=== PATIENT | female | born 1960 | race Caucasian/White ===

== ENCOUNTER 2018-05-28 11:27 | Inpatient (IN) ==
[2018-05-28] MEDS ORDERED: Sod Chloride 0.9% Inj 1,000 ML IV.SIG ONE (12:06)
[2018-05-28] MEDS ORDERED: Morphine Sulfate Inj 8 MG/ML Vial IV.PUSH ONE (12:09)
--- NOTE | 2018-05-28 12:26 | ED ---
HPI General Chief Complaint: Abdominal Pain Stated Complaint: ABD pain Time Seen by Provider: 05/28/18 11:52 Source: patient Mode of arrival: ambulatory Limitations: no limitations History of Present Illness HPI narrative: Patient is a 58-year-old female that presents with a CC of upper abdominal pain. The pain started three weeks ago and per patient report it has been constant. The pain is located epigastrically and seems to wrap around the rib cage and radiates to the back. The patient denies any radiation to the left or right arm. The patient describes the pain as sharp and rates the pain as a 8/ 10 on a pain scale with 1 representing no pain and 10 representing the worst pain. The patient states that the pain is much stronger than the pain she usually experiences due to her history of fibromyalgia. The patient states that she becomes short of breath during the intense episodes but she denies cough. The patient states the she has had fluctuating bowel movements of both constipation and diarrhea. She denies hematochezia. Patient also complains of lower leg weakness. Per patient she has not been able to walk 3 weeks. Per patient she is on the [facility] in For the past 3 weeks. She states that she might have fallen when she was at the facility but she is not sure. She states that she does not have any pain to her lower legs which she cannot walk on them anymore. Per patient she is to use a walker. No other medical issues at this time. Per patient she was recently admitted to a hospital secondary to sepsis and was in a "induced coma"secondary to the sepsis and was later released to the facility. She does have a history of polysubstance abuse per the records from the [facility] and she came positive for cocaine, benzos and opiates. She chronically takes Percocet 3 times a day. Related Data Allergies Allergy/AdvReac Type Severity Reaction Status Date / Time No Known Allergies Allergy Uncoded 05/11/14 14:22 [facility], [facility] Medical History Medical History Hypertension (Acute) Pneumonia (Acute) Social History Social History Substance History: No History of Abuse Second Hand Smoke Exposure: No Smoking Status: Former smoker Tobacco Type: Cigarettes How Often Do You Have a Drink Containing Alcohol: 2 to 4 times a month Recent Travel in [facility] within the Last 8 Weeks: No Recent Out of Country Travel within the Last 8 Weeks: No Exam Narrative Exam Narrative: GENERAL: Well appearing SKIN: Focused skin assessment warm/dry. HEAD: Atraumatic. Normocephalic. EYES: Pupils equal and round. No scleral icterus. No injection or drainage. ENT: No nasal bleeding or discharge. Mucous membranes pink and moist. Tongue is midline. No uvula deviation. NECK: Trachea midline. No JVD. CARDIOVASCULAR: Regular rate and rhythm. No murmur appreciated. RESPIRATORY: No accessory muscle use. Clear to auscultation. Breath sounds equal bilaterally. GASTROINTESTINAL: Abdomen soft, depressible pain in the epigastric area., nondistended. Hepatic and splenic margins not palpable. MUSCULOSKELETAL: No obvious deformities. No clubbing. No cyanosis. No edema. Full range of motion of the upper extremities bilaterally. 2+ pulses bilaterally. Patient cannot move the lower legs at all. Patient will not and cannot raise them up on her own. She does appear to have some sensation especially to pain. 2+ pulses bilaterally in the lower extremities. No obvious lumbar, thoracic, cervical spine tenderness to palpation. NEUROLOGICAL: Awake and alert. No obvious cranial nerve deficits. Motor grossly within normal limits. Normal speech. PSYCHIATRIC: Appropriate mood and affect; insight and judgment normal. Course Initial Documented Vital Signs Temperature 98.3 F 05/28/18 11:40 Pulse Rate 112 H 05/28/18 11:40 Respiratory Rate 20 05/28/18 11:40 Blood Pressure 120/58 L 05/28/18 11:40 Pulse Oximetry 98 05/28/18 11:40 Last Documented Vital Signs Temperature 98.3 F 05/28/18 11:40 Pulse Rate 95 H 05/28/18 14:41 Respiratory Rate 18 05/28/18 14:41 Blood Pressure 108/62 05/28/18 14:41 Pulse Oximetry 95 05/28/18 14:41 Medical Decision Making SILVIO Attestation SILVIO supervised visit: Yes Attestation: The history, exam, and medical decision-making in the associated mid-level provider note were completed with my assistance. I reviewed and agree with the findings presented. I attest that I had a [id number] encounter with the patient on the same day, and personally performed and documented my assessment and findings in the medical record. *My assessment and Findings: 58-year-old woman, here with abdominal bloating and back pain ongoing for the past several weeks, states she cannot lift her legs. On exam she does have upper motor neuron disease beats of clonus. Sensory deficits. She still has some motor and she is able to withdraw from pain. She states is been ongoing for weeks and she is in a nursing facility for difficulty walking. History of drug use in the past. CT scan confirms compressive cord lesion, osteomyelitis versus may be malignancy. Will discuss with neurosurgery, admission. [facility] Narrative Medical decision making narrative: 58-year-old female that presents to the ED for evaluation of lower leg weakness and abdominal pain. Patient was properly examined and was found to have signs and symptoms concerning for cord compression versus fracture. Apparently she did had a mechanical fall and could have a fracture on her back. She does appear to be tachycardic on exam. Labs and imaging were ordered. Per patient she is now been ambulating at all for the past 3 weeks and used to be able to walk with a walker. My attending Dr. Betancur evaluated the patient himself and agrees with plan. He recommends CTs at this time as patient does have a pacemaker placed last week. I am trying to get the records from the patient's admission to [facility] as this was not brought with the patient. Patient was given pain medication IV. Labs and imaging showed what appears to be acute osteomyelitis of the T7 and T8 area with what appears to be cord compression. This appears to be new. It appears to be infectious per radiology report. No PE. My attending was made aware of findings and he recommends speaking with neurosurgery. I spoke with Dr. Oliver over the phone who came and evaluated the patient he will evaluate to see whether patient will require surgery. Patient will be started IV antibiotics. Case discussed with Dr. العراقي who agrees admission to his service. Medical Screen Exam Complete: Yes Emergency Medical Condition: Yes Differential Diagnosis Differential Diagnosis: Cord compression versus fracture versus acute abdomen versus diverticulitis versus pancreatitis versus gallbladder disease versus PE versus chest pain versus typical chest pain versus neuropathy versus radiculopathy Medical Records Medical records reviewed: Yes I reviewed the patient's medical records. Lab Data Lab results reviewed: Yes I reviewed the patient's lab results. Result diagrams: 05/28/18 12:51 05/28/18 12:51 Lab Results 05/28/18 05/28/18 05/28/18 Range/Units 12:51 12:51 12:51 WBC 7.4 (4.0-11.0) th/mm3 RBC 3.28 L (4.00-5.30) mil/mm3 Hgb 8.9 L (11.6-15.3) gm/dL Hct 26.6 L (35.0-46.0) % MCV 81.1 (80.0-100.0) fL MCH 27.1 (27.0-34.0) pg MCHC 33.5 (32.0-36.0) % RDW 16.2 (11.6-17.2) % Plt Count 297 (150-450) th/mm3 MPV 8.5 (7.0-11.0) fL Neut % (Auto) 57.7 (16.0-70.0) % Lymph % (Auto) 27.2 (9.0-44.0) % [place] % (Auto) 12.9 H (0.0-8.0) % Eos % (Auto) 1.2 (0.0-4.0) % Baso % (Auto) 1.0 (0.0-2.0) % Neut # (Auto) 4.3 (1.8-7.7) th/mm3 Lymph # (Auto) 2.0 (1.0-4.8) th/mm3 [place] # (Auto) 1.0 H (0.0-0.9) th/mm3 Eos # (Auto) 0.1 (0.0-0.4) th/mm3 Baso # (Auto) 0.1 (0.0-0.2) th/mm3 WBC Differential . Differential Comment Auto diff final PT 10.3 (9.8-11.6) sec INR 1.0 Ratio APTT 28.0 (24.3-30.1) sec D-Dimer Quant (PE/DVT) 2.54 H (0.00-0.50) mg/L FEU Sodium (136-145) meq/L Potassium (3.5-5.1) meq/L Chloride (98-107) meq/L Carbon Dioxide (21.0-32.0) meq/L Anion Gap (5-15) meq/L BUN (7-18) mg/dL Creatinine (0.50-1.00) mg/dL Estimated GFR (>89) mL/min Random Glucose (74-106) mg/dL Lactic Acid 0.9 (0.4-2.0) mmol/L Calcium (8.5-10.1) mg/dL Total Bilirubin (0.2-1.0) mg/dL AST (15-37) U/L ALT (10-53) U/L Alkaline Phosphatase (45-117) U/L Total Creatine Kinase (26-192) U/L Troponin I (0.02-0.05) ng/mL Total Protein (6.4-8.2) g/dL Albumin (3.4-5.0) g/dL Lipase (73-393) U/L Urine Color (Yellw/Straw) Urine Clarity (Clear) Urine pH (5.0-8.5) Ur Specific Una (1.002-1.035) Urine Protein (Neg-Trace) mg/dL Urine Glucose (UA) (Negative) mg/dL Urine Ketones (Negative) mg/dL Urine Occult Blood (Negative) Urine Nitrate (Negative) Urine Bilirubin (Negative) Urine Urobilinogen (Less than 2) mg/dL Ur Leukocyte Esterase (Negative) Urine RBC (0-3) /hpf Urine WBC (0-5) /hpf Ur Squamous Epith Cells (0-5) /hpf Urine Bacteria (None) /hpf Micro UA Comment Ur Microscopic Review Urine Culture Comments 05/28/18 05/28/18 Range/Units 12:51 13:00 WBC (4.0-11.0) th/mm3 RBC (4.00-5.30) mil/mm3 Hgb (11.6-15.3) gm/dL Hct (35.0-46.0) % MCV (80.0-100.0) fL MCH (27.0-34.0) pg MCHC (32.0-36.0) % RDW (11.6-17.2) % Plt Count (150-450) th/mm3 MPV (7.0-11.0) fL Neut % (Auto) (16.0-70.0) % Lymph % (Auto) (9.0-44.0) % [place] % (Auto) (0.0-8.0) % Eos % (Auto) (0.0-4.0) % Baso % (Auto) (0.0-2.0) % Neut # (Auto) (1.8-7.7) th/mm3 Lymph # (Auto) (1.0-4.8) th/mm3 [place] # (Auto) (0.0-0.9) th/mm3 Eos # (Auto) (0.0-0.4) th/mm3 Baso # (Auto) (0.0-0.2) th/mm3 WBC Differential Differential Comment PT (9.8-11.6) sec INR Ratio APTT (24.3-30.1) sec D-Dimer Quant (PE/DVT) (0.00-0.50) mg/L FEU Sodium 138 (136-145) meq/L Potassium 3.8 (3.5-5.1) meq/L Chloride 103 (98-107) meq/L Carbon Dioxide 23.8 (21.0-32.0) meq/L Anion Gap 11 (5-15) meq/L BUN 11 (7-18) mg/dL Creatinine 0.98 (0.50-1.00) mg/dL Estimated GFR 58 L (>89) mL/min Random Glucose 86 (74-106) mg/dL Lactic Acid (0.4-2.0) mmol/L Calcium 8.3 L (8.5-10.1) mg/dL Total Bilirubin 0.2 (0.2-1.0) mg/dL AST 21 (15-37) U/L ALT 14 (10-53) U/L Alkaline Phosphatase 85 (45-117) U/L Total Creatine Kinase 37 (26-192) U/L Troponin I Less than 0.02 L (0.02-0.05) ng/mL Total Protein 7.9 (6.4-8.2) g/dL Albumin 2.3 L (3.4-5.0) g/dL Lipase 86 (73-393) U/L Urine Color Yellow (Yellw/Straw) Urine Clarity Cloudy H (Clear) Urine pH 6.0 (5.0-8.5) Ur Specific Una 1.012 (1.002-1.035) Urine Protein Negative (Neg-Trace) mg/dL Urine Glucose (UA) Negative (Negative) mg/dL Urine Ketones Negative (Negative) mg/dL Urine Occult Blood Negative (Negative) Urine Nitrate Negative (Negative) Urine Bilirubin Negative (Negative) Urine Urobilinogen Less than 2 (Less than 2) mg/dL Ur Leukocyte Esterase Trace H (Negative) Urine RBC 3 (0-3) /hpf Urine WBC 6 H (0-5) /hpf Ur Squamous Epith Cells 41 (0-5) /hpf Urine Bacteria Rare H (None) /hpf Micro UA Comment Cath-culture ind Ur Microscopic Review Not Reportable Urine Culture Comments Cath-cult indicated Imaging Data Attestation: I personally reviewed and interpreted this imaging study as follows : Radiologist's impression: Chest X-Ray 05/28/18 12:06 CONCLUSION: Hypoaerated lungs. No evidence of acute cardiopulmonary process. Pacemaker and right upper extremity PICC line noted in place. Abdomen/Pelvis CT 05/28/18 12:11 CONCLUSION: 1. Bibasilar reactive pleural thickening and small effusions with compressive atelectasis as described. 2. Paraspinal reactive changes in the mid to lower thoracic spine. 3. Mild intestinal ileus without pathologic distention. 4. No other evidence of acute process in the abdomen or pelvis. Cervical Spine CT 05/28/18 13:18 CONCLUSION: 1. Degenerative disc disease and facet arthropathy as described. 2. No evidence of acute abnormality. Lumbar Spine CT 05/28/18 13:18 CONCLUSION: 1. Degenerative listhesis at L4-5 secondary to facet arthropathy. 2. No evidence of acute process, disc herniation or soft tissue inflammatory disease. Thoracic Spine CT 05/28/18 13:18 CONCLUSION: 1. Destructive process involving the T5-6 intervertebral disc, T6-7 intervertebral disc, T6 vertebral body and T7 vertebral body characteristic of discitis and osteomyelitis. An acute kyphotic deformity has developed secondary to compression deformity of the T6 and T7 vertebral bodies. 2. Significant compromise of the central spinal canal at T6-7 is noted. There is material body fragmentation with calcific densities extending into the spinal canal. Significant spinal cord compression is suspected. 3. Otherwise intact thoracic spine. Chest CTA 05/28/18 13:41 CONCLUSION: 1. No evidence of pulmonary embolism. 2. Destructive osseous process involving the T6 and T7 vertebral bodies with complete obliteration of the T6-7 intervertebral disc and significant paraspinal reactive changes. Osteomyelitis and discitis should be considered as a primary cause. 3. Small bilateral pleural effusions and peripheral consolidating airspace disease in both lower lobes. Discharge Plan Discharge Disposition Patient Disposition: 30 Still Patient Discharge Details Diagnosis: Osteomyelitis Physicians Team ED Provider: Armen Betancur ED Midlevel Provider: Jose Hernandez Primary Care Provider: Primary Care Michelle Eng Attending Provider: Vivek العراقي Discharge Interventions Interventions: Vital Signs Last Done: 05/28/18 14:41 Status ED Status: With Doctor
[2018-05-28] MEDS ORDERED: HYDROmorphone PF Inj 2 MG/ML Vial IV.PUSH ONE (13:11)
[2018-05-28 13:16] LABS: Baso # (Auto) 0.1 th/mm3 (0.0-0.2); Eos # (Auto) 0.1 th/mm3 (0.0-0.4); Eos % (Auto) 1.2 % (0.0-4.0); Hematocrit 26.6 % (35.0-46.0); Hemoglobin 8.9 gm/dL (11.6-15.3); Lymph % (Auto) 27.2 % (9.0-44.0); Mean Corpuscular HGB Conc 33.5 % (32.0-36.0); Mean Corpuscular Hemoglobin 27.1 pg (27.0-34.0); Mean Corpuscular Volume 81.1 fL (80.0-100.0); Mean Platelet Volume 8.5 fL (7.0-11.0); Mono % (Auto) 12.9 % (0.0-8.0); Neut # (Auto) 4.3 th/mm3 (1.8-7.7); Neut % (Auto) 57.7 % (16.0-70.0); Platelet Count 297 th/mm3 (150-450); Red Blood Count 3.28 mil/mm3 (4.00-5.30); Red Cell Distribution Width 16.2 % (11.6-17.2); White Blood Count 7.4 th/mm3 (4.0-11.0)
--- NOTE | 2018-05-28 13:18 | XR ---
EXAM DATE: 05/28/2018 1:05 PM EDT AGE/SEX: 58 years / Female INDICATIONS: Short of breath, lower chest pain, upper abdomen pain, distended abdomen and back pain CLINICAL DATA: This is the patient's initial encounter. Patient reports that signs and symptoms have been present for 4 - 6 days and indicates a pain score of 10/10. MEDICAL/SURGICAL HISTORY: Cardiovascular disease. Pacemaker. COMPARISON: No prior exams available for comparison. FINDINGS: Lungs are hypoaerated but otherwise clear. There is no significant airspace disease or evidence of ac mauricio congestion. Heart and mediastinal structures are unremarkable. Cardiac pacemaker and right upper extremity PICC line are noted in place. CONCLUSION: Hypoaerated lungs. No evidence of acute cardiopulmonary process. Pacemaker and right upper extremity PICC line noted in place. Electronically signed by: Syed Monge MD 05/28/2018 1:16 PM EDT
[2018-05-28 13:30] LABS: Prothrombin Time 10.3 sec (9.8-11.6)
[2018-05-28 13:32] LABS: Alanine Aminotransferase 14 U/L (10-53); Albumin 2.3 g/dL (3.4-5.0); Anion Gap 11 meq/L (5-15); Aspartate Aminotransferase 21 U/L (15-37); Blood Urea Nitrogen 11 mg/dL (7-18); Calcium 8.3 mg/dL (8.5-10.1); Carbon Dioxide 23.8 meq/L (21.0-32.0); Chloride 103 meq/L (98-107); Glomerular Filtration Rate 58 mL/min (>89); Glucose,Random 86 mg/dL (74-106); Lipase 86 U/L (73-393); Potassium 3.8 meq/L (3.5-5.1); Sodium 138 meq/L (136-145)
[2018-05-28 13:35] LABS: D-Dimer 2.54 mg/L FEU (0.00-0.50)
[2018-05-28 13:37] LABS: Alkaline Phosphatase 85 U/L (45-117); Creatine Kinase 37 U/L (26-192); Total Protein 7.9 g/dL (6.4-8.2)
[2018-05-28 13:51] LABS: Bacteria,Urine Rare /hpf; Bilirubin,Urine Negative (Negative); Clarity,Urine Cloudy (Clear); Color,Urine Yellow (Yellw/Straw); Glucose,Urine (UA) Negative (Negative); Leukocyte Esterase,Urine Trace (Negative); Nitrite,Urine Negative (Negative); Specific Gravity,Urine 1.012 (1.002-1.035); Squamous Epithelial Cell,Urine 41 /hpf (0-5)
[2018-05-28] MEDS ORDERED: HYDROmorphone PF Inj 0.5 MG/0.5 ML Syringe IV.PUSH ONE (14:36)
--- NOTE | 2018-05-28 14:53 | CT ---
EXAM DATE: 05/28/2018 2:40 PM EDT AGE/SEX: 58 years / Female INDICATIONS: Upper abdomen and back pain for 3 weeks CLINICAL DATA: This is the patient's initial encounter. Patient reports that signs and symptoms have been present for 3 weeks and indicates a pain score of 5/10. MEDICAL/SURGICAL HISTORY: Hypertension. None. RADIATION DOSE: 8.89 CTDI (mGy) ; Combined studies COMPARISON: No prior exams available for comparison. TECHNIQUE: Volumetric scanning was performed using a multi-row detector CT scanner during bolus infu roc of 100 ml Omnipaque 350 (iohexol) nonionic water-soluble contrast as a cumulative dose for mult iple exams. The data was post processed with a variety of visualization algorithms including full vol ume maximum intensity projection and sliding thin slab reformation. Using automated exposure control and adjustment of the mA and/or kV according to patient size, radiation dose was kept as low as reaso nably achievable to obtain optimal diagnostic quality images. DICOM format image data is available e lectronically for review and comparison. FINDINGS: Pulmonary Arteries: No filling defects are seen in the pulmonary arteries out to the subsegmental ve ssels. The left and right pulmonary arteries are normal in diameter. Lung: Peripheral lung consolidation is seen along both lower lobes. Effusion: Small bilateral effusions are noted. Mediastinum: No evidence of mediastinal or hilar adenopathy. Other: Collapse and cortical destruction is identified of the T6 and T7 vertebral bodies. The T6-7 i ntervertebral disc is completely obliterated. There is significant paraspinal soft tissue swelling. T he inflammatory or reactive process completely encases the descending thoracic aorta. It appears to b e involving the mediastinum. CONCLUSION: 1. No evidence of pulmonary embolism. 2. Destructive osseous process involving the T6 and T7 vertebral bodies with complete obliteration o f the T6-7 intervertebral disc and significant paraspinal reactive changes. Osteomyelitis and disciti s should be considered as a primary cause. 3. Small bilateral pleural effusions and peripheral consolidating airspace disease in both lower lob es. Electronically signed by: Syed Monge MD 05/28/2018 2:52 PM EDT
--- NOTE | 2018-05-28 14:59 | CT ---
EXAM DATE: 05/28/2018 2:44 PM EDT AGE/SEX: 58 years / Female INDICATIONS: Upper abdomen and back pain for 3 weeks CLINICAL DATA: This is the patient's initial encounter. Patient reports that signs and symptoms have been present for 3 weeks and indicates a pain score of 5/10. MEDICAL/SURGICAL HISTORY: Hypertension. Pacemaker. RADIATION DOSE: 18 CTDI (mGy) COMPARISON: No prior exams available for comparison. TECHNIQUE: Contiguous axial images were obtained using helical multirow detector technique. The vol umetric data was post-processed with multiplanar reconstruction in oblique axial, sagittal, and coron al planes. Using automated exposure control and adjustment of the mA and/or kV according to patient s ize, radiation dose was kept as low as reasonably achievable to obtain optimal diagnostic quality chi ges. DICOM format image data is available electronically for review and comparison. FINDINGS: ALIGNMENT: Mild anterolisthesis is noted of C3 on C4 and C4 on C5. Craniocervical and vertebral body alignment is otherwise well-maintained.. FACET AND OSSEOUS STRUCTURES: Vertebral body height is well-maintained. There is no evidence of acut e fracture, or destructive changes. Moderate facet arthropathy is identified throughout the cervical spine. INTERVERTEBRAL DISC SPACES: Degenerative disc disease ranging from mild to moderately severe is noted. C2-3: Unremarkable. C3-4: Unremarkable. C4-5 mild degenerative disc disease with mild marginal disc osteophyte complex. There is mild foramin al encroachment but no evidence of disc herniation or spinal stenosis. C5-6: Moderately severe degenerative disc disease with collapse of the disc and endplate sclerosis. T here is marginal spondylosis. Mild posterior broad-based disc osteophyte complex with mild epidural e ffacement is noted. There is no evidence of disc herniation. C6-7: Mild degenerative disc disease without evidence of disc herniation, foraminal encroachment or s talha stenosis. C7-T1: Unremarkable. NEUROLOGIC STRUCTURES: The spinal cord and nerve roots appear normal. There is no evidence of keely roc. . CONCLUSION: 1. Degenerative disc disease and facet arthropathy as described. 2. No evidence of acute abnormality. Electronically signed by: Syed Monge MD 05/28/2018 2:57 PM EDT
--- NOTE | 2018-05-28 15:01 | CT ---
EXAM DATE: 05/28/2018 2:56 PM EDT AGE/SEX: 58 years / Female INDICATIONS: Upper abdomen and back pain CLINICAL DATA: This is the patient's initial encounter. Patient reports that signs and symptoms have been present for 3 weeks and indicates a pain score of 5/10. MEDICAL/SURGICAL HISTORY: Hypertension. Pacemaker. RADIATION DOSE: . CTDI (mGy) ; Reconstructed from previous dataset, no dose COMPARISON: No prior exams available for comparison. TECHNIQUE: Contiguous axial images were acquired with a multirow detector CT scanner after intraveno us administration of 100 ml Omnipaque 350 (iohexol) nonionic water-soluble contrast as a cumulative dose for multiple exams. Multiplanar reconstructions in the sagittal and coronal plane were also per formed. Using automated exposure control and adjustment of the mA and/or kV according to patient size , radiation dose was kept as low as reasonably achievable to obtain optimal diagnostic quality images . DICOM format image data is available electronically for review and comparison. FINDINGS: ALIGNMENT: Mild anterolisthesis is noted of L4 and L5. Vertebral body alignment and lordosis are oth erwise well-maintained. FACET AND OSSEOUS STRUCTURES: Vertebral body height is well-maintained. There is no evidence of acut e fracture, or destructive changes. Moderate to severe facet arthropathy is noted at L4-5 and L5-S1. INTERVERTEBRAL DISC SPACES: Intervertebral disc are well-maintained without evidence of significant degenerative change. There is no evidence of disc herniation. NEUROLOGIC STRUCTURES: The spinal cord and nerve roots appear normal. There is no evidence of keely roc. CONCLUSION: 1. Degenerative listhesis at L4-5 secondary to facet arthropathy. 2. No evidence of acute process, disc herniation or soft tissue inflammatory disease. Electronically signed by: Syed Monge MD 05/28/2018 3:00 PM EDT
--- NOTE | 2018-05-28 15:08 | CT ---
EXAM DATE: 05/28/2018 2:48 PM EDT AGE/SEX: 58 years / Female INDICATIONS: Upper abdomen and back pain for 3 weeks CLINICAL DATA: This is the patient's initial encounter. Patient reports that signs and symptoms have been present for 3 weeks and indicates a pain score of 5/10. MEDICAL/SURGICAL HISTORY: Hypertension. Pacemaker. ORAL CONTRAST: No oral contrast ingested. RADIATION DOSE: 15.85 CTDI (mGy) ; Combined studies COMPARISON: No prior exams available for comparison. TECHNIQUE: Multiple contiguous axial images were obtained through the abdomen and pelvis following b olus infusion of 100 ml Omnipaque 350 (iohexol) nonionic water-soluble contrast as a cumulative dos e for multiple exams. No oral contrast ingested. Using automated exposure control and adjustment of the mA and/or kV according to patient size, radiation dose was kept as low as reasonably achievable t o obtain optimal diagnostic quality images. DICOM format image data is available electronically for review and comparison. FINDINGS: Lower Lungs: Reactive pleural thickening with small bilateral effusions and underlying compressive at electasis is noted in both bases. There is significant paraspinal reactive changes in the mid to lowe r thoracic spine. Liver: The liver has a homogeneous density without space-occupying lesion. There is no dilation of th e biliary tree. Spleen: Homogeneous density without enlargement. Small calcified granulomas are noted. Pancreas: Unremarkable without mass or calcification. Kidneys: Normal in size and shape. No evidence of mass or hydronephrosis. Adrenal Glands: Unremarkable. Aorta: The aorta and proximal iliac vessels are grossly unremarkable without aneurysmal dilation. Bowel/Mesentery: Air-fluid levels are identified in nondistended loops of small bowel. There is no e vidence of pathologic distention, extra intestinal fluid collections or free air. Abdominal Wall: Intact. Retroperitoneum: No evidence of adenopathy in the retrocrural, para-aortic, or deep pelvic regions. Bladder: Distended Reproductive Organs: No abnormal masses or calcifications seen. Inguinal: The inguinal region is unremarkable without evidence of adenopathy. Bony Structures: Unremarkable. CONCLUSION: 1. Bibasilar reactive pleural thickening and small effusions with compressive atelectasis as describ ed. 2. Paraspinal reactive changes in the mid to lower thoracic spine. 3. Mild intestinal ileus without pathologic distention. 4. No other evidence of acute process in the abdomen or pelvis. Electronically signed by: Syed Monge MD 05/28/2018 3:07 PM EDT
[2018-05-28] MEDS ORDERED: Piperacil/Tazo 4.5 GM Premix 4.5 GM/100 ML BAG IV.SIG ONE (15:11)
[2018-05-28] MEDS ORDERED: Vancomycin Inj 1 GM/200 ML PIGGYBACK IV.SIG ONE (15:11)
--- NOTE | 2018-05-28 15:16 | CT ---
EXAM DATE: 05/28/2018 3:06 PM EDT AGE/SEX: 58 years / Female INDICATIONS: Upper abdomen and back pain CLINICAL DATA: This is the patient's initial encounter. Patient reports that signs and symptoms have been present for 3 weeks and indicates a pain score of 5/10. MEDICAL/SURGICAL HISTORY: Hypertension. Pacemaker. RADIATION DOSE: . CTDI (mGy) ; Reconstructed from previous dataset, no dose COMPARISON: No prior exams available for comparison. TECHNIQUE: Contiguous axial images were acquired using a multirow detector CT scanner after intraven ous administration of 100 ml Omnipaque 350 (iohexol) nonionic water-soluble contrast as a cumulative dose for multiple exams. Multiplanar reconstruction in the sagittal and coronal planes was perform ed. Using automated exposure control and adjustment of the mA and/or kV according to patient size, r adiation dose was kept as low as reasonably achievable to obtain optimal diagnostic quality images. DICOM format image data is available electronically for review and comparison. FINDINGS: A destructive process with pathologic compression fractures of the T6 and T7 vertebral bodies is note d. The T6-7 intervertebral disc has been completely obliterated. Endplate destructive changes are als o noted along the inferior endplate of T5 with destructive changes involving the T5-6 intervertebral disc. An acute kyphotic deformity has developed at this level. Spiculated calcification or stenosis is fragmentation of the vertebral bodies extends posteriorly int o the spinal canal and appears to cause significant compromise of the spinal canal and spinal cord co mpression. Paraspinal reactive changes which encases the descending thoracic aorta and extend into the mediastin um are noted. Thoracic spine otherwise appears intact. CONCLUSION: 1. Destructive process involving the T5-6 intervertebral disc, T6-7 intervertebral disc, T6 vertebra l body and T7 vertebral body characteristic of discitis and osteomyelitis. An acute kyphotic deformit y has developed secondary to compression deformity of the T6 and T7 vertebral bodies. 2. Significant compromise of the central spinal canal at T6-7 is noted. There is material body fragm entation with calcific densities extending into the spinal canal. Significant spinal cord compression is suspected. 3. Otherwise intact thoracic spine. Electronically signed by: Syed Monge MD 05/28/2018 3:15 PM EDT
[2018-05-28] MEDS ORDERED: Vancomycin Inj 1,000 MG in Sodium Chlor 0.9% Inj 250 ML IV.SIG ONE (15:30)
[2018-05-28] MEDS ORDERED: Vancomycin Consult Pharmacy OTHER PRN (15:40)
[2018-05-28] MEDS ORDERED: Acetaminophen 325 MG Tablet PO PRN ×2 (15:42→15:43)
[2018-05-28] MEDS ORDERED: Naloxone Inj 0.4 MG/ML Vial IV.PUSH PRN (15:42)
[2018-05-28] MEDS ORDERED: Bisacodyl 10 MG Supp RECTAL PRN (15:43)
[2018-05-28] MEDS: HYDROmorphone PF Inj 1 MG/ML Ampul IV.PUSH PRN ×2 (17:46→21:23)
--- NOTE | 2018-05-28 17:46 | P.HP ---
History of Present Illness Primary Care Physician: No Primary Care Physician Chief Complaint: back pain History of Present Illness: This is a 58-year-old female with a history of hypertension, GERD, anemia, constipation, gout, fibromyalgia, chronic pain syndrome, anxiety, depression and migraine. She came from a local rehab facility where she was treated for generalized weakness, acute kidney injury and dehydration. She is also receiving IV Rocephin for pneumonia. 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 She also reports of sepsis secondary to pneumonia in January 2018 and was in a induced coma. She also history of polysubstance abuse UDS tested for cocaine, benzos and opiates. She presents to the emergency room because of upper back pain and bilateral lower extremity weakness. She reports of bilateral lower extremity weakness unable to get out of bed and ambulate for 2 weeks. At the same time she complained of constant sharp severe upper back pain worse with activity different from her usual neck and lower back pain. Denies recent fall. Denies numbness and incontinence. She also reports of upper abdominal discomfort which is sharp and constant worse with eating associated with abdominal distention. Denies UTI symptoms, constipation and diarrhea. In the emergency department, she was found to have destructive process involving T5-6 intervertebral disc, T6-7 intervertebral discs T6 vertebral body and T7 vertebral body characteristic of discitis and osteomyelitis. Also has a acute kyphotic deformity of T6 and T7 vertebral bodies. Discussed with neurosurgery, recommended IV antibiotics and IR consult for this biopsy. All other systems reviewed negative Inpatient Certification: I certify that the inpatient services were ordered in accordance with Medicare regulations governing the order. This includes certification that hospital inpatient services are reasonable and necessary and in the case of services not specified as inpatient-only under 42 CFR 419.22(n), that they are appropriately provided as inpatient services in accordance to with the 2-midnight benchmark under 43 CFR 412.3(e) Estimated Total Length of Stay (Days): 2 Plans for Post Hospital Care: SNF Review of Systems All other systems reviewed negative except as stated in HPI PMFSH - History History Provided By: Patient - Medical History Medical History: Medical History (Last Reviewed 05/28/18 @ 17:38 by Vivek العراقي MD) Hypertension Pneumonia - Surgical History Surgical History: Surgical History (Last Updated 05/28/18 @ 17:39 by Vivek العراقي MD) H/O tracheostomy History of carpal tunnel surgery - Family History Family History: Family History (Last Updated 05/28/18 @ 17:39 by Vivek العراقي MD) Other Family history of acute myocardial infarction - Tobacco History Second Hand Smoke Exposure: No Tobacco Use In Past 30 Days: No Smoking Status: Former smoker Tobacco Type: Cigarettes - Alcohol History How Often Do You Have a Drink Containing Alcohol: 2 to 4 times a month - Substance Use History Substance History: No History of Abuse - Travel History Recent Travel in the USA Within the Last 8 Weeks: No Recent Travel Out of the Country Within the Last 8 Weeks: No - Immunization History Tetanus Immunization: Unsure Hx Influenza Vaccine This Season: No Medications and Allergies Active Medications: Active Medications Acetaminophen (Tylenol) 650 mg PO Q6HR PRN PRN Reason: PAIN SCALE 1 TO 2 Acetaminophen (Tylenol) 650 mg PO Q4H PRN PRN Reason: Temp > 100.4 Hydrocodone Bitart/Acetaminophen ([place] 10/325) 1 tab PO Q4H PRN PRN Reason: PAIN SCALE 6 TO 10 Hydrocodone Bitart/Acetaminophen ([place] 5/325) 1 tab PO Q4H PRN PRN Reason: PAIN SCALE 3 TO 5 Al Hydroxide/Mg Hydroxide (Milk Of Magnesia Liq) 30 ml PO Q12H PRN PRN Reason: Mild Constipation Albuterol (Albuterol Neb (Prn)) 2.5 mg NEB Q2HR NEB PRN PRN Reason: SHORTNESS OF BREATH/WHEEZING Alprazolam (Xanax) 0.5 mg PO BID PRN PRN Reason: Anxiety Bisacodyl (Dulcolax Supp) 10 mg RECTAL DAILY PRN PRN Reason: SEVERE CONSITIPATION Duloxetine HCl (Cymbalta) 60 mg PO DAILY KATIE Famotidine (Pepcid) 20 mg PO BID KATIE Hydromorphone HCl (Dilaudid Pf Inj) 1 mg IV.PUSH Q3H PRN PRN Reason: BREAKTHROUGH PAIN Sodium Chloride (Ns Inj) 1,000 mls @ 100 mls/hr IV.CONT .Q10H KATIE Piperacillin/Tazobactam/Dextrose (Zosyn 3.375 Gm Premix) 50 mls @ 100 mls/hr IV.SIG Q6H KATIE Vancomycin HCl 1,750 mg/ (Sodium Chloride) 517.5 mls @ 250 mls/hr IV.SIG Q18H KATIE Lactulose (Lactulose Liq) 30 ml PO DAILY PRN PRN Reason: SEVERE CONSITIPATION Metoclopramide HCl (Reglan) 10 mg PO ACHS KATIE Miscellaneous Information ([facility] [place] [facility] Ordered Lab Info) 0 each OTHER ONCE ONE Stop: 05/30/18 23:46 Naloxone HCl (Narcan Inj) 0.4 mg IV.PUSH UNSCH PRN PRN Reason: SEE LABEL COMMENTS Non-Formulary Medication (Cyclobenzaprine [Cyclobenzaprine]) 5 mg PO TID PRN PRN Reason: Pain Ondansetron HCl (Zofran Inj) 4 mg IV.PUSH Q6H PRN PRN Reason: NAUSEA OR VOMITING Pharmacy Profile Note (Vancomycin Consult Pharmacy) 1 each OTHER UNSCH PRN PRN Reason: Pharmacy to dose Senna/Docusate Sodium (Sarahy-Colace) 1 tab PO BID [facility] Sennosides (Senokot) 17.2 mg PO Q12H PRN PRN Reason: Moderate Constipation Allergies Allergy/AdvReac Type Severity Reaction Status Date / Time No Known Allergies Allergy Uncoded 05/11/14 14:22 Home Medications Medication Instructions Recorded Confirmed Type acetaminophen 650 mg PO Q8H PRN 05/28/18 05/28/18 History alprazolam 0.5 mg PO BID PRN 05/28/18 05/28/18 History ceftriaxone 2 g IV Q24H 05/28/18 05/28/18 History cyclobenzaprine 5 mg PO TID PRN 05/28/18 05/28/18 History duloxetine 60 mg PO DAILY 05/28/18 05/28/18 History famotidine 20 mg PO BID 05/28/18 05/28/18 History oxycodone-acetaminophen [Percocet] 1 tab PO Q6H PRN 05/28/18 05/28/18 History Exam Vital signs: Vital Signs 05/28/18 11:40 05/28/18 11:43 05/28/18 14:41 Temperature 98.3 F Pulse Rate 112 H 102 H 95 H Respiratory Rate 20 18 18 Blood Pressure 120/58 L 117/57 L 108/62 Pulse Oximetry 98 97 95 05/28/18 16:24 Temperature Pulse Rate 93 H Respiratory Rate 18 Blood Pressure 105/63 Pulse Oximetry 97 Intake & Output 05/27/18 05/28/18 05/28/18 18:59 06:59 18:59 Weight 81.647 kg Narrative: GENERAL: Well-developed, well-nourished in no distress SKIN: Warm and dry. HEAD: Atraumatic. Normocephalic. EYES: Pupils equal and round. No scleral icterus. No injection or drainage. ENT: No nasal bleeding or discharge. Mucous membranes pink and moist. NECK: Trachea midline. No JVD. CARDIOVASCULAR: Regular rate and rhythm. RESPIRATORY: No accessory muscle use. Clear to auscultation. Breath sounds equal bilaterally. GASTROINTESTINAL: Abdomen soft, non-tender, nondistended. MUSCULOSKELETAL: Extremities without clubbing, cyanosis, or edema. No obvious deformities. She refused to roll over back not examined NEUROLOGICAL: Awake and alert. No obvious cranial nerve deficits. Normal speech. She has paraplegia PSYCHIATRIC: Appropriate mood and affect; insight and judgment normal. Results - Labs CBC & Chem 7: 05/28/18 12:51 05/28/18 12:51 Labs: Laboratory Results - last 24 hr 05/28/18 05/28/18 05/28/18 12:51 12:51 12:51 WBC 7.4 RBC 3.28 L Hgb 8.9 L Hct 26.6 L MCV 81.1 MCH 27.1 MCHC 33.5 RDW 16.2 Plt Count 297 MPV 8.5 Neut % (Auto) 57.7 Lymph % (Auto) 27.2 [place] % (Auto) 12.9 H Eos % (Auto) 1.2 Baso % (Auto) 1.0 Neut # (Auto) 4.3 Lymph # (Auto) 2.0 [place] # (Auto) 1.0 H Eos # (Auto) 0.1 Baso # (Auto) 0.1 WBC Differential . Differential Comment Auto diff final PT 10.3 INR 1.0 APTT 28.0 D-Dimer Quant (PE/DVT) 2.54 H Sodium Potassium Chloride Carbon Dioxide Anion Gap BUN Creatinine Estimated GFR Random Glucose Lactic Acid 0.9 Calcium Total Bilirubin AST ALT Alkaline Phosphatase Total Creatine Kinase Troponin I Total Protein Albumin Lipase Urine Color Urine Clarity Urine pH Ur Specific [place] Urine Protein Urine Glucose (UA) Urine Ketones Urine Occult Blood Urine Nitrate Urine Bilirubin Urine Urobilinogen Ur Leukocyte Esterase Urine RBC Urine WBC Ur Squamous Epith Cells Urine Bacteria Micro UA Comment Ur Microscopic Review Urine Culture Comments 05/28/18 05/28/18 12:51 13:00 WBC RBC Hgb Hct MCV MCH MCHC RDW Plt Count MPV Neut % (Auto) Lymph % (Auto) [place] % (Auto) Eos % (Auto) Baso % (Auto) Neut # (Auto) Lymph # (Auto) [place] # (Auto) Eos # (Auto) Baso # (Auto) WBC Differential Differential Comment PT INR APTT D-Dimer Quant (PE/DVT) Sodium 138 Potassium 3.8 Chloride 103 Carbon Dioxide 23.8 Anion Gap 11 BUN 11 Creatinine 0.98 Estimated GFR 58 L Random Glucose 86 Lactic Acid Calcium 8.3 L Total Bilirubin 0.2 AST 21 ALT 14 Alkaline Phosphatase 85 Total Creatine Kinase 37 Troponin I Less than 0.02 L Total Protein 7.9 Albumin 2.3 L Lipase 86 Urine Color Yellow Urine Clarity Cloudy H Urine pH 6.0 Ur Specific [place] 1.012 Urine Protein Negative Urine Glucose (UA) Negative Urine Ketones Negative Urine Occult Blood Negative Urine Nitrate Negative Urine Bilirubin Negative Urine Urobilinogen Less than 2 Ur Leukocyte Esterase Trace H Urine RBC 3 Urine WBC 6 H Ur Squamous Epith Cells 41 Urine Bacteria Rare H Micro UA Comment Cath-culture ind Ur Microscopic Review Not Reportable Urine Culture Comments Cath-cult indicated - Imaging Impressions Chest X-Ray 05/28/18 12:06 CONCLUSION: Hypoaerated lungs. No evidence of acute cardiopulmonary process. Pacemaker and right upper extremity PICC line noted in place. Abdomen/Pelvis CT 05/28/18 12:11 CONCLUSION: 1. Bibasilar reactive pleural thickening and small effusions with compressive atelectasis as described. 2. Paraspinal reactive changes in the mid to lower thoracic spine. 3. Mild intestinal ileus without pathologic distention. 4. No other evidence of acute process in the abdomen or pelvis. Cervical Spine CT 05/28/18 13:18 CONCLUSION: 1. Degenerative disc disease and facet arthropathy as described. 2. No evidence of acute abnormality. Lumbar Spine CT 05/28/18 13:18 CONCLUSION: 1. Degenerative listhesis at L4-5 secondary to facet arthropathy. 2. No evidence of acute process, disc herniation or soft tissue inflammatory disease. Thoracic Spine CT 05/28/18 13:18 CONCLUSION: 1. Destructive process involving the T5-6 intervertebral disc, T6-7 intervertebral disc, T6 vertebral body and T7 vertebral body characteristic of discitis and osteomyelitis. An acute kyphotic deformity has developed secondary to compression deformity of the T6 and T7 vertebral bodies. 2. Significant compromise of the central spinal canal at T6-7 is noted. There is material body fragmentation with calcific densities extending into the spinal canal. Significant spinal cord compression is suspected. 3. Otherwise intact thoracic spine. Chest CTA 05/28/18 13:41 CONCLUSION: 1. No evidence of pulmonary embolism. 2. Destructive osseous process involving the T6 and T7 vertebral bodies with complete obliteration of the T6-7 intervertebral disc and significant paraspinal reactive changes. Osteomyelitis and discitis should be considered as a primary cause. 3. Small bilateral pleural effusions and peripheral consolidating airspace disease in both lower lobes. Caprini VTE Risk Assessment Caprini VTE Risk Assessment: Moderate/High Risk (score >= 2) Caprini Risk Assessment Model: Point Value = 1 Point Value = 2 Point Value = 3 Point Value = 5 Age 41-60 Minor surgery BMI > 25 kg/m2 Swollen legs Varicose veins or History of unexplained or recurrent spontaneous Oral contraceptives or hormone replacement Sepsis (< 1 month) Serious lung disease, including pneumonia (< 1 month) Abnormal pulmonary function Acute myocardial infarction Congestive heart failure (< 1 month) History of inflammatory bowel disease Medical patient at bed rest Age 61-74 Arthroscopic surgery Major open surgery (> 45 min) Laparoscopic surgery (> 45 min) Malignancy Confined to bed (> 72 hours) Immobilizing plaster cast Central venous access Age >= 75 History of VTE Family history of VTE Factor V Leiden Prothrombin [id number] Lupus anticoagulant Anticardiolipin antibodies Elevated serum homocysteine Heparin-induced thrombocytopenia Other congenital or acquired thrombophilia Stroke (< 1 month) Elective arthroplasty Hip, pelvis, or leg fracture Acute spinal cord injury (< 1 month) Prophylaxis Regimen: Total Risk Factor Score Risk Level Prophylaxis Regimen 0-1 Low Early ambulation 2 Moderate Order ONE of the following: *Sequential Compression Device (SCD) *Heparin 5000 units SQ BID 3-4 Higher Order ONE of the following medications: *Heparin 5000 units SQ TID *Enoxaparin/Lovenox 40 mg SQ daily (WT < 150 kg, CrCl > 30 mL/min) *Enoxaparin/Lovenox 30 mg SQ daily (WT < 150 kg, CrCl > 10-29 mL/min) *Enoxaparin/Lovenox 30 mg SQ BID (WT < 150 kg, CrCl > 30 mL/min) AND/OR *Sequential Compression Device (SCD) 5 or more Highest Order ONE of the following medications: *Heparin 5000 units SQ TID (Preferred with Epidurals) *Enoxaparin/Lovenox 40 mg SQ daily (WT < 150 kg, CrCl > 30 mL/min) *Enoxaparin/Lovenox 30 mg SQ daily (WT < 150 kg, CrCl > 10-29 mL/min) *Enoxaparin/Lovenox 30 mg SQ BID (WT < 150 kg, CrCl > 30 mL/min) AND *Sequential Compression Device (SCD) Assessment and Plan - Plan This is a 58-year-old female with a history of hypertension, GERD, anemia, constipation, gout, fibromyalgia, chronic pain syndrome, PSA, anxiety, depression and migraine. She presents to the emergency room because of upper back pain and bilateral lower extremity weakness. She reports of bilateral lower extremity weakness unable to get out of bed and ambulate for 2 weeks. At the same time she complained of constant sharp severe upper back pain worse with activity different from her usual neck and lower back pain. Destructive process involving T5-6 intervertebral disc, T6-7 intervertebral discs T6 vertebral body and T7 vertebral body characteristic of discitis and osteomyelitis. Also has a acute kyphotic deformity of T6 and T7 vertebral bodies. Patient will be admitted for further evaluation and treatment. Case discussed with neurosurgery. Continue IV vancomycin and Zosyn. Follow-up blood cultures consider echocardiogram. Pain management with Percocet and IV Dilaudid counseled regarding narcotics. Obtain ESR and consult IR for biopsy. Consider infectious disease consult. Patient will remain on bedrest consult PT and orthotech for brace. Abdominal pain secondary to ileus and possible UTI. Lipase within normal limits. Scheduled Reglan. Patient will be on antibiotics as previously mentioned. Follow-up urine culture. Wound care. 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 Start pharmacological prophylaxis after biopsy ED nurse to complete med rec.
[2018-05-28] MEDS: Sod Chloride 0.9% Inj 1,000 ML IV.CONT SCH (17:47)
--- NOTE | 2018-05-28 17:56 | P.CONNS ---
History of Present Illness Service: ED Consult date: 05/28/18 Requesting Physician: Jose Hernandez Reason for Consult: paraplegia Primary Care Provider: No Primary Care Physician Chief Complaint: paraplegia History of Present Illness: 58yoF who has been unable to walk for 1-2 weeks, history unclear. Time course reconstructed from notes as patient's history on dates fluctuates. Seen at [facility] ~2 weeks ago with noted exam of 4/5 strength and some complaint of LE weakness. PICC line placed and patient treated for presumptive pneumonia, presumably Ceftriaxone. History of MRSA breast abscess in the past. Sometime in past two weeks, patient reports ~1 week ago, some notes say 2, she had difficulty rising. Has been unable to move legs since that time. Does have some sensation in the legs. A pacemaker was placed in the past few weeks due to bradycardia. Prior to that , an MRI Brain and CT L-spine were obtained at [facility], unrevealing. CT chest obtained in early April, showing no evidence of bony destruction in the thoracic spine. However, on today's scan, there is collapse of near complete collapse of T6/7 and retropulsion of bone with some extension to mediastinum. [facility] - History History Provided By: Patient - Medical History Medical History: Medical History (Last Reviewed 05/28/18 @ 17:38 by Vivek العراقي MD) Hypertension Pneumonia - Surgical History Surgical History: Surgical History (Last Updated 05/28/18 @ 17:39 by Vivek العراقي MD) H/O tracheostomy History of carpal tunnel surgery - Family History Family History: Family History (Last Updated 05/28/18 @ 17:39 by Vivek العراقي MD) Other Family history of acute myocardial infarction - Tobacco History Second Hand Smoke Exposure: No Tobacco Use In Past 30 Days: No Smoking Status: Former smoker Tobacco Type: Cigarettes - Alcohol History How Often Do You Have a Drink Containing Alcohol: 2 to 4 times a month - Substance Use History Substance History: No History of Abuse - Travel History Recent Travel in the [place] Within the Last 8 Weeks: No Recent Travel Out of the Country Within the Last 8 Weeks: No - Immunization History Tetanus Immunization: Unsure Hx Influenza Vaccine This Season: No Medications and Allergies Active Medications: Active Medications Acetaminophen (Tylenol) 650 mg PO Q6HR PRN PRN Reason: PAIN SCALE 1 TO 2 Acetaminophen (Tylenol) 650 mg PO Q4H PRN PRN Reason: Temp > 100.4 Al Hydroxide/Mg Hydroxide (Milk Of Magnesia Liq) 30 ml PO Q12H PRN PRN Reason: Mild Constipation Albuterol (Albuterol Neb (Prn)) 2.5 mg NEB Q2HR NEB PRN PRN Reason: SHORTNESS OF BREATH/WHEEZING Alprazolam (Xanax) 0.5 mg PO BID PRN PRN Reason: Anxiety Bisacodyl (Dulcolax Supp) 10 mg RECTAL DAILY PRN PRN Reason: SEVERE CONSITIPATION Cyclobenzaprine HCl (Flexeril) 5 mg PO TID PRN PRN Reason: MUSCLE PAIN Duloxetine HCl (Cymbalta) 60 mg PO DAILY KATIE Famotidine (Pepcid) 20 mg PO BID KATIE Hydromorphone HCl (Dilaudid Pf Inj) 1 mg IV.PUSH Q3H PRN PRN Reason: BREAKTHROUGH PAIN Sodium Chloride (Ns Inj) 1,000 mls @ 100 mls/hr IV.CONT .Q10H KATIE Piperacillin/Tazobactam/Dextrose (Zosyn 3.375 Gm Premix) 50 mls @ 100 mls/hr IV.SIG Q6H KATIE Vancomycin HCl 1,750 mg/ (Sodium Chloride) 517.5 mls @ 250 mls/hr IV.SIG Q18H KATIE Lactulose (Lactulose Liq) 30 ml PO DAILY PRN PRN Reason: SEVERE CONSITIPATION Metoclopramide HCl (Reglan) 10 mg PO ACHS KATIE Miscellaneous Information ([facility] [place] [place] [facility] Ordered Lab Info) 0 each OTHER ONCE ONE Stop: 05/30/18 23:46 Naloxone HCl (Narcan Inj) 0.4 mg IV.PUSH UNSCH PRN PRN Reason: SEE LABEL COMMENTS Ondansetron HCl (Zofran Inj) 4 mg IV.PUSH Q6H PRN PRN Reason: NAUSEA OR VOMITING Oxycodone/Acetaminophen (Percocet 5/325 Mg) 1 tab PO Q6H PRN PRN Reason: PAIN SCALE 3 TO 5 Oxycodone/Acetaminophen (Percocet 10/325 Mg) 1 tab PO Q6H PRN PRN Reason: PAIN SCALE 6 TO 10 Pharmacy Profile Note (Vancomycin Consult Pharmacy) 1 each OTHER UNSCH PRN PRN Reason: Pharmacy to dose Senna/Docusate Sodium (Sarahy-Colace) 1 tab PO BID KATIE Sennosides (Senokot) 17.2 mg PO Q12H PRN PRN Reason: Moderate Constipation Allergies Allergy/AdvReac Type Severity Reaction Status Date / Time No Known Allergies Allergy Uncoded 05/11/14 14:22 Home Medications Medication Instructions Recorded Confirmed Type acetaminophen 650 mg PO Q8H PRN 05/28/18 05/28/18 History alprazolam 0.5 mg PO BID PRN 05/28/18 05/28/18 History ceftriaxone 2 g IV Q24H 05/28/18 05/28/18 History cyclobenzaprine 5 mg PO TID PRN 05/28/18 05/28/18 History duloxetine 60 mg PO DAILY 05/28/18 05/28/18 History famotidine 20 mg PO BID 05/28/18 05/28/18 History oxycodone-acetaminophen [Percocet] 1 tab PO Q6H PRN 05/28/18 05/28/18 History Exam Vital signs: Vital Signs 05/28/18 11:40 05/28/18 11:43 05/28/18 14:41 Temperature 98.3 F Pulse Rate 112 H 102 H 95 H Respiratory Rate 20 18 18 Blood Pressure 120/58 L 117/57 L 108/62 Pulse Oximetry 98 97 95 05/28/18 16:24 Temperature Pulse Rate 93 H Respiratory Rate 18 Blood Pressure 105/63 Pulse Oximetry 97 Intake & Output 05/27/18 05/28/18 05/28/18 18:59 06:59 18:59 Weight 81.647 kg Narrative: A&O x 3 CN II-XII intact Motor 5/5 UE 0/5 motor in LE bilaterally from hips down to toes Sensation diminished below umbilicus but present to toes Results - Laboratory Findings CBC and BMP: 05/28/18 12:51 05/28/18 12:51 Abnormal lab findings: Abnormal Labs 05/28/18 05/28/18 05/28/18 12:51 12:51 12:51 RBC 3.28 L Hgb 8.9 L Hct 26.6 L Yell % (Auto) 12.9 H Yell # (Auto) 1.0 H D-Dimer Quant (PE/DVT) 2.54 H Estimated GFR 58 L Calcium 8.3 L Troponin I Less than 0.02 L Albumin 2.3 L Urine Clarity Ur Leukocyte Esterase Urine WBC Urine Bacteria 05/28/18 13:00 RBC Hgb Hct Yell % (Auto) Yell # (Auto) D-Dimer Quant (PE/DVT) Estimated GFR Calcium Troponin I Albumin Urine Clarity Cloudy H Ur Leukocyte Esterase Trace H Urine WBC 6 H Urine Bacteria Rare H Assessment and Plan - Plan 58yoF with dense paraplegia for at least 1 week, imaging showing T6/7 collapse and likely osteomyelitis given progression, unable to get MRI presumably due to recently placed pacemaker (for bradycardia, check model?), history of IVDA and psych. Discussed case with Dr. Ferro. Given > 72 hours of paraplegia, surgery unlikely to be of benefit at this point in resolving paraplegia. Instrumentation in the face of infection not advised. Discussed with patient no chance of benefit with surgery given extended duration of paraplegia. Agree with admission to medicine, broad spectrum antibiotics and IR/CT biopsy of the offending area (history of MRSA). Patient was also not interested in surgery given her 's many surgeries and inability to benefit/recover. She understands that without surgery, it would be unlikely for her to recover function. I recommend a TLSO brace in this case.
[2018-05-28] MEDS: oxyCODONE/Acetaminophen 10/325 Tablet PO PRN (18:33)
[2018-05-28] MEDS: Famotidine 20 MG Tablet PO SCH (21:17)
[2018-05-28] MEDS: Metoclopramide 10 MG Tablet PO SCH (21:17)
[2018-05-28] MEDS: Senna/Docusate Sodium 8.6/50 MG Tablet PO SCH (21:17)
[2018-05-28] MEDS: Piperacil/Tazo 3.375 GM Premix 50 ML IV.SIG SCH (23:57)
[2018-05-29] MEDS: HYDROmorphone PF Inj 2 MG/ML Vial IV.PUSH PRN ×5 (01:35→20:36)
[2018-05-29] MEDS: Piperacil/Tazo 3.375 GM Premix 50 ML IV.SIG SCH ×4 (04:00→22:34)
[2018-05-29 05:05] LABS: Baso % (Auto) 0.4 % (0.0-2.0); Eos # (Auto) 0.1 th/mm3 (0.0-0.4); Eos % (Auto) 3.1 % (0.0-4.0); Hematocrit 25.7 % (35.0-46.0); Hemoglobin 8.4 gm/dL (11.6-15.3); Lymph # (Auto) 1.2 th/mm3 (1.0-4.8); Lymph % (Auto) 25.3 % (9.0-44.0); Mean Corpuscular HGB Conc 32.4 % (32.0-36.0); Mean Corpuscular Hemoglobin 26.7 pg (27.0-34.0); Mean Corpuscular Volume 82.2 fL (80.0-100.0); Mean Platelet Volume 7.8 fL (7.0-11.0); Mono # (Auto) 0.5 th/mm3 (0.0-0.9); Mono % (Auto) 11.9 % (0.0-8.0); Neut # (Auto) 2.7 th/mm3 (1.8-7.7); Neut % (Auto) 59.3 % (16.0-70.0); Platelet Count 295 th/mm3 (150-450); Red Blood Count 3.13 mil/mm3 (4.00-5.30); Red Cell Distribution Width 16.5 % (11.6-17.2); White Blood Count 4.6 th/mm3 (4.0-11.0)
[2018-05-29 05:25] LABS: Calcium 8.2 mg/dL (8.5-10.1); Carbon Dioxide 25.6 meq/L (21.0-32.0); Potassium 3.7 meq/L (3.5-5.1)
[2018-05-29] MEDS: Sod Chloride 0.9% Inj 1,000 ML IV.CONT SCH ×3 (06:07→22:35)
[2018-05-29] MEDS: Vancomycin Inj 1,750 MG in Sodium Chlor 0.9% Inj 500 ML IV.SIG SCH ×2 (08:42→13:15)
[2018-05-29] MEDS: Senna/Docusate Sodium 8.6/50 MG Tablet PO SCH ×2 (08:43→20:35)
[2018-05-29] MEDS: Famotidine 20 MG Tablet PO SCH ×2 (08:44→20:35)
[2018-05-29] MEDS: Duloxetine 60 MG DR Capsule PO SCH (08:44)
[2018-05-29] MEDS: Metoclopramide 10 MG Tablet PO SCH ×4 (08:44→20:35)
[2018-05-29] MEDS ORDERED: fentaNYL Citrate Inj 100 MCG/2 ML Ampul ONE (10:38)
[2018-05-29] MEDS ORDERED: Thrombin Topical Soln 5,000 UNIT Vial TOPICAL ONE (12:11)
--- NOTE | 2018-05-29 12:28 | P.RAD ---
Post CT Procedure Prog Note - Pre Procedure Diagnosis (1) Paraspinal mass - Post Procedure Diagnosis (1) Paraspinal mass - Procedure Information Procedure Date: 05/29/18 Supervising Radiologist: Jaiden Hurt Jr, MD Proceduralist/Assist: Sendy Anesthesia: Conscious Sedation - Plan of Activity Patient to Unit: [facility] Patient condition: Good See PACS Report for procedural detail/treatment. Biopsy CT Spine Specimen: Core Biopsy Findings: 3 core samples taken of paraspinal soft tissue at T6-7 for histological and microbiological evaluation. Gelfoam/thrombin utilized. Pt tolerated procedure well.
--- NOTE | 2018-05-29 13:28 | CT ---
EXAM DATE: 05/29/2018 12:52 PM EDT AGE/SEX: 58 years / Female INDICATIONS: Paraspinal mass at T6. CLINICAL DATA: This is the patient's initial encounter. Patient reports that signs and symptoms have been present for 1 day and indicates a pain score of 6/10. MEDICAL/SURGICAL HISTORY: Hypertension. None. COMPARISON: No prior exams available for comparison. BIOPSY SITE: Right soft tissue MEDICATION(S): 4mg midazolam (Versed) IV 100mcg fentanyl (Sublimaze) IV DEVICE(S): 18 gauge BARD biopsy needle Three core specimen(s) sent to the laboratory for pathologic evaluation. . . PROCEDURE: CT guided Right soft tissue biopsy Prior to the procedure informed consent was obtained. Any appropriate prior imaging studies were rev iewed. I reviewed the patient's CT of the thoracic spine 05/28/2018. There is a destructive process in volving the T6 and T7 vertebral bodies with significant surrounding paraspinal soft tissue. To reduce the risk of the procedure core biopsy of the paraspinal soft tissues was planned. Using automated exposure control and adjustment of the mA and/or kV according to patient size, radiat ion dose was kept as low as reasonably achievable to obtain optimal diagnostic quality images. DICOM format image data is available electronically for review and comparison. The site was prepped in a sterile fashion. Full sterile technique was used, including cap, mask, jagdeep rile gloves and gown and a large sterile sheet. Hand hygiene and 2% chlorhexidine and/or betadine/al cohol prep was utilized per protocol for cutaneous antisepsis. The skin and subcutaneous tissues wer e infiltrated with local anesthetic solution. With CT guidance the right paraspinal soft tissues at T6-T7 was localized. Biopsy was performed using the prescribed needle as above. 3 core samples were obtained. A sample was utilized for microbiologi heron evaluation with the remaining samples utilized for histological evaluation. A fair amount of bloo d was seen arising within the coaxial needle and therefore Gelfoam and thrombin was utilized to obtai n hemostasis. Adequate hemostasis was obtained with compression at the puncture site. Follow-up CT scan reveals no hemorrhage or pneumothorax. The patient tolerated the procedure well and there were no complications. The patient was returned to the Radiology Outpatient Unit in stable condition. CONCLUSION: 1. Uncomplicated CT guided core biopsy of the paraspinal soft tissues at T6-T7. Samples were sent fo r histological and microbiological evaluation.. Electronically signed by: Jaiden Hurt MD 05/29/2018 1:26 PM EDT
--- NOTE | 2018-05-29 14:22 | P.PN ---
Subjective Interval history: Follow-up for paraplegia, T6-T7 collapse and possible osteomyelitis. Patient is currently resting in bed. She denies any chest pain, shortness of breath, fever or chills. She is not able to move her lower extremities at all. Her upper extremity strength is intact. He underwent CT-guided biopsy of T6-T7 today. Physical Exam Vital signs: Vital Signs 05/28/18 14:41 05/28/18 16:24 05/28/18 18:19 Temperature Pulse Rate 95 H 93 H Respiratory Rate 18 18 3 L Blood Pressure 108/62 105/63 Pulse Oximetry 95 97 05/28/18 18:21 05/28/18 19:20 05/28/18 19:23 Temperature Pulse Rate 100 H Respiratory Rate 3 L 18 Blood Pressure 110/65 Pulse Oximetry 96 05/28/18 20:00 05/28/18 23:22 05/29/18 00:00 Temperature 98.1 F 98.1 F Pulse Rate 101 H 85 Respiratory Rate 18 16 Blood Pressure 112/75 98/65 L Pulse Oximetry 93 L 93 L 94 L 05/29/18 04:00 05/29/18 08:00 05/29/18 09:00 Temperature 98.1 F 97.5 F L Pulse Rate 84 83 83 Respiratory Rate 16 18 Blood Pressure 93/60 L 88/53 L Pulse Oximetry 95 97 05/29/18 10:00 05/29/18 11:00 05/29/18 11:35 Temperature Pulse Rate 81 93 H Respiratory Rate Blood Pressure Pulse Oximetry 95 05/29/18 11:59 05/29/18 12:00 05/29/18 13:00 Temperature 97.5 F L Pulse Rate 88 82 Respiratory Rate 18 18 Blood Pressure 129/77 Pulse Oximetry 93 L Intake & Output 05/28/18 05/29/18 05/29/18 18:59 06:59 18:59 Intake Total 1000 / 1000 1100 / 1100 150 / 150 Balance 1000 / 1000 1100 / 1100 150 / 150 Weight 81.647 kg 77.6 kg Intake: IV 1000 / 1000 1100 / 1100 150 / 150 NS Inj 1,000 ML @ 100 mls/hr IV 1000 / 1000 .CONT .Q10H KATIE Rx#:[id number] Zosyn 3.375 GM Premix 50 ML @ 100 / 100 50 / 50 100 mls/hr IV.SIG Q6H KATIE Rx#: [id number] Narrative: GENERAL: Alert, oriented 3, NAD. SKIN: Warm and dry. HEAD: Normocephalic. EYES: No scleral icterus. No injection or drainage. NECK: Supple, trachea midline. No JVD or lymphadenopathy. CARDIOVASCULAR: Regular rate and rhythm without murmurs, gallops, or rubs. RESPIRATORY: Breath sounds equal bilaterally. No accessory muscle use. GASTROINTESTINAL: Abdomen soft, non-tender, nondistended. MUSCULOSKELETAL: No cyanosis, or edema. Lower extremity strength 0 out of 5, upper extremity strength intact. BACK: Nontender without obvious deformity. No CVA tenderness. Results - Labs CBC & Chem 7: 05/29/18 04:46 05/29/18 04:46 Laboratory Results - last 24 hr 05/28/18 05/29/18 05/29/18 12:51 04:46 04:46 WBC 4.6 RBC 3.13 L Hgb 8.4 L Hct 25.7 L MCV 82.2 MCH 26.7 L MCHC 32.4 RDW 16.5 Plt Count 295 MPV 7.8 Neut % (Auto) 59.3 Lymph % (Auto) 25.3 [place] % (Auto) 11.9 H Eos % (Auto) 3.1 Baso % (Auto) 0.4 Neut # (Auto) 2.7 Lymph # (Auto) 1.2 [place] # (Auto) 0.5 Eos # (Auto) 0.1 Baso # (Auto) 0.0 WBC Differential . Differential Comment Auto diff final ESR Greater than 140 H Sodium 140 Potassium 3.7 Chloride 105 Carbon Dioxide 25.6 Anion Gap 9 BUN 10 Creatinine 0.97 Estimated GFR 59 L Random Glucose 87 Calcium 8.2 L Microbiology 05/28/18 13:00 Catheterized Urine Urine Culture - Preliminary No growth in 24 hours - Imaging Impressions Abdomen/Pelvis CT 05/28/18 12:11 CONCLUSION: 1. Bibasilar reactive pleural thickening and small effusions with compressive atelectasis as described. 2. Paraspinal reactive changes in the mid to lower thoracic spine. 3. Mild intestinal ileus without pathologic distention. 4. No other evidence of acute process in the abdomen or pelvis. Cervical Spine CT 05/28/18 13:18 CONCLUSION: 1. Degenerative disc disease and facet arthropathy as described. 2. No evidence of acute abnormality. Lumbar Spine CT 05/28/18 13:18 CONCLUSION: 1. Degenerative listhesis at L4-5 secondary to facet arthropathy. 2. No evidence of acute process, disc herniation or soft tissue inflammatory disease. Thoracic Spine CT 05/28/18 13:18 CONCLUSION: 1. Destructive process involving the T5-6 intervertebral disc, T6-7 intervertebral disc, T6 vertebral body and T7 vertebral body characteristic of discitis and osteomyelitis. An acute kyphotic deformity has developed secondary to compression deformity of the T6 and T7 vertebral bodies. 2. Significant compromise of the central spinal canal at T6-7 is noted. There is material body fragmentation with calcific densities extending into the spinal canal. Significant spinal cord compression is suspected. 3. Otherwise intact thoracic spine. Chest CTA 05/28/18 13:41 CONCLUSION: 1. No evidence of pulmonary embolism. 2. Destructive osseous process involving the T6 and T7 vertebral bodies with complete obliteration of the T6-7 intervertebral disc and significant paraspinal reactive changes. Osteomyelitis and discitis should be considered as a primary cause. 3. Small bilateral pleural effusions and peripheral consolidating airspace disease in both lower lobes. Soft Tissue Biopsy 05/29/18 00:00 CONCLUSION: 1. Uncomplicated CT guided core biopsy of the paraspinal soft tissues at T6- T7. Samples were sent for histological and microbiological evaluation.. Assessment and Plan - Plan This is a 58-year-old female with a history of hypertension, GERD, anemia, constipation, gout, fibromyalgia, chronic pain syndrome, anxiety, depression and migraine. She presented on 05/28/2018 to the emergency room because of upper back pain and bilateral lower extremity weakness. She reports of bilateral lower extremity weakness unable to get out of bed and ambulate for 2 weeks. At the same time she complained of constant sharp severe upper back pain worse with activity different from her usual neck and lower back pain. MRI studies showed T6/T7 destruction with possible osteomyelitis. Acute paraplegia T6-T7 collapse Probable osteomyelitis -Neurosurgery evaluated patient on 05/28/2018. -Neurosurgery did not feel there would be any benefit to do surgical intervention. -Patient is currently on vancomycin and Zosyn. -We will wait for biopsy results. Will consult infectious disease. -Oxycodone and Dilaudid PRN for pain management. Suspected UTI - urine cx negative. Full code. SCDs. Consider pharmacological DVT prophylaxis from 05/30/2018.
--- NOTE | 2018-05-29 16:21 | P.PNWCN ---
Wound Care Nurse Consult Description: Received wound management consult for coccyx area from Doctor العراقي Communicated with: BOY Lujan Recommendation: 1.Please leave puracol plus in wound bed to coccyx for 5 days,may change outer dressings of maxorb II and bordered gauze as needed for saturation or dislodgement. 2.If stool or urine contaminates puracol plus, please remove all dressing and change dressing as follows. Cleanse wound to Coccyx with normal saline and pat dry. Apply puracol plus to wound bed loosely packed. Follow by loosely packing Maxorb II gently to wound bed. Apply Cavilon skin barrier film to periwound and cover with bordered gauze. Change dressing daily. 3. Please turn patient every 2 hours from L side to R side, limiting time spent on back to P.T., meals, and any medical procedures requiring patient to be positioned to back. 4. Please obtain [place] [employer] bed or if unavailable please order advanced IV mattress for patient from [employer] 5. Use ultra sorb pads only under patient for incontinence management, no cotton pads or briefs Wound/Pressure Injury - Wound Coccyx Wound Staging: Stage IV Wound Assessment: Ongoing Wound Type: Pressure Injury Is This a Chronic Wound: Yes Requested from Provider a Wound Care Consult: Yes (Wound care saw patient today) Length: 2.8 (cm) Width: 3 (cm) Depth: 2.3 (cm) Wound Bed Appearance: [place], Red, Tunneling/Undermining (undermining from 9 to 3 o'clock deepest at 3 o'clock measuring 4 cm) Wound Bed Appearance: Wound bed presents with 80% red granulation tissue and ~20% muscle tissue Surrounding Tissue Temperature: Warm Drainage Description: Serosanguinous Drainage Amount: Minimal Drainage Odor: No Odor Dressing Status: Changed Cleansing Solution: Saline Wound Packing Type: Alginate (Maxorb II was applied over puracol plus, packed in wound bed loosely), Collagen (Purcaol plus was packed in wound bed and directly in contact with wound bed) Primary Dressing: Bordered gauze Wound Dressing Change Date: 05/29/18 Wound Margin Description: Wound margins are well defined with epibole noted from 12 to 6 o'clock. Maceration is noted from 5 to 7 o'clock. - Additional Information Patient seen on [facility] for wound management of coccyx area. Patient was turned to R side with the assistance of BOY Rodriguez for wound assessment. Removed saturated partially dislodged gauze dressing in place to reveal open wound to coccyx. Wound is a stage 4 pressure injury, wound measurements are full description are noted above. Wound was cleansed with normal saline and patted dry.Wound was packed with puracol plus, followed by Calcium alginate (Maxorb II). Applied cavilon skin barrier film to periwound and secured dressings in place with a bordered gauze. Spoke with patient at length regarding history of wound, per patient, she received wound while in intensive care at another facility, due to not being turned. She has since been treated by Doctor Bhakta at a wound care center in [place]. Patient needs to follow up with wound care center outpatient of her choice. Wound care recommendations are noted above.
[2018-05-29] MEDS: oxyCODONE/Acetaminophen 10/325 Tablet PO PRN ×2 (17:58→23:52)
[2018-05-29] MEDS: ALPRAZolam 0.5 MG Tablet PO PRN (23:38)
[2018-05-30] MEDS: HYDROmorphone PF Inj 2 MG/ML Vial IV.PUSH PRN ×5 (01:02→21:17)
[2018-05-30] MEDS: Piperacil/Tazo 3.375 GM Premix 50 ML IV.SIG SCH ×4 (04:32→21:18)
[2018-05-30] MEDS: Vancomycin Inj 1,750 MG in Sodium Chlor 0.9% Inj 500 ML IV.SIG SCH (05:52)
[2018-05-30] MEDS: oxyCODONE/Acetaminophen 10/325 Tablet PO PRN (06:10)
[2018-05-30] MEDS: Famotidine 20 MG Tablet PO SCH ×2 (08:28→20:03)
[2018-05-30] MEDS: Senna/Docusate Sodium 8.6/50 MG Tablet PO SCH ×2 (08:28→20:03)
[2018-05-30] MEDS: Sod Chloride 0.9% Inj 1,000 ML IV.CONT SCH ×2 (08:28→17:18)
[2018-05-30] MEDS: Duloxetine 60 MG DR Capsule PO SCH (08:28)
[2018-05-30] MEDS: Metoclopramide 10 MG Tablet PO SCH ×4 (08:32→20:03)
--- NOTE | 2018-05-30 10:24 | P.PN ---
Subjective Interval history: Follow-up for paraplegia, T6-T7 collapse and possible osteomyelitis. Patient seen and examined. She is awake and alert. Complaining of back pain. She is unable to move her legs. She denies any fever or chills. She denies any chest pain or dyspnea. s/p CT guided bx T6-T7. No surgical intervention per NS. Physical Exam Vital signs: Vital Signs 05/29/18 11:00 05/29/18 11:35 05/29/18 11:59 Temperature Pulse Rate 93 H Respiratory Rate 18 Blood Pressure Pulse Oximetry 95 05/29/18 12:00 05/29/18 13:00 05/29/18 14:00 Temperature 97.5 F L Pulse Rate 88 82 97 H Respiratory Rate 18 Blood Pressure 129/77 Pulse Oximetry 93 L 05/29/18 15:00 05/29/18 16:00 05/29/18 16:55 Temperature 97.5 F L Pulse Rate 100 H 100 H Respiratory Rate 18 18 Blood Pressure 121/75 Pulse Oximetry 95 05/29/18 17:00 05/29/18 17:13 05/29/18 18:00 Temperature Pulse Rate 97 H 81 Respiratory Rate Blood Pressure Pulse Oximetry 96 05/29/18 18:16 05/29/18 19:00 05/29/18 20:00 Temperature 97.8 F Pulse Rate 95 H 95 H Respiratory Rate 18 18 Blood Pressure 102/64 Pulse Oximetry 95 05/29/18 21:00 05/29/18 22:00 05/30/18 00:03 Temperature 98.0 F Pulse Rate 92 H 96 H 105 H Respiratory Rate 22 Blood Pressure 109/64 Pulse Oximetry 96 05/30/18 01:01 05/30/18 04:00 05/30/18 07:00 Temperature 97.7 F Pulse Rate 99 H 99 H 100 H Respiratory Rate 18 12 Blood Pressure 132/58 L 118/76 Pulse Oximetry 94 L 05/30/18 08:00 Temperature 98.4 F Pulse Rate 98 H Respiratory Rate 17 Blood Pressure 118/66 Pulse Oximetry 94 L Intake & Output 05/29/18 05/30/18 05/30/18 18:59 06:59 18:59 Intake Total 1680 / 1680 1100 / 1100 1050 / 1050 Output Total 700 / 700 200 / 200 Balance 980 / 980 900 / 900 1050 / 1050 Weight 81.8 kg Intake: IV 1200 / 1200 1100 / 1100 1050 / 1050 NS Inj 1,000 ML @ 100 mls/hr IV 1000 / 1000 1000 / 1000 .CONT .Q10H KATIE Rx#:[id number] Zosyn 3.375 GM Premix 50 ML @ 100 / 100 100 / 100 50 / 50 100 mls/hr IV.SIG Q6H KATIE Rx#: [id number] Vancomycin Inj 1,750 MG In NS 1000 / 1000 Inj 500 ML @ 250 mls/hr IV.SIG Q18H KATIE Rx#:[id number] Oral 480 / 480 Output: Urine 700 / 700 200 / 200 Narrative: GENERAL: WDWN female patient, INAD. Awake and alert. SKIN: Warm and dry. HEAD: Atraumatic. Normocephalic. EYES: Pupils equal and round. No scleral icterus. No injection or drainage. ENT: No nasal bleeding or discharge. Mucous membranes pink and moist. NECK: Trachea midline. No JVD. CARDIOVASCULAR: Regular rate and rhythm. RESPIRATORY: No accessory muscle use. Clear to auscultation. Breath sounds equal bilaterally. GASTROINTESTINAL: Abdomen soft, non-tender, nondistended. MUSCULOSKELETAL: Extremities without clubbing, cyanosis, or edema. NEUROLOGICAL: Awake and alert. No obvious cranial nerve deficits. Motor grossly within normal limits bilateral upper extremities. Unable to move bilateral lower extremities, muscle strength 0/5. Normal speech. PSYCHIATRIC: Appropriate mood and affect; insight and judgment normal. Results - Labs CBC & Chem 7: 05/29/18 04:46 05/29/18 04:46 Microbiology 05/29/18 11:45 Tissue - Back Fungal Smear - Final No fungal elements seen 05/29/18 11:45 Tissue - Back Gram Stain - Final 05/28/18 13:00 Catheterized Urine Urine Culture - Preliminary Yeast species 05/29/18 05:11 Blood - Peripheral Anaerobic Blood Culture - Final QNS - See aerobic report. - Imaging Impressions Soft Tissue Biopsy 05/29/18 00:00 CONCLUSION: 1. Uncomplicated CT guided core biopsy of the paraspinal soft tissues at T6- T7. Samples were sent for histological and microbiological evaluation.. Assessment and Plan - Plan 58-year-old female with a history of hypertension, GERD, anemia, constipation, gout, fibromyalgia, chronic pain syndrome, anxiety, depression and migraine. She presented on 05/28/2018 to the emergency room because of upper back pain and bilateral lower extremity weakness. She reports of bilateral lower extremity weakness unable to get out of bed and ambulate for 2 weeks. At the same time she complained of constant sharp severe upper back pain worse with activity different from her usual neck and lower back pain. MRI studies showed T6/T7 destruction with possible osteomyelitis. Acute paraplegia T6-T7 collapse Probable osteomyelitis s/p CT guided biopsy 05/29 -Neurosurgery evaluated patient on 05/28/2018. No benefit from surgical intervention. -Continue on IV Zosyn and Vancomycin -follow up on culture/bx results -ID consulted, appreciate assistance -Continue on Oxycodone and Dilaudid PRN for pain management. Suspected UTI - urine cx negative DVT prophylaxis -Lovenox sq- begin tonight Code Status: FULL Discussed Condition With: patient, nursing staff, Dr. Melvin Discharge Planning: Not ready for discharge.
--- NOTE | 2018-05-30 11:41 | P.PNNS ---
Subjective Interval history: 58-year-old obese lady with complaints of thoracic back pain radiating into the rib cage area. Her other complaint is inability to move her legs she says for the past 3 weeks she has been unable to move the legs or get out of bed. She had pacemaker placed about a month ago in [facility] by Dr. [place] Anderson and also relates prior to that 3-4 months ago admitted for pneumonia and sepsis. She has destructive the T6 vertebral body likely osteomyelitis with some retropulsed bone fragments and kyphosis and paraspinal inflammation. She was seen by neurosurgery Dr. Oliver and treatment options were discussed although given she is been paraplegic for the past 2-3 weeks it was felt that any thoracic spine decompression surgery would likely not reverse the paraplegia. She elected on nonsurgical management and she confirms this to me today. She has undergone CT-guided aspiration of the thoracic paraspinal/ spinal abnormality and awaiting culture results. Physical Exam Vital signs: Vital Signs 05/29/18 11:35 05/29/18 11:59 05/29/18 12:00 Temperature 97.5 F L Pulse Rate 88 Respiratory Rate 18 18 Blood Pressure 129/77 Pulse Oximetry 95 93 L 05/29/18 13:00 05/29/18 14:00 05/29/18 15:00 Temperature Pulse Rate 82 97 H 100 H Respiratory Rate Blood Pressure Pulse Oximetry 05/29/18 16:00 05/29/18 16:55 05/29/18 17:00 Temperature 97.5 F L Pulse Rate 100 H 97 H Respiratory Rate 18 18 Blood Pressure 121/75 Pulse Oximetry 95 05/29/18 17:13 05/29/18 18:00 05/29/18 18:16 Temperature Pulse Rate 81 Respiratory Rate 18 Blood Pressure Pulse Oximetry 96 05/29/18 19:00 05/29/18 20:00 05/29/18 21:00 Temperature 97.8 F Pulse Rate 95 H 95 H 92 H Respiratory Rate 18 Blood Pressure 102/64 Pulse Oximetry 95 05/29/18 22:00 05/30/18 00:03 05/30/18 01:01 Temperature 98.0 F Pulse Rate 96 H 105 H 99 H Respiratory Rate 22 Blood Pressure 109/64 132/58 L Pulse Oximetry 96 05/30/18 04:00 05/30/18 07:00 05/30/18 08:00 Temperature 97.7 F 98.4 F Pulse Rate 99 H 100 H 98 H Respiratory Rate 18 12 17 Blood Pressure 118/76 118/66 Pulse Oximetry 94 L 94 L Intake & Output 05/29/18 05/30/18 05/30/18 18:59 06:59 18:59 Intake Total 1680 / 1680 1100 / 1100 1050 / 1050 Output Total 700 / 700 200 / 200 Balance 980 / 980 900 / 900 1050 / 1050 Weight 81.8 kg Intake: IV 1200 / 1200 1100 / 1100 1050 / 1050 NS Inj 1,000 ML @ 100 mls/hr IV 1000 / 1000 1000 / 1000 .CONT .Q10H KATIE Rx#:[id number] Zosyn 3.375 GM Premix 50 ML @ 100 / 100 100 / 100 50 / 50 100 mls/hr IV.SIG Q6H KATIE Rx#: [id number] Vancomycin Inj 1,750 MG In NS 1000 / 1000 Inj 500 ML @ 250 mls/hr IV.SIG Q18H KATIE Rx#:[id number] Oral 480 / 480 Output: Urine 700 / 700 200 / 200 - Constitutional no acute distress, obese - Routine HEENT Exam Head: Present: normocephalic, atraumatic Eye: Present: EOMI, PERRL ENT: Present: mucous membranes moist (She has no teeth), nares patent, external ear normal - Routine Neck Exam Present: supple, full ROM - Routine Respiratory Exam Present: CTA bilaterally - Routine Cardiovascular Exam Present: RRR, S1, S2 - Routine Abdominal Exam Present: soft, normoactive bowel sounds - Routine Extremities Exam Present: edema - Routine Skin Exam Present: erythema, wounds (Sacral decubitus) - Routine Neurological Exam Present: oriented X3, CN II-XII intact, sensory deficit (Cannot feel light touch in the thighs but does feel me touching in her feet although not very reliable), motor deficit 0/5 strength in bilateral lower extremities; 5/5 strength in upper extremities - Detailed Neurological Exam: Coma Scale Eye Opening: Spontaneous Verbal Response: Oriented Motor Response: Obey commands Sheila Coma Scale Total: 15 - Routine Psychiatric Exam Present: normal affect Assessment and Plan - Plan 58 yo obese female with dense paraplegia for the past 3 weeks with a history of IVDA and sepsis/pneumonia several months ago. Now with thoracic spine T5-6 discitis and T6 osteomyelitis with vertebral body destruction and collapse with kyphosis and retropulsion into the spinal canal with associated stenosis. Thoracic spine decompression with stabilization procedure has been discussed with the patient along with the risks and benefits involved and she was also informed that the likelihood of reversal of the paraplegia is very low even with surgical intervention. She relates that she does not want to consider surgical intervention at this point. Recommend continue with pain management and TLSO brace when out of bed to reduce risk of further kyphosis and vertebral body height collapse. Titrate antibiotics as per culture results from the CT- guided aspiration thoracic spine. Chemical and mechanical DVT prophylaxis along with the sacral decubitus wound care management.
[2018-05-30] MEDS: ALPRAZolam 0.5 MG Tablet PO PRN ×2 (13:12→23:21)
--- NOTE | 2018-05-30 15:15 | P.CONID ---
History of Present Illness Service: ID Consult date: 05/30/18 Requesting Physician: Eduar Shah Reason for Consult: vertebral osteomyelitis Primary Care Provider: No Primary Care Physician Chief Complaint: paraplegia History of Present Illness: 58 yo F with multiple med problems presented with 2-3 weeks new onset BLE weakness Also + back pain , fevers x 1 month Apparently has been on abx for months PICC in RUE x 1 month Pt is a very poor historia, unable to provide any detais Sp pacemaker , she had CT of the spine witch showed T spine osteo with kyphotic deformmity and advance destruction NO fever No elukocytosis ESR > 140 Sp IR bx , path, clx P Blod clx negative so far urine grows yeast Review of Systems All other systems reviewed negative except as stated in HPI PMFSH - History History Provided By: Patient - Medical / Surgical Hx Neg / Unobtainable Surgical History: No Previous Surgery - Medical History Medical History: Medical History (Last Reviewed 05/31/18 @ 01:35 by Sophie Rosales MD) Hypertension Pneumonia - Surgical History Surgical History: Surgical History (Last Reviewed 05/31/18 @ 01:35 by Sophie Rosales MD) H/O tracheostomy History of carpal tunnel surgery - Family History Family History: Family History (Last Reviewed 05/31/18 @ 01:35 by Sophie Rosales MD) Other Family history of acute myocardial infarction - Social History I have reviewed the patient's Social History: Yes - Tobacco History Second Hand Smoke Exposure: No Tobacco Use In Past 30 Days: No Smoking Status: Former smoker Tobacco Type: Cigarettes - Alcohol History How Often Do You Have a Drink Containing Alcohol: 2 to 4 times a month - Substance Use History Substance History: No History of Abuse - Travel History Recent Travel in the [place] Within the Last 8 Weeks: No Recent Travel Out of the Country Within the Last 8 Weeks: No - Immunization History Tetanus Immunization: Unsure Hx Influenza Vaccine This Season: No Medications and Allergies Active Medications: Active Medications Acetaminophen (Tylenol) 650 mg PO Q6HR PRN PRN Reason: PAIN SCALE 1 TO 2 Acetaminophen (Tylenol) 650 mg PO Q4H PRN PRN Reason: Temp > 100.4 Al Hydroxide/Mg Hydroxide (Milk Of Magnesia Liq) 30 ml PO Q12H PRN PRN Reason: Mild Constipation Last Admin: 05/30/18 08:28 Dose: 30 ml Albuterol (Albuterol Neb (Prn)) 2.5 mg NEB Q2HR NEB PRN PRN Reason: SHORTNESS OF BREATH/WHEEZING Alprazolam (Xanax) 0.5 mg PO BID PRN PRN Reason: Anxiety Last Admin: 05/30/18 13:12 Dose: 0.5 mg Bisacodyl (Dulcolax Supp) 10 mg RECTAL DAILY PRN PRN Reason: SEVERE CONSITIPATION Last Admin: 05/29/18 23:51 Dose: 10 mg Cyclobenzaprine HCl (Flexeril) 5 mg PO TID PRN PRN Reason: MUSCLE PAIN Duloxetine HCl (Cymbalta) 60 mg PO DAILY [facility] Last Admin: 05/30/18 08:28 Dose: 60 mg Enoxaparin Sodium (Lovenox Inj) 40 mg SQ DAILY [facility] Famotidine (Pepcid) 20 mg PO BID [facility] Last Admin: 05/30/18 08:28 Dose: 20 mg Hydromorphone HCl (Dilaudid Pf Inj) 1 mg IV.PUSH Q3H PRN PRN Reason: BREAKTHROUGH PAIN Last Admin: 05/30/18 14:20 Dose: 1 mg Sodium Chloride (Ns Inj) 1,000 mls @ 42 mls/hr IV.CONT .[id number] [facility] Last Admin: 05/30/18 08:28 Dose: 100 mls/hr Piperacillin/Tazobactam/Dextrose (Zosyn 3.375 Gm Premix) 50 mls @ 100 mls/hr IV.SIG Q6H [facility] Last Infusion: 05/30/18 09:31 Dose: Infused Vancomycin HCl 1,750 mg/ (Sodium Chloride) 517.5 mls @ 250 mls/hr IV.SIG Q18H [facility] Last Admin: 05/30/18 05:52 Dose: 250 mls/hr Lactulose (Lactulose Liq) 30 ml PO DAILY PRN PRN Reason: SEVERE CONSITIPATION Metoclopramide HCl (Reglan) 10 mg PO ACHS [facility] Last Admin: 05/30/18 11:17 Dose: 10 mg Miscellaneous (Pill Splitter) 1 each OTHER UNSCH PRN PRN Reason: SEE LABEL COMMENTS Miscellaneous Information ([facility] Ordered Lab Info) 0 each OTHER ONCE ONE Stop: 05/30/18 23:46 Naloxone HCl (Narcan Inj) 0.4 mg IV.PUSH UNSCH PRN PRN Reason: SEE LABEL COMMENTS Ondansetron HCl (Zofran Inj) 4 mg IV.PUSH Q6H PRN PRN Reason: NAUSEA OR VOMITING Last Admin: 05/29/18 22:34 Dose: 4 mg Oxycodone/Acetaminophen (Percocet 5/325 Mg) 1 tab PO Q6H PRN PRN Reason: PAIN SCALE 3 TO 5 Last Admin: 05/30/18 13:10 Dose: 1 tab Oxycodone/Acetaminophen (Percocet 10/325 Mg) 1 tab PO Q6H PRN PRN Reason: PAIN SCALE 6 TO 10 Last Admin: 05/30/18 06:10 Dose: 1 tab Pharmacy Profile Note (Vancomycin Consult Pharmacy) 1 each OTHER UNSCH PRN PRN Reason: Pharmacy to dose Senna/Docusate Sodium (Sarahy-Colace) 1 tab PO BID [facility] Last Admin: 05/30/18 08:28 Dose: 1 tab Sennosides (Senokot) 17.2 mg PO Q12H PRN PRN Reason: Moderate Constipation Allergies Allergy/AdvReac Type Severity Reaction Status Date / Time No Known Allergies Allergy Uncoded 05/11/14 14:22 Home Medications Medication Instructions Recorded Confirmed Type acetaminophen 650 mg PO Q8H PRN 05/28/18 05/28/18 History alprazolam 0.5 mg PO BID PRN 05/28/18 05/28/18 History ceftriaxone 2 g IV Q24H 05/28/18 05/28/18 History cyclobenzaprine 5 mg PO TID PRN 05/28/18 05/28/18 History duloxetine 60 mg PO DAILY 05/28/18 05/28/18 History famotidine 20 mg PO BID 05/28/18 05/28/18 History oxycodone-acetaminophen [Percocet] 1 tab PO Q6H PRN 05/28/18 05/28/18 History Exam Vital signs: Vital Signs 05/29/18 16:00 05/29/18 16:55 05/29/18 17:00 Temperature 97.5 F L Pulse Rate 100 H 97 H Respiratory Rate 18 18 Blood Pressure 121/75 Pulse Oximetry 95 05/29/18 17:13 05/29/18 18:00 05/29/18 18:16 Temperature Pulse Rate 81 Respiratory Rate 18 Blood Pressure Pulse Oximetry 96 05/29/18 19:00 05/29/18 20:00 05/29/18 21:00 Temperature 97.8 F Pulse Rate 95 H 95 H 92 H Respiratory Rate 18 Blood Pressure 102/64 Pulse Oximetry 95 05/29/18 22:00 05/30/18 00:03 05/30/18 01:01 Temperature 98.0 F Pulse Rate 96 H 105 H 99 H Respiratory Rate 22 Blood Pressure 109/64 132/58 L Pulse Oximetry 96 05/30/18 04:00 05/30/18 07:00 05/30/18 08:00 Temperature 97.7 F 98.4 F Pulse Rate 99 H 100 H 98 H Respiratory Rate 18 12 17 Blood Pressure 118/76 118/66 Pulse Oximetry 94 L 94 L 05/30/18 11:00 05/30/18 12:00 Temperature 97.7 F Pulse Rate 93 H 97 H Respiratory Rate 19 Blood Pressure 103/62 Pulse Oximetry 98 Intake & Output 05/29/18 05/30/18 05/30/18 18:59 06:59 18:59 Intake Total 1680 / 1680 1100 / 1100 1050 / 1050 Output Total 700 / 700 200 / 200 Balance 980 / 980 900 / 900 1050 / 1050 Weight 81.8 kg Intake: IV 1200 / 1200 1100 / 1100 1050 / 1050 NS Inj 1,000 ML @ 100 mls/hr IV 1000 / 1000 1000 / 1000 .CONT .Q10H [facility] Rx#:[id number] Zosyn 3.375 GM Premix 50 ML @ 100 / 100 100 / 100 50 / 50 100 mls/hr IV.SIG Q6H [facility] Rx#: [id number] Vancomycin Inj 1,750 MG In NS 1000 / 1000 Inj 500 ML @ 250 mls/hr IV.SIG Q18H [facility] Rx#:[id number] Oral 480 / 480 Output: Urine 700 / 700 200 / 200 - Constitutional no acute distress, obese - Routine HEENT Exam Head: Present: normocephalic, atraumatic Eye: Present: EOMI, PERRL. Absent: conjunctival icterus, scleral injection ENT: Present: mucous membranes moist. Absent: dentition normal (edentulous) - Routine Neck Exam Present: supple, full ROM. Absent: lymphadenopathy - Routine Chest/Breast/Axilla Exam Chest wall: Present: pacemaker (L chest w/o changes over it) - Routine Respiratory Exam Present: CTA bilaterally. Absent: accessory muscle use, decreased breath sounds , respiratory distress, rhonchi, wheezes - Routine Cardiovascular Exam Present: RRR, S1, S2, murmur - Routine Abdominal Exam Present: soft, normoactive bowel sounds. Absent: tenderness, distended, rebound , guarding, organomegaly, mass - Routine Extremities Exam Present: edema (mild 1+), pulses intact, normal capillary refill. Absent: cyanosis, clubbing - Routine Back/Spine/Pelvis Exam Back/Spine: Present: vertebral tenderness (T spine), kyphosis - Routine Skin Exam Present: intact, dry, warm. Absent: rash - Routine Neurological Exam Present: alert, oriented X3, CN II-XII intact, vision grossly intact, hearing grossly intact. Absent: moving all extremities dense paraplegia with 0-1/5 movements - Routine Psychiatric Exam Present: unable to assess Results - Labs CBC & Chem 7: 05/29/18 04:46 05/29/18 04:46 - Imaging Chest X-Ray 05/28/18 12:06 CONCLUSION: Hypoaerated lungs. No evidence of acute cardiopulmonary process. Pacemaker and right upper extremity PICC line noted in place. Abdomen/Pelvis CT 05/28/18 12:11 CONCLUSION: 1. Bibasilar reactive pleural thickening and small effusions with compressive atelectasis as described. 2. Paraspinal reactive changes in the mid to lower thoracic spine. 3. Mild intestinal ileus without pathologic distention. 4. No other evidence of acute process in the abdomen or pelvis. Cervical Spine CT 05/28/18 13:18 CONCLUSION: 1. Degenerative disc disease and facet arthropathy as described. 2. No evidence of acute abnormality. Lumbar Spine CT 05/28/18 13:18 CONCLUSION: 1. Degenerative listhesis at L4-5 secondary to facet arthropathy. 2. No evidence of acute process, disc herniation or soft tissue inflammatory disease. Thoracic Spine CT 05/28/18 13:18 CONCLUSION: 1. Destructive process involving the T5-6 intervertebral disc, T6-7 intervertebral disc, T6 vertebral body and T7 vertebral body characteristic of discitis and osteomyelitis. An acute kyphotic deformity has developed secondary to compression deformity of the T6 and T7 vertebral bodies. 2. Significant compromise of the central spinal canal at T6-7 is noted. There is material body fragmentation with calcific densities extending into the spinal canal. Significant spinal cord compression is suspected. 3. Otherwise intact thoracic spine. Chest CTA 05/28/18 13:41 CONCLUSION: 1. No evidence of pulmonary embolism. 2. Destructive osseous process involving the T6 and T7 vertebral bodies with complete obliteration of the T6-7 intervertebral disc and significant paraspinal reactive changes. Osteomyelitis and discitis should be considered as a primary cause. 3. Small bilateral pleural effusions and peripheral consolidating airspace disease in both lower lobes. Soft Tissue Biopsy 05/29/18 00:00 CONCLUSION: 1. Uncomplicated CT guided core biopsy of the paraspinal soft tissues at T6- T7. Samples were sent for histological and microbiological evaluation.. 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
--- NOTE | 2018-05-30 16:31 | P.DIET ---
Nutritional Evaluation Type of nutrition evaluation: initial Nutrition screening: [facility] (Stage 4 Pressure Injury) Subjective Subjective Comments: Eating ~25-75%. Objective - Diagnosis Acute Osteomyelitis of T-Spine, Cord Compression - Objective % IBW: 138 (IBW = 130#) Body Weight Used for Calculations: IBW (59.1 kg) Energy Needs - Lower Range (kCal/kg): 30 Energy Needs - Upper Range (kCal/kg): 35 Lower Limit kCal/kg (kCals): 1,773 Upper Limit kCal/kg (kCals): 2,069 Lower Limit Protein Factor (Grams per Kg): 1.2 Upper Limit Protein Factor (Grams per Kg): 1.5 Lower Protein Needs (Protein): 71 Upper Protein Needs (Protein): 89 Fluid Factor (ml/kg): 35 Estimated Fluid Needs (ml): 2,069 Dietitian Reviewed in Medical Record: Current diet, Curent medications, Intake & Output, Labs, Medical history, Wound/DTI Diet Order: Heart Healthy Wound Care Note: WOCN dated 05/29: coccyx stage 4 pressure injury Assessment Assessment: Pt is at high nutrition risk 2' to high nutritional needs for healing. Po intake is currently fair to good and pt presents with a BMI of 29.1. Recommend the addition of daily MVI/min and will send Ensure Enlive bid for added nutrition. Pt may also benefit from Geronimo supplement bid which is a targeted therapeutic supplement that aids in healing. It contains arginine, glutamine and HMB. RD will monitor acceptance. Recommendations: 1. Continue current diet 2. Ensure Enlive bid 3. Please order MVI/min q day 4. Please order Geronimo 1 pack bid Dietitian to Monitor: Lab values, Supplement acceptance, Intake & Output, Diet tolerance, PO Intake, Wound/skin status, Medical course
[2018-05-30] MEDS: Enoxaparin Inj 40 MG/0.4 ML Syringe SQ SCH (20:02)
[2018-05-30] MEDS ORDERED: Pharmacy Ordered Lab Info OTHER ONE (23:45)
[2018-05-31] MEDS: HYDROmorphone PF Inj 2 MG/ML Vial IV.PUSH PRN ×7 (00:27→22:13)
[2018-05-31] MEDS: Vancomycin Inj 1,750 MG in Sodium Chlor 0.9% Inj 500 ML IV.SIG SCH (00:28)
[2018-05-31] MEDS: Piperacil/Tazo 3.375 GM Premix 50 ML IV.SIG SCH ×4 (04:16→22:17)
[2018-05-31] MEDS: ALPRAZolam 0.5 MG Tablet PO PRN ×2 (04:22→22:17)
--- NOTE | 2018-05-31 07:17 | P.PN ---
Subjective Interval history: Follow-up for paraplegia, T6-T7 collapse and possible osteomyelitis. Patient seen and examined. Patient complaining of diffuse abdominal pain and abdominal distention. She is asked to be taken to the ER. She then asked to be taken to her room. Reminded patient she is already in her room. She is asking for increase in her pain medication. States she has had a single bowel movement this morning but per discussion with nursing staff, patient has had multiple loose stools this morning after receiving several doses of MOM and lactulose after not having a bowel movement for a week. She denies any movement bilateral lower extremities. She denies any fever or chills. She denies any nausea or vomiting. Physical Exam Vital signs: Vital Signs 05/30/18 08:00 05/30/18 11:00 05/30/18 12:00 Temperature 98.4 F 97.7 F Pulse Rate 98 H 93 H 97 H Respiratory Rate 17 19 Blood Pressure 118/66 103/62 Pulse Oximetry 94 L 98 05/30/18 15:00 05/30/18 16:00 05/30/18 19:00 Temperature 97.7 F Pulse Rate 94 H 99 H 96 H Respiratory Rate 12 Blood Pressure 130/61 Pulse Oximetry 98 05/30/18 20:00 05/30/18 20:38 05/30/18 23:00 Temperature 98.3 F Pulse Rate 103 H 93 H Respiratory Rate 18 Blood Pressure 145/69 H Pulse Oximetry 95 96 05/31/18 00:00 05/31/18 03:00 05/31/18 04:00 Temperature 97.8 F 98.0 F Pulse Rate 92 H 92 H 108 H Respiratory Rate 18 18 Blood Pressure 141/72 H 187/88 H Pulse Oximetry 98 95 Intake & Output 05/30/18 05/31/18 05/31/18 18:59 06:59 18:59 Intake Total 2617.5 / 2617.5 340 / 340 Output Total 600 / 600 1000 / 1000 Balance 2016.2016. -660 / -660 Weight 82.3 kg Intake: IV 2617.5 / 2617.5 100 / 100 NS Inj 1,000 ML @ 42 mls/hr IV. 1999 CONT .[id number] [facility] Rx#:[id number] Zosyn 3.375 GM Premix 50 ML @ 100 / 100 100 / 100 100 mls/hr IV.SIG Q6H [facility] Rx#: [id number] Vancomycin Inj 1,750 MG In NS 517.5 / 517.5 Inj 500 ML @ 250 mls/hr IV.SIG Q18H [facility] Rx#:[id number] Oral 240 / 240 Output: Urine 600 / 600 1000 / 1000 Other: # Voids 2 # Incontinent Voids 1 # Bowel Movements 0 1 Narrative: GENERAL: WDWN female patient, INAD. Awake and alert. Oriented x 3. SKIN: Warm and dry. HEENT: Atraumatic. Normocephalic. Pupils equal and round. No scleral icterus. No injection or drainage. No nasal bleeding or discharge. Mucous membranes pink and moist. NECK: Trachea midline. CARDIOVASCULAR: Regular rate and rhythm. RESPIRATORY: No accessory muscle use. Clear to auscultation. Breath sounds equal bilaterally. GASTROINTESTINAL: Abdomen semi-firm, mild diffuse tenderness to palpation, + distended. +BS. MUSCULOSKELETAL: Extremities without clubbing, cyanosis, or edema. NEUROLOGICAL: Awake and alert. No obvious cranial nerve deficits. Motor grossly within normal limits bilateral upper extremities. Unable to move bilateral lower extremities, muscle strength 0/5. Normal speech. PSYCHIATRIC: Appropriate mood and affect; insight and judgment fair. Results - Labs CBC & Chem 7: 05/29/18 04:46 05/29/18 04:46 Laboratory Results - last 24 hr 05/31/18 00:20 Vancomycin Trough 27.9 H Microbiology 05/29/18 11:45 Tissue - Back Acid Fast Bacilli Smear - Final No acid fast bacilli seen 05/29/18 11:45 Tissue - Back Gram Stain - Final 05/29/18 11:45 Tissue - Back Wound Culture - Preliminary No growth in 24 hours 05/29/18 05:15 Blood - Peripheral Aerobic Blood Culture - Preliminary No growth in 1 day 05/29/18 05:15 Blood - Peripheral Anaerobic Blood Culture - Preliminary No growth in 1 day 05/29/18 05:11 Blood - Peripheral Aerobic Blood Culture - Preliminary No growth in 1 day 05/29/18 05:11 Blood - Peripheral Anaerobic Blood Culture - Final QNS - See aerobic report. 05/29/18 11:45 Tissue - Back Fungal Smear - Final No fungal elements seen 05/28/18 13:00 Catheterized Urine Urine Culture - Preliminary Yeast species Assessment and Plan - Plan 58-year-old female with a history of hypertension, GERD, anemia, constipation, gout, fibromyalgia, chronic pain syndrome, anxiety, depression and migraine. She presented on 05/28/2018 to the emergency room because of upper back pain and bilateral lower extremity weakness. She reports of bilateral lower extremity weakness unable to get out of bed and ambulate for 2 weeks. At the same time she complained of constant sharp severe upper back pain worse with activity different from her usual neck and lower back pain. MRI studies showed T6/T7 destruction with possible osteomyelitis. Acute paraplegia secondary to spinal cord compression Vertebral osteomyelitis with pathologic fracture T6-T7 T5-6 discitis s/p CT guided biopsy 05/29, path + abscess -Neurosurgery following, appreciate assistance. Patient does not want surgical intervention, likelihood of reversal of paraplegia very low -TLSO on when OOB -Continue on IV Zosyn and Vancomycin -ID following, appreciate assistance -Continue on Oxycodone and Dilaudid PRN for pain management Constipation KUB shows nonspecific bowel gas pattern suggesting possible ileus patient with 1 BM today -change to clear liquid diet -continue on Pericolace BID -Dulcolax suppository x 1 now -Miralax po BID Sacral decubitus, stage 4 -evaluated by wound care nurse. wound care orders placed. -specialty bed -off loading maneuvers Hx of IVDU UDS tested for cocaine, benzos and opiates -monitor DVT prophylaxis -Lovenox sq Code Status: FULL Discussed Condition With: FULL Discharge Planning: Not ready for discharge.
[2018-05-31] MEDS: Famotidine 20 MG Tablet PO SCH ×2 (08:08→22:17)
[2018-05-31] MEDS: Duloxetine 60 MG DR Capsule PO SCH (08:08)
[2018-05-31] MEDS: Metoclopramide 10 MG Tablet PO SCH ×4 (08:08→22:17)
[2018-05-31] MEDS: Enoxaparin Inj 40 MG/0.4 ML Syringe SQ SCH (08:09)
[2018-05-31] MEDS: Senna/Docusate Sodium 8.6/50 MG Tablet PO SCH ×3 (08:10→22:17)
--- NOTE | 2018-05-31 10:49 | XR ---
EXAM DATE: 05/31/2018 10:33 AM EDT AGE/SEX: 58 years / Female INDICATIONS: Upper, middle abdominal pain. CLINICAL DATA: This is the patient's subsequent encounter. Patient reports that signs and symptoms h ave been present for 3 days and indicates a pain score of 6/10. MEDICAL/SURGICAL HISTORY: Hypertension. None. [place] [facility] [place]EL[place] W CONTRAST, 05/28/2018. . FINDINGS: Multiple air-filled loops of distended small bowel and distended air-filled colon noted. No gross int erval change when compared to CT of 05/28/2018. Osseous structures within normal limits. No abnormal a bdominal calcifications seen. CONCLUSION: Nonspecific bowel gas pattern suggesting possible ileus. Electronically signed by: Sudarshan Chan MD 05/31/2018 10:47 AM EDT
[2018-05-31] MEDS: Polyethylene Glycol 3350 17 GM Packet PO SCH ×2 (11:57→22:18)
[2018-05-31] MEDS: oxyCODONE/Acetaminophen 10/325 Tablet PO PRN ×2 (11:58→17:58)
[2018-05-31] MEDS ORDERED: Bisacodyl 10 MG Supp RECTAL ONE (12:00)
[2018-05-31] MEDS: Sod Chloride 0.9% Inj 1,000 ML IV.CONT SCH (16:52)
[2018-06-01] MEDS: oxyCODONE/Acetaminophen 10/325 Tablet PO PRN ×4 (00:14→23:42)
[2018-06-01] MEDS: HYDROmorphone PF Inj 2 MG/ML Vial IV.PUSH PRN ×7 (02:02→21:08)
[2018-06-01] MEDS: Vancomycin Inj 1,500 MG in Sodium Chlor 0.9% Inj 500 ML IV.SIG SCH (02:03)
[2018-06-01] MEDS: Piperacil/Tazo 3.375 GM Premix 50 ML IV.SIG SCH ×3 (04:26→15:43)
[2018-06-01] MEDS: ALPRAZolam 0.5 MG Tablet PO PRN ×2 (06:30→15:48)
[2018-06-01] MEDS: Metoclopramide 10 MG Tablet PO SCH ×4 (09:20→21:09)
[2018-06-01] MEDS: Famotidine 20 MG Tablet PO SCH ×2 (09:20→21:09)
[2018-06-01] MEDS: Duloxetine 60 MG DR Capsule PO SCH (09:20)
[2018-06-01] MEDS: Senna/Docusate Sodium 8.6/50 MG Tablet PO SCH ×2 (09:21→21:09)
[2018-06-01] MEDS: Polyethylene Glycol 3350 17 GM Packet PO SCH ×2 (09:21→21:09)
[2018-06-01] MEDS: Enoxaparin Inj 40 MG/0.4 ML Syringe SQ SCH (09:21)
--- NOTE | 2018-06-01 10:36 | P.PN ---
Subjective Interval history: Follow-up for paraplegia, T6-T7 collapse and possible osteomyelitis. Patient seen and examined. Patient states her abdominal pain has improved overall but does complain of sharp pain across the upper abdomen just beneath her breasts that is worse with movement and inspiration. She denies any chest pain. She denies any nausea or vomiting. She denies any shortness of breath. She reports multiple episodes of diarrhea yesterday, none so far today. Physical Exam Vital signs: Vital Signs 05/31/18 11:00 05/31/18 11:20 05/31/18 12:00 Temperature 98.0 F Pulse Rate 102 H 89 Respiratory Rate 20 Blood Pressure 161/79 H Pulse Oximetry 94 L 98 05/31/18 14:05 05/31/18 15:00 05/31/18 16:00 Temperature 97.9 F Pulse Rate 100 H 99 H Respiratory Rate 12 14 Blood Pressure 167/80 H Pulse Oximetry 95 05/31/18 19:00 05/31/18 20:00 05/31/18 23:00 Temperature 98.2 F Pulse Rate 95 H 90 91 H Respiratory Rate 18 Blood Pressure 157/73 H Pulse Oximetry 96 06/01/18 00:00 06/01/18 03:00 06/01/18 04:00 Temperature 97.6 F 97.7 F Pulse Rate 95 H 91 H 98 H Respiratory Rate 18 18 Blood Pressure 168/87 H 153/102 H Pulse Oximetry 98 96 06/01/18 05:39 06/01/18 07:00 06/01/18 08:00 Temperature 97.4 F L Pulse Rate 94 H 93 H Respiratory Rate 16 14 Blood Pressure 150/88 H 147/82 H Pulse Oximetry 94 L 06/01/18 08:30 06/01/18 09:50 06/01/18 10:17 Temperature Pulse Rate Respiratory Rate 16 15 Blood Pressure Pulse Oximetry 94 L Intake & Output 05/31/18 06/01/18 06/01/18 18:59 06:59 18:59 Intake Total 100 / 100 975 / 975 50 / 50 Output Total 850 / 850 Balance -750 / -750 975 / 975 50 / 50 Weight 73.6 kg Intake: IV 100 / 100 615 / 615 50 / 50 Zosyn 3.375 GM Premix 50 ML @ 100 / 100 100 / 100 50 / 50 100 mls/hr IV.SIG Q6H KATIE Rx#: [id number] Vancomycin Inj 1,500 MG In NS 515 / 515 Inj 500 ML @ 250 mls/hr IV.SIG Q24H KATIE Rx#:[id number] Oral 360 / 360 Output: Urine Amount (Catheter) 850 / 850 Female External 850 / 850 Other: # Incontinent Voids 3 Date of Last Bowel Movement 05/31/18 # Bowel Movements 5 # Incontinent Bowel Movements 5 1 Narrative: GENERAL: WDWN female patient, INAD. Awake and alert. SKIN: Warm and dry. No generalized rash. HEENT: Atraumatic. Normocephalic. Pupils equal and round. No scleral icterus. No injection or drainage. No nasal bleeding or discharge. Mucous membranes pink and moist. NECK: Trachea midline. CARDIOVASCULAR: Regular rate and rhythm. RESPIRATORY: No accessory muscle use. Clear to auscultation. Breath sounds equal bilaterally. GASTROINTESTINAL: Abdomen semi-firm, +distended, mild tenderness to palpation upper abdomen bilaterally just below breasts. +BS. MUSCULOSKELETAL: Extremities without clubbing, cyanosis, or edema. NEUROLOGICAL: Awake and alert. No obvious cranial nerve deficits. Motor grossly within normal limits bilateral upper extremities. Unable to move bilateral lower extremities, muscle strength 0/5. Normal speech. PSYCHIATRIC: Appropriate mood and affect; insight and judgment questionable. - Urinary Catheter Management Female External Cath placed during this visit: no Results - Labs CBC & Chem 7: 05/29/18 04:46 05/29/18 04:46 Microbiology 05/29/18 11:45 Tissue - Back Gram Stain - Final 05/29/18 11:45 Tissue - Back Wound Culture - Final No growth in 72 hours (aerobically and anaerobically ) 05/28/18 13:00 Catheterized Urine Urine Culture - Final Emily glabrata 05/29/18 05:15 Blood - Peripheral Aerobic Blood Culture - Preliminary No growth in 2 days 05/29/18 05:15 Blood - Peripheral Anaerobic Blood Culture - Preliminary No growth in 2 days 05/29/18 05:11 Blood - Peripheral Aerobic Blood Culture - Preliminary No growth in 2 days 05/29/18 05:11 Blood - Peripheral Anaerobic Blood Culture - Final QNS - See aerobic report. - Imaging Impressions Abdomen X-Ray 05/31/18 00:00 CONCLUSION: Nonspecific bowel gas pattern suggesting possible ileus. Assessment and Plan - Plan 58-year-old female with a history of hypertension, GERD, anemia, constipation, gout, fibromyalgia, chronic pain syndrome, anxiety, depression and migraine. She presented on 05/28/2018 to the emergency room because of upper back pain and bilateral lower extremity weakness. She reports of bilateral lower extremity weakness unable to get out of bed and ambulate for 2 weeks. At the same time she complained of constant sharp severe upper back pain worse with activity different from her usual neck and lower back pain. MRI studies showed T6/T7 destruction with possible osteomyelitis. Acute paraplegia secondary to spinal cord compression Vertebral osteomyelitis with pathologic fracture T6-T7 T5-6 discitis s/p CT guided biopsy 05/29, path + abscess -Neurosurgery following, appreciate assistance. Patient does not want surgical intervention, likelihood of reversal of paraplegia very low -TLSO on when OOB -Continue on IV Zosyn and Vancomycin -ID following, appreciate assistance -Continue on Oxycodone and Dilaudid PRN for pain management Constipation KUB shows nonspecific bowel gas pattern suggesting possible ileus patient with diarrhea yesterday, none so far today -continue on clear liquid diet -continue on Pericolace BID -will send stool for C diff if diarrhea returns Upper abdominal pain, ?referred T spine pain from infection -Mylanta prn -reviewed CT Abd/pelvis 05/28 -basilar reactive pleural thickening and small effusions with compressive atelectasis, mild intestinal ileus without pathologic distention, paraspinal reactive changes mid to lower thoracic spine -obtain CXR. Incentive spirometry and acapella, encourage use -obtain CT abd/pelvis r/o obstruction Sacral decubitus, stage 4 -evaluated by wound care nurse. Wound care orders placed. -specialty bed -off loading maneuvers Hx of IVDU UDS tested for cocaine, benzos and opiates -monitor DVT prophylaxis -Lovenox sq Code Status: FULL Discussed Condition With: patient, nursing staff, Dr. Melvin Discharge Planning: Not ready for discharge.
[2018-06-01] MEDS ORDERED: Aluminum/Magnesium/Simethacone Susp 30 ML UDC PO ONE (11:30)
--- NOTE | 2018-06-01 12:49 | XR ---
EXAM DATE: 06/01/2018 12:45 PM EDT AGE/SEX: 58 years / Female INDICATIONS: Shortness of breath. CLINICAL DATA: This is the patient's subsequent encounter. Patient reports that signs and symptoms h ave been present for 1 week and indicates a pain score of 0/10. MEDICAL/SURGICAL HISTORY: . Cardiovascular disease. . Pacemaker. [place] [facility] [place] W 3D[place]/28[place]. . FINDINGS: A single AP view of the chest demonstrates the lungs to be symmetrically aerated without evidence of mass, infiltrate or effusion. The cardiomediastinal contours are unremarkable. Osseous structures a re intact. Pacer device from a left subclavian transvenous approach noted. Cardiomegaly. There is li near atelectasis at the left lung base. CONCLUSION: Left basilar atelectasis. Electronically signed by: Zeferino Townsend MD 06/01/2018 12:48 PM EDT
[2018-06-01 13:36] LABS: Albumin 2.2 g/dL (3.4-5.0); Anion Gap 8 meq/L (5-15); Aspartate Aminotransferase 17 U/L (15-37); Blood Urea Nitrogen 4 mg/dL (7-18); Calcium 8.5 mg/dL (8.5-10.1); Carbon Dioxide 25.2 meq/L (21.0-32.0); Chloride 109 meq/L (98-107); Glomerular Filtration Rate 57 mL/min (>89); Glucose,Random 116 mg/dL (74-106); Lipase 76 U/L (73-393); Potassium 3.7 meq/L (3.5-5.1); Sodium 142 meq/L (136-145)
[2018-06-01 13:37] LABS: Alanine Aminotransferase 11 U/L (10-53)
[2018-06-01 13:39] LABS: Alkaline Phosphatase 79 U/L (45-117); Total Protein 7.5 g/dL (6.4-8.2)
[2018-06-01] MEDS ORDERED: Diatrizoate Meglum/Diatrizoate Sod Liq 9 ML UDC PO ONE (14:00)
--- NOTE | 2018-06-01 16:51 | P.PNID ---
Subjective Remarks: afebrile pt co pain of severe back and upper abd pain - getting ready for another CT bx with negative clx path cw abscess Antibiotics: zosyn vancomycin Allergies/Adverse Reactions: Allergies No Known Allergies Allergy (Uncoded 05/11/14 14:22) Objective Vital Signs 05/31/18 19:00 05/31/18 20:00 05/31/18 23:00 Temperature 98.2 F Pulse Rate 95 H 90 91 H Respiratory Rate 18 Blood Pressure 157/73 H Pulse Oximetry 96 06/01/18 00:00 06/01/18 03:00 06/01/18 04:00 Temperature 97.6 F 97.7 F Pulse Rate 95 H 91 H 98 H Respiratory Rate 18 18 Blood Pressure 168/87 H 153/102 H Pulse Oximetry 98 96 06/01/18 05:39 06/01/18 07:00 06/01/18 08:00 Temperature 97.4 F L Pulse Rate 94 H 90 Respiratory Rate 16 14 Blood Pressure 150/88 H 147/82 H Pulse Oximetry 94 L 06/01/18 08:30 06/01/18 09:50 06/01/18 10:17 Temperature Pulse Rate Respiratory Rate 16 15 Blood Pressure Pulse Oximetry 94 L 06/01/18 12:00 06/01/18 12:40 06/01/18 15:25 Temperature 97.4 F L Pulse Rate 91 H Respiratory Rate 18 15 15 Blood Pressure 155/77 H Pulse Oximetry 99 06/01/18 16:21 Temperature Pulse Rate Respiratory Rate 15 Blood Pressure Pulse Oximetry Intake & Output 05/31/18 06/01/18 06/01/18 18:59 06:59 18:59 Intake Total 100 / 100 975 / 975 100 / 100 Output Total 850 / 850 800 / 800 Balance -750 / -750 975 / 975 -700 / -700 Weight 73.6 kg Intake: IV 100 / 100 615 / 615 100 / 100 Zosyn 3.375 GM Premix 50 ML @ 100 / 100 100 / 100 100 / 100 100 mls/hr IV.SIG Q6H KATIE Rx#: [id number] Vancomycin Inj 1,500 MG In NS 515 / 515 Inj 500 ML @ 250 mls/hr IV.SIG Q24H KATIE Rx#:[id number] Oral 360 / 360 Output: Urine Amount (Catheter) 850 / 850 800 / 800 Female External 850 / 850 800 / 800 Other: # Incontinent Voids 3 Date of Last Bowel Movement 05/31/18 # Bowel Movements 5 # Incontinent Bowel Movements 5 1 05/29/18 05:15 Blood - Peripheral Aerobic Blood Culture - Preliminary No growth in 3 days 05/29/18 05:15 Blood - Peripheral Anaerobic Blood Culture - Preliminary No growth in 3 days 05/29/18 05:11 Blood - Peripheral Aerobic Blood Culture - Preliminary No growth in 3 days 05/29/18 05:11 Blood - Peripheral Anaerobic Blood Culture - Final QNS - See aerobic report. 05/29/18 11:45 Tissue - Back Gram Stain - Final 05/29/18 11:45 Tissue - Back Wound Culture - Final No growth in 72 hours (aerobically and anaerobically ) 05/28/18 13:00 Catheterized Urine Urine Culture - Final Emily glabrata 05/29/18 11:45 Tissue - Back Acid Fast Bacilli Smear - Final No acid fast bacilli seen 05/29/18 11:45 Tissue - Back Mycobacterial Culture - Pending 05/29/18 11:45 Tissue - Back Fungal Smear - Final No fungal elements seen 05/29/18 11:45 Tissue - Back Fungal Culture - Pending Lab - Chemistry Results 06/01/18 06/01/18 11:59 12:50 Sodium 142 Potassium 3.7 Chloride 109 H Carbon Dioxide 25.2 Anion Gap 8 BUN 4 L Creatinine 1.00 Estimated GFR 57 L POC Glucose 144 H Random Glucose 116 H Calcium 8.5 Total Bilirubin 0.3 AST 17 ALT 11 Alkaline Phosphatase 79 Total Protein 7.5 Albumin 2.2 L Lipase 76 Imaging: ITS Impressions Abdomen/Pelvis CT 05/28/18 12:11 CONCLUSION: 1. Bibasilar reactive pleural thickening and small effusions with compressive atelectasis as described. 2. Paraspinal reactive changes in the mid to lower thoracic spine. 3. Mild intestinal ileus without pathologic distention. 4. No other evidence of acute process in the abdomen or pelvis. Cervical Spine CT 05/28/18 13:18 CONCLUSION: 1. Degenerative disc disease and facet arthropathy as described. 2. No evidence of acute abnormality. Lumbar Spine CT 05/28/18 13:18 CONCLUSION: 1. Degenerative listhesis at L4-5 secondary to facet arthropathy. 2. No evidence of acute process, disc herniation or soft tissue inflammatory disease. Thoracic Spine CT 05/28/18 13:18 CONCLUSION: 1. Destructive process involving the T5-6 intervertebral disc, T6-7 intervertebral disc, T6 vertebral body and T7 vertebral body characteristic of discitis and osteomyelitis. An acute kyphotic deformity has developed secondary to compression deformity of the T6 and T7 vertebral bodies. 2. Significant compromise of the central spinal canal at T6-7 is noted. There is material body fragmentation with calcific densities extending into the spinal canal. Significant spinal cord compression is suspected. 3. Otherwise intact thoracic spine. Chest CTA 05/28/18 13:41 CONCLUSION: 1. No evidence of pulmonary embolism. 2. Destructive osseous process involving the T6 and T7 vertebral bodies with complete obliteration of the T6-7 intervertebral disc and significant paraspinal reactive changes. Osteomyelitis and discitis should be considered as a primary cause. 3. Small bilateral pleural effusions and peripheral consolidating airspace disease in both lower lobes. Soft Tissue Biopsy 05/29/18 00:00 CONCLUSION: 1. Uncomplicated CT guided core biopsy of the paraspinal soft tissues at T6- T7. Samples were sent for histological and microbiological evaluation.. Abdomen X-Ray 05/31/18 00:00 CONCLUSION: Nonspecific bowel gas pattern suggesting possible ileus. Chest X-Ray 06/01/18 00:00 CONCLUSION: Left basilar atelectasis. Physical Exam: GENERAL: NAD SKIN: Warm and dry. NO rash HEAD: Atraumatic. Normocephalic. EYES: Pupils equal and round. No scleral icterus. No injection or drainage. ENT: No nasal bleeding or discharge. Mucous membranes pink and moist. NECK: Trachea midline. No JVD. CARDIOVASCULAR: Regular rate and rhythm. RESPIRATORY: No accessory muscle use. Clear to auscultation. Breath sounds equal bilaterally. GASTROINTESTINAL: Abdomen soft, non-tender, nondistended. Hepatic and splenic margins not palpable. MUSCULOSKELETAL: Extremities without clubbing, cyanosis, or edema. NEUROLOGICAL: Awake and alert. No obvious cranial nerve deficits. Paraplegia motor 0/5 BLE Normal speech. 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
--- NOTE | 2018-06-01 18:55 | CT ---
EXAM DATE: 06/01/2018 6:44 PM EDT AGE/SEX: 58 years / Female INDICATIONS: Distention. CLINICAL DATA: This is the patient's initial encounter. Patient reports that signs and symptoms have been present for 1 day and indicates a pain score of 3/10. MEDICAL/SURGICAL HISTORY: Hypertension. . Tracheostomy ORAL CONTRAST: Prescribed oral contrast ingested. RADIATION DOSE: 14.76 CTDI (mGy) [place] [facility] [place]. . TECHNIQUE: Multiple contiguous axial images were obtained through the abdomen and pelvis following b olus infusion of 97 ml Omnipaque 350 (iohexol) nonionic water-soluble contrast as a single exam dos e. Prescribed oral contrast ingested. Using automated exposure control and adjustment of the mA and/ or kV according to patient size, radiation dose was kept as low as reasonably achievable to obtain op timal diagnostic quality images. DICOM format image data is available electronically for review and comparison. FINDINGS: Lower Lungs: Small bilateral pleural effusions and bilateral lower lobe atelectasis again seen. Liver: Distended gallbladder again seen. No pericholecystic inflammatory changes. Liver is homogeneou s. Mild intrahepatic and extrahepatic biliary ductal prominence with the common duct measuring 9 mm i n diameter unchanged. Spleen: The spleen is enlarged measuring 14.3 cm in craniocaudal dimension, unchanged. Calcified spl enic granulomas are also noted. Pancreas: Unremarkable without mass or calcification. Kidneys: Normal in size and shape. No evidence of mass or hydronephrosis. Adrenal Glands: Unremarkable. Aorta: The aorta and proximal iliac vessels are grossly unremarkable without aneurysmal dilation. Bowel/Mesentery: Mild distention of multiple small bowel loops along with multiple air-fluid levels. Air-fluid levels also seen within the colon. Appendix not identified. Trace free fluid in the pelvis . No free air. Abdominal Wall: Intact. Retroperitoneum: No evidence of adenopathy in the retrocrural, para-aortic, or deep pelvic regions. Bladder: Contours are smooth. Reproductive Organs: No abnormal masses or calcifications seen. Inguinal: The inguinal region is unremarkable without evidence of adenopathy. Bony Structures: Destructive bony process at T6-7 partially visualized. This is seen on prior CT tho racic spine and prior CT abdomen and pelvis. CONCLUSION: 1. Mild small bowel and colonic distention with multiple air-fluid levels again seen. No significant interval change. 2. Mild intrahepatic and extra hepatic biliary ductal prominence and distended gallbladder again see n. 3. Splenomegaly unchanged. 4. Destructive changes of the mid thoracic spine again seen and partially visualized. 5. Small bilateral pleural effusions and bilateral lower lung atelectasis again seen. Electronically signed by: Sudarshan Chan MD 06/01/2018 6:53 PM EDT
[2018-06-01] MEDS: Sod Chloride 0.9% Inj 1,000 ML IV.CONT SCH (21:10)
[2018-06-02] MEDS: HYDROmorphone PF Inj 2 MG/ML Vial IV.PUSH PRN ×6 (00:50→23:14)
[2018-06-02] MEDS: Vancomycin Inj 1,500 MG in Sodium Chlor 0.9% Inj 500 ML IV.SIG SCH (01:54)
[2018-06-02] MEDS: ALPRAZolam 0.5 MG Tablet PO PRN ×2 (01:54→21:53)
[2018-06-02] MEDS: oxyCODONE/Acetaminophen 10/325 Tablet PO PRN ×2 (06:25→12:35)
--- NOTE | 2018-06-02 07:33 | P.PN ---
Subjective Interval history: Follow-up for paraplegia, T6-T7 collapse and possible osteomyelitis. Patient seen and examined. Patient is complaining of continued upper abdominal pain. She reports little relief with her back pain on Percocet. She is passing flatus and had a bowel movement this am. She denies any nausea or vomiting and is tolerating a clear liquid diet. She denies any chest pain or shortness of breath. Physical Exam Vital signs: Vital Signs 06/01/18 08:00 06/01/18 08:30 06/01/18 09:50 Temperature 97.4 F L Pulse Rate 90 Respiratory Rate 14 16 15 Blood Pressure 147/82 H Pulse Oximetry 94 L 06/01/18 10:17 06/01/18 12:00 06/01/18 12:40 Temperature 97.4 F L Pulse Rate 91 H Respiratory Rate 18 15 Blood Pressure 155/77 H Pulse Oximetry 94 L 99 06/01/18 15:25 06/01/18 16:00 06/01/18 16:21 Temperature 97.5 F L Pulse Rate 80 Respiratory Rate 15 16 15 Blood Pressure 161/74 H Pulse Oximetry 98 06/01/18 16:56 06/01/18 20:00 06/02/18 00:00 Temperature 97.6 F 97.7 F Pulse Rate 85 89 89 Respiratory Rate 18 18 Blood Pressure 153/71 H 170/84 H Pulse Oximetry 96 97 06/02/18 00:21 06/02/18 04:00 06/02/18 04:07 Temperature 97.6 F Pulse Rate 95 H 98 H Respiratory Rate 18 18 Blood Pressure 148/81 H Pulse Oximetry 95 Intake & Output 06/01/18 06/02/18 06/02/18 18:59 06:59 18:59 Intake Total 100 / 100 1715 / 1715 Output Total 800 / 800 675 / 675 Balance -700 / -700 1040 / 1040 Weight 73.6 kg Intake: IV 100 / 100 1715 / 1715 NS Inj 1,000 ML @ 42 mls/hr IV. 1000 / 1000 CONT .[id number] KATIE Rx#:[id number] Maxipime Inj 2,000 MG In NS Inj 200 / 200 100 ML @ 200 mls/hr IV.SIG Q8H KATIE Rx#:[id number] Zosyn 3.375 GM Premix 50 ML @ 100 / 100 100 mls/hr IV.SIG Q6H KATIE Rx#: [id number] Vancomycin Inj 1,500 MG In NS 515 / 515 Inj 500 ML @ 250 mls/hr IV.SIG Q24H KATIE Rx#:[id number] Output: Urine 675 / 675 Urine Amount (Catheter) 800 / 800 Female External 800 / 800 Other: # Incontinent Voids 1 Date of Last Bowel Movement 05/31/18 # Incontinent Bowel Movements 1 Narrative: GENERAL: WDWN female patient. Awake and alert. In mild distress from back and upper abdominal pain. SKIN: Warm and dry. No generalized rash. HEENT: Atraumatic. Normocephalic. Pupils equal and round. No scleral icterus. No injection or drainage. No nasal bleeding or discharge. Mucous membranes pink and moist. NECK: Trachea midline. CARDIOVASCULAR: Regular rate and rhythm. RESPIRATORY: No accessory muscle use. Clear to auscultation. Breath sounds equal bilaterally. GASTROINTESTINAL: Abdomen semi-firm, +distended, mild tenderness to palpation upper abdomen bilaterally just below breasts. +BS. MUSCULOSKELETAL: Extremities without clubbing, cyanosis, or edema. NEUROLOGICAL: Awake and alert. No obvious cranial nerve deficits. Motor grossly within normal limits bilateral upper extremities. Unable to move bilateral lower extremities, muscle strength 0/5. Normal speech. PSYCHIATRIC: Appropriate mood and affect; insight and judgment questionable. - Urinary Catheter Management Female External Cath placed during this visit: no Results - Labs CBC & Chem 7: 05/29/18 04:46 06/01/18 12:50 Laboratory Results - last 24 hr 06/01/18 06/01/18 11:59 12:50 Sodium 142 Potassium 3.7 Chloride 109 H Carbon Dioxide 25.2 Anion Gap 8 BUN 4 L Creatinine 1.00 Estimated GFR 57 L POC Glucose 144 H Random Glucose 116 H Calcium 8.5 Total Bilirubin 0.3 AST 17 ALT 11 Alkaline Phosphatase 79 Total Protein 7.5 Albumin 2.2 L Lipase 76 Microbiology 05/29/18 05:15 Blood - Peripheral Aerobic Blood Culture - Preliminary No growth in 3 days 05/29/18 05:15 Blood - Peripheral Anaerobic Blood Culture - Preliminary No growth in 3 days 05/29/18 05:11 Blood - Peripheral Aerobic Blood Culture - Preliminary No growth in 3 days 05/29/18 05:11 Blood - Peripheral Anaerobic Blood Culture - Final QNS - See aerobic report. 05/29/18 11:45 Tissue - Back Gram Stain - Final 05/29/18 11:45 Tissue - Back Wound Culture - Final No growth in 72 hours (aerobically and anaerobically ) - Imaging Impressions Abdomen/Pelvis CT 06/01/18 00:00 CONCLUSION: 1. Mild small bowel and colonic distention with multiple air-fluid levels again seen. No significant interval change. 2. Mild intrahepatic and extra hepatic biliary ductal prominence and distended gallbladder again seen. 3. Splenomegaly unchanged. 4. Destructive changes of the mid thoracic spine again seen and partially visualized. 5. Small bilateral pleural effusions and bilateral lower lung atelectasis again seen. Chest X-Ray 06/01/18 00:00 CONCLUSION: Left basilar atelectasis. Assessment and Plan - Plan 58-year-old female with a history of hypertension, GERD, anemia, constipation, gout, fibromyalgia, chronic pain syndrome, anxiety, depression and migraine. She presented on 05/28/2018 to the emergency room because of upper back pain and bilateral lower extremity weakness. She reports of bilateral lower extremity weakness unable to get out of bed and ambulate for 2 weeks. At the same time she complained of constant sharp severe upper back pain worse with activity different from her usual neck and lower back pain. MRI studies showed T6/T7 destruction with possible osteomyelitis. Acute paraplegia secondary to spinal cord compression Vertebral osteomyelitis with pathologic fracture T6-T7 T5-6 discitis s/p CT guided biopsy 05/29, path + abscess -Neurosurgery following, appreciate assistance. Patient does not want surgical intervention, likelihood of reversal of paraplegia very low. 06/02 patient states today that she is reconsidering surgical intervention. She would like to discuss further with Dr. Ferro. -TLSO on when OOB -ID following, appreciate assistance. Continue on vancomycin. Zosyn changed to cefepime. ID anticipates long-term IV antibiotic treatment. -increase pain regimen to Oxycodone 15mg prn pain 6-10. Continue on IV Dilaudid as needed for breakthrough pain. Hypertension -Start on Norvasc 5 mg daily -Clonidine as needed with parameters -Continue to monitor BP and adjust treatment accordingly Constipation, resolving +BM this am KUB shows nonspecific bowel gas pattern suggesting possible ileus CT abd/pelvis shows mild small bowel and colonic distention, mild intrahepatic and extrahepatic biliary ductal prominence and distended gallbladder, splenomegaly unchanged -Discussed findings with Dr. Melvin. Advance to regular diet and see how patient tolerates. -continue on Pericolace BID and Miralax daily -Continue on Reglan Upper abdominal pain, ?referred T spine pain from infection CXR shows atelectasis, images reviewed by me -Ender prn -Continue with incentive spirometry and acapella, encourage use Sacral decubitus, stage 4 -evaluated by wound care nurse. Wound care orders placed. -specialty bed -off loading maneuvers Hx of IVDU, remotely UDS tested for cocaine, benzos and opiates -Patient states she last snorted cocaine 6 months ago -monitor DVT prophylaxis -Lovenox sq Code Status: FULL Discussed Condition With: patient, nursing staff, Dr. Melvin Discharge Planning: Not ready for discharge. Discharge pending NS and ID clearance.
[2018-06-02] MEDS: Famotidine 20 MG Tablet PO SCH ×2 (09:05→21:50)
[2018-06-02] MEDS: Metoclopramide 10 MG Tablet PO SCH ×4 (09:05→21:50)
[2018-06-02] MEDS: Senna/Docusate Sodium 8.6/50 MG Tablet PO SCH ×2 (09:05→21:50)
[2018-06-02] MEDS: Duloxetine 60 MG DR Capsule PO SCH (09:05)
[2018-06-02] MEDS: Enoxaparin Inj 40 MG/0.4 ML Syringe SQ SCH (09:05)
[2018-06-02] MEDS: Polyethylene Glycol 3350 17 GM Packet PO SCH (09:05)
[2018-06-02] MEDS ORDERED: amLODIPine 5 MG Tablet PO SCH (12:30)
[2018-06-02] MEDS ORDERED: Aluminum/Magnesium/Simethacone Susp 30 ML UDC PO PRN (13:58)
[2018-06-02] MEDS: Sod Chloride 0.9% Inj 1,000 ML IV.CONT SCH (16:39)
[2018-06-03] MEDS ORDERED: Pharmacy Ordered Lab Info OTHER ONE (01:45)
[2018-06-03] MEDS: Vancomycin Inj 1,500 MG in Sodium Chlor 0.9% Inj 500 ML IV.SIG SCH (02:09)
[2018-06-03] MEDS: HYDROmorphone PF Inj 2 MG/ML Vial IV.PUSH PRN ×5 (06:01→21:30)
[2018-06-03] MEDS: Metoclopramide 10 MG Tablet PO SCH ×4 (09:03→20:32)
[2018-06-03] MEDS: Polyethylene Glycol 3350 17 GM Packet PO SCH (09:03)
[2018-06-03] MEDS: Senna/Docusate Sodium 8.6/50 MG Tablet PO SCH ×2 (09:03→20:32)
[2018-06-03] MEDS: Famotidine 20 MG Tablet PO SCH ×2 (09:04→20:32)
[2018-06-03] MEDS: Duloxetine 60 MG DR Capsule PO SCH (09:04)
[2018-06-03] MEDS: amLODIPine 5 MG Tablet PO SCH (09:04)
--- NOTE | 2018-06-03 10:10 | P.PN ---
Subjective Interval history: Follow-up for paraplegia, T6-T7 collapse and possible osteomyelitis. Patient seen and examined. Patient without any significant change. Patient scheduled for Myelogram as ordered by Dr. Ferro on Sunday. She is complaining of muscle spasm pain over the left periscapular area. She denies any nausea or vomiting. She denies any complaints of abdominal pain. She is tolerating diet. She is afebrile. VSS. Physical Exam Vital signs: Vital Signs 06/02/18 12:00 06/02/18 15:58 06/02/18 16:00 Temperature 97.7 F 98.5 F Pulse Rate 88 103 H Respiratory Rate 20 12 20 Blood Pressure 169/81 H 182/99 H Pulse Oximetry 97 97 06/02/18 20:00 06/03/18 00:00 06/03/18 02:41 Temperature 97.6 F 99.0 F Pulse Rate 104 H 87 Respiratory Rate 18 18 18 Blood Pressure 140/65 139/76 Pulse Oximetry 96 98 06/03/18 04:00 06/03/18 08:00 06/03/18 08:46 Temperature 97.6 F 98.0 F Pulse Rate 88 88 Respiratory Rate 18 17 Blood Pressure 166/86 H 160/98 H Pulse Oximetry 97 97 95 Intake & Output 06/02/18 06/03/18 06/03/18 18:59 06:59 18:59 Intake Total 100 / 100 715 / 715 1000 / 1000 Output Total 400 / 400 Balance 100 / 100 315 / 315 1000 / 1000 Weight 79 kg Intake: IV 100 / 100 715 / 715 1000 / 1000 NS Inj 1,000 ML @ 42 mls/hr IV. 1000 / 1000 CONT .[id number] KATIE Rx#:[id number] Maxipime Inj 2,000 MG In NS Inj 100 / 100 200 / 200 100 ML @ 200 mls/hr IV.SIG Q8H KATIE Rx#:[id number] Vancomycin Inj 1,500 MG In NS 515 / 515 Inj 500 ML @ 250 mls/hr IV.SIG Q24H KATIE Rx#:[id number] Output: Urine 400 / 400 Other: # Incontinent Voids 1 Date of Last Bowel Movement 06/02/18 06/02/18 06/02/18 # Incontinent Bowel Movements 1 Narrative: GENERAL: WDWN female patient. Awake and alert. In no acute distress. SKIN: Warm and dry. No generalized rash. HEENT: Atraumatic. Normocephalic. Pupils equal and round. No scleral icterus. No injection or drainage. No nasal bleeding or discharge. Mucous membranes pink and moist. NECK: Trachea midline. CARDIOVASCULAR: Regular rate and rhythm. RESPIRATORY: No accessory muscle use. Clear to auscultation. Breath sounds equal bilaterally. GASTROINTESTINAL: Abdomen semi-firm, +distended, mild tenderness to palpation upper abdomen bilaterally just below breasts. +BS. MUSCULOSKELETAL: Extremities without clubbing, cyanosis, or edema. NEUROLOGICAL: Awake and alert. No obvious cranial nerve deficits. Motor grossly within normal limits bilateral upper extremities. Unable to move bilateral lower extremities, muscle strength 0/5. Normal speech. PSYCHIATRIC: Appropriate mood and affect; insight and judgment questionable. - Urinary Catheter Management Female External Cath placed during this visit: no Results - Labs CBC & Chem 7: 05/29/18 04:46 06/01/18 12:50 Laboratory Results - last 24 hr 06/03/18 02:00 Vancomycin Trough 22.6 H Microbiology 05/29/18 05:15 Blood - Peripheral Aerobic Blood Culture - Preliminary No growth in 4 days 05/29/18 05:15 Blood - Peripheral Anaerobic Blood Culture - Preliminary No growth in 4 days 05/29/18 05:11 Blood - Peripheral Aerobic Blood Culture - Preliminary No growth in 4 days 05/29/18 05:11 Blood - Peripheral Anaerobic Blood Culture - Final QNS - See aerobic report. Assessment and Plan - Plan 58-year-old female with a history of hypertension, GERD, anemia, constipation, gout, fibromyalgia, chronic pain syndrome, anxiety, depression and migraine. She presented on 05/28/2018 to the emergency room because of upper back pain and bilateral lower extremity weakness. She reports of bilateral lower extremity weakness unable to get out of bed and ambulate for 2 weeks. At the same time she complained of constant sharp severe upper back pain worse with activity different from her usual neck and lower back pain. MRI studies showed T6/T7 destruction with possible osteomyelitis. Acute paraplegia secondary to spinal cord compression Vertebral osteomyelitis with pathologic fracture T6-T7 T5-6 discitis s/p CT guided biopsy 05/29, path + abscess -Neurosurgery following, appreciate assistance. Patient does not want surgical intervention, likelihood of reversal of paraplegia very low. 06/02 patient states today that she is reconsidering surgical intervention. Discussed at length with Dr. Oliver who spoke with Dr. Ferro. Patient scheduled for CT myelogram on Sunday. Flexeril, Lovenox and Cymbalta on hold per IR request. -TLSO on when OOB -ID following, appreciate assistance. Continue on vancomycin. Zosyn changed to cefepime. ID anticipates long-term IV antibiotic treatment. -increase pain regimen to Oxycodone 15mg prn pain 6-10. Continue on IV Dilaudid as needed for breakthrough pain. -Lidocaine prn muscle spasms. Alternate with application of heating pad. Hypertension, not well controlled -Increase Norvasc to 10mg daily -Clonidine as needed with parameters -Continue to monitor BP and adjust treatment accordingly Constipation, resolving +BM this am KUB shows nonspecific bowel gas pattern suggesting possible ileus CT abd/pelvis shows mild small bowel and colonic distention, mild intrahepatic and extrahepatic biliary ductal prominence and distended gallbladder, splenomegaly unchanged -Discussed findings with Dr. Melvin. Advance to regular diet and see how patient tolerates. -continue on Pericolace BID and Miralax daily -Continue on Reglan Upper abdominal pain, ?referred T spine pain from infection CXR shows atelectasis, images reviewed by me -Mylanta prn -Continue with incentive spirometry and acapella, encourage use Sacral decubitus, stage 4 -evaluated by wound care nurse. Wound care orders placed. -specialty bed -off loading maneuvers Hx of IVDU, remotely UDS tested for cocaine, benzos and opiates -Patient states she last snorted cocaine 6 months ago -monitor DVT prophylaxis -Lovenox sq Code Status: FULL Discussed Condition With: patient, nursing staff, Dr. Lacey, Dr. Oliver Discharge Planning: Not ready for discharge. Discharge pending NS and ID clearance.
[2018-06-03] MEDS ORDERED: Lidocaine 5% Patch T-DERMAL SCH (16:00)
--- NOTE | 2018-06-03 17:28 | P.PNADD ---
Addendum to Inpatient Note Additional information: case was dw Dr Sharma: Pt has multiple + blood clx for MRSA between 04/22 and 05/02. L spine MRI negative She was d/c'ed on vancomycin
[2018-06-03 18:18] LABS: Baso % (Auto) 0.5 % (0.0-2.0); Eos # (Auto) 0.1 th/mm3 (0.0-0.4); Eos % (Auto) 3.1 % (0.0-4.0); Hematocrit 26.8 % (35.0-46.0); Hemoglobin 8.7 gm/dL (11.6-15.3); Lymph # (Auto) 1.2 th/mm3 (1.0-4.8); Lymph % (Auto) 25.7 % (9.0-44.0); Mean Corpuscular HGB Conc 32.4 % (32.0-36.0); Mean Corpuscular Hemoglobin 26.7 pg (27.0-34.0); Mean Corpuscular Volume 82.3 fL (80.0-100.0); Mean Platelet Volume 6.9 fL (7.0-11.0); Mono # (Auto) 0.5 th/mm3 (0.0-0.9); Mono % (Auto) 11.3 % (0.0-8.0); Neut # (Auto) 2.7 th/mm3 (1.8-7.7); Neut % (Auto) 59.4 % (16.0-70.0); Platelet Count 302 th/mm3 (150-450); Red Blood Count 3.25 mil/mm3 (4.00-5.30); Red Cell Distribution Width 16.3 % (11.6-17.2); White Blood Count 4.5 th/mm3 (4.0-11.0)
--- NOTE | 2018-06-03 18:18 | P.PNNS ---
Subjective Interval history: 58-year-old lady with the low back pain and paraplegia for the last 4 weeks. She has T6 vertebrae destruction with the retropulsion and kyphosis likely related to osteomyelitis and discitis. Infectious disease relates that she has history of MRSA sepsis month ago in [facility] and has been on vancomycin. She has a cardiac pacemaker in place and cannot have an MRI scan although latest blood cultures are negative for any growth. She initially did not want any surgical intervention but now is reconsidering this decision and relates to us that she would like to consider surgery. Accordingly her Lovenox is held and we have spoken with Dr. Crispin Gutierrez from radiology to undertake a complete spine myelogram with post myelogram CT scan to evaluate for stenosis. Physical Exam Vital signs: Vital Signs 06/02/18 20:00 06/03/18 00:00 06/03/18 02:41 Temperature 97.6 F 99.0 F Pulse Rate 104 H 87 Respiratory Rate 18 18 18 Blood Pressure 140/65 139/76 Pulse Oximetry 96 98 06/03/18 04:00 06/03/18 08:00 06/03/18 08:46 Temperature 97.6 F 98.0 F Pulse Rate 88 88 Respiratory Rate 18 17 Blood Pressure 166/86 H 160/98 H Pulse Oximetry 97 97 95 06/03/18 12:00 06/03/18 16:00 Temperature 98.8 F 97.9 F Pulse Rate 90 92 H Respiratory Rate 18 14 Blood Pressure 141/65 H 143/86 H Pulse Oximetry 98 97 Intake & Output 06/02/18 06/03/18 06/03/18 18:59 06:59 18:59 Intake Total 100 / 100 715 / 715 1100 / 1100 Output Total 400 / 400 Balance 100 / 100 315 / 315 1100 / 1100 Weight 79 kg Intake: IV 100 / 100 715 / 715 1100 / 1100 NS Inj 1,000 ML @ 42 mls/hr IV. 1000 / 1000 CONT .[id number] KATIE Rx#:[id number] Maxipime Inj 2,000 MG In NS Inj 100 / 100 200 / 200 100 / 100 100 ML @ 200 mls/hr IV.SIG Q8H KATIE Rx#:[id number] Vancomycin Inj 1,500 MG In NS 515 / 515 Inj 500 ML @ 250 mls/hr IV.SIG Q24H KATIE Rx#:[id number] Output: Urine 400 / 400 Other: # Incontinent Voids 1 Date of Last Bowel Movement 06/02/18 06/02/18 06/02/18 # Incontinent Bowel Movements 1 - Constitutional mild distress, obese - Routine HEENT Exam Head: Present: normocephalic, atraumatic Eye: Present: EOMI, PERRL ENT: Present: mucous membranes moist, oropharynx clear, nares patent, external ear normal Comments: Oxygen nasal cannula in place - Routine Neck Exam Present: supple, full ROM - Routine Respiratory Exam Present: CTA bilaterally - Routine Cardiovascular Exam Present: RRR, S1, S2 - Routine Abdominal Exam Present: soft, normoactive bowel sounds - Routine Extremities Exam Present: edema - Routine Skin Exam Present: wounds (Sacral decubitus) - Routine Neurological Exam Present: oriented X3, CN II-XII intact, sensory deficit (Numbness in lower extremities), motor deficit (Upper extremity with good strength and lower extremities 0/5 strength) - Routine Psychiatric Exam Present: normal affect, cooperative - Urinary Catheter Management Female External Cath placed during this visit: no Assessment and Plan - Plan 58 yo obese female with dense paraplegia for the past 4 weeks with a history of MRSA sepsis over a month ago. Now with thoracic spine T5-6 discitis and T6 osteomyelitis with vertebral body destruction and collapse with kyphosis and retropulsion into the spinal canal with associated stenosis. She initially did not want surgical intervention for her thoracic deformity but now seems to have changed her mind and requests that we contemplate surgical intervention. We have again informed her that the likelihood of reversing the paraplegia is very low if none but given the kyphosis and risk for further collapse that she may need stabilization procedure which may help with her kyphotic posture along with the risk of worsening lung collapse from the kyphosis and back pain. Given that there may be persistent infection in the spine thoracic spinal stabilization procedure will require instrumentation which can risk being chronically infected also. Thoracic spine decompression with stabilization procedure has been discussed with the patient along with the risks and benefits involved. Hold chemical DVT prophylaxis for myelogram and continue mechanical DVT prophylaxis along with the sacral decubitus wound care management. Continue with the antibiotics. Discussed with Dr. Rosales infectious disease.
[2018-06-03 18:41] LABS: Alanine Aminotransferase 12 U/L (10-53); Albumin 2.2 g/dL (3.4-5.0); Anion Gap 6 meq/L (5-15); Aspartate Aminotransferase 17 U/L (15-37); Blood Urea Nitrogen 6 mg/dL (7-18); Calcium 8.2 mg/dL (8.5-10.1); Carbon Dioxide 26.6 meq/L (21.0-32.0); Chloride 107 meq/L (98-107); Glomerular Filtration Rate 56 mL/min (>89); Glucose,Random 93 mg/dL (74-106); Potassium 3.7 meq/L (3.5-5.1); Sodium 140 meq/L (136-145)
[2018-06-03 18:43] LABS: Alkaline Phosphatase 82 U/L (45-117); Total Protein 7.6 g/dL (6.4-8.2)
[2018-06-03] MEDS: ALPRAZolam 0.5 MG Tablet PO PRN (18:47)
[2018-06-03 18:48] LABS: Creatine Kinase 21 U/L (26-192)
--- NOTE | 2018-06-03 19:32 | XR ---
EXAM DATE: 06/03/2018 6:51 PM EDT AGE/SEX: 58 years / Female INDICATIONS: Chest pain CLINICAL DATA: This is the patient's subsequent encounter. Patient reports that signs and symptoms h ave been present for 4 - 6 days and indicates a pain score of 7/10. MEDICAL/SURGICAL HISTORY: . Cardiovascular disease. . . Pacemaker. COMPARISON: [facility] [place], CHEST 1V SINGLE AP, 06/01/2018. . FINDINGS: Pacer leads overlie right atrium and right ventricle. Basilar and dependent atelectasis and scarring in the lungs. Cardiomegaly. Tortuous aorta. Small bilateral effusions. No pneumothorax. CONCLUSION: Cardiomegaly with small bilateral pleural effusions. Basilar atelectasis and scarring. Electronically signed by: Daniel Valdez MD 06/03/2018 7:31 PM EDT
[2018-06-04 01:14] LABS: Creatine Kinase 21 U/L (26-192)
[2018-06-04] MEDS: HYDROmorphone PF Inj 2 MG/ML Vial IV.PUSH PRN ×5 (01:33→20:37)
[2018-06-04] MEDS: Vancomycin Inj 1,250 MG in Sodium Chlor 0.9% Inj 250 ML IV.SIG SCH (04:41)
[2018-06-04 05:34] LABS: Glomerular Filtration Rate 56 mL/min (>89)
[2018-06-04 05:39] LABS: Creatine Kinase 22 U/L (26-192)
--- NOTE | 2018-06-04 07:40 | ECG ---
Date Performed: 06/03/2018 Time Performed: 18:22:17 PTAGE: 58 years EKG: Sinus rhythm NORMAL ECG NO PREVIOUS TRACING DOCTOR: Lexi Pineda Interpretating Date/Time 06/04/2018 07:39:39
[2018-06-04] MEDS: ALPRAZolam 0.5 MG Tablet PO PRN ×2 (07:56→22:21)
[2018-06-04] MEDS: Metoclopramide 10 MG Tablet PO SCH ×4 (07:56→20:41)
[2018-06-04] MEDS: amLODIPine 5 MG Tablet PO SCH (08:02)
[2018-06-04] MEDS: Famotidine 20 MG Tablet PO SCH ×2 (08:02→20:41)
[2018-06-04] MEDS: Senna/Docusate Sodium 8.6/50 MG Tablet PO SCH ×2 (08:04→20:41)
[2018-06-04] MEDS: Polyethylene Glycol 3350 17 GM Packet PO SCH (08:04)
[2018-06-04] MEDS ORDERED: Phenylephrine/NS 1000 MCG/10ML Syringe IV.PUSH ONE (08:44)
[2018-06-04] MEDS ORDERED: Lidocaine PF 1% Inj 5 ML Syringe INFILTRATN ONE (08:44)
[2018-06-04] MEDS ORDERED: Ketamine Inj 50 MG/5 ML Syringe IV.PUSH ONE (12:02)
[2018-06-04] MEDS ORDERED: Iohexol 300 MG/ML 50 ML Vial (for Rad Diag) IT ONE (13:00)
[2018-06-04] MEDS ORDERED: *morphine SULFATE 4 MG/ML PERIprocedure ONLY ONE (14:03)
[2018-06-04] MEDS ORDERED: fentaNYL Citrate Inj 100 MCG/2 ML Ampul ONE (14:04)
--- NOTE | 2018-06-04 14:06 | P.PN ---
Subjective Interval history: Follow-up for paraplegia, T6-T7 collapse and possible osteomyelitis. Patient seen and examined. Patient denies any complaints of sided chest pain this morning. She is scheduled to undergo CT myelogram under anesthesia later today. She denies any fever or chills. She denies any shortness of breath. Denies any nausea, vomiting. She continues to have upper abdominal pain just below the breast that is likely referred pain from her thoracic spine. DW nursing staff, no acute overnight events. Physical Exam Vital signs: Vital Signs 06/03/18 16:00 06/03/18 20:00 06/03/18 20:06 Temperature 97.9 F 98.7 F Pulse Rate 89 99 H Respiratory Rate 14 19 Blood Pressure 143/86 H 140/75 Pulse Oximetry 97 97 98 06/03/18 22:53 06/04/18 00:00 06/04/18 02:13 Temperature 98.3 F Pulse Rate 98 H Respiratory Rate 18 15 18 Blood Pressure 138/72 Pulse Oximetry 95 06/04/18 02:14 06/04/18 03:20 06/04/18 04:00 Temperature 98.1 F Pulse Rate 90 92 H Respiratory Rate 18 18 Blood Pressure 140/80 Pulse Oximetry 96 06/04/18 06:28 06/04/18 08:00 06/04/18 12:00 Temperature 97.6 F 97.9 F Pulse Rate 11 L 83 Respiratory Rate 16 20 20 Blood Pressure 146/83 H 140/86 Pulse Oximetry 95 100 Intake & Output 06/03/18 06/04/18 06/04/18 18:59 06:59 18:59 Intake Total 1100 / 1100 462.5 / 462.5 Output Total 1000 / 1000 950 / 950 Balance 100 / 100 -487.5 / -487.5 Weight 87.4 kg Intake: IV 1100 / 1100 462.5 / 462.5 NS Inj 1,000 ML @ 42 mls/hr IV. 1000 / 1000 CONT .[id number] KATIE Rx#:[id number] Maxipime Inj 2,000 MG In NS Inj 100 / 100 200 / 200 100 ML @ 200 mls/hr IV.SIG Q8H KATIE Rx#:[id number] Vancomycin Inj 1,250 MG In NS 262.5 / 262.5 Inj 250 ML @ 250 mls/hr IV.SIG Q24H AKTIE Rx#:[id number] Output: Urine 1000 / 1000 950 / 950 Other: # Incontinent Voids 2 Date of Last Bowel Movement 06/02/18 06/03/18 06/04/18 # Incontinent Bowel Movements 1 Narrative: GENERAL: WDWN female patient. Awake, somewhat lethargic after receiving IV Dilaudid dose however able to maintain a conversation. Not in any acute distress. SKIN: Warm and dry. No generalized rash. HEENT: Atraumatic. Normocephalic. Pupils equal and round. No scleral icterus. No injection or drainage. No nasal bleeding or discharge. Mucous membranes pink and moist. NECK: Trachea midline. CARDIOVASCULAR: Regular rate and rhythm. RESPIRATORY: No accessory muscle use. Clear to auscultation anteriorly. Breath sounds equal bilaterally. GASTROINTESTINAL: Abdomen soft, mild tenderness to palpation upper abdomen bilaterally just below breasts. +BS. MUSCULOSKELETAL: Extremities without clubbing, cyanosis, or edema. NEUROLOGICAL: Awake and alert. No obvious cranial nerve deficits. Motor grossly within normal limits bilateral upper extremities. Unable to move bilateral lower extremities, muscle strength 0/5. Normal speech. PSYCHIATRIC: Appropriate mood and affect. - Urinary Catheter Management Female External Cath placed during this visit: no Results - Labs CBC & Chem 7: 06/03/18 18:03 06/04/18 04:45 Laboratory Results - last 24 hr 06/03/18 06/03/18 06/03/18 18:03 18:03 18:03 WBC 4.5 RBC 3.25 L Hgb 8.7 L Hct 26.8 L MCV 82.3 MCH 26.7 L MCHC 32.4 RDW 16.3 Plt Count 302 MPV 6.9 L Neut % (Auto) 59.4 Lymph % (Auto) 25.7 [place] % (Auto) 11.3 H Eos % (Auto) 3.1 Baso % (Auto) 0.5 Neut # (Auto) 2.7 Lymph # (Auto) 1.2 [place] # (Auto) 0.5 Eos # (Auto) 0.1 Baso # (Auto) 0.0 WBC Differential . Differential Comment Auto diff final Sodium 140 Potassium 3.7 Chloride 107 Carbon Dioxide 26.6 Anion Gap 6 BUN 6 L Creatinine 1.02 H Estimated GFR 56 L Random Glucose 93 Calcium 8.2 L Total Bilirubin 0.2 AST 17 ALT 12 Alkaline Phosphatase 82 Total Creatine Kinase 21 L Troponin I Less than 0.02 L Total Protein 7.6 Albumin 2.2 L 06/04/18 06/04/18 00:35 04:45 WBC RBC Hgb Hct MCV MCH MCHC RDW Plt Count MPV Neut % (Auto) Lymph % (Auto) [place] % (Auto) Eos % (Auto) Baso % (Auto) Neut # (Auto) Lymph # (Auto) [place] # (Auto) Eos # (Auto) Baso # (Auto) WBC Differential Differential Comment Sodium Potassium Chloride Carbon Dioxide Anion Gap BUN Creatinine 1.01 H Estimated GFR 56 L Random Glucose Calcium Total Bilirubin AST ALT Alkaline Phosphatase Total Creatine Kinase 21 L 22 L Troponin I Less than 0.02 L Less than 0.02 L Total Protein Albumin Microbiology 05/29/18 05:15 Blood - Peripheral Aerobic Blood Culture - Final No growth in 5 days 05/29/18 05:15 Blood - Peripheral Anaerobic Blood Culture - Final No growth in 5 days 05/29/18 05:11 Blood - Peripheral Aerobic Blood Culture - Final No growth in 5 days 05/29/18 05:11 Blood - Peripheral Anaerobic Blood Culture - Final QNS - See aerobic report. - Imaging Impressions Chest X-Ray 06/03/18 00:00 CONCLUSION: Cardiomegaly with small bilateral pleural effusions. Basilar atelectasis and scarring. Assessment and Plan - Plan 58-year-old female with a history of hypertension, GERD, anemia, constipation, gout, fibromyalgia, chronic pain syndrome, anxiety, depression and migraine. She presented on 05/28/2018 to the emergency room because of upper back pain and bilateral lower extremity weakness. She reports of bilateral lower extremity weakness unable to get out of bed and ambulate for 2 weeks. At the same time she complained of constant sharp severe upper back pain worse with activity different from her usual neck and lower back pain. MRI studies showed T6/T7 destruction with possible osteomyelitis. Episode of left sided nonradicular stabbing chest pain yesterday after Lidocaine patch applied, resolved -neg Jovanna x 3 -EKG with no e/o ischemia -CXR shows cardiomegaly with small bilateral pleural effusions -continuous cardiac monitoring Acute paraplegia secondary to spinal cord compression Vertebral osteomyelitis with pathologic fracture T6-T7 T5-6 discitis Hx of MRSA bacteremia with multiple + BCX 04/22 to 05/02 s/p CT guided biopsy 05/29, path + abscess -Neurosurgery following, appreciate assistance. Patient initially declined surgical intervention however has since reconsidered. Scheduled for CT myelogram of the spine under anesthesia to assess for stenosis later today. Flexeril, Lovenox and Cymbalta on hold per IR request. -TLSO on when OOB -ID following, appreciate assistance. Continue on Vancomycin. Zosyn changed to cefepime. ID anticipates long-term IV antibiotic treatment. -continue on Oxycodone 15mg prn pain 6-10. Continue on IV Dilaudid as needed for breakthrough pain. Hypertension, not well controlled -Increase Norvasc to 10mg daily -Clonidine as needed with parameters -Continue to monitor BP and adjust treatment accordingly Chronic renal insufficiency Creatinine appears to be at baseline -avoid nephrotoxic agents -monitor kidney function as indicated Constipation, resolving +BM this am KUB shows nonspecific bowel gas pattern suggesting possible ileus CT abd/pelvis shows mild small bowel and colonic distention, mild intrahepatic and extrahepatic biliary ductal prominence and distended gallbladder, splenomegaly unchanged -tolerating diet -continue on Pericolace BID and Miralax daily -Continue on Reglan Upper abdominal pain, ?referred T spine pain from infection CXR shows atelectasis -Mylanta prn -Continue with incentive spirometry and acapella, encourage use Sacral decubitus, stage 4 -evaluated by wound care nurse. Wound care orders placed. -specialty bed -off loading maneuvers Hx of IVDU, remotely UDS tested for cocaine, benzos and opiates -Patient states she last snorted cocaine 6 months ago -monitor DVT prophylaxis -Lovenox sq Code Status: FULL Discussed Condition With: patient, nursing staff, Dr. Lacey Discharge Planning: Not ready for discharge. Discharge pending NS and ID clearance.
--- NOTE | 2018-06-04 14:48 | P.RAD ---
Post Procedure Progress Note - Pre Procedure Diagnosis (1) Paraspinal mass - Post Procedure Diagnosis (1) Paraspinal mass - Procedure Information Procedure Date: 06/04/18 Supervising Radiologist: Michael Black MD Estimated blood loss (mL): 0 Anesthesia: General - Plan of Activity Patient to Unit: PACU Patient Condition: Good See PACS Report for procedural detail/treatment. Spinal Procedure Myelogram L3-L4 Puncture Time: 13:00 Findings: Lumbar and cervical OK. Severe stenosis in thoracic region. with bony destruction and gibbus deformity of the adjacent spine. CT to follow.
--- NOTE | 2018-06-04 15:46 | CT ---
EXAM DATE: 06/04/2018 2:59 PM EDT AGE/SEX: 58 years / Female INDICATIONS: Post myelogram, osteomyelitis. CLINICAL DATA: This is the patient's initial encounter. Patient reports that signs and symptoms have been present for 1 day and indicates a pain score of 4/10. MEDICAL/SURGICAL HISTORY: Hypertension. None. RADIATION DOSE: 20.11 CTDI (mGy) COMPARISON: No prior exams available for comparison. TECHNIQUE: Contiguous axial images were obtained using helical multirow detector technique. The vol umetric data was post-processed with multiplanar reconstruction in oblique axial, sagittal, and coron al planes. Using automated exposure control and adjustment of the mA and/or kV according to patient s ize, radiation dose was kept as low as reasonably achievable to obtain optimal diagnostic quality chi ges. DICOM format image data is available electronically for review and comparison. CT of the cervical spine was performed post myelogram FINDINGS: CT of the cervical spine was performed in sagittal and axial planes. There is retrolisthesis likely r elated to facet arthritis at C5-C6 of 2 to 3 mm.. No focal areas of marrow replacement are identifie d. The craniocervical junction appears normal. There is osteoarthritis involving the atlantoaxial doug nt with sclerosis and osteophyte formation. C2-C3: No significant abnormalities identified. C3-C4: There is broad-based annular bulge of disc. This impinges on the thecal sac anteriorly There is moderate facet arthritis on the left. There is mild neural foraminal narrowing bilaterally. C4-C5: There is uncovertebral joint hypertrophy on left side. This compromises the exiting left-side d nerve root exit zone. There is moderate neural foraminal narrowing on the left. There is moderate facet arthritis on the left. C5-C6: There is mild annular bulge of the disc. There is uncovertebral joint hypertrophy on the righ t side. This compromises the exiting right-sided nerve root exit zone. There is mild spinal canal jagdeep nosis. C6-C7: There is mild annular bulge of the disc. There is moderate facet arthritis on the left. The neural foramina are clear bilaterally. C7-T1: No significant abnormalities identified. CONCLUSION: 1. Degenerative disc disease with mild spinal canal stenosis at C5-C6. In addition there is uncovert ebral joint hypertrophy on the left side compromising the nerve root exit zone at C4-C5 with foramina l narrowing. Electronically signed by: Nixon Stark MD 06/04/2018 3:44 PM EDT
--- NOTE | 2018-06-04 16:23 | CT ---
EXAM DATE: 06/04/2018 2:50 PM EDT AGE/SEX: 58 years / Female INDICATIONS: Post myelogram, osteomyelitis. CLINICAL DATA: This is the patient's initial encounter. Patient reports that signs and symptoms have been present for 1 day and indicates a pain score of 4/10. MEDICAL/SURGICAL HISTORY: Hypertension. None. RADIATION DOSE: 26.45 CTDI (mGy) ; Combined studies COMPARISON: No prior exams available for comparison. CT of the lumbar spine was performed post myelogram. TECHNIQUE: Contiguous axial images were acquired with a multirow detector CT scanner without contras t. Multiplanar reconstructions in the sagittal and coronal plane were also performed. Using automate d exposure control and adjustment of the mA and/or kV according to patient size, radiation dose was k ept as low as reasonably achievable to obtain optimal diagnostic quality images. DICOM format image data is available electronically for review and comparison. FINDINGS: The exam is performed following myelography. Sagittal images demonstrate normal vertebral body alignm ent and curvature. There is anterolisthesis likely related to facet arthritis at L4-L5 with 2 to 3 mm .. No fractures are identified. Axial images performed from T12-L1 through L5-S1. T12-L1: No significant abnormalities identified. L1-L2: No significant abnormalities identified. L2-L3: No significant abnormalities identified. L3-L4: No significant abnormalities identified. L4-L5: There is mild annular bulge of the disc. There is moderate facet arthritis bilaterally with l igamentum flavum hypertrophy. The neural foramina are clear bilaterally. L5-S1: There is no evidence of disc protrusion or spinal canal stenosis. There is mild facet arthrit is bilaterally. CONCLUSION: 1. Mild degenerative disc disease and facet arthritis at L4-L5. There are no findings of osteomyelit is Electronically signed by: Nixon Stark MD 06/04/2018 4:21 PM EDT
--- NOTE | 2018-06-04 16:34 | CT ---
EXAM DATE: 06/04/2018 2:57 PM EDT AGE/SEX: 58 years / Female INDICATIONS: Post myelogram, osteomyelitis. Fracture. CLINICAL DATA: This is the patient's initial encounter. Patient reports that signs and symptoms have been present for 1 day and indicates a pain score of 5/10. MEDICAL/SURGICAL HISTORY: Hypertension. None. RADIATION DOSE: 26.45 CTDI (mGy) ; Combined studies [place] [facility] [place]. . TECHNIQUE: Contiguous axial images were acquired using a multirow detector CT scanner without contra st. Multiplanar reconstruction in the sagittal and coronal planes was performed. Using automated exp osure control and adjustment of the mA and/or kV according to patient size, radiation dose was kept a s low as reasonably achievable to obtain optimal diagnostic quality images. DICOM format image data is available electronically for review and comparison. CT of the thoracic spine was performed post myelogram. FINDINGS: Sagittal images demonstrate acute kyphotic deformity with osteophytes and bony destruction at T6 and T7. There is complete destruction of the T6 vertebral body with near complete destruction of T7. The T5 and T8 levels are intact. Note is made of bilateral pleural effusions and bibasilar atelectasis. A xial images performed from T1-T2 through T12-L1. T1-T2: No significant abnormalities identified. T2-T3: There is ventral soft tissue density to the thecal sac at this level continuing inferiorly to the T4 level. His could represent hematoma or abscess. T3-T4: There is ventral epidural soft tissue density as the previous level continuing to the T4 vert ebral body which may reflect hematoma or abscess. This causes obliteration of the thecal sac anterior ly but no significant cord deformity. T4-T5: No significant abnormalities identified. T5-T6: There is moderate to severe stenosis at this level with abnormal soft tissue density surround ing the thecal sac which may reflect epidural inflammatory tissue. T6-T7: Ventral soft tissue density impresses on the thecal sac without deforming the cord which may reflect inflammatory tissue. T7-T8: No significant abnormalities identified. T8-T9: No significant abnormalities identified. T9-T10: There is extradural soft tissue density impinging on the thecal sac centrally to the left wi thout cord deformity. T10-T11: Abnormal soft tissue density ventral to the thecal sac is seen as the former level oblitera ting the subarachnoid space anteriorly without deforming the cord. T11-T12: No significant abnormalities identified. T12-L1: No significant abnormalities identified. CONCLUSION: Bony destruction of finding is of osteomyelitis at the T6-T7 level causing severe spinal canal stenos is. There is extradural soft tissue density cranial and caudal to the midthoracic abnormality which may r eflect inflammatory tissue is well as described above. Electronically signed by: Nixon Stark MD 06/04/2018 4:32 PM EDT
--- NOTE | 2018-06-04 16:48 | IR ---
EXAM DATE: 06/04/2018 1:52 PM EDT AGE/SEX: 58 years / Female INDICATIONS: Patient with history of paraplegia for past 4 weeks in need of complete myelogram. CLINICAL DATA: This is the patient's initial encounter. Patient reports that signs and symptoms have been present for 1 month and indicates a pain score of 7/10. MEDICAL/SURGICAL HISTORY: Hypertension. Anemia. Gastroesophageal reflux disease. Gout, Fibro myalgia, Chronic pain, Migraine, Polysubstance abuse, MRSA, Sepsis Tracheostomy, Pacemaker COMPARISON: [facility] – [place], [place] LUMBAR SPINE W CONTRAST, 05/28/2018. . FLUORO TIME (min): 4 IMAGE SERIES: 7 ACCESS SITE: L2-3 LUMBAR PUNCTURE TIME: 1300 hours CONTRAST (cc): 18cc Omnipaque (iohexol) 300 . . PROCEDURE: 1. Fluoroscopic guided lumbar puncture. 2. Instillation of intrathecal contrast. 3. Total spinal axis myelogram. The risks, benefits and alternatives to the procedure were explained and verbal and written consent w as obtained. The site was prepped in sterile fashion. Full sterile technique was used, including ca p, mask, sterile gloves and gown and a large sterile sheet. Hand hygiene and 2% chlorhexidine and/or betadine/alcohol prep was utilized per protocol for cutaneous antisepsis. The skin and subcutaneous tissues were infiltrated with local anesthetic solution. With fluoroscopic guidance the lumbar thecal sac was punctured at level above and a diagnostic quanti ty of contrast is present in the subarachnoid space. Following the lumbar radiographs contrast was r un cephalad and radiographs were obtained of the thoracic spine. Patient was in severe discomfort due to the presumed osteomyelitis in the region of the thoracic spin e and requested that the procedure be done with the assistance of anesthesia. In addition, patient is unable to move the lower extremities. Contrast held up just inferior to a gibbus deformity of the mi d dorsal spine. To get contrast cephalad to this region, a catheter was placed under the hips in the hips were elevated while anesthesia monitored the neck region. A faint wisp of contrast was eventuall y seen above the area of obstruction indicating a regional significant stenosis at the level of the g ibbus deformity. Under fluoroscopic guidance contrast was placed in the cervical region and radiographs were obtained of the cervical region. The patient tolerated procedure well and there were no complications. CT scan is to be performed for further evaluation. CONCLUSION: 1. Uncomplicated total axis myelogram as above. CT scan is to be performed for further evaluation. 2. There appears to be high-grade stenosis in the region of the mid cervical spine. 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 CT scan will be obtained for further characterization. Electronically signed by: Michael Black MD 06/04/2018 4:47 PM EDT
--- NOTE | 2018-06-04 17:51 | ECG ---
Date Performed: 06/04/2018 Time Performed: 00:09:32 PTAGE: 58 years EKG: Sinus rhythm . Possible inferior infarct - age undetermined Low QRS voltages in precordial leads Since the previou s tracing, no significant change noted Abnormal ECG PREVIOUS TRACING : 06/03/2018 18.22 DOCTOR: Lexi Pineda Interpretating Date/Time 06/04/2018 17:48:10
--- NOTE | 2018-06-04 18:13 | P.PNNS ---
Subjective Interval history: No new symptoms with persistent back pain and paraplegia. Underwent CT myelogram of the complete spine today which was reviewed and again confirms a T6 and T7 severe vertebrae destruction and collapse with kyphosis and retropulsion along with the ventral thoracic epidural likely granulation tissue above and below these levels. She also has a deep sacral decubitus ulcer undergoing wound care with pressure-point avoidance management and air mattress. Physical Exam Vital signs: Vital Signs 06/03/18 20:00 06/03/18 20:06 06/03/18 22:53 Temperature 98.7 F Pulse Rate 99 H Respiratory Rate 19 18 Blood Pressure 140/75 Pulse Oximetry 97 98 06/04/18 00:00 06/04/18 02:13 06/04/18 02:14 Temperature 98.3 F Pulse Rate 98 H Respiratory Rate 15 18 18 Blood Pressure 138/72 Pulse Oximetry 95 06/04/18 03:20 06/04/18 04:00 06/04/18 06:28 Temperature 98.1 F Pulse Rate 90 92 H Respiratory Rate 18 16 Blood Pressure 140/80 Pulse Oximetry 96 06/04/18 08:00 06/04/18 12:00 06/04/18 13:43 Temperature 97.6 F 97.9 F 98.7 F Pulse Rate 11 L 83 102 H Respiratory Rate 20 20 24 Blood Pressure 146/83 H 140/86 162/95 H Pulse Oximetry 95 100 92 L 06/04/18 13:45 06/04/18 14:00 06/04/18 16:00 Temperature 97.5 F L Pulse Rate 101 H 99 H 89 Respiratory Rate 24 20 20 Blood Pressure 167/82 H 168/78 H 168/83 H Pulse Oximetry 90 L 95 96 Intake & Output 06/03/18 06/04/18 06/04/18 18:59 06:59 18:59 Intake Total 1100 / 1100 462.5 / 462.5 100 / 100 Output Total 1000 / 1000 950 / 950 Balance 100 / 100 -487.5 / -487.5 100 / 100 Weight 87.4 kg Intake: IV 1100 / 1100 462.5 / 462.5 100 / 100 NS Inj 1,000 ML @ 42 mls/hr IV. 1000 / 1000 CONT .[id number] [facility], [facility] Rx#:[id number] Maxipime Inj 2,000 MG In NS Inj 100 / 100 200 / 200 100 / 100 100 ML @ 200 mls/hr IV.SIG Q8H KATIE Rx#:[id number] Vancomycin Inj 1,250 MG In NS 262.5 / 262.5 Inj 250 ML @ 250 mls/hr IV.SIG Q24H KATIE Rx#:[id number] Output: Urine 1000 / 1000 950 / 950 Other: # Incontinent Voids 2 Date of Last Bowel Movement 06/02/18 06/03/18 06/04/18 # Incontinent Bowel Movements 1 - Routine Neurological Exam Present: oriented X3, CN II-XII intact, motor deficit (0/5 in lower extremities bilaterally) - Additional findings Additional findings: Impressions Chest X-Ray 06/03/18 00:00 CONCLUSION: Cardiomegaly with small bilateral pleural effusions. Basilar atelectasis and scarring. Myelogram 06/04/18 00:00 CONCLUSION: 1. Uncomplicated total axis myelogram as above. CT scan is to be performed for further evaluation. 2. There appears to be high-grade stenosis in the region of the mid cervical spine. 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 CT scan will be obtained for further characterization. Post Myelogram CT 06/04/18 00:00 CONCLUSION: 1. Mild degenerative disc disease and facet arthritis at L4-L5. There are no findings of osteomyelitis Post Myelogram CT 06/04/18 00:00 CONCLUSION: Bony destruction of finding is of osteomyelitis at the T6-T7 level causing severe spinal canal stenosis. There is extradural soft tissue density cranial and caudal to the midthoracic abnormality which may reflect inflammatory tissue is well as described above. Post Myelogram CT 06/04/18 00:00 CONCLUSION: 1. Degenerative disc disease with mild spinal canal stenosis at C5-C6. In addition there is uncovertebral joint hypertrophy on the left side compromising the nerve root exit zone at C4-C5 with foraminal narrowing. - Urinary Catheter Management Female External Cath placed during this visit: no Assessment and Plan - Plan 58 yo obese female with dense paraplegia for the past 4 weeks with a T6 and T7 significant vertebral body destruction with kyphosis and collapse and gibbus kyphotic deformity with associated stenosis along with multi-level thoracic ventral epidural abscess/granulation tissue above and below this but without cord compression at other levels. She wants to proceed with surgical intervention for stabilization of her thoracic spine and the procedure of T4-T9 posterior low thoracic fusion with pedicle screw segmental fixation using allograft bone was discussed. I would like to avoid harvesting autograft bone given the history of bacteremia and osteomyelitis even though she currently is not bacteremic. There are significant risks involved given the extensive surgery and her marginal cardiac and pulmonary condition along with her overall inactivity the last few months which include heart attack, congestive heart failure, ventilator dependency with respiratory failure, infection, instrumentation failure/non-fusion requiring further surgery, stroke and among other complications. She is aware of the risks and benefits involved having contemplated on her options and discussed with the other physicians including neurosurgeon Dr. Oliver. She requests that we proceed with surgery and gives informed consent. Surgery scheduled for tomorrow morning.
[2018-06-05] MEDS: HYDROmorphone PF Inj 2 MG/ML Vial IV.PUSH PRN ×4 (00:49→21:27)
[2018-06-05] MEDS: Vancomycin Inj 1,250 MG in Sodium Chlor 0.9% Inj 250 ML IV.SIG SCH (05:14)
[2018-06-05] MEDS ORDERED: Metoprolol Tartrate 25 MG Tablet PO ONE (07:00)
[2018-06-05] MEDS ORDERED: Sodium Chlor 0.9% Inj 500 ML IV.SIG SCH (07:00)
[2018-06-05] MEDS ORDERED: Chlorhexidine Gluconate 2% 1 Pack (2 Cloths) TOPICAL ONE (07:00)
[2018-06-05] MEDS ORDERED: Ketamine Inj 50 MG/5 ML Syringe IV.PUSH ONE (07:18)
[2018-06-05] MEDS ORDERED: Propofol Inj 500 MG/50 ML Vial ONE ×2 (07:20→12:43)
[2018-06-05] MEDS ORDERED: Thrombin Topical Soln 5,000 UNIT Vial TOPICAL ONE ×2 (07:28→12:09)
[2018-06-05] MEDS ORDERED: Bupivacaine/Epinephrine 0.5% Inj 50 ML Vial ONE (07:28)
[2018-06-05] MEDS ORDERED: Gelatin Size 100 Topical Foam ONE (07:29)
--- NOTE | 2018-06-05 07:36 | P.PN ---
Subjective Interval history: Follow-up for paraplegia, T6-T7 collapse and possible osteomyelitis. Patient seen and examined. Patient is NPO for surgery today. She slept ok. She continues to have upper abdominal pain just below the breasts. She denies any fever or chills. She denies any chest pain or dyspnea. Physical Exam Vital signs: Vital Signs 06/04/18 08:00 06/04/18 12:00 06/04/18 13:43 Temperature 97.6 F 97.9 F 98.7 F Pulse Rate 11 L 83 102 H Respiratory Rate 20 20 24 Blood Pressure 146/83 H 140/86 162/95 H Pulse Oximetry 95 100 92 L 06/04/18 13:45 06/04/18 14:00 06/04/18 16:00 Temperature 97.5 F L Pulse Rate 101 H 99 H 70 Respiratory Rate 24 20 20 Blood Pressure 167/82 H 168/78 H 168/83 H Pulse Oximetry 90 L 95 96 06/04/18 20:00 06/05/18 00:00 06/05/18 04:00 Temperature 97.8 F 97.8 F 97.3 F L Pulse Rate 95 H 95 H 89 Respiratory Rate 18 20 18 Blood Pressure 160/76 H 152/72 H 126/68 Pulse Oximetry 94 L 96 93 L Intake & Output 06/04/18 06/05/18 06/05/18 18:59 06:59 18:59 Intake Total 880 / 880 462.5 / 462.5 Output Total 950 / 950 Balance -70 / -70 462.5 / 462.5 Intake: IV 100 / 100 462.5 / 462.5 Maxipime Inj 2,000 MG In NS Inj 100 / 100 200 / 200 100 ML @ 200 mls/hr IV.SIG Q8H KATIE Rx#:[id number] Vancomycin Inj 1,250 MG In NS 262.5 / 262.5 Inj 250 ML @ 250 mls/hr IV.SIG Q24H KATIE Rx#:[id number] Oral 780 / 780 Output: Urine 950 / 950 Other: # Voids 1 # Incontinent Voids 4 Date of Last Bowel Movement 06/04/18 06/04/18 # Bowel Movements 2 # Incontinent Bowel Movements 2 Narrative: GENERAL: WDWN female patient. Awake and alert. Not in any acute distress. SKIN: Warm and dry. No generalized rash. HEENT: Atraumatic. Normocephalic. Pupils equal and round. No scleral icterus. No injection or drainage. No nasal bleeding or discharge. Mucous membranes pink and moist. NECK: Trachea midline. CARDIOVASCULAR: Regular rate and rhythm. RESPIRATORY: No accessory muscle use. Clear to auscultation anteriorly. Breath sounds equal bilaterally. GASTROINTESTINAL: Abdomen soft, mild tenderness to palpation upper abdomen bilaterally just below breasts. +BS. MUSCULOSKELETAL: Extremities without clubbing, cyanosis, or edema. NEUROLOGICAL: Awake and alert. No obvious cranial nerve deficits. Motor grossly within normal limits bilateral upper extremities. Unable to move bilateral lower extremities, muscle strength 0/5. Normal speech. PSYCHIATRIC: Appropriate mood and affect. - Urinary Catheter Management Female External Cath placed during this visit: no Results - Labs CBC & Chem 7: 06/05/18 09:20 06/04/18 04:45 - Imaging Impressions Myelogram 06/04/18 00:00 CONCLUSION: 1. Uncomplicated total axis myelogram as above. CT scan is to be performed for further evaluation. 2. There appears to be high-grade stenosis in the region of the mid cervical spine. 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 CT scan will be obtained for further characterization. Post Myelogram CT 06/04/18 00:00 CONCLUSION: 1. Mild degenerative disc disease and facet arthritis at L4-L5. There are no findings of osteomyelitis Post Myelogram CT 06/04/18 00:00 CONCLUSION: Bony destruction of finding is of osteomyelitis at the T6-T7 level causing severe spinal canal stenosis. There is extradural soft tissue density cranial and caudal to the midthoracic abnormality which may reflect inflammatory tissue is well as described above. Post Myelogram CT 06/04/18 00:00 CONCLUSION: 1. Degenerative disc disease with mild spinal canal stenosis at C5-C6. In addition there is uncovertebral joint hypertrophy on the left side compromising the nerve root exit zone at C4-C5 with foraminal narrowing. Assessment and Plan - Plan 58-year-old female with a history of hypertension, GERD, anemia, constipation, gout, fibromyalgia, chronic pain syndrome, anxiety, depression and migraine. She presented on 05/28/2018 to the emergency room because of upper back pain and bilateral lower extremity weakness. She reports of bilateral lower extremity weakness unable to get out of bed and ambulate for 2 weeks. At the same time she complained of constant sharp severe upper back pain worse with activity different from her usual neck and lower back pain. MRI studies showed T6/T7 destruction with possible osteomyelitis. Acute paraplegia secondary to spinal cord compression Vertebral osteomyelitis with pathologic fracture T6-T7 T5-6 discitis Hx of MRSA bacteremia with multiple + BCX 04/22 to 05/02 s/p CT guided biopsy 05/29, path + abscess -Neurosurgery following, appreciate assistance. Scheduled for surgical intervention for stabilization of her thoracic spine today. Keep NPO. -TLSO on when OOB -ID following, appreciate assistance. Continue on Vancomycin. Zosyn changed to Cefepime. ID anticipates long-term IV antibiotic treatment. -continue on Oxycodone 15mg prn pain 6-10. Continue on IV Dilaudid as needed for breakthrough pain. Hypertension, controlled -Continue on Norvasc to 10mg daily -Clonidine as needed with parameters -Continue to monitor BP and adjust treatment accordingly Chronic renal insufficiency Creatinine appears to be at baseline -avoid nephrotoxic agents -monitor kidney function as indicated Constipation, resolved CT abd/pelvis shows mild small bowel and colonic distention, mild intrahepatic and extrahepatic biliary ductal prominence and distended gallbladder, splenomegaly unchanged -tolerating diet -continue on Pericolace BID and Miralax daily -Continue on Reglan Upper abdominal pain, ?referred T spine pain from infection CXR shows atelectasis -Mylanta prn -Continue with incentive spirometry and acapella, encourage use Anemia H/H trending down, ?Vancomycin No active bleeding -Continue to monitor CBC Sacral decubitus, stage 4 -evaluated by wound care nurse. Wound care orders placed. -specialty bed -off loading maneuvers Hx of IVDU, remotely UDS tested for cocaine, benzos and opiates -Patient states she last snorted cocaine 6 months ago -monitor DVT prophylaxis -Lovenox sq Code Status: FULL Discussed Condition With: patient, nursing staff, Dr. Lacey Discharge Planning: Not ready for discharge. Surgery today. D/C pending clinical improvement, NS and ID clearance.
[2018-06-05] MEDS ORDERED: Lidocaine PF 1% Inj 5 ML Syringe OTHER ONE (08:45)
[2018-06-05] MEDS ORDERED: Phenylephrine/NS 1000 MCG/10ML Syringe IV.PUSH ONE (08:45)
[2018-06-05] MEDS ORDERED: ceFAZolin 2 GM Premix Inj 2 GM/50 ML PIGGYBACK IV.SIG ONE (08:57)
[2018-06-05 09:52] LABS: Baso % (Auto) 0.7 % (0.0-2.0); Eos # (Auto) 0.2 th/mm3 (0.0-0.4); Eos % (Auto) 3.4 % (0.0-4.0); Hematocrit 24.9 % (35.0-46.0); Hemoglobin 8.1 gm/dL (11.6-15.3); Lymph # (Auto) 1.6 th/mm3 (1.0-4.8); Lymph % (Auto) 30.3 % (9.0-44.0); Mean Corpuscular HGB Conc 32.5 % (32.0-36.0); Mean Corpuscular Hemoglobin 26.4 pg (27.0-34.0); Mean Corpuscular Volume 81.4 fL (80.0-100.0); Mean Platelet Volume 8.1 fL (7.0-11.0); Mono # (Auto) 0.5 th/mm3 (0.0-0.9); Mono % (Auto) 9.7 % (0.0-8.0); Neut # (Auto) 2.9 th/mm3 (1.8-7.7); Neut % (Auto) 55.9 % (16.0-70.0); Platelet Count 336 th/mm3 (150-450); Red Blood Count 3.06 mil/mm3 (4.00-5.30); Red Cell Distribution Width 16.9 % (11.6-17.2); White Blood Count 5.3 th/mm3 (4.0-11.0)
[2018-06-05] MEDS: Metoclopramide 10 MG Tablet PO SCH ×3 (12:21→20:41)
[2018-06-05] MEDS: Famotidine 20 MG Tablet PO SCH ×2 (12:22→20:41)
[2018-06-05] MEDS: Duloxetine 60 MG DR Capsule PO SCH (12:22)
[2018-06-05] MEDS: amLODIPine 5 MG Tablet PO SCH (12:22)
[2018-06-05] MEDS: Polyethylene Glycol 3350 17 GM Packet PO SCH (12:22)
[2018-06-05] MEDS: Senna/Docusate Sodium 8.6/50 MG Tablet PO SCH ×2 (12:22→20:41)
[2018-06-05 13:28] LABS: Hematocrit 26.9 % (35.0-46.0); Hemoglobin 8.9 gm/dL (11.6-15.3)
[2018-06-05 13:28] LABS: ABG Base Excess -1.3 mmol/L (-2-2); ABG PCO2 41 mmHg (38-42); ABG PO2 160 mmHG (61-120)
[2018-06-05] MEDS ORDERED: Menthol 5.8 MG Lozenge BUCCAL PRN (14:46)
[2018-06-05] MEDS ORDERED: Labetalol HCl Inj 100 MG/20 ML Vial IV.PUSH PRN (14:46)
[2018-06-05] MEDS ORDERED: Potassium Chlor 20 mEq Premix 20 MEQ/100 ML PIGGYBACK IV.SIG PRN (14:46)
[2018-06-05] MEDS ORDERED: Magnesium Sulfate Inj 2 GM in Sodium Chlor 0.9% Inj 96 ML IV.SIG PRN (14:46)
[2018-06-05] MEDS ORDERED: Calcium Gluconate Inj 1 GM in Sodium Chlor 0.9% Inj 100 ML IV.SIG PRN (14:46)
--- NOTE | 2018-06-05 14:56 | P.OP ---
- Preoperative Diagnosis (1) Osteomyelitis of thoracic vertebra (2) Fracture of thoracic vertebra with spinal cord injury (3) Thoracic spinal stenosis (4) Thoracic kyphosis Date of procedure: 06/07/18 Procedure: Thoracic T6 and T7 transpedicular partial corpectomies; posterolateral T4, T5, T6, T7, T8 and T9 fusion; T4-T9 segmental pedicle screw fixation; T5-7 decompressive laminectomies; microsurgical technique Anesthesia: GETA Surgeon: Moises Ferro MD Paper Sealer: Blanca Shore Estimated blood loss (mL): 400 Operation and Findings: The procedure along with the risks and benefits involved were discussed with the patient including the option of nonsurgical management. She requested that we proceed with surgery and informed consent was obtained. Following initiation of general endotracheal anesthesia patient had a central line, arterial line and a Vallejo catheter placed along with the sequential compression devices and was log rolled on a Jude table on chest rolls in the prone position and all pressure points adequately padded. The posterior thoracic lumbar area was then shaved and prepped with alcohol along with ChloraPrep and sterilely draped with Ioban along with the usual sterile draping. Intraoperative fluoroscopy was used for level confirmation an incision in the midline made extending from that T4-9 levels after infiltrating the skin with 0.5% Marcaine with epinephrine solution. The incision was extended down through the fascia and then using the subperiosteal plane the muscle attachments spinous processes and lamina along with the facets were detached from the T4-9 levels bilaterally. Self-retaining retractor was used for exposure and kyphosis at the T6-7 level was noted. We had corrected the kyphosis to some extent with the positioning also. Further dissection was undertaken using microtechnique with microscope magnification. The T5, T6 and T7 lamina along with the left T6-7 facet were resected with a drill bit and Kerrison along with the underlying ligamentum flavum and the T6 and T7 pedicles drilled out to gain access to the ventral aspect of the retropulsed bone fragments through the posterolateral approach. Epidural venous stasis achieved with bipolar cautery along with Gelfoam and thrombin. No retraction or impingement of the thecal sac was undertaken for resection of the retropulsed the T6 and T7 vertebral body ventral fragments and a partial corpectomies undertaken using the pituitaries and curettes along with a right angle impactors to decompress the spinal canal ventrally. There was epidural granulation tissue circumferentially noted as well as destruction of the T6 and T7 vertebral bodies and disc space consistent with the discitis and osteomyelitis. No gross epidural pus was noted. The spinal canal was circumferentially decompressed with the laminectomies as well as the partial corpectomies ventrally and specimen sent for cultures and pathology sections. Subsequently pedicle screw fixation was undertaken using [place] spine screws with the entry point ejection at the transverse process and facet at the T4 and T5 levels as well as T8 and T9 levels bilaterally. AP and lateral fluoroscopy guidance was used to and subsequently tap and screw placement bilaterally extending from T4 to the T9 levels which were then connected with the rods and locked in place with caps. I then decorticated the posterior lateral remnants of the laminae and facet lumbar transverse processes on the right side extending from T4-T9 levels with a drill bit for posterolateral fusion. Given that she had a sacral decubitus as well as infection we elected not to harvest autograft bone from the iliac crests given the high risk for adjacent wound infection progressing to the iliac crest. Demineralized bone matrix was then packed overlying the decorticated posterolateral elements extending from the T4 to the T9 levels. A NEHAL 10 mm drain was also placed under the muscular layer which was then tunneled under the skin and secured at separate exit site and connected to a suction bulb. The area was copiously irrigated with vancomycin solution. AP and lateral fluoroscopy confirmed good placement of the construct as well as yarsani of some of the spinal alignment. The muscle and fascia was then approximated using 2-0 Vicryl interrupted stitches and 3-0 Vicryl subcuticular interrupted stitches were also placed with final skin closure using christina. Sterile dressings were then applied and she was then log rolled into a supine position and extubated in the recovery room. There were no intraoperative complications and all sponge and needle count was correct at the end the procedure. Estimated blood loss about 400 cc. Intraoperative neurologic monitoring was also undertaken which remained stable throughout the surgery.
--- NOTE | 2018-06-05 15:10 | XR ---
EXAM DATE: 06/05/2018 3:04 PM EDT AGE/SEX: 58 years / Female INDICATIONS: T4-T9 fusion. CLINICAL DATA: This is the patient's initial encounter. Patient reports that signs and symptoms have been present for 1 day and indicates a pain score of Nonresponsive. MEDICAL/SURGICAL HISTORY: Non-responsive. Non-responsive. COMPARISON: [facility] [place], MYELOGRAM CERV/THOR/LUMB, 06/04/2018. . FINDINGS: Films all intraoperative The patient's had posterior fixation with bilateral vertical rods. CONCLUSION: 4 intraoperative films demonstrate posterior fixation of the thoracic vertebral body fracture Electronically signed by: Armen Bonds MD 06/05/2018 3:09 PM EDT
[2018-06-05] MEDS ORDERED: fentaNYL Citrate Inj 100 MCG/2 ML Ampul ONE (15:52)
[2018-06-05] MEDS ORDERED: Morphine Inj 4 MG/ML Vial ONE (15:53)
--- NOTE | 2018-06-05 15:59 | XR ---
EXAM DATE: 06/05/2018 3:54 PM EDT AGE/SEX: 58 years / Female INDICATIONS: Central line placement. CLINICAL DATA: This is the patient's initial encounter. Patient reports that signs and symptoms have been present for 1 day and indicates a pain score of Nonresponsive. MEDICAL/SURGICAL HISTORY: Cardiovascular disease. Hypertension. . pacemaker COMPARISON: [facility], CHEST 1V SINGLE AP, 06/03/2018. . FINDINGS: A left-sided central line has been placed and has its tip in the expected region of the superior vena cava. There is no pneumothorax. Left subclavian dual lead pacemaker has its tips in the right atrium and right ventricle. Endotracheal tube has its tip 2 cm above the stanley. The heart is stable. Left basilar atelectasis is noted. Minimal central pulmonary vascular congestion is noted. Hardware is not ed within the mid thoracic spine status post fusion. CONCLUSION: 1. Left basilar atelectasis. 2. No pneumothorax status post placement of left sided central line which has its tip in superior ve na cava. 3. Minimal central pulmonary vascular congestion. Electronically signed by: Magno Ahmadi MD 06/05/2018 3:58 PM EDT
[2018-06-05 16:00] LABS: Baso % (Auto) 0.3 % (0.0-2.0); Eos # (Auto) 0.1 th/mm3 (0.0-0.4); Eos % (Auto) 2.1 % (0.0-4.0); Hematocrit 25.2 % (35.0-46.0); Hemoglobin 8.7 gm/dL (11.6-15.3); Lymph # (Auto) 1.5 th/mm3 (1.0-4.8); Mean Corpuscular HGB Conc 34.4 % (32.0-36.0); Mean Corpuscular Hemoglobin 28.2 pg (27.0-34.0); Mean Corpuscular Volume 81.9 fL (80.0-100.0); Mean Platelet Volume 6.8 fL (7.0-11.0); Mono # (Auto) 0.5 th/mm3 (0.0-0.9); Mono % (Auto) 8.7 % (0.0-8.0); Neut # (Auto) 3.2 th/mm3 (1.8-7.7); Neut % (Auto) 59.9 % (16.0-70.0); Platelet Count 212 th/mm3 (150-450); Red Blood Count 3.08 mil/mm3 (4.00-5.30); Red Cell Distribution Width 16.7 % (11.6-17.2); White Blood Count 5.3 th/mm3 (4.0-11.0)
[2018-06-05 16:18] LABS: Carbon Dioxide 25.4 meq/L (21.0-32.0); Magnesium 1.8 mg/dL (1.5-2.5); Potassium 3.7 meq/L (3.5-5.1)
[2018-06-05] MEDS ORDERED: *morphine SULFATE 4 MG/ML PERIprocedure ONLY ONE ×2 (16:18→16:56)
[2018-06-05] MEDS: ALPRAZolam 0.5 MG Tablet PO PRN (23:09)
[2018-06-06] MEDS: Zolpidem Tartrate 5 MG Tablet PO PRN (00:17)
[2018-06-06] MEDS: HYDROmorphone PF Inj 2 MG/ML Vial IV.PUSH PRN ×9 (01:03→23:24)
[2018-06-06] MEDS ORDERED: Pharmacy Ordered Lab Info OTHER ONE (04:45)
[2018-06-06 05:23] LABS: Baso % (Auto) 0.2 % (0.0-2.0); Eos % (Auto) 0.4 % (0.0-4.0); Hematocrit 25.5 % (35.0-46.0); Hemoglobin 8.6 gm/dL (11.6-15.3); Lymph % (Auto) 12.4 % (9.0-44.0); Mean Corpuscular HGB Conc 33.7 % (32.0-36.0); Mean Corpuscular Volume 82.9 fL (80.0-100.0); Mean Platelet Volume 7.6 fL (7.0-11.0); Mono # (Auto) 0.6 th/mm3 (0.0-0.9); Mono % (Auto) 8.2 % (0.0-8.0); Neut # (Auto) 6.2 th/mm3 (1.8-7.7); Neut % (Auto) 78.8 % (16.0-70.0); Platelet Count 229 th/mm3 (150-450); Red Blood Count 3.08 mil/mm3 (4.00-5.30); Red Cell Distribution Width 16.8 % (11.6-17.2); White Blood Count 7.9 th/mm3 (4.0-11.0)
[2018-06-06 05:50] LABS: Calcium 7.9 mg/dL (8.5-10.1); Carbon Dioxide 24.1 meq/L (21.0-32.0); Potassium 4.2 meq/L (3.5-5.1)
[2018-06-06] MEDS: Vancomycin Inj 1,250 MG in Sodium Chlor 0.9% Inj 250 ML IV.SIG SCH (05:52)
[2018-06-06] MEDS: Duloxetine 60 MG DR Capsule PO SCH (08:51)
[2018-06-06] MEDS: Polyethylene Glycol 3350 17 GM Packet PO SCH (08:51)
[2018-06-06] MEDS: Metoclopramide 10 MG Tablet PO SCH ×4 (08:51→21:36)
[2018-06-06] MEDS: Senna/Docusate Sodium 8.6/50 MG Tablet PO SCH ×2 (08:52→21:35)
[2018-06-06] MEDS: amLODIPine 5 MG Tablet PO SCH (08:52)
[2018-06-06] MEDS: Famotidine 20 MG Tablet PO SCH ×2 (08:52→21:35)
[2018-06-06] MEDS ORDERED: Naloxone Inj 0.4 MG/ML Vial IV.PUSH PRN (08:53)
[2018-06-06] MEDS ORDERED: HYDROmorphone PCA Inj 6 MG/30 ML PCA.VIAL PCA PRN (08:53)
--- NOTE | 2018-06-06 09:24 | P.PNNS ---
Subjective Interval history: Pt s/p Thoracic T6 and T7 transpedicular partial corpectomies; posterolateral T4 , T5, T6, T7, T8 and T9 fusion; T4-T9 segmental pedicle screw fixation; T5-7 decompressive laminectomies; microsurgical technique on 06/05/[address] Ferro. She is very painful this morning. She complains of incisional area upper back pain. NEHAL drain in place. Exam unchanged with paraplegia present. <Thony Goncalves - Last Filed: 06/06/18 09:17> Physical Exam Vital signs: Vital Signs 06/05/18 15:27 06/05/18 15:45 06/05/18 15:51 Temperature 96.5 F L Pulse Rate 76 78 Respiratory Rate 24 18 17 Blood Pressure 124/74 137/64 Pulse Oximetry 95 100 98 06/05/18 16:00 06/05/18 16:11 06/05/18 16:15 Temperature Pulse Rate 80 81 Respiratory Rate 19 20 Blood Pressure 133/64 124/88 Pulse Oximetry 99 100 95 06/05/18 16:20 06/05/18 16:30 06/05/18 16:45 Temperature Pulse Rate 84 86 Respiratory Rate 15 16 20 Blood Pressure 124/82 125/77 Pulse Oximetry 95 95 06/05/18 16:58 06/05/18 17:00 06/05/18 17:15 Temperature 97.4 F L Pulse Rate 86 90 Respiratory Rate 10 L 20 20 Blood Pressure 163/80 H 153/76 H Pulse Oximetry 99 98 06/05/18 17:58 06/05/18 20:00 06/05/18 20:32 Temperature 97.9 F 98.3 F Pulse Rate 90 90 Respiratory Rate 16 15 Blood Pressure 142/76 H 157/70 H Pulse Oximetry 95 98 97 06/05/18 21:57 06/05/18 22:00 06/06/18 00:00 Temperature 99.6 F Pulse Rate 100 H 98 H Respiratory Rate 18 16 Blood Pressure 148/70 H Pulse Oximetry 98 06/06/18 02:00 06/06/18 04:00 06/06/18 06:00 Temperature 99.8 F H Pulse Rate 102 H 110 H 112 H Respiratory Rate 20 Blood Pressure 147/99 H Pulse Oximetry 98 06/06/18 08:00 06/06/18 08:50 Temperature 99.5 F Pulse Rate 106 H Respiratory Rate 16 Blood Pressure 135/84 Pulse Oximetry 99 98 Intake & Output 06/05/18 06/06/18 06/06/18 18:59 06:59 18:59 Intake Total 3750 / 3750 1200 / 1200 262.5 / 262.5 Output Total 1530 / 1530 0 / 0 Balance 2220 / 2220 1200 / 1200 262.5 / 262.5 Weight 85.3 kg Intake: IV 150 / 150 1200 / 1200 262.5 / 262.5 NS + KCl 20 mEq Inj 1,000 ML @ 1000 / 1000 100 mls/hr IV.CONT .Q10H [facility] Rx #:[id number] Maxipime Inj 2,000 MG In NS Inj 200 / 200 100 ML @ 200 mls/hr IV.SIG Q8H [facility] Rx#:[id number] Magnesium Sulfate Inj 2 GM In 100 / 100 NS Inj 96 ML @ 100 mls/hr IV. SIG UNSCH PRN Rx#:[id number] Vancomycin Inj 1,250 MG In NS 262.5 / 262.5 Inj 250 ML @ 250 mls/hr IV.SIG Q24H [facility] Rx#:[id number] Ancef 2 GM Premix Inj 2 gm In 50 / 50 50 ml @ 0 mls/hr IV.SIG .STK- MED ONE Rx#:[id number] Anesthesia Amount 3200 / 3200 Intake (Blood Product) Amt 400 / 400 Rbc As-3 Leukoreduced Unit 400 / 400 [id number] Output: Blood Draw 0 / 0 Estimated Blood Loss 400 / 400 Urine Amount (Catheter) 1100 / 1100 Indwelling Urethral Catheter 1100 / 1100 Wound Drainage 30 / 30 # 1 Upper Back NEHAL Drain 30 / - Constitutional moderate distress (pain related.) - Routine HEENT Exam Head: Present: normocephalic, atraumatic Eye: Present: PERRL. Absent: conjunctival icterus ENT: Present: oropharynx clear - Routine Neck Exam Present: trachea midline - Routine Respiratory Exam Present: CTA bilaterally. Absent: respiratory distress, rhonchi, wheezes - Routine Cardiovascular Exam Present: RRR, S1, S2. Absent: murmur - Routine Abdominal Exam Present: soft. Absent: tenderness, distended - Routine Skin Exam Absent: cyanosis, erythema Comments: Pt log rolled. Incision is clean and dry without signs of infection. NEHAL drain in place draining well. No signs of hematoma. - Routine Neurological Exam Present: alert, oriented X3, motor deficit (Paraplegia in LEs. Pt using UEs with 5/5 strength.), altered mental status (Pt seems some confusion she is agitated.) - Routine Psychiatric Exam Present: anxious, agitated (Some, but responds to pain medication.) - Urinary Catheter Management Female External Cath placed during this visit: no Indwelling Urethral Catheter Cath placed during this visit: yes Reason for continuing: Hourly intake/output Insertion date: 06/05/18 Insertion time: :20 <Thony Goncalves - Last Filed: 06/06/18 09:17> Vital signs: Vital Signs 06/05/18 15:27 06/05/18 15:45 06/05/18 15:51 Temperature 96.5 F L Pulse Rate 76 78 Respiratory Rate 24 18 17 Blood Pressure 124/74 137/64 Pulse Oximetry 95 100 98 06/05/18 16:00 06/05/18 16:11 06/05/18 16:15 Temperature Pulse Rate 80 81 Respiratory Rate 19 20 Blood Pressure 133/64 124/88 Pulse Oximetry 99 100 95 06/05/18 16:20 06/05/18 16:30 06/05/18 16:45 Temperature Pulse Rate 84 86 Respiratory Rate 15 16 20 Blood Pressure 124/82 125/77 Pulse Oximetry 95 95 06/05/18 16:58 06/05/18 17:00 06/05/18 17:15 Temperature 97.4 F L Pulse Rate 86 90 Respiratory Rate 10 L 20 20 Blood Pressure 163/80 H 153/76 H Pulse Oximetry 99 98 06/05/18 17:58 06/05/18 20:00 06/05/18 20:32 Temperature 97.9 F 98.3 F Pulse Rate 90 90 Respiratory Rate 16 15 Blood Pressure 142/76 H 157/70 H Pulse Oximetry 95 98 97 06/05/18 21:57 06/05/18 22:00 06/06/18 00:00 Temperature 99.6 F Pulse Rate 100 H 98 H Respiratory Rate 18 16 Blood Pressure 148/70 H Pulse Oximetry 98 06/06/18 02:00 06/06/18 04:00 06/06/18 06:00 Temperature 99.8 F H Pulse Rate 102 H 110 H 112 H Respiratory Rate 20 Blood Pressure 147/99 H Pulse Oximetry 98 06/06/18 08:00 06/06/18 08:50 06/06/18 10:00 Temperature 99.5 F Pulse Rate 106 H 108 H Respiratory Rate 16 Blood Pressure 135/84 Pulse Oximetry 99 98 06/06/18 12:00 Temperature 101.6 F H Pulse Rate 117 H Respiratory Rate 26 H Blood Pressure 140/77 Pulse Oximetry 99 Intake & Output 06/05/18 06/06/18 06/06/18 18:59 06:59 18:59 Intake Total 3750 / 3750 1200 / 1200 262.5 / 262.5 Output Total 1530 / 1530 0 / 0 Balance 2220 / 2220 1200 / 1200 262.5 / 262.5 Weight 85.3 kg Intake: IV 150 / 150 1200 / 1200 262.5 / 262.5 NS + KCl 20 mEq Inj 1,000 ML @ 1000 / 1000 100 mls/hr IV.CONT .Q10H [facility] Rx #:[id number] Maxipime Inj 2,000 MG In NS Inj 200 / 200 100 ML @ 200 mls/hr IV.SIG Q8H [facility] Rx#:[id number] Magnesium Sulfate Inj 2 GM In 100 / 100 NS Inj 96 ML @ 100 mls/hr IV. SIG UNSCH PRN Rx#:[id number] Vancomycin Inj 1,250 MG In NS 262.5 / 262.5 Inj 250 ML @ 250 mls/hr IV.SIG Q24H [facility] Rx#:[id number] Ancef 2 GM Premix Inj 2 gm In 50 / 50 50 ml @ 0 mls/hr IV.SIG .STK- [facility] Rx#:[id number] Anesthesia Amount 3200 / 3200 Intake (Blood Product) Amt 400 / 400 Rbc As-3 Leukoreduced Unit 400 / 400 [id number] Output: Blood Draw 0 / 0 Estimated Blood Loss 400 / 400 Urine Amount (Catheter) 1100 / 1100 Indwelling Urethral Catheter 1100 / 1100 Wound Drainage # 1 Upper Back NEHAL Drain - Urinary Catheter Management Female External Cath placed during this visit: no Indwelling Urethral Catheter Cath placed during this visit: no <Moises Ferro - Last Filed: 06/06/18 13:37> Assessment and Plan - Assessment (1) Paraspinal mass Code(s): R22.2 - Localized swelling, mass and lump, trunk Status: Acute (2) Osteomyelitis of thoracic vertebra Code(s): M46.24 - Osteomyelitis of vertebra, thoracic region Status: Acute (3) Fracture of thoracic vertebra with spinal cord injury Code(s): S24.109A - Unspecified injury at unspecified level of thoracic spinal cord, initial encounter; S22.009A - Unspecified fracture of unspecified thoracic vertebra, initial encounter for closed fracture Status: Acute (4) Thoracic spinal stenosis Code(s): M48.04 - Spinal stenosis, thoracic region Status: Acute (5) Thoracic kyphosis Code(s): M40.204 - Unspecified kyphosis, thoracic region Status: Acute - Plan 58 yo obese female with dense paraplegia for the past 4 weeks with a T6 and T7 significant vertebral body destruction with kyphosis and collapse and gibbus kyphotic deformity with associated stenosis along with multi-level thoracic ventral epidural abscess/granulation tissue above and below this but without cord compression at other levels. She is s/p Thoracic T6 and T7 transpedicular partial corpectomies; posterolateral T4, T5, T6, T7, T8 and T9 fusion; T4-T9 segmental pedicle screw fixation; T5-7 decompressive laminectomies; microsurgical technique by Dr. Ferro on 06/05. P: Will give her a Dilaudid PRODUCT SUPPORT ANALYST and D/c prn dilaudid IV. Continue with oral pain regimen. Continue to log roll. Okay to get oob with brace, log rolling into brace. <Thony Goncalves - Last Filed: 06/06/18 09:17> - Attending Attestation The exam, history, and the medical decision-making described in the above note were completed with the assistance of the mid-level provider. I reviewed and agree with the findings presented. I attest that I had a [id number] encounter with the patient on the same day, and personally performed and documented my assessment and findings in the medical record. Complains of incisional pain better control with the Dilaudid PRODUCT SUPPORT ANALYST. Culture results are pending. Continue with the supportive care and rehabilitation out of bed with brace along with IV antibiotics. Pain control will be challenging with her given her history of drug abuse. Discussed with patient and nursing staff. <Moises Ferro - Last Filed: 06/06/18 13:37>
--- NOTE | 2018-06-06 12:30 | P.DIET ---
Nutritional Evaluation Type of nutrition evaluation: follow-up Nutrition screening: [facility] [place] (Stage 4 Pressure Injury) Subjective Subjective Comments: Poor appetite d/t pain Objective - Diagnosis Acute Osteomyelitis of T-Spine, Cord Compression - Objective % IBW: 138 (IBW = 130#) Body Weight Used for Calculations: IBW (59.1 kg) Energy Needs - Lower Range (kCal/kg): 30 Energy Needs - Upper Range (kCal/kg): 35 Lower Limit kCal/kg (kCals): 1,773 Upper Limit kCal/kg (kCals): 2,069 Lower Limit Protein Factor (Grams per Kg): 1.2 Upper Limit Protein Factor (Grams per Kg): 1.5 Lower Protein Needs (Protein): 71 Upper Protein Needs (Protein): 89 Fluid Factor (ml/kg): 35 Estimated Fluid Needs (ml): 2,069 Dietitian Reviewed in Medical Record: Current diet, Curent medications, Intake & Output, Labs, Medical history, Wound/DTI Diet Order: Regular Wound Care Note: WOCN dated 05/29: coccyx stage 4 pressure injury Assessment Assessment: Pt is s/p posterior thoracic T4-9 fusion and T5-6 laminectomy (06/04). Diet advanced to regular this morning. She is at high nutrition risk 2' to high nutritional needs for healing. Recommend the addition of daily MVI/min and will continue to send Ensure Enlive bid for added nutrition. Pt may also benefit from Geronimo supplement bid which is a targeted therapeutic supplement that aids in healing. It contains arginine, glutamine and HMB. Recommendations: 1. Continue current diet 2. Ensure Enlive bid 3. Please change order form MVI to MVI with minerals 4. Please order Geronimo 1 pack bid Dietitian to Monitor: Lab values, Supplement acceptance, Intake & Output, Diet tolerance, PO Intake, Wound/skin status, Medical course
--- NOTE | 2018-06-06 15:53 | P.PNIM ---
Subjective Interval history: The pt was resting comfortably in bed. She said her pain was controlled. Discussed with nursing at the bedside. Physical Exam Vital signs: Vital Signs 06/05/18 15:51 06/05/18 16:00 06/05/18 16:11 Temperature Pulse Rate 80 Respiratory Rate 17 19 Blood Pressure 133/64 Pulse Oximetry 98 99 100 06/05/18 16:15 06/05/18 16:20 06/05/18 16:30 Temperature Pulse Rate 81 84 Respiratory Rate 20 15 16 Blood Pressure 124/88 124/82 Pulse Oximetry 95 95 06/05/18 16:45 06/05/18 16:58 06/05/18 17:00 Temperature 97.4 F L Pulse Rate 86 86 Respiratory Rate 20 10 L 20 Blood Pressure 125/77 163/80 H Pulse Oximetry 95 99 06/05/18 17:15 06/05/18 17:58 06/05/18 20:00 Temperature 97.9 F 98.3 F Pulse Rate 90 90 90 Respiratory Rate 20 16 15 Blood Pressure 153/76 H 142/76 H 157/70 H Pulse Oximetry 98 95 98 06/05/18 20:32 06/05/18 21:57 06/05/18 22:00 Temperature Pulse Rate 100 H Respiratory Rate 18 Blood Pressure Pulse Oximetry 97 06/06/18 00:00 06/06/18 02:00 06/06/18 04:00 Temperature 99.6 F 99.8 F H Pulse Rate 98 H 102 H 110 H Respiratory Rate 16 20 Blood Pressure 148/70 H 147/99 H Pulse Oximetry 98 98 06/06/18 06:00 06/06/18 08:00 06/06/18 08:50 Temperature 99.5 F Pulse Rate 112 H 106 H Respiratory Rate 16 Blood Pressure 135/84 Pulse Oximetry 99 98 06/06/18 10:00 06/06/18 12:00 06/06/18 14:00 Temperature 101.6 F H Pulse Rate 108 H 117 H 108 H Respiratory Rate 26 H Blood Pressure 140/77 Pulse Oximetry 99 06/06/18 14:51 Temperature Pulse Rate Respiratory Rate 18 Blood Pressure Pulse Oximetry Intake & Output 06/05/18 06/06/18 06/06/18 18:59 06:59 18:59 Intake Total 3750 / 3750 1200 / 1200 762.5 / 762.5 Output Total 1530 / 1530 0 / 0 Balance 2220 / 2220 1200 / 1200 762.5 / 762.5 Weight 85.3 kg Intake: IV 150 / 150 1200 / 1200 762.5 / 762.5 NS + KCl 20 mEq Inj 1,000 ML @ 1000 / 1000 400 / 400 100 mls/hr IV.CONT .Q10H [facility] Rx #:[id number] Maxipime Inj 2,000 MG In NS Inj 200 / 200 100 / 100 100 ML @ 200 mls/hr IV.SIG Q8H [facility] Rx#:[id number] Magnesium Sulfate Inj 2 GM In 100 / 100 NS Inj 96 ML @ 100 mls/hr IV. SIG UNSCH PRN Rx#:[id number] Vancomycin Inj 1,250 MG In NS 262.5 / 262.5 Inj 250 ML @ 250 mls/hr IV.SIG Q24H [facility] Rx#:[id number] Ancef 2 GM Premix Inj 2 gm In 50 / 50 50 ml @ 0 mls/hr IV.SIG .STK- [facility] Rx#:[id number] Anesthesia Amount 3200 / 3200 Intake (Blood Product) Amt 400 / 400 Rbc As-3 Leukoreduced Unit 400 / 400 [id number] Output: Blood Draw 0 / 0 Estimated Blood Loss 400 / 400 Urine Amount (Catheter) 1100 / 1100 Indwelling Urethral Catheter 1100 / 1100 Wound Drainage 30 / 30 # 1 Upper Back NEHAL Drain 30 / Narrative: GENERAL: Not in any acute distress. SKIN: Warm and dry. No generalized rash. HEENT: Atraumatic. Normocephalic. Pupils equal and round. No scleral icterus. No injection or drainage. No nasal bleeding or discharge. Mucous membranes pink and moist. NECK: Trachea midline. CARDIOVASCULAR: Regular rate and rhythm. RESPIRATORY: No accessory muscle use. Clear to auscultation anteriorly. Breath sounds equal bilaterally. GASTROINTESTINAL: Abdomen soft, nontender. +BS. MUSCULOSKELETAL: Extremities without clubbing, cyanosis, or edema. NEUROLOGICAL: Awake and alert. No obvious cranial nerve deficits. Motor grossly within normal limits bilateral upper extremities. Normal speech. - Urinary Catheter Management Female External Cath placed during this visit: no Indwelling Urethral Catheter Cath placed during this visit: yes Reason for continuing: Hourly intake/output Insertion date: 06/05/18 Insertion time: 09:20 Results - Labs CBC & Chem 7: 06/06/18 04:45 06/06/18 04:45 Laboratory Results - last 24 hr 06/05/18 06/05/18 06/05/18 09:20 15:39 15:39 WBC 5.3 RBC 3.08 L Hgb 8.7 L Hct 25.2 L MCV 81.9 MCH 28.2 MCHC 34.4 RDW 16.7 Plt Count 212 D MPV 6.8 L Neut % (Auto) 59.9 Lymph % (Auto) 29.0 [place] % (Auto) 8.7 H Eos % (Auto) 2.1 Baso % (Auto) 0.3 Neut # (Auto) 3.2 Lymph # (Auto) 1.5 [place] # (Auto) 0.5 Eos # (Auto) 0.1 Baso # (Auto) 0.0 WBC Differential . Differential Comment Auto diff final Sodium 139 Potassium 3.7 Chloride 105 Carbon Dioxide 25.4 Anion Gap 9 BUN 8 Creatinine 0.81 Estimated GFR 73 L Random Glucose 85 Calcium 8.0 L Magnesium 1.8 Vancomycin Trough Blood Type B Positive Antibody Screen Negative MTS Gel Crossmatch See Detail Bld Prod Order Comment 06/06/18 06/06/18 06/06/18 04:45 04:45 04:45 WBC 7.9 RBC 3.08 L Hgb 8.6 L Hct 25.5 L MCV 82.9 MCH 28.0 MCHC 33.7 RDW 16.8 Plt Count 229 MPV 7.6 Neut % (Auto) 78.8 H Lymph % (Auto) 12.4 [place] % (Auto) 8.2 H Eos % (Auto) 0.4 Baso % (Auto) 0.2 Neut # (Auto) 6.2 Lymph # (Auto) 1.0 [place] # (Auto) 0.6 Eos # (Auto) 0.0 Baso # (Auto) 0.0 WBC Differential . Differential Comment Auto diff final Sodium 139 Potassium 4.2 Chloride 105 Carbon Dioxide 24.1 Anion Gap 10 BUN 8 Creatinine 0.80 Estimated GFR 74 L Random Glucose 105 Calcium 7.9 L Magnesium Vancomycin Trough 22.4 H Blood Type Antibody Screen MTS Gel Crossmatch Bld Prod Order Comment Microbiology 06/05/18 12:06 Tissue - Back Acid Fast Bacilli Smear - Final No acid fast bacilli seen 06/05/18 12:06 Tissue - Back Gram Stain - Final 06/05/18 12:06 Tissue - Back Wound Culture - Preliminary S. aureus MRSA 06/05/18 12:06 Tissue - Back Fungal Smear - Final No fungal elements seen 06/05/18 11:43 Tissue - Back Acid Fast Bacilli Smear - Final No acid fast bacilli seen 06/05/18 11:24 Tissue - Back Acid Fast Bacilli Smear - Final No acid fast bacilli seen 06/05/18 11:43 Tissue - Back Gram Stain - Final 06/05/18 11:43 Tissue - Back Wound Culture - Preliminary No growth in 24 hours 06/05/18 11:24 Tissue - Back Gram Stain - Final 06/05/18 11:24 Tissue - Back Wound Culture - Preliminary No growth in 24 hours 06/05/18 11:43 Tissue - Back Fungal Smear - Final No fungal elements seen 05/29/18 11:45 Tissue - Back Acid Fast Bacilli Smear - Final No acid fast bacilli seen 05/29/18 11:45 Tissue - Back Mycobacterial Culture - Preliminary No growth in 1 week 05/29/18 11:45 Tissue - Back Fungal Smear - Final No fungal elements seen 05/29/18 11:45 Tissue - Back Fungal Culture - Preliminary No growth in 1 week 06/05/18 11:24 Tissue - Back Fungal Smear - Final No fungal elements seen - Imaging Impressions Chest X-Ray 06/05/18 00:00 CONCLUSION: 1. Left basilar atelectasis. 2. No pneumothorax status post placement of left sided central line which has its tip in superior vena cava. 3. Minimal central pulmonary vascular congestion. Assessment and Plan - Plan 58-year-old female with a history of hypertension, GERD, anemia, constipation, gout, fibromyalgia, chronic pain syndrome, anxiety, depression and migraine. She presented on 05/28/2018 to the emergency room because of upper back pain and bilateral lower extremity weakness. She reports of bilateral lower extremity weakness unable to get out of bed and ambulate for 2 weeks. At the same time she complained of constant sharp severe upper back pain worse with activity different from her usual neck and lower back pain. MRI studies showed T6/T7 destruction with possible osteomyelitis. Acute paraplegia secondary to spinal cord compression Vertebral osteomyelitis with pathologic fracture T6-T7 T5-6 discitis Hx of MRSA bacteremia with multiple + BCX 04/22 to 05/02 s/p CT guided biopsy 9/12, path + abscess -Neurosurgery following, appreciate assistance. S/p: Thoracic T6 and T7 transpedicular partial corpectomies; posterolateral T4, T5, T6, T7, T8 and T9 fusion; T4-T9 segmental pedicle screw fixation; T5-7 decompressive laminectomies ; microsurgical technique on 06/05/[address] Ferro. -TLSO on when OOB -ID following, appreciate assistance. MRSA growing from wound. Continue on Vancomycin. D/c cefepime. ID anticipates long-term IV antibiotic treatment. -continue on Oxycodone 15mg prn pain 6-10. Continue on IV Dilaudid as needed for breakthrough pain. Hypertension, controlled -Continue on Norvasc to 10mg daily -Clonidine as needed with parameters -Continue to monitor BP and adjust treatment accordingly Chronic renal insufficiency Creatinine appears to be at baseline -avoid nephrotoxic agents -monitor kidney function as indicated Constipation, resolved CT abd/pelvis shows mild small bowel and colonic distention, mild intrahepatic and extrahepatic biliary ductal prominence and distended gallbladder, splenomegaly unchanged -tolerating diet -continue on Pericolace BID and Miralax daily -Continue on Reglan Upper abdominal pain, ?referred T spine pain from infection CXR shows atelectasis -Mylanta prn -Continue with incentive spirometry and acapella, encourage use Anemia H/H trending down No active bleeding -Continue to monitor CBC Sacral decubitus, stage 4 -evaluated by wound care nurse. Wound care orders placed. -specialty bed -off loading maneuvers Hx of IVDU, remotely UDS tested for cocaine, benzos and opiates -Patient states she last snorted cocaine 6 months ago -monitor DVT prophylaxis -Lovenox sq
--- NOTE | 2018-06-06 16:17 | P.PNID ---
Subjective Remarks: sp Thoracic T6 and T7 transpedicular partial corpectomies; posterolateral T4, T5 , T6, T7, T8 and T9 fusion; T4-T9 segmental pedicle screw fixation; T5-7 decompressive laminectomies; microsurgical technique by Dr Moises Ferro on 06/05 afebrile pt co pain of severe back, chest and upper abd pain bx with MRSA on tissue clx path cw abscess Antibiotics: cefepime vancomycin Allergies/Adverse Reactions: Allergies No Known Allergies Allergy (Uncoded 05/11/14 14:22) Objective Vital Signs 06/05/18 16:11 06/05/18 16:15 06/05/18 16:20 Temperature Pulse Rate 81 Respiratory Rate 20 15 Blood Pressure 124/88 Pulse Oximetry 100 95 06/05/18 16:30 06/05/18 16:45 06/05/18 16:58 Temperature Pulse Rate 84 86 Respiratory Rate 16 20 10 L Blood Pressure 124/82 125/77 Pulse Oximetry 95 95 06/05/18 17:00 06/05/18 17:15 06/05/18 17:58 Temperature 97.4 F L 97.9 F Pulse Rate 86 90 90 Respiratory Rate 20 20 16 Blood Pressure 163/80 H 153/76 H 142/76 H Pulse Oximetry 99 98 95 06/05/18 20:00 06/05/18 20:32 06/05/18 21:57 Temperature 98.3 F Pulse Rate 90 Respiratory Rate 15 18 Blood Pressure 157/70 H Pulse Oximetry 98 97 06/05/18 22:00 06/06/18 00:00 06/06/18 02:00 Temperature 99.6 F Pulse Rate 100 H 98 H 102 H Respiratory Rate 16 Blood Pressure 148/70 H Pulse Oximetry 98 06/06/18 04:00 06/06/18 06:00 06/06/18 08:00 Temperature 99.8 F H 99.5 F Pulse Rate 110 H 112 H 106 H Respiratory Rate 20 16 Blood Pressure 147/99 H 135/84 Pulse Oximetry 98 99 06/06/18 08:50 06/06/18 10:00 06/06/18 12:00 Temperature 101.6 F H Pulse Rate 108 H 117 H Respiratory Rate 26 H Blood Pressure 140/77 Pulse Oximetry 98 99 06/06/18 14:00 06/06/18 14:51 Temperature Pulse Rate 108 H Respiratory Rate 18 Blood Pressure Pulse Oximetry Intake & Output 06/05/18 06/06/18 06/06/18 18:59 06:59 18:59 Intake Total 3750 / 3750 1200 / 1200 762.5 / 762.5 Output Total 1530 / 1530 0 / 0 Balance 2220 / 2220 1200 / 1200 762.5 / 762.5 Weight 85.3 kg Intake: IV 150 / 150 1200 / 1200 762.5 / 762.5 NS + KCl 20 mEq Inj 1,000 ML @ 1000 / 1000 400 / 400 100 mls/hr IV.CONT .Q10H [facility] Rx #:[id number] Maxipime Inj 2,000 MG In NS Inj 200 / 200 100 / 100 100 ML @ 200 mls/hr IV.SIG Q8H [facility] Rx#:[id number] Magnesium Sulfate Inj 2 GM In 100 / 100 NS Inj 96 ML @ 100 mls/hr IV. SIG UNSCH PRN Rx#:[id number] Vancomycin Inj 1,250 MG In NS 262.5 / 262.5 Inj 250 ML @ 250 mls/hr IV.SIG Q24H [facility] Rx#:[id number] Ancef 2 GM Premix Inj 2 gm In 50 / 50 50 ml @ 0 mls/hr IV.SIG .STK- [facility] Rx#:[id number] Anesthesia Amount 3200 / 3200 Intake (Blood Product) Amt 400 / 400 Rbc As-3 Leukoreduced Unit 400 / 400 [id number] Output: Blood Draw 0 / 0 Estimated Blood Loss 400 / 400 Urine Amount (Catheter) 1100 / 1100 Indwelling Urethral Catheter 1100 / 1100 Wound Drainage # 1 Upper Back NEHAL Drain 06/05/18 12:06 Tissue - Back Acid Fast Bacilli Smear - Final No acid fast bacilli seen 06/05/18 12:06 Tissue - Back Mycobacterial Culture - Pending 06/05/18 12:06 Tissue - Back Gram Stain - Final 06/05/18 12:06 Tissue - Back Wound Culture - Preliminary S. aureus MRSA 06/05/18 12:06 Tissue - Back Fungal Smear - Final No fungal elements seen 06/05/18 12:06 Tissue - Back Fungal Culture - Pending 06/05/18 11:43 Tissue - Back Acid Fast Bacilli Smear - Final No acid fast bacilli seen 06/05/18 11:43 Tissue - Back Mycobacterial Culture - Pending 06/05/18 11:24 Tissue - Back Acid Fast Bacilli Smear - Final No acid fast bacilli seen 06/05/18 11:24 Tissue - Back Mycobacterial Culture - Pending 06/05/18 11:43 Tissue - Back Gram Stain - Final 06/05/18 11:43 Tissue - Back Wound Culture - Preliminary No growth in 24 hours 06/05/18 11:24 Tissue - Back Gram Stain - Final 06/05/18 11:24 Tissue - Back Wound Culture - Preliminary No growth in 24 hours 06/05/18 11:43 Tissue - Back Fungal Smear - Final No fungal elements seen 06/05/18 11:43 Tissue - Back Fungal Culture - Pending 05/29/18 11:45 Tissue - Back Acid Fast Bacilli Smear - Final No acid fast bacilli seen 05/29/18 11:45 Tissue - Back Mycobacterial Culture - Preliminary No growth in 1 week 05/29/18 11:45 Tissue - Back Fungal Smear - Final No fungal elements seen 05/29/18 11:45 Tissue - Back Fungal Culture - Preliminary No growth in 1 week 06/05/18 11:24 Tissue - Back Fungal Smear - Final No fungal elements seen 06/05/18 11:24 Tissue - Back Fungal Culture - Pending Lab - Hematology Results 06/05/18 06/05/18 06/05/18 09:20 13:00 15:39 WBC 5.3 5.3 RBC 3.06 L 3.08 L Hgb 8.1 L 8.9 L 8.7 L Hct 24.9 L 26.9 L 25.2 L MCV 81.4 81.9 MCH 26.4 L 28.2 MCHC 32.5 34.4 RDW 16.9 16.7 Plt Count 336 212 D MPV 8.1 6.8 L Neut % (Auto) 55.9 59.9 Lymph % (Auto) 30.3 29.0 [place] % (Auto) 9.7 H 8.7 H Eos % (Auto) 3.4 2.1 Baso % (Auto) 0.7 0.3 Neut # (Auto) 2.9 3.2 Lymph # (Auto) 1.6 1.5 [place] # (Auto) 0.5 0.5 Eos # (Auto) 0.2 0.1 Baso # (Auto) 0.0 0.0 WBC Differential . . Differential Comment Auto diff final Auto diff final 06/06/18 04:45 WBC 7.9 RBC 3.08 L Hgb 8.6 L Hct 25.5 L MCV 82.9 MCH 28.0 MCHC 33.7 RDW 16.8 Plt Count 229 MPV 7.6 Neut % (Auto) 78.8 H Lymph % (Auto) 12.4 [place] % (Auto) 8.2 H Eos % (Auto) 0.4 Baso % (Auto) 0.2 Neut # (Auto) 6.2 Lymph # (Auto) 1.0 [place] # (Auto) 0.6 Eos # (Auto) 0.0 Baso # (Auto) 0.0 WBC Differential . Differential Comment Auto diff final Lab - Chemistry Results 06/05/18 06/06/18 15:39 04:45 Sodium 139 139 Potassium 3.7 4.2 Chloride 105 105 Carbon Dioxide 25.4 24.1 Anion Gap 9 10 BUN 8 8 Creatinine 0.81 0.80 Estimated GFR 73 L 74 L Random Glucose 85 105 Calcium 8.0 L 7.9 L Magnesium 1.8 Imaging: ITS Impressions Cervical Spine CT 05/28/18 13:18 CONCLUSION: 1. Degenerative disc disease and facet arthropathy as described. 2. No evidence of acute abnormality. Lumbar Spine CT 05/28/18 13:18 CONCLUSION: 1. Degenerative listhesis at L4-5 secondary to facet arthropathy. 2. No evidence of acute process, disc herniation or soft tissue inflammatory disease. Thoracic Spine CT 05/28/18 13:18 CONCLUSION: 1. Destructive process involving the T5-6 intervertebral disc, T6-7 intervertebral disc, T6 vertebral body and T7 vertebral body characteristic of discitis and osteomyelitis. An acute kyphotic deformity has developed secondary to compression deformity of the T6 and T7 vertebral bodies. 2. Significant compromise of the central spinal canal at T6-7 is noted. There is material body fragmentation with calcific densities extending into the spinal canal. Significant spinal cord compression is suspected. 3. Otherwise intact thoracic spine. Chest CTA 05/28/18 13:41 CONCLUSION: 1. No evidence of pulmonary embolism. 2. Destructive osseous process involving the T6 and T7 vertebral bodies with complete obliteration of the T6-7 intervertebral disc and significant paraspinal reactive changes. Osteomyelitis and discitis should be considered as a primary cause. 3. Small bilateral pleural effusions and peripheral consolidating airspace disease in both lower lobes. Soft Tissue Biopsy 05/29/18 00:00 CONCLUSION: 1. Uncomplicated CT guided core biopsy of the paraspinal soft tissues at T6- T7. Samples were sent for histological and microbiological evaluation.. Abdomen X-Ray 05/31/18 00:00 CONCLUSION: Nonspecific bowel gas pattern suggesting possible ileus. Abdomen/Pelvis CT 06/01/18 00:00 CONCLUSION: 1. Mild small bowel and colonic distention with multiple air-fluid levels again seen. No significant interval change. 2. Mild intrahepatic and extra hepatic biliary ductal prominence and distended gallbladder again seen. 3. Splenomegaly unchanged. 4. Destructive changes of the mid thoracic spine again seen and partially visualized. 5. Small bilateral pleural effusions and bilateral lower lung atelectasis again seen. Myelogram 06/04/18 00:00 CONCLUSION: 1. Uncomplicated total axis myelogram as above. CT scan is to be performed for further evaluation. 2. There appears to be high-grade stenosis in the region of the mid cervical spine. 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 CT scan will be obtained for further characterization. Post Myelogram CT 06/04/18 00:00 CONCLUSION: Bony destruction of finding is of osteomyelitis at the T6-T7 level causing severe spinal canal stenosis. There is extradural soft tissue density cranial and caudal to the midthoracic abnormality which may reflect inflammatory tissue is well as described above. Chest X-Ray 06/05/18 00:00 CONCLUSION: 1. Left basilar atelectasis. 2. No pneumothorax status post placement of left sided central line which has its tip in superior vena cava. 3. Minimal central pulmonary vascular congestion. Thoracic Spine X-Ray 06/05/18 00:00 CONCLUSION: 4 intraoperative films demonstrate posterior fixation of the thoracic vertebral body fracture Physical Exam: GENERAL: moderate to severe distress 2/2 pain SKIN: Warm and dry. NO rash HEAD: Atraumatic. Normocephalic. EYES: Pupils equal and round. No scleral icterus. No injection or drainage. ENT: No nasal bleeding or discharge. Mucous membranes pink and moist. NECK: Trachea midline. No JVD. CARDIOVASCULAR: Regular rate and rhythm. RESPIRATORY: No accessory muscle use. Clear to auscultation. Breath sounds equal bilaterally. GASTROINTESTINAL: Abdomen soft, non-tender, nondistended. Hepatic and splenic margins not palpable. MUSCULOSKELETAL: Extremities without clubbing, cyanosis, or edema. NEUROLOGICAL: Awake and alert. No obvious cranial nerve deficits. Paraplegia motor 0/5 BLE Normal speech. 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
[2018-06-06] MEDS: HYDROmorphone PF Inj 2 MG/ML Vial IV.SIG PRN (20:55)
[2018-06-06] MEDS: ALPRAZolam 0.5 MG Tablet PO PRN (22:20)
[2018-06-07] MEDS: HYDROmorphone PF Inj 2 MG/ML Vial IV.PUSH PRN ×5 (01:40→11:44)
[2018-06-07] MEDS: Zolpidem Tartrate 5 MG Tablet PO PRN (01:46)
[2018-06-07 05:32] LABS: Baso % (Auto) 0.2 % (0.0-2.0); Eos # (Auto) 0.1 th/mm3 (0.0-0.4); Eos % (Auto) 1.4 % (0.0-4.0); Hemoglobin 8.3 gm/dL (11.6-15.3); Lymph # (Auto) 2.2 th/mm3 (1.0-4.8); Lymph % (Auto) 24.2 % (9.0-44.0); Mean Corpuscular HGB Conc 33.2 % (32.0-36.0); Mean Corpuscular Hemoglobin 27.7 pg (27.0-34.0); Mean Corpuscular Volume 83.4 fL (80.0-100.0); Mean Platelet Volume 7.7 fL (7.0-11.0); Mono # (Auto) 1.1 th/mm3 (0.0-0.9); Mono % (Auto) 12.7 % (0.0-8.0); Neut # (Auto) 5.5 th/mm3 (1.8-7.7); Neut % (Auto) 61.5 % (16.0-70.0); Platelet Count 238 th/mm3 (150-450); Red Cell Distribution Width 17.1 % (11.6-17.2)
[2018-06-07 05:56] LABS: Calcium 7.9 mg/dL (8.5-10.1); Carbon Dioxide 25.3 meq/L (21.0-32.0)
[2018-06-07] MEDS: amLODIPine 5 MG Tablet PO SCH (09:02)
[2018-06-07] MEDS: Polyethylene Glycol 3350 17 GM Packet PO SCH (09:05)
[2018-06-07] MEDS: Famotidine 20 MG Tablet PO SCH ×2 (09:05→20:23)
[2018-06-07] MEDS: Metoclopramide 10 MG Tablet PO SCH ×4 (09:05→20:23)
[2018-06-07] MEDS: Senna/Docusate Sodium 8.6/50 MG Tablet PO SCH ×2 (09:05→20:23)
[2018-06-07] MEDS: Duloxetine 60 MG DR Capsule PO SCH (09:05)
--- NOTE | 2018-06-07 10:08 | P.PNNS ---
Subjective Interval history: Pt awake and much more comfortable and pleasant. She is more cooperative for exam. Incisional pain but better controlled. No change in exam with paraplegia LEs. <Thony Goncalves - Last Filed: 06/07/18 10:01> Physical Exam Vital signs: Vital Signs 06/06/18 12:00 06/06/18 14:00 06/06/18 14:51 Temperature 101.6 F H Pulse Rate 117 H 108 H Respiratory Rate 26 H 18 Blood Pressure 140/77 Pulse Oximetry 99 06/06/18 16:00 06/06/18 16:11 06/06/18 17:58 Temperature 98.5 F Pulse Rate 104 H 103 H Respiratory Rate 25 H 17 Blood Pressure 117/63 Pulse Oximetry 100 06/06/18 19:44 06/06/18 20:00 06/06/18 20:11 Temperature 98.6 F Pulse Rate 109 H Respiratory Rate 18 22 Blood Pressure 144/67 H Pulse Oximetry 100 99 06/06/18 22:00 06/06/18 22:06 06/06/18 23:54 Temperature Pulse Rate 110 H Respiratory Rate 16 16 Blood Pressure Pulse Oximetry 06/07/18 00:00 06/07/18 02:00 06/07/18 02:10 Temperature 98.8 F Pulse Rate 110 H 104 H Respiratory Rate 18 20 Blood Pressure 108/55 L Pulse Oximetry 97 06/07/18 04:00 06/07/18 05:32 06/07/18 06:00 Temperature 98.4 F Pulse Rate 105 H 106 H Respiratory Rate 11 L 16 Blood Pressure 114/65 Pulse Oximetry 97 06/07/18 06:47 Temperature Pulse Rate Respiratory Rate 20 Blood Pressure Pulse Oximetry Intake & Output 06/06/18 06/07/18 06/07/18 18:59 06:59 18:59 Intake Total 1512.5 / 1512.5 1000 / 1000 1400 / 1400 Output Total 2100 / 2100 1600 / 1600 Balance -587.5 / -587.5 1000 / 1000 -200 / -200 Weight 77.564 kg Intake: IV 762.5 / 762.5 1000 / 1000 800 / 800 NS + KCl 20 mEq Inj 1,000 ML @ 400 / 400 1000 / 1000 800 / 800 100 mls/hr IV.CONT .Q10H [facility] Rx #:[id number] Maxipime Inj 2,000 MG In NS Inj 100 / 100 100 ML @ 200 mls/hr IV.SIG Q8H [facility] Rx#:[id number] Vancomycin Inj 1,250 MG In NS 262.5 / 262.5 Inj 250 ML @ 250 mls/hr IV.SIG Q24H [facility] Rx#:[id number] Oral 750 / 750 600 / 600 Output: Blood Draw 0 / 0 Urine Amount (Catheter) 1999 1500 / 1500 Indwelling Urethral Catheter 1999 1500 / 1500 Wound Drainage 100 / 100 100 / 100 # 1 Upper Back NEHAL Drain 100 / 100 100 / 100 Other: Date of Last Bowel Movement 06/04/18 - Constitutional no acute distress, cooperative - Routine HEENT Exam Head: Present: normocephalic Eye: Present: PERRL. Absent: conjunctival icterus - Routine Respiratory Exam Present: CTA bilaterally. Absent: respiratory distress, rhonchi, wheezes - Routine Cardiovascular Exam Present: RRR, S1, S2. Absent: murmur - Routine Abdominal Exam Present: soft. Absent: drain (Pt had a NEHAL drain that I removed this morning and placed a steri strip over.) - Routine Skin Exam Absent: cyanosis, erythema Comments: Incision clean and dry. No signs of infection or complication. - Routine Neurological Exam Present: alert, oriented X3, sensory deficit (Paraplegia LEs.), motor deficit ( Paraplegia LEs.), altered mental status (Cooperative currently but pt has some periods of confusion and agitation requiring restraints.), normal speech - Routine Psychiatric Exam Present: cooperative. Absent: anxious, agitated - Urinary Catheter Management Female External Cath placed during this visit: no Indwelling Urethral Catheter Cath placed during this visit: yes Reason for continuing: Hourly intake/output Insertion date: 06/05/18 Insertion time: 09:20 <Thony Goncalves - Last Filed: 06/07/18 10:01> Vital signs: Vital Signs 06/06/18 14:00 06/06/18 14:51 06/06/18 16:00 Temperature 98.5 F Pulse Rate 108 H 104 H Respiratory Rate 18 25 H Blood Pressure 117/63 Pulse Oximetry 100 06/06/18 16:11 06/06/18 17:58 06/06/18 19:44 Temperature Pulse Rate 103 H Respiratory Rate 17 Blood Pressure Pulse Oximetry 100 06/06/18 20:00 06/06/18 20:11 06/06/18 22:00 Temperature 98.6 F Pulse Rate 109 H 110 H Respiratory Rate 18 22 Blood Pressure 144/67 H Pulse Oximetry 99 06/06/18 22:06 06/06/18 23:54 06/07/18 00:00 Temperature 98.8 F Pulse Rate 110 H Respiratory Rate 16 16 18 Blood Pressure 108/55 L Pulse Oximetry 97 06/07/18 02:00 06/07/18 02:10 06/07/18 04:00 Temperature 98.4 F Pulse Rate 104 H 105 H Respiratory Rate 20 11 L Blood Pressure 114/65 Pulse Oximetry 97 06/07/18 05:32 06/07/18 06:00 06/07/18 06:47 Temperature Pulse Rate 106 H Respiratory Rate 16 20 Blood Pressure Pulse Oximetry 06/07/18 08:00 06/07/18 10:00 06/07/18 12:00 Temperature 99.1 F 98.8 F Pulse Rate 107 H 107 H 102 H Respiratory Rate 15 20 Blood Pressure 136/80 116/57 L Pulse Oximetry 98 98 06/07/18 12:14 Temperature Pulse Rate Respiratory Rate 20 Blood Pressure Pulse Oximetry Intake & Output 06/06/18 06/07/18 06/07/18 18:59 06:59 18:59 Intake Total 1512.5 / 1512.5 1000 / 1000 2400 / 2400 Output Total 2100 / 2100 1600 / 1600 Balance -587.5 / -587.5 1000 / 1000 800 / 800 Weight 77.564 kg Intake: IV 762.5 / 762.5 1000 / 1000 1800 / 1800 NS + KCl 20 mEq Inj 1,000 ML @ 400 / 400 1000 / 1000 1800 / 1800 100 mls/hr IV.CONT .Q10H [facility] Rx #:[id number] Maxipime Inj 2,000 MG In NS Inj 100 / 100 100 ML @ 200 mls/hr IV.SIG Q8H [facility] Rx#:[id number] Vancomycin Inj 1,250 MG In NS 262.5 / 262.5 Inj 250 ML @ 250 mls/hr IV.SIG Q24H [facility] Rx#:[id number] Oral 750 / 750 600 / 600 Output: Blood Draw 0 / 0 Urine Amount (Catheter) 1999 1500 / 1500 Indwelling Urethral Catheter 2000 / 2000 1500 / 1500 Wound Drainage 100 / 100 100 / 100 # 1 Upper Back NEHAL Drain 100 / 100 100 / 100 Other: Date of Last Bowel Movement 06/04/18 06/04/18 - Urinary Catheter Management Female External Cath placed during this visit: no Indwelling Urethral Catheter Cath placed during this visit: no <Moises Ferro - Last Filed: 06/07/18 13:37> Assessment and Plan - Assessment (1) Paraspinal mass Code(s): R22.2 - Localized swelling, mass and lump, trunk Status: Acute (2) Osteomyelitis of thoracic vertebra Code(s): M46.24 - Osteomyelitis of vertebra, thoracic region Status: Acute (3) Fracture of thoracic vertebra with spinal cord injury Code(s): S24.109A - Unspecified injury at unspecified level of thoracic spinal cord, initial encounter; S22.009A - Unspecified fracture of unspecified thoracic vertebra, initial encounter for closed fracture Status: Acute (4) Thoracic spinal stenosis Code(s): M48.04 - Spinal stenosis, thoracic region Status: Acute (5) Thoracic kyphosis Code(s): M40.204 - Unspecified kyphosis, thoracic region Status: Acute - Plan 58 yo obese female with dense paraplegia for the past 4 weeks with a T6 and T7 significant vertebral body destruction with kyphosis and collapse and gibbus kyphotic deformity with associated stenosis along with multi-level thoracic ventral epidural abscess/granulation tissue above and below this but without cord compression at other levels. She is s/p Thoracic T6 and T7 transpedicular partial corpectomies; posterolateral T4, T5, T6, T7, T8 and T9 fusion; T4-T9 segmental pedicle screw fixation; T5-7 decompressive laminectomies; microsurgical technique by Dr. Ferro on 06/05. P: Pts pain controlled with pain medication and IV Dilaudid q 2 hours today. She was too confused yesterday to operate [employer]. Continue to log roll. Okay to get oob with brace, log rolling into brace. Continue with antibiotics. NEHAL discontinued by me today. Incision is healing well without any complications. <Thony Goncalves - Last Filed: 06/07/18 10:01> - Attending Attestation The exam, history, and the medical decision-making described in the above note were completed with the assistance of the mid-level provider. I reviewed and agree with the findings presented. I attest that I had a [id number] encounter with the patient on the same day, and personally performed and documented my assessment and findings in the medical record. <Moises Ferro - Last Filed: 06/07/18 13:37>
--- NOTE | 2018-06-07 14:18 | P.PNIM ---
Subjective Interval history: The patient was eating lunch. She said her pain was currently controlled on the regimen. Discussed with nursing at the bedside. Physical Exam Vital signs: Vital Signs 06/06/18 14:51 06/06/18 16:00 06/06/18 16:11 Temperature 98.5 F Pulse Rate 104 H Respiratory Rate 18 25 H 17 Blood Pressure 117/63 Pulse Oximetry 100 06/06/18 17:58 06/06/18 19:44 06/06/18 20:00 Temperature 98.6 F Pulse Rate 103 H 109 H Respiratory Rate 18 Blood Pressure 144/67 H Pulse Oximetry 100 99 06/06/18 20:11 06/06/18 22:00 06/06/18 22:06 Temperature Pulse Rate 110 H Respiratory Rate 22 16 Blood Pressure Pulse Oximetry 06/06/18 23:54 06/07/18 00:00 06/07/18 02:00 Temperature 98.8 F Pulse Rate 110 H 104 H Respiratory Rate 16 18 Blood Pressure 108/55 L Pulse Oximetry 97 06/07/18 02:10 06/07/18 04:00 06/07/18 05:32 Temperature 98.4 F Pulse Rate 105 H Respiratory Rate 20 11 L 16 Blood Pressure 114/65 Pulse Oximetry 97 06/07/18 06:00 06/07/18 06:47 06/07/18 08:00 Temperature 99.1 F Pulse Rate 106 H 107 H Respiratory Rate 20 15 Blood Pressure 136/80 Pulse Oximetry 98 06/07/18 10:00 06/07/18 12:00 06/07/18 12:14 Temperature 98.8 F Pulse Rate 107 H 102 H Respiratory Rate 20 20 Blood Pressure 116/57 L Pulse Oximetry 98 06/07/18 14:00 Temperature Pulse Rate 105 H Respiratory Rate Blood Pressure Pulse Oximetry Intake & Output 06/06/18 06/07/18 06/07/18 18:59 06:59 18:59 Intake Total 1512.5 / 1512.5 1000 / 1000 2400 / 2400 Output Total 2100 / 2100 1600 / 1600 Balance -587.5 / -587.5 1000 / 1000 800 / 800 Weight 77.564 kg Intake: IV 762.5 / 762.5 1000 / 1000 1800 / 1800 NS + KCl 20 mEq Inj 1,000 ML @ 400 / 400 1000 / 1000 1800 / 1800 100 mls/hr IV.CONT .Q10H [facility] Rx #:[id number] Maxipime Inj 2,000 MG In NS Inj 100 / 100 100 ML @ 200 mls/hr IV.SIG Q8H [facility] Rx#:[id number] Vancomycin Inj 1,250 MG In NS 262.5 / 262.5 Inj 250 ML @ 250 mls/hr IV.SIG Q24H [facility] Rx#:[id number] Oral 750 / 750 600 / 600 Output: Blood Draw 0 / 0 Urine Amount (Catheter) 1999 1500 / 1500 Indwelling Urethral Catheter 1999 1500 / 1500 Wound Drainage 100 / 100 100 / 100 # 1 Upper Back NEHAL Drain 100 / 100 100 / 100 Other: Date of Last Bowel Movement 06/04/18 06/04/18 Narrative: GENERAL: Not in any acute distress. SKIN: Warm and dry. No generalized rash. HEENT: Atraumatic. Normocephalic. Pupils equal and round. No scleral icterus. No injection or drainage. No nasal bleeding or discharge. Mucous membranes pink and moist. NECK: Trachea midline. CARDIOVASCULAR: Regular rate and rhythm. RESPIRATORY: No accessory muscle use. Clear to auscultation anteriorly. Breath sounds equal bilaterally. GASTROINTESTINAL: Abdomen soft, nontender. +BS. MUSCULOSKELETAL: Extremities without clubbing, cyanosis, or edema. NEUROLOGICAL: Awake and alert. No obvious cranial nerve deficits. Motor grossly within normal limits bilateral upper extremities. Normal speech. - Urinary Catheter Management Female External Cath placed during this visit: no Indwelling Urethral Catheter Cath placed during this visit: yes Reason for continuing: Hourly intake/output Insertion date: 06/05/18 Insertion time: 09:20 Results - Labs CBC & Chem 7: 06/07/18 05:12 06/07/18 05:12 Laboratory Results - last 24 hr 06/07/18 06/07/18 05:12 05:12 WBC 9.0 RBC 3.00 L Hgb 8.3 L Hct 25.0 L MCV 83.4 MCH 27.7 MCHC 33.2 RDW 17.1 Plt Count 238 MPV 7.7 Neut % (Auto) 61.5 Lymph % (Auto) 24.2 Page % (Auto) 12.7 H Eos % (Auto) 1.4 Baso % (Auto) 0.2 Neut # (Auto) 5.5 Lymph # (Auto) 2.2 Page # (Auto) 1.1 H Eos # (Auto) 0.1 Baso # (Auto) 0.0 WBC Differential . Differential Comment Auto diff final Sodium 139 Potassium 4.0 Chloride 107 Carbon Dioxide 25.3 Anion Gap 7 BUN 9 Creatinine 0.75 Estimated GFR 79 L Random Glucose 117 H Calcium 7.9 L Microbiology 06/05/18 12:06 Tissue - Back Gram Stain - Final 06/05/18 12:06 Tissue - Back Wound Culture - Preliminary S. aureus MRSA 06/05/18 11:43 Tissue - Back Gram Stain - Final 06/05/18 11:43 Tissue - Back Wound Culture - Preliminary 06/05/18 11:24 Tissue - Back Gram Stain - Final 06/05/18 11:24 Tissue - Back Wound Culture - Preliminary No growth in 48 hours 06/05/18 12:06 Tissue - Back Acid Fast Bacilli Smear - Final No acid fast bacilli seen 06/05/18 12:06 Tissue - Back Fungal Smear - Final No fungal elements seen 06/05/18 11:43 Tissue - Back Acid Fast Bacilli Smear - Final No acid fast bacilli seen 06/05/18 11:24 Tissue - Back Acid Fast Bacilli Smear - Final No acid fast bacilli seen Assessment and Plan - Plan 58-year-old female with a history of hypertension, GERD, anemia, constipation, gout, fibromyalgia, chronic pain syndrome, anxiety, depression and migraine. She presented on 05/28/2018 to the emergency room because of upper back pain and bilateral lower extremity weakness. She reports of bilateral lower extremity weakness unable to get out of bed and ambulate for 2 weeks. At the same time she complained of constant sharp severe upper back pain worse with activity different from her usual neck and lower back pain. MRI studies showed T6/T7 destruction with possible osteomyelitis. Acute paraplegia secondary to spinal cord compression Vertebral osteomyelitis with pathologic fracture T6-T7 T5-6 discitis Hx of MRSA bacteremia with multiple + BCX 04/22 to 05/02 s/[address] guided biopsy 05/29, path + abscess -Neurosurgery following, appreciate assistance. S/p: Thoracic T6 and T7 transpedicular partial corpectomies; posterolateral T4, T5, T6, T7, T8 and T9 fusion; T4-T9 segmental pedicle screw fixation; T5-7 decompressive laminectomies ; microsurgical technique on 06/05/[address] Ferro. -TLSO on when OOB -ID following, appreciate assistance. MRSA growing from wound. Continue on Vancomycin. D/c cefepime. ID anticipates long-term IV antibiotic treatment. -continue on oxycodone and IV Dilaudid for pain control. Hypertension, controlled -Continue on Norvasc to 10mg daily -Clonidine as needed with parameters -Continue to monitor BP and adjust treatment accordingly Chronic renal insufficiency Creatinine appears to be at baseline -avoid nephrotoxic agents -monitor kidney function as indicated Constipation, resolved CT abd/pelvis shows mild small bowel and colonic distention, mild intrahepatic and extrahepatic biliary ductal prominence and distended gallbladder, splenomegaly unchanged -tolerating diet -continue on Pericolace BID and Miralax daily -Continue on Reglan Upper abdominal pain, ?referred T spine pain from infection CXR shows atelectasis -Mylanta prn -Continue with incentive spirometry and acapella, encourage use Anemia H/H stable No active bleeding -Continue to monitor CBC Sacral decubitus, stage 4 -evaluated by wound care nurse. Wound care orders placed. -specialty bed -off-loading maneuvers Hx of IVDU, remotely UDS tested for cocaine, benzos and opiates -Patient states she last snorted cocaine 6 months ago -monitor DVT prophylaxis -Lovenox sq Discharge Planning: Transfer to floor
[2018-06-07] MEDS: HYDROmorphone PF Inj 2 MG/ML Vial IV.SIG PRN ×2 (14:53→17:41)
[2018-06-07] MEDS: ALPRAZolam 0.5 MG Tablet PO PRN ×2 (16:46→21:39)
[2018-06-07] MEDS: Vancomycin Inj 1,500 MG in Sodium Chlor 0.9% Inj 500 ML IV.SIG SCH (17:41)
[2018-06-08] MEDS: HYDROmorphone PF Inj 2 MG/ML Vial IV.SIG PRN ×7 (00:56→21:20)
[2018-06-08] MEDS: Melatonin 5 MG Tablet PO PRN (03:26)
[2018-06-08] MEDS: ALPRAZolam 0.5 MG Tablet PO PRN ×2 (06:36→23:11)
[2018-06-08] MEDS: Metoclopramide 10 MG Tablet PO SCH ×4 (07:23→21:20)
[2018-06-08] MEDS: Famotidine 20 MG Tablet PO SCH ×2 (08:35→21:20)
[2018-06-08] MEDS: amLODIPine 5 MG Tablet PO SCH (08:35)
[2018-06-08] MEDS: Polyethylene Glycol 3350 17 GM Packet PO SCH (08:35)
[2018-06-08] MEDS: Senna/Docusate Sodium 8.6/50 MG Tablet PO SCH ×2 (08:35→21:20)
--- NOTE | 2018-06-08 09:06 | P.PNNS ---
Subjective Interval history: No acute events overnight. Physical Exam Vital signs: Vital Signs 06/07/18 09:30 06/07/18 10:00 06/07/18 12:00 Temperature 98.8 F Pulse Rate 107 H 102 H Respiratory Rate 20 Blood Pressure 116/57 L Pulse Oximetry 96 98 06/07/18 12:14 06/07/18 14:00 06/07/18 16:00 Temperature 98.0 F Pulse Rate 105 H 103 H Respiratory Rate 20 20 Blood Pressure 111/55 L Pulse Oximetry 94 L 06/07/18 17:44 06/07/18 20:00 06/07/18 22:00 Temperature 99.4 F Pulse Rate 110 H 112 H 112 H Respiratory Rate 20 Blood Pressure Pulse Oximetry 95 06/08/18 00:00 06/08/18 02:00 06/08/18 04:00 Temperature 99.2 F 98.9 F Pulse Rate 103 H 99 H 102 H Respiratory Rate 22 17 Blood Pressure 135/79 135/65 Pulse Oximetry 94 L 93 L 06/08/18 06:00 06/08/18 07:46 Temperature Pulse Rate 103 H Respiratory Rate 17 Blood Pressure Pulse Oximetry 95 Intake & Output 06/07/18 06/08/18 06/08/18 18:59 06:59 18:59 Intake Total 3250 / 3250 515 / 515 Output Total 2500 / 2500 2600 / 2600 Balance 750 / 750 -2085 / -2085 Weight 81.4 kg Intake: IV 1800 / 1800 515 / 515 NS + KCl 20 mEq Inj 1,000 ML @ 1800 / 1800 100 mls/hr IV.CONT .Q10H [facility] Rx #:[id number] Vancomycin Inj 1,500 MG In NS 515 / 515 Inj 500 ML @ 250 mls/hr IV.SIG Q36H [facility] Rx#:[id number] Oral 1450 / 1450 Output: Urine Amount (Catheter) 2400 / 2400 2600 / 2600 Indwelling Urethral Catheter 2400 / 2400 2600 / 2600 Wound Drainage 100 / 100 # 1 Upper Back NEHAL Drain 100 / 100 Other: Date of Last Bowel Movement 06/04/18 06/04/18 Narrative: Opens eyes spontaneously Alert and oriented Follows commands bilateral upper extremities Bilateral lower extremities 0/5 Sensation intact to light touch throughout. - Urinary Catheter Management Female External Cath placed during this visit: no Indwelling Urethral Catheter Cath placed during this visit: yes Reason for continuing: Hourly intake/output Insertion date: 06/05/18 Insertion time: 09:20 Assessment and Plan - Plan 58 yo female with paraplegia for the past 4 weeks with a T6 and T7 significant vertebral body destruction with kyphosis and collapse and gibbus kyphotic deformity with associated stenosis along with multi-level thoracic ventral epidural abscess/granulation tissue above and below this but without cord compression at other levels. She is s/p Thoracic T6 and T7 transpedicular partial corpectomies; posterolateral T4, T5, T6, T7, T8 and T9 fusion; T4-T9 segmental pedicle screw fixation; T5-7 decompressive laminectomies; microsurgical technique by Dr. Ferro on 06/05. P: Pain control. Continue to log roll. Okay to get oob with brace, log rolling into brace.
[2018-06-08] MEDS: Duloxetine 60 MG DR Capsule PO SCH (11:11)
--- NOTE | 2018-06-08 15:30 | P.PNIM ---
Subjective Interval history: The patient was transferred from [facility]. She said her pain was controlled. She said she has been eating well. She was going to try an [place] sub later. The patient said that she would be okay with going to p.o. pain medication when it was time to leave the hospital. Discussed with nursing. Physical Exam Vital signs: Vital Signs 06/07/18 16:00 06/07/18 17:44 06/07/18 20:00 Temperature 98.0 F 99.4 F Pulse Rate 103 H 110 H 112 H Respiratory Rate 20 20 Blood Pressure 111/55 L Pulse Oximetry 94 L 95 06/07/18 22:00 06/08/18 00:00 06/08/18 02:00 Temperature 99.2 F Pulse Rate 112 H 103 H 99 H Respiratory Rate 22 Blood Pressure 135/79 Pulse Oximetry 94 L 06/08/18 04:00 06/08/18 06:00 06/08/18 07:46 Temperature 98.9 F Pulse Rate 102 H 103 H Respiratory Rate 17 17 Blood Pressure 135/65 Pulse Oximetry 93 L 95 06/08/18 08:00 06/08/18 10:00 06/08/18 11:41 Temperature 98.8 F Pulse Rate 96 H 96 H Respiratory Rate 22 19 Blood Pressure 138/69 Pulse Oximetry 96 06/08/18 12:00 06/08/18 13:43 Temperature 98.3 F 98.7 F Pulse Rate 95 H 103 H Respiratory Rate 20 18 Blood Pressure 133/80 124/61 Pulse Oximetry 95 98 Intake & Output 06/07/18 06/08/18 06/08/18 18:59 06:59 18:59 Intake Total 3250 / 3250 515 / 515 Output Total 2500 / 2500 2600 / 2600 Balance 750 / 750 -2085 / -2085 Weight 81.4 kg Intake: IV 1800 / 1800 515 / 515 NS + KCl 20 mEq Inj 1,000 ML @ 1800 / 1800 100 mls/hr IV.CONT .Q10H [facility] Rx #:[id number] Vancomycin Inj 1,500 MG In NS 515 / 515 Inj 500 ML @ 250 mls/hr IV.SIG Q36H [facility] Rx#:[id number] Oral 1450 / 1450 Output: Urine Amount (Catheter) 2400 / 2400 2600 / 2600 Indwelling Urethral Catheter 2400 / 2400 2600 / 2600 Wound Drainage 100 / 100 # 1 Upper Back NEHAL Drain 100 / 100 Other: Date of Last Bowel Movement 06/04/18 06/04/18 06/04/18 Narrative: GENERAL: Not in any acute distress. SKIN: Warm and dry. No generalized rash. HEENT: Atraumatic. Normocephalic. Pupils equal and round. No scleral icterus. No injection or drainage. No nasal bleeding or discharge. Mucous membranes pink and moist. NECK: Trachea midline. CARDIOVASCULAR: Regular rate and rhythm. RESPIRATORY: No accessory muscle use. Clear to auscultation anteriorly. Breath sounds equal bilaterally. GASTROINTESTINAL: Abdomen soft, nontender. +BS. MUSCULOSKELETAL: Extremities without clubbing, cyanosis, or edema. NEUROLOGICAL: Awake and alert. No obvious cranial nerve deficits. Motor grossly within normal limits bilateral upper extremities. Normal speech. - Urinary Catheter Management Female External Cath placed during this visit: no Indwelling Urethral Catheter Cath placed during this visit: yes Reason for continuing: Hourly intake/output Insertion date: 06/05/18 Insertion time: 09:20 Results - Labs CBC & Chem 7: 06/07/18 05:12 06/07/18 05:12 Laboratory Results - last 24 hr 06/05/18 09:20 MTS Gel Crossmatch See Detail Microbiology 06/05/18 12:06 Tissue - Back Gram Stain - Final 06/05/18 12:06 Tissue - Back Wound Culture - Final S. aureus MRSA 06/05/18 11:43 Tissue - Back Gram Stain - Final 06/05/18 11:43 Tissue - Back Wound Culture - Final S. aureus MRSA 06/05/18 11:24 Tissue - Back Gram Stain - Final 06/05/18 11:24 Tissue - Back Wound Culture - Final No growth in 72 hours (aerobically and anaerobically ) Assessment and Plan - Plan 58-year-old female with a history of hypertension, GERD, anemia, constipation, gout, fibromyalgia, chronic pain syndrome, anxiety, depression and migraine. She presented on 05/28/2018 to the emergency room because of upper back pain and bilateral lower extremity weakness. She reports of bilateral lower extremity weakness unable to get out of bed and ambulate for 2 weeks. At the same time she complained of constant sharp severe upper back pain worse with activity different from her usual neck and lower back pain. MRI studies showed T6/T7 destruction with possible osteomyelitis. Acute paraplegia secondary to spinal cord compression Vertebral osteomyelitis with pathologic fracture T6-T7 T5-6 discitis Hx of MRSA bacteremia with multiple + BCX 04/22 to 05/02 s/p CT guided biopsy 05/29, path + abscess -Neurosurgery following, appreciate assistance. S/p: Thoracic T6 and T7 transpedicular partial corpectomies; posterolateral T4, T5, T6, T7, T8 and T9 fusion; T4-T9 segmental pedicle screw fixation; T5-7 decompressive laminectomies ; microsurgical technique on 06/05/[address] Ferro. -TLSO on when OOB -ID following, appreciate assistance. MRSA growing from wound. Continue on vancomycin. D/c cefepime. ID anticipates long-term IV antibiotic treatment. -continue on oxycodone and IV Dilaudid for pain control. Hypertension, controlled -Continue on Norvasc to 10mg daily -Clonidine as needed with parameters -Continue to monitor BP and adjust treatment accordingly Chronic renal insufficiency Creatinine appears to be at baseline -avoid nephrotoxic agents -monitor kidney function as indicated Constipation, resolved CT abd/pelvis shows mild small bowel and colonic distention, mild intrahepatic and extrahepatic biliary ductal prominence and distended gallbladder, splenomegaly unchanged -tolerating diet -continue on Sarahy-Colace BID and Miralax daily. -Continue on Reglan. -consider Relistor. Upper abdominal pain, ?referred T spine pain from infection CXR shows atelectasis -Mylanta prn -Continue with incentive spirometry and acapella, encourage use Anemia H/H stable No active bleeding -Continue to monitor CBC Sacral decubitus, stage 4 -evaluated by wound care nurse. Wound care orders placed. -specialty bed -off-loading maneuvers Hx of IVDU, remotely UDS tested for cocaine, benzos and opiates -Patient states she last snorted cocaine 6 months ago -monitor DVT prophylaxis -Lovenox sq Discharge Planning: Transfer to floor
[2018-06-09] MEDS: HYDROmorphone PF Inj 2 MG/ML Vial IV.SIG PRN ×3 (02:10→09:29)
[2018-06-09] MEDS: Vancomycin Inj 1,500 MG in Sodium Chlor 0.9% Inj 500 ML IV.SIG SCH (06:19)
[2018-06-09] MEDS: Senna/Docusate Sodium 8.6/50 MG Tablet PO SCH ×2 (08:05→20:06)
[2018-06-09] MEDS: Duloxetine 60 MG DR Capsule PO SCH (08:05)
[2018-06-09] MEDS: Metoclopramide 10 MG Tablet PO SCH ×4 (08:05→20:07)
[2018-06-09] MEDS: Famotidine 20 MG Tablet PO SCH ×2 (08:05→20:06)
[2018-06-09] MEDS: amLODIPine 5 MG Tablet PO SCH (08:06)
[2018-06-09] MEDS: Polyethylene Glycol 3350 17 GM Packet PO SCH (08:06)
[2018-06-09] MEDS: ALPRAZolam 0.5 MG Tablet PO PRN ×2 (08:44→21:30)
--- NOTE | 2018-06-09 10:44 | P.PNNS ---
Subjective Interval history: No acute events overnight. Physical Exam Vital signs: Vital Signs 06/08/18 11:41 06/08/18 12:00 06/08/18 13:43 Temperature 98.3 F 98.7 F Pulse Rate 95 H 103 H Respiratory Rate 19 20 18 Blood Pressure 133/80 124/61 Pulse Oximetry 95 98 06/08/18 15:51 06/08/18 17:20 06/08/18 20:00 Temperature 98.1 F 98.5 F Pulse Rate 88 99 H 96 H Respiratory Rate 18 18 Blood Pressure 148/73 H 134/61 Pulse Oximetry 98 97 06/08/18 22:00 06/09/18 00:00 06/09/18 02:00 Temperature 99.4 F Pulse Rate 96 H 100 H 72 Respiratory Rate 18 Blood Pressure 129/61 Pulse Oximetry 96 06/09/18 04:00 06/09/18 06:00 06/09/18 07:47 Temperature 98.2 F 98.5 F Pulse Rate 101 H 102 H 102 H Respiratory Rate 18 18 Blood Pressure 145/64 H 130/67 Pulse Oximetry 96 94 L 06/09/18 09:42 Temperature Pulse Rate 103 H Respiratory Rate Blood Pressure Pulse Oximetry Intake & Output 06/08/18 06/09/18 06/09/18 18:59 06:59 18:59 Intake Total 515 / 515 Output Total 500 / 500 1800 / 1800 Balance -500 / -500 -1800 / -1800 515 / 515 Weight 81.4 kg Intake: IV 515 / 515 Vancomycin Inj 1,500 MG In NS 515 / 515 Inj 500 ML @ 250 mls/hr IV.SIG Q36H [facility] Rx#:[id number] Output: Urine 500 / 500 1800 / 1800 Other: Date of Last Bowel Movement 06/04/18 06/04/18 06/04/18 Narrative: Opens eyes spontaneously Alert and oriented Follows commands bilateral upper extremities Bilateral lower extremities 0/5 Sensation intact to light touch throughout. - Urinary Catheter Management Female External Cath placed during this visit: no Indwelling Urethral Catheter Cath placed during this visit: yes Reason for continuing: Hourly intake/output Insertion date: 06/05/18 Insertion time: 09:20 Assessment and Plan - Plan 58 yo female with paraplegia for the past 4 weeks with a T6 and T7 significant vertebral body destruction with kyphosis and collapse and gibbus kyphotic deformity with associated stenosis along with multi-level thoracic ventral epidural abscess/granulation tissue above and below this but without cord compression at other levels. She is s/p Thoracic T6 and T7 transpedicular partial corpectomies; posterolateral T4, T5, T6, T7, T8 and T9 fusion; T4-T9 segmental pedicle screw fixation; T5-7 decompressive laminectomies; microsurgical technique by Dr. Ferro on 06/05. P: Now floor status. Pain control. Continue to log roll. Okay to get oob with brace, log rolling into brace (per Dr. Ferro).
--- NOTE | 2018-06-09 12:51 | P.PNIM ---
Subjective Interval history: The patient was sleepy. She did not have any concerns. Discussed with nursing. Physical Exam Vital signs: Vital Signs 06/08/18 13:43 06/08/18 15:51 06/08/18 17:20 Temperature 98.7 F 98.1 F Pulse Rate 103 H 88 99 H Respiratory Rate 18 18 Blood Pressure 124/61 148/73 H Pulse Oximetry 98 98 06/08/18 20:00 06/08/18 22:00 06/09/18 00:00 Temperature 98.5 F 99.4 F Pulse Rate 96 H 96 H 100 H Respiratory Rate 18 18 Blood Pressure 134/61 129/61 Pulse Oximetry 97 96 06/09/18 02:00 06/09/18 04:00 06/09/18 06:00 Temperature 98.2 F Pulse Rate 72 101 H 102 H Respiratory Rate 18 Blood Pressure 145/64 H Pulse Oximetry 96 06/09/18 07:47 06/09/18 09:42 06/09/18 11:55 Temperature 98.5 F 97.4 F L Pulse Rate 102 H 103 H 103 H Respiratory Rate 18 18 Blood Pressure 130/67 143/69 H Pulse Oximetry 94 L 98 Intake & Output 06/08/18 06/09/18 06/09/18 18:59 06:59 18:59 Intake Total 515 / 515 Output Total 500 / 500 1800 / 1800 1300 / 1300 Balance -500 / -500 -1800 / -1800 -785 / -785 Weight 81.4 kg Intake: IV 515 / 515 Vancomycin Inj 1,500 MG In NS 515 / 515 Inj 500 ML @ 250 mls/hr IV.SIG Q36H [facility] Rx#:[id number] Output: Urine 500 / 500 1800 / 1800 1300 / 1300 Other: Date of Last Bowel Movement 06/04/18 06/04/18 06/04/18 Narrative: GENERAL: Not in any acute distress. SKIN: Warm and dry. No generalized rash. HEENT: Atraumatic. Normocephalic. Pupils equal and round. No scleral icterus. No injection or drainage. No nasal bleeding or discharge. Mucous membranes pink and moist. NECK: Trachea midline. CARDIOVASCULAR: Regular rate and rhythm. RESPIRATORY: No accessory muscle use. Clear to auscultation anteriorly. Breath sounds equal bilaterally. GASTROINTESTINAL: Abdomen soft, nontender. +BS. MUSCULOSKELETAL: Extremities without clubbing, cyanosis, or edema. NEUROLOGICAL: Drowsy. No obvious cranial nerve deficits. Motor grossly within normal limits bilateral upper extremities. Normal speech. - Urinary Catheter Management Female External Cath placed during this visit: no Indwelling Urethral Catheter Cath placed during this visit: yes Reason for continuing: Hourly intake/output Insertion date: 06/05/18 Insertion time: 09:20 Results - Labs CBC & Chem 7: 06/07/18 05:12 06/07/18 05:12 Assessment and Plan - Plan 58-year-old female with a history of hypertension, GERD, anemia, constipation, gout, fibromyalgia, chronic pain syndrome, anxiety, depression and migraine. She presented on 05/28/2018 to the emergency room because of upper back pain and bilateral lower extremity weakness. She reports of bilateral lower extremity weakness unable to get out of bed and ambulate for 2 weeks. At the same time she complained of constant sharp severe upper back pain worse with activity different from her usual neck and lower back pain. MRI studies showed T6/T7 destruction with possible osteomyelitis. Acute paraplegia secondary to spinal cord compression Vertebral osteomyelitis with pathologic fracture T6-T7 T5-6 discitis Hx of MRSA bacteremia with multiple + BCX 04/22 to 05/02 s/[address] guided biopsy 05/29, path + abscess -Neurosurgery following, appreciate assistance. S/p: Thoracic T6 and T7 transpedicular partial corpectomies; posterolateral T4, T5, T6, T7, T8 and T9 fusion; T4-T9 segmental pedicle screw fixation; T5-7 decompressive laminectomies ; microsurgical technique on 06/05/[address] Ferro. -TLSO on when OOB -ID following, appreciate assistance. MRSA growing from wound. Continue on vancomycin. D/c cefepime. ID anticipates long-term IV antibiotic treatment. -continue on oxycodone and IV Dilaudid for pain control. Attempting to wean off IV Dilaudid and start oral regimen. -Rehab efforts. Hypertension, controlled -Continue on Norvasc to 10mg daily -Clonidine as needed with parameters -Continue to monitor BP and adjust treatment accordingly Chronic renal insufficiency Creatinine appears to be at baseline -avoid nephrotoxic agents -monitor kidney function as indicated Constipation, resolved CT abd/pelvis shows mild small bowel and colonic distention, mild intrahepatic and extrahepatic biliary ductal prominence and distended gallbladder, splenomegaly unchanged -tolerating diet -continue on Sarahy-Colace BID and Miralax daily. -Continue on Reglan. -consider Relistor. Anemia H/H stable No active bleeding -Continue to monitor CBC Sacral decubitus, stage 4 -evaluated by wound care nurse. Wound care orders placed. -specialty bed -off-loading maneuvers Hx of IVDU, remotely UDS tested for cocaine, benzos and opiates -Patient states she last snorted cocaine 6 months ago -monitor DVT prophylaxis -Lovenox sq Discharge Planning: Will need SNF once cleared by NS and ID
[2018-06-09] MEDS ORDERED: HYDROmorphone PF Inj 2 MG/ML Vial IV.SIG PRN (13:00)
[2018-06-09] MEDS: Morphine Sulfate 60 MG SR Tablet PO SCH ×2 (14:22→21:30)
[2018-06-10] MEDS: Morphine Sulfate 60 MG SR Tablet PO SCH ×3 (05:50→22:15)
[2018-06-10] MEDS: Senna/Docusate Sodium 8.6/50 MG Tablet PO SCH ×2 (09:15→22:13)
[2018-06-10] MEDS: Polyethylene Glycol 3350 17 GM Packet PO SCH (09:16)
[2018-06-10] MEDS: Metoclopramide 10 MG Tablet PO SCH ×4 (09:16→22:13)
[2018-06-10] MEDS: amLODIPine 5 MG Tablet PO SCH ×2 (09:16→14:25)
[2018-06-10] MEDS: Famotidine 20 MG Tablet PO SCH ×2 (09:16→22:13)
[2018-06-10] MEDS: Duloxetine 60 MG DR Capsule PO SCH (09:16)
--- NOTE | 2018-06-10 13:14 | P.PNIM ---
Subjective Interval history: The patient was very comfortable. She said the pain medication was optimal. She has been working with therapy. She had questions about her recovery time. She said she has been having bowel movements. Physical Exam Vital signs: Vital Signs 06/09/18 16:00 06/09/18 18:00 06/09/18 20:00 Temperature 97.9 F 98.2 F Pulse Rate 101 H 103 H 104 H Respiratory Rate 18 18 18 Blood Pressure 128/60 134/62 Pulse Oximetry 96 96 06/09/18 22:00 06/10/18 00:00 06/10/18 02:00 Temperature 98 F Pulse Rate 106 H 93 H 111 H Respiratory Rate 18 Blood Pressure 137/82 Pulse Oximetry 96 06/10/18 04:00 06/10/18 08:00 06/10/18 10:00 Temperature 97.9 F 98.1 F Pulse Rate 96 H 97 H 95 H Respiratory Rate 18 17 Blood Pressure 120/60 99/59 L Pulse Oximetry 96 Intake & Output 06/09/18 06/10/18 06/10/18 18:59 06:59 18:59 Intake Total 515 / 515 Output Total 3000 / 3000 1000 / 1000 Balance -2485 / -2485 -1000 / -1000 Weight 81.4 kg Intake: IV 515 / 515 Vancomycin Inj 1,500 MG In NS 515 / 515 Inj 500 ML @ 250 mls/hr IV.SIG Q36H [facility] Rx#:[id number] Output: Urine 3000 / 3000 1000 / 1000 Other: Date of Last Bowel Movement 06/04/18 06/04/18 06/04/18 Narrative: GENERAL: Not in any acute distress. SKIN: Warm and dry. No generalized rash. HEENT: Atraumatic. Normocephalic. Pupils equal and round. No scleral icterus. No injection or drainage. No nasal bleeding or discharge. Mucous membranes pink and moist. NECK: Trachea midline. CARDIOVASCULAR: Regular rate and rhythm. RESPIRATORY: No accessory muscle use. Clear to auscultation anteriorly. Breath sounds equal bilaterally. GASTROINTESTINAL: Abdomen soft, nontender. +BS. MUSCULOSKELETAL: Extremities without clubbing, cyanosis, or edema. NEUROLOGICAL: Awake and alert. No obvious cranial nerve deficits. Motor grossly within normal limits bilateral upper extremities. Normal speech. - Urinary Catheter Management Female External Cath placed during this visit: no Indwelling Urethral Catheter Cath placed during this visit: yes Reason for continuing: Hourly intake/output Insertion date: 06/05/18 Insertion time: 09:20 Results - Labs CBC & Chem 7: 06/07/18 05:12 06/10/18 05:55 Laboratory Results - last 24 hr 06/10/18 05:55 Creatinine 0.87 Estimated GFR 67 L Assessment and Plan - Plan 58-year-old female with a history of hypertension, GERD, anemia, constipation, gout, fibromyalgia, chronic pain syndrome, anxiety, depression and migraine. She presented on 05/28/2018 to the emergency room because of upper back pain and bilateral lower extremity weakness. She reports of bilateral lower extremity weakness unable to get out of bed and ambulate for 2 weeks. At the same time she complained of constant sharp severe upper back pain worse with activity different from her usual neck and lower back pain. MRI studies showed T6/T7 destruction with possible osteomyelitis. Acute paraplegia secondary to spinal cord compression Vertebral osteomyelitis with pathologic fracture T6-T7 T5-6 discitis Hx of MRSA bacteremia with multiple + BCX 04/22 to 05/02 s/[address] guided biopsy 05/29, path + abscess -Neurosurgery following, appreciate assistance. S/p: Thoracic T6 and T7 transpedicular partial corpectomies; posterolateral T4, T5, T6, T7, T8 and T9 fusion; T4-T9 segmental pedicle screw fixation; T5-7 decompressive laminectomies ; microsurgical technique on 06/05/[address] Ferro. -TLSO on when OOB -ID following, appreciate assistance. MRSA growing from wound. Continue on vancomycin. D/c cefepime. ID anticipates long-term IV antibiotic treatment. -continue on p.o. morphine with oxycodone for breakthrough pain. -Rehab efforts. Hypertension Blood pressure low at this time. -Decrease Norvasc to 5 mg daily -Clonidine as needed with parameters -Continue to monitor BP and adjust treatment accordingly Chronic renal insufficiency Creatinine appears to be at baseline -avoid nephrotoxic agents -monitor kidney function as indicated Constipation, resolved CT abd/pelvis shows mild small bowel and colonic distention, mild intrahepatic and extrahepatic biliary ductal prominence and distended gallbladder, splenomegaly unchanged -tolerating diet -continue on Sarahy-Colace BID and Miralax daily. -Continue on Reglan. Anemia H/H stable No active bleeding -Continue to monitor CBC Sacral decubitus, stage 4 -evaluated by wound care nurse. Wound care orders placed. -specialty bed -off-loading maneuvers Hx of IVDU, remotely UDS tested for cocaine, benzos and opiates -Patient states she last snorted cocaine 6 months ago -monitor DVT prophylaxis -Lovenox sq Discharge Planning: Will need SNF once cleared by NS and ID
[2018-06-10] MEDS: Vancomycin Inj 1,500 MG in Sodium Chlor 0.9% Inj 500 ML IV.SIG SCH (17:41)
[2018-06-10] MEDS ORDERED: Pharmacy Ordered Lab Info OTHER ONE (17:45)
--- NOTE | 2018-06-10 17:45 | P.PNNS ---
Subjective Interval history: Pt awake and alert. States incisional pain but controlled. No radiculopathy in chest. Pt stats she can feel pressure touching on her LEs. No movement though in LEs. Physical Exam Vital signs: Vital Signs 06/09/18 18:00 06/09/18 20:00 06/09/18 22:00 Temperature 98.2 F Pulse Rate 103 H 104 H 106 H Respiratory Rate 18 18 Blood Pressure 134/62 Pulse Oximetry 96 06/10/18 00:00 06/10/18 02:00 06/10/18 04:00 Temperature 98 F 97.9 F Pulse Rate 93 H 111 H 96 H Respiratory Rate 18 18 Blood Pressure 137/82 120/60 Pulse Oximetry 96 96 06/10/18 08:00 06/10/18 10:00 06/10/18 12:00 Temperature 98.1 F 98.5 F Pulse Rate 97 H 95 H 98 H Respiratory Rate 17 16 Blood Pressure 99/59 L 100/55 L Pulse Oximetry 97 Intake & Output 06/09/18 06/10/18 06/10/18 18:59 06:59 18:59 Intake Total 515 / 515 Output Total 3000 / 3000 1000 / 1000 Balance -2485 / -2485 -1000 / -1000 Weight 81.4 kg Intake: IV 515 / 515 Vancomycin Inj 1,500 MG In NS 515 / 515 Inj 500 ML @ 250 mls/hr IV.SIG Q36H [facility] Rx#:[id number] Output: Urine 3000 / 3000 1000 / 1000 Other: Date of Last Bowel Movement 06/04/18 06/04/18 06/04/18 - Constitutional no acute distress, obese - Routine HEENT Exam Head: Present: normocephalic, atraumatic Eye: Present: PERRL. Absent: scleral injection ENT: Present: oropharynx clear - Routine Neck Exam Present: trachea midline - Routine Respiratory Exam Present: CTA bilaterally. Absent: respiratory distress, rhonchi, wheezes - Routine Cardiovascular Exam Present: RRR, S1, S2. Absent: murmur - Routine Abdominal Exam Present: soft, normoactive bowel sounds - Routine Skin Exam Absent: cyanosis, erythema Comments: Pt log rolled and incision clean and dry without signs of infection. Ayan in place. New bandage placed. Pt has a deep sacral wound being managed with packing and bandages. - Routine Neurological Exam Present: alert, sensory deficit (Pt is able to sense where on her feet I am contacting but sensory deficits in LEs.), motor deficit (Paraplegia in LEs.) - Routine Psychiatric Exam Present: normal affect - Urinary Catheter Management Female External Cath placed during this visit: no Indwelling Urethral Catheter Cath placed during this visit: yes Reason for continuing: Hourly intake/output Insertion date: 06/05/18 Insertion time: 09:20 Assessment and Plan - Assessment (1) Paraspinal mass Code(s): R22.2 - Localized swelling, mass and lump, trunk Status: Acute (2) Osteomyelitis of thoracic vertebra Code(s): M46.24 - Osteomyelitis of vertebra, thoracic region Status: Acute (3) Fracture of thoracic vertebra with spinal cord injury Code(s): S24.109A - Unspecified injury at unspecified level of thoracic spinal cord, initial encounter; S22.009A - Unspecified fracture of unspecified thoracic vertebra, initial encounter for closed fracture Status: Acute (4) Thoracic spinal stenosis Code(s): M48.04 - Spinal stenosis, thoracic region Status: Acute (5) Thoracic kyphosis Code(s): M40.204 - Unspecified kyphosis, thoracic region Status: Acute - Plan 58 yo female with paraplegia for the past 4 weeks with a T6 and T7 significant vertebral body destruction with kyphosis and collapse and gibbus kyphotic deformity with associated stenosis along with multi-level thoracic ventral epidural abscess/granulation tissue above and below this but without cord compression at other levels. She is s/p Thoracic T6 and T7 transpedicular partial corpectomies; posterolateral T4, T5, T6, T7, T8 and T9 fusion; T4-T9 segmental pedicle screw fixation; T5-7 decompressive laminectomies; microsurgical technique by Dr. Ferro on 06/05. P: Now floor status. Pain control. Continue to log roll. Okay to get oob with brace, log rolling into brace (per Dr. Ferro).
[2018-06-11] MEDS: Morphine Sulfate 60 MG SR Tablet PO SCH ×3 (05:55→22:23)
[2018-06-11] MEDS: Famotidine 20 MG Tablet PO SCH ×2 (09:38→20:14)
[2018-06-11] MEDS: Metoclopramide 10 MG Tablet PO SCH ×4 (09:38→20:13)
[2018-06-11] MEDS: Polyethylene Glycol 3350 17 GM Packet PO SCH (09:38)
[2018-06-11] MEDS: Senna/Docusate Sodium 8.6/50 MG Tablet PO SCH ×2 (09:38→20:13)
[2018-06-11] MEDS: Duloxetine 60 MG DR Capsule PO SCH (09:39)
[2018-06-11] MEDS: amLODIPine 5 MG Tablet PO SCH (09:39)
[2018-06-11] MEDS: ALPRAZolam 0.5 MG Tablet PO PRN ×2 (10:27→23:52)
--- NOTE | 2018-06-11 12:01 | P.PNIM ---
Subjective Interval history: Pain was controlled. She said she woke up at 4am. She worked with PT. She says she has sensation in her feet. Discussed with physical therapy. Physical Exam Vital signs: Vital Signs 06/10/18 12:00 06/10/18 16:00 06/10/18 18:00 Temperature 98.5 F 99.1 F Pulse Rate 98 H 103 H 101 H Respiratory Rate 16 18 Blood Pressure 100/55 L 105/55 L Pulse Oximetry 97 96 06/10/18 20:00 06/10/18 20:22 06/11/18 00:00 Temperature 98.6 F 98.4 F Pulse Rate 104 H 96 H 97 H Respiratory Rate 18 18 Blood Pressure 112/66 110/61 Pulse Oximetry 96 96 06/11/18 02:00 06/11/18 04:00 06/11/18 08:00 Temperature 98.1 F 98.2 F Pulse Rate 94 H 102 H 100 H Respiratory Rate 18 20 Blood Pressure 116/57 L 109/59 L Pulse Oximetry 98 99 Intake & Output 06/10/18 06/11/18 06/11/18 18:59 06:59 18:59 Intake Total 1676 / 1676 515 / 515 Output Total 300 / 300 1500 / 1500 175 / 175 Balance 1376 / 1376 -985 / -985 -175 / -175 Weight 86.9 kg Intake: IV 515 / 515 Vancomycin Inj 1,500 MG In NS 515 / 515 Inj 500 ML @ 250 mls/hr IV.SIG Q36H [facility] Rx#:[id number] Oral 1676 / 1676 Output: Urine 1500 / 1500 175 / 175 Urine Amount (Catheter) 300 / 300 Indwelling Urethral Catheter 300 / 300 Other: # Voids 6 Date of Last Bowel Movement 06/04/18 06/04/18 # Bowel Movements 1 Narrative: GENERAL: Not in any acute distress. SKIN: Warm and dry. No generalized rash. HEENT: Atraumatic. Normocephalic. Pupils equal and round. No scleral icterus. No injection or drainage. No nasal bleeding or discharge. Mucous membranes pink and moist. NECK: Trachea midline. CARDIOVASCULAR: Regular rate and rhythm. RESPIRATORY: No accessory muscle use. Clear to auscultation anteriorly. Breath sounds equal bilaterally. GASTROINTESTINAL: Abdomen soft, nontender. +BS. MUSCULOSKELETAL: Extremities without clubbing, cyanosis, or edema. NEUROLOGICAL: Awake and alert. No obvious cranial nerve deficits. Motor grossly within normal limits bilateral upper extremities. Unable to move lower extremities but has sensation. Normal speech. - Urinary Catheter Management Female External Cath placed during this visit: no Indwelling Urethral Catheter Cath placed during this visit: yes Reason for continuing: Hourly intake/output Insertion date: 06/05/18 Insertion time: 09:20 Results - Labs CBC & Chem 7: 06/07/18 05:12 06/10/18 05:55 Laboratory Results - last 24 hr 06/10/18 06/11/18 17:45 05:50 Vancomycin Trough 10.7 H Random Vancomycin 22.6 Assessment and Plan - Plan 58-year-old female with a history of hypertension, GERD, anemia, constipation, gout, fibromyalgia, chronic pain syndrome, anxiety, depression and migraine. She presented on 05/28/2018 to the emergency room because of upper back pain and bilateral lower extremity weakness. She reports of bilateral lower extremity weakness unable to get out of bed and ambulate for 2 weeks. At the same time she complained of constant sharp severe upper back pain worse with activity different from her usual neck and lower back pain. MRI studies showed T6/T7 destruction with possible osteomyelitis. Acute paraplegia secondary to spinal cord compression Vertebral osteomyelitis with pathologic fracture T6-T7 T5-6 discitis Hx of MRSA bacteremia with multiple + BCX 04/22 to 05/02 s/[address] guided biopsy 05/29, path + abscess -Neurosurgery following, appreciate assistance. S/p: Thoracic T6 and T7 transpedicular partial corpectomies; posterolateral T4, T5, T6, T7, T8 and T9 fusion; T4-T9 segmental pedicle screw fixation; T5-7 decompressive laminectomies ; microsurgical technique on 06/05/[address] Ferro. -TLSO on when OOB -ID following, appreciate assistance. MRSA growing from wound. Continue on vancomycin. D/c cefepime. ID anticipates long-term IV antibiotic treatment. -continue on p.o. morphine with oxycodone for breakthrough pain. -Rehab efforts. search engine marketing manager following for placement. Hypertension Blood pressure low at this time. -Decrease Norvasc to 5 mg daily. Adjust as needed. -Clonidine as needed with parameters -Continue to monitor BP and adjust treatment accordingly Chronic renal insufficiency Creatinine appears to be at baseline -avoid nephrotoxic agents -monitor kidney function as indicated Constipation, resolved CT abd/pelvis shows mild small bowel and colonic distention, mild intrahepatic and extrahepatic biliary ductal prominence and distended gallbladder, splenomegaly unchanged -tolerating diet -continue on Sarahy-Colace BID and Miralax daily. -Continue on Reglan. Anemia H/H stable No active bleeding -CBC in am. Sacral decubitus, stage 4 -evaluated by wound care nurse. Wound care orders placed. -specialty bed -off-loading maneuvers Hx of IVDU, remotely UDS tested for cocaine, benzos and opiates -Patient states she last snorted cocaine 6 months ago -monitor DVT prophylaxis -Lovenox sq Discharge Planning: Will need SNF once cleared by NS and ID
--- NOTE | 2018-06-11 18:38 | P.PNNS ---
Subjective Interval history: Pt awake and alert. Denies incisional pain. No movement in LEs. Pt states she has some sensation in LEs. Physical Exam Vital signs: Vital Signs 06/10/18 20:00 06/10/18 20:22 06/11/18 00:00 Temperature 98.6 F 98.4 F Pulse Rate 104 H 96 H 97 H Respiratory Rate 18 18 Blood Pressure 112/66 110/61 Pulse Oximetry 96 96 06/11/18 02:00 06/11/18 04:00 06/11/18 08:00 Temperature 98.1 F 98.2 F Pulse Rate 94 H 102 H 100 H Respiratory Rate 18 20 Blood Pressure 116/57 L 109/59 L Pulse Oximetry 98 99 06/11/18 10:00 06/11/18 12:00 06/11/18 16:00 Temperature 98.6 F 97.7 F Pulse Rate 93 H 95 H 90 Respiratory Rate 20 20 Blood Pressure 111/60 109/55 L Pulse Oximetry 98 95 Intake & Output 06/10/18 06/11/18 06/11/18 18:59 06:59 18:59 Intake Total 1676 / 1676 515 / 515 Output Total 300 / 300 1500 / 1500 175 / 175 Balance 1376 / 1376 -985 / -985 -175 / -175 Weight 86.9 kg Intake: IV 515 / 515 Vancomycin Inj 1,500 MG In NS 515 / 515 Inj 500 ML @ 250 mls/hr IV.SIG Q36H [facility] Rx#:[id number] Oral 1676 / 1676 Output: Urine 1500 / 1500 175 / 175 Urine Amount (Catheter) 300 / 300 Indwelling Urethral Catheter 300 / 300 Other: # Voids 6 175 Date of Last Bowel Movement 06/04/18 06/04/18 # Bowel Movements 1 1 - Constitutional no acute distress - Routine HEENT Exam Head: Present: normocephalic, atraumatic Eye: Present: PERRL - Routine Neck Exam Present: trachea midline - Routine Respiratory Exam Present: CTA bilaterally, respiratory distress, rhonchi, wheezes - Routine Cardiovascular Exam Present: RRR, S1, S2. Absent: murmur - Routine Abdominal Exam Present: soft. Absent: distended, firm - Routine Skin Exam Absent: cyanosis, erythema - Routine Neurological Exam Present: alert, sensory deficit, motor deficit (No movement in LEs.), normal speech. Absent: altered mental status - Routine Psychiatric Exam Present: normal affect. Absent: anxious, agitated - Urinary Catheter Management Female External Cath placed during this visit: no Indwelling Urethral Catheter Cath placed during this visit: yes Reason for continuing: Hourly intake/output Insertion date: 06/05/18 Insertion time: 09:20 Assessment and Plan - Assessment (1) Paraspinal mass Code(s): R22.2 - Localized swelling, mass and lump, trunk Status: Acute (2) Osteomyelitis of thoracic vertebra Code(s): M46.24 - Osteomyelitis of vertebra, thoracic region Status: Acute (3) Fracture of thoracic vertebra with spinal cord injury Code(s): S24.109A - Unspecified injury at unspecified level of thoracic spinal cord, initial encounter; S22.009A - Unspecified fracture of unspecified thoracic vertebra, initial encounter for closed fracture Status: Acute (4) Thoracic spinal stenosis Code(s): M48.04 - Spinal stenosis, thoracic region Status: Acute (5) Thoracic kyphosis Code(s): M40.204 - Unspecified kyphosis, thoracic region Status: Acute - Plan 58 yo female with paraplegia for the past 4 weeks with a T6 and T7 significant vertebral body destruction with kyphosis and collapse and gibbus kyphotic deformity with associated stenosis along with multi-level thoracic ventral epidural abscess/granulation tissue above and below this but without cord compression at other levels. She is s/p Thoracic T6 and T7 transpedicular partial corpectomies; posterolateral T4, T5, T6, T7, T8 and T9 fusion; T4-T9 segmental pedicle screw fixation; T5-7 decompressive laminectomies; microsurgical technique by Dr. Ferro on 06/05. P: Now floor status. Pain control. Continue to log roll. Glendy to get oob with brace, log rolling into brace (per Dr. Ferro). Discussed with Dr. Kasie mcnulty to start Lovenox 30mg bid for DVT prophylaxis. Pt has SCDs also.
[2018-06-11] MEDS: Enoxaparin Inj 30 MG/0.3 ML Syringe SQ SCH (20:13)
[2018-06-12] MEDS: Vancomycin Inj 1,500 MG in Sodium Chlor 0.9% Inj 500 ML IV.SIG SCH (05:49)
[2018-06-12] MEDS: Morphine Sulfate 60 MG SR Tablet PO SCH ×3 (05:50→21:40)
[2018-06-12 06:04] LABS: Baso % (Auto) 0.5 % (0.0-2.0); Eos # (Auto) 0.2 th/mm3 (0.0-0.4); Eos % (Auto) 4.7 % (0.0-4.0); Lymph # (Auto) 1.5 th/mm3 (1.0-4.8); Lymph % (Auto) 32.4 % (9.0-44.0); Mean Corpuscular HGB Conc 32.5 % (32.0-36.0); Mean Corpuscular Hemoglobin 27.4 pg (27.0-34.0); Mean Corpuscular Volume 84.3 fL (80.0-100.0); Mean Platelet Volume 7.9 fL (7.0-11.0); Mono # (Auto) 0.5 th/mm3 (0.0-0.9); Mono % (Auto) 10.5 % (0.0-8.0); Neut # (Auto) 2.4 th/mm3 (1.8-7.7); Neut % (Auto) 51.9 % (16.0-70.0); Platelet Count 204 th/mm3 (150-450); Red Blood Count 2.45 mil/mm3 (4.00-5.30); Red Cell Distribution Width 17.3 % (11.6-17.2); White Blood Count 4.6 th/mm3 (4.0-11.0)
[2018-06-12 06:09] LABS: Hematocrit 20.7 % (35.0-46.0); Hemoglobin 6.7 gm/dL (11.6-15.3)
[2018-06-12 06:29] LABS: Calcium 7.8 mg/dL (8.5-10.1); Carbon Dioxide 28.6 meq/L (21.0-32.0); Magnesium 1.8 mg/dL (1.5-2.5); Phosphorus 4.9 mg/dL (2.5-4.9); Potassium 4.6 meq/L (3.5-5.1)
[2018-06-12 07:10] LABS: Baso % (Auto) 0.2 % (0.0-2.0); Eos # (Auto) 0.2 th/mm3 (0.0-0.4); Eos % (Auto) 4.5 % (0.0-4.0); Hemoglobin 7.5 gm/dL (11.6-15.3); Lymph # (Auto) 1.6 th/mm3 (1.0-4.8); Lymph % (Auto) 33.4 % (9.0-44.0); Mean Corpuscular HGB Conc 34.2 % (32.0-36.0); Mean Corpuscular Hemoglobin 28.3 pg (27.0-34.0); Mean Corpuscular Volume 82.8 fL (80.0-100.0); Mean Platelet Volume 7.9 fL (7.0-11.0); Mono # (Auto) 0.5 th/mm3 (0.0-0.9); Mono % (Auto) 9.5 % (0.0-8.0); Neut # (Auto) 2.5 th/mm3 (1.8-7.7); Neut % (Auto) 52.4 % (16.0-70.0); Platelet Count 225 th/mm3 (150-450); Red Blood Count 2.66 mil/mm3 (4.00-5.30); Red Cell Distribution Width 17.2 % (11.6-17.2); White Blood Count 4.8 th/mm3 (4.0-11.0)
[2018-06-12] MEDS: Senna/Docusate Sodium 8.6/50 MG Tablet PO SCH ×2 (08:38→21:39)
[2018-06-12] MEDS: Metoclopramide 10 MG Tablet PO SCH ×4 (08:38→21:39)
[2018-06-12] MEDS: Famotidine 20 MG Tablet PO SCH ×2 (08:38→21:40)
[2018-06-12] MEDS: Enoxaparin Inj 30 MG/0.3 ML Syringe SQ SCH ×2 (08:38→21:39)
[2018-06-12] MEDS: Polyethylene Glycol 3350 17 GM Packet PO SCH (08:38)
[2018-06-12] MEDS: Duloxetine 60 MG DR Capsule PO SCH (08:38)
[2018-06-12] MEDS: amLODIPine 5 MG Tablet PO SCH (08:39)
--- NOTE | 2018-06-12 09:12 | P.PN ---
Subjective Interval history: Follow-up for vertebral osteomyelitis, pathological fracture of T6-T7. Patient is currently doing well. No fever or chills. She is not able to move her legs but she has sensation in her lower extremities. Physical Exam Vital signs: Vital Signs 06/11/18 10:00 06/11/18 12:00 06/11/18 16:00 Temperature 98.6 F 97.7 F Pulse Rate 93 H 95 H 90 Respiratory Rate 20 20 Blood Pressure 111/60 109/55 L Pulse Oximetry 98 95 06/11/18 20:00 06/11/18 20:30 06/12/18 00:00 Temperature 98.8 F 99.2 F Pulse Rate 107 H 106 H 100 H Respiratory Rate 20 18 Blood Pressure 105/51 L 96/54 L Pulse Oximetry 96 97 06/12/18 03:37 06/12/18 04:00 06/12/18 04:30 Temperature 98.1 F Pulse Rate 98 H 100 H Respiratory Rate 18 18 Blood Pressure 101/59 L Pulse Oximetry 95 Intake & Output 06/11/18 06/12/18 06/12/18 18:59 06:59 18:59 Output Total 775 / 775 1500 / 1500 Balance -775 / -775 -1500 / -1500 Weight 90 kg Output: Urine 775 / 775 1500 / 1500 Other: # Voids 175 Date of Last Bowel Movement 06/11/18 # Bowel Movements 1 Narrative: GENERAL: Alert, oriented 3, NAD. SKIN: Warm and dry. HEAD: Normocephalic. EYES: No scleral icterus. No injection or drainage. NECK: Supple, trachea midline. No JVD or lymphadenopathy. CARDIOVASCULAR: Regular rate and rhythm without murmurs, gallops, or rubs. RESPIRATORY: Breath sounds equal bilaterally. No accessory muscle use. GASTROINTESTINAL: Abdomen soft, non-tender, nondistended. MUSCULOSKELETAL: No cyanosis, or edema. She is not able to move her lower extremities. Sensation intact. BACK: Nontender without obvious deformity. No CVA tenderness. - Urinary Catheter Management Female External Cath placed during this visit: no Indwelling Urethral Catheter Cath placed during this visit: yes Reason for continuing: Hourly intake/output Insertion date: 06/05/18 Insertion time: 09:20 Results - Labs CBC & Chem 7: 06/12/18 06:26 06/12/18 05:45 Laboratory Results - last 24 hr 06/12/18 06/12/18 06/12/18 05:45 05:45 05:45 WBC 4.6 RBC 2.45 L Hgb 6.7 L* Hct 20.7 L* MCV 84.3 MCH 27.4 MCHC 32.5 RDW 17.3 H Plt Count 204 MPV 7.9 Prelim Diff (Auto) [place] Neut % (Auto) 51.9 Lymph % (Auto) 32.4 [place] % (Auto) 10.5 H Eos % (Auto) 4.7 H Baso % (Auto) 0.5 Neut # (Auto) 2.4 Lymph # (Auto) 1.5 [place] # (Auto) 0.5 Eos # (Auto) 0.2 Baso # (Auto) 0.0 WBC Differential . Differential Comment Auto diff final Sodium 140 Potassium 4.6 Chloride 104 Carbon Dioxide 28.6 Anion Gap 7 BUN Cancelled 8 Creatinine 0.70 Estimated GFR 86 L Random Glucose 90 Calcium 7.8 L Phosphorus 4.9 Magnesium 1.8 Vancomycin Trough Cancelled 06/12/18 06:26 WBC 4.8 RBC 2.66 L Hgb 7.5 L Hct 22.0 L MCV 82.8 MCH 28.3 MCHC 34.2 RDW 17.2 Plt Count 225 MPV 7.9 Prelim Diff (Auto) Neut % (Auto) 52.4 Lymph % (Auto) 33.4 [place] % (Auto) 9.5 H Eos % (Auto) 4.5 H Baso % (Auto) 0.2 Neut # (Auto) 2.5 Lymph # (Auto) 1.6 [place] # (Auto) 0.5 Eos # (Auto) 0.2 Baso # (Auto) 0.0 WBC Differential . Differential Comment Auto diff final Sodium Potassium Chloride Carbon Dioxide Anion Gap BUN Creatinine Estimated GFR Random Glucose Calcium Phosphorus Magnesium Vancomycin Trough Assessment and Plan - Plan 58-year-old female with a history of hypertension, GERD, anemia, constipation, gout, fibromyalgia, chronic pain syndrome, anxiety, depression and migraine. She presented on 05/28/2018 to the emergency room because of upper back pain and bilateral lower extremity weakness. She reports of bilateral lower extremity weakness unable to get out of bed and ambulate for 2 weeks. At the same time she complained of constant sharp severe upper back pain worse with activity different from her usual neck and lower back pain. MRI studies showed T6/T7 destruction with possible osteomyelitis. Acute paraplegia secondary to spinal cord compression Vertebral osteomyelitis with pathologic fracture T6-T7 T5-6 discitis Hx of MRSA bacteremia with multiple + BCX 04/22 to 05/02 s/[address] guided biopsy 05/29, path + abscess -Neurosurgery following, appreciate assistance. S/p: Thoracic T6 and T7 transpedicular partial corpectomies; posterolateral T4, T5, T6, T7, T8 and T9 fusion; T4-T9 segmental pedicle screw fixation; T5-7 decompressive laminectomies ; microsurgical technique on 06/05/[address] Ferro. -TLSO on when OOB -ID following, appreciate assistance. MRSA growing from wound. Continue on vancomycin. ID anticipates long-term IV antibiotic treatment. -continue on p.o. morphine with oxycodone for breakthrough pain. -Rehab efforts. land development project manager following for placement. Hypertension Blood pressure low at this time. -Decrease Norvasc to 5 mg daily. Adjust as needed. -Clonidine as needed with parameters Chronic renal insufficiency Creatinine appears to be at baseline -avoid nephrotoxic agents Constipation, resolved CT abd/pelvis shows mild small bowel and colonic distention, mild intrahepatic and extrahepatic biliary ductal prominence and distended gallbladder, splenomegaly unchanged -tolerating diet -continue on Sarahy-Colace BID and Miralax daily. -Continue on Reglan. Sacral decubitus, stage 4 -evaluated by wound care nurse. Wound care orders placed. -specialty bed -off-loading maneuvers Hx of IVDU, remotely UDS tested for cocaine, benzos and opiates -Patient states she last snorted cocaine 6 months ago Full code. Lovenox. Discussed with ID. Discharge: Patient can be discharged to SNF once cleared by neurosurgery and infectious disease.
[2018-06-12 09:32] LABS: Vancomycin,Trough 11.6 mcg/mL (5.0-10.0)
[2018-06-12] MEDS: ALPRAZolam 0.5 MG Tablet PO PRN (10:08)
--- NOTE | 2018-06-12 18:08 | P.PNID ---
Subjective Remarks: sp Thoracic T6 and T7 transpedicular partial corpectomies; posterolateral T4, T5 , T6, T7, T8 and T9 fusion; T4-T9 segmental pedicle screw fixation; T5-7 decompressive laminectomies; microsurgical technique by Dr Moises Ferro on 06/05 afebrile pt co pain - per pt "different" she seems much calmer Unable to move her BLE bx with MRSA on tissue clx path cw abscess Antibiotics: vancomycin Allergies/Adverse Reactions: Allergies No Known Allergies Allergy (Uncoded 05/11/14 14:22) Objective Vital Signs 06/11/18 20:00 06/11/18 20:30 06/12/18 00:00 Temperature 98.8 F 99.2 F Pulse Rate 107 H 106 H 100 H Respiratory Rate 20 18 Blood Pressure 105/51 L 96/54 L Pulse Oximetry 96 97 06/12/18 03:37 06/12/18 04:00 06/12/18 04:30 Temperature 98.1 F Pulse Rate 98 H 100 H Respiratory Rate 18 18 Blood Pressure 101/59 L Pulse Oximetry 95 06/12/18 08:00 06/12/18 12:00 06/12/18 16:00 Temperature 97.9 F 97.9 F 98 F Pulse Rate 105 H 97 H 96 H Respiratory Rate 18 18 19 Blood Pressure 101/58 L 113/54 L 102/59 L Pulse Oximetry 100 97 95 Intake & Output 06/11/18 06/12/18 06/12/18 18:59 06:59 18:59 Output Total 775 / 775 1500 / 1500 1250 / 1250 Balance -775 / -775 -1500 / -1500 -1250 / -1250 Weight 90 kg Output: Urine 775 / 775 1500 / 1500 Urine Amount (Catheter) 1250 / 1250 Indwelling Urethral Catheter 1250 / 1250 Other: # Voids 175 Date of Last Bowel Movement 06/11/18 06/11/18 # Bowel Movements 1 06/05/18 12:06 Tissue - Back Fungal Smear - Final No fungal elements seen 06/05/18 12:06 Tissue - Back Fungal Culture - Preliminary No growth in 1 week 06/05/18 12:06 Tissue - Back Acid Fast Bacilli Smear - Final No acid fast bacilli seen 06/05/18 12:06 Tissue - Back Mycobacterial Culture - Preliminary No growth in 1 week 06/05/18 11:43 Tissue - Back Fungal Smear - Final No fungal elements seen 06/05/18 11:43 Tissue - Back Fungal Culture - Preliminary No growth in 1 week 06/05/18 11:43 Tissue - Back Acid Fast Bacilli Smear - Final No acid fast bacilli seen 06/05/18 11:43 Tissue - Back Mycobacterial Culture - Preliminary No growth in 1 week 06/05/18 11:24 Tissue - Back Fungal Smear - Final No fungal elements seen 06/05/18 11:24 Tissue - Back Fungal Culture - Preliminary No growth in 1 week 06/05/18 11:24 Tissue - Back Acid Fast Bacilli Smear - Final No acid fast bacilli seen 06/05/18 11:24 Tissue - Back Mycobacterial Culture - Preliminary No growth in 1 week 05/29/18 11:45 Tissue - Back Acid Fast Bacilli Smear - Final No acid fast bacilli seen 05/29/18 11:45 Tissue - Back Mycobacterial Culture - Preliminary No growth in 2 weeks 05/29/18 11:45 Tissue - Back Fungal Smear - Final No fungal elements seen 05/29/18 11:45 Tissue - Back Fungal Culture - Preliminary No growth in 2 weeks Lab - Hematology Results 06/12/18 06/12/18 05:45 06:26 WBC 4.6 4.8 RBC 2.45 L 2.66 L Hgb 6.7 L* 7.5 L Hct 20.7 L* 22.0 L MCV 84.3 82.8 MCH 27.4 28.3 MCHC 32.5 34.2 RDW 17.3 H 17.2 Plt Count 204 225 MPV 7.9 7.9 Prelim Diff (Auto) 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 . Differential Comment Auto diff final Auto diff final Lab - Chemistry Results 06/12/18 06/12/18 05:45 05:45 Sodium 140 Potassium 4.6 Chloride 104 Carbon Dioxide 28.6 Anion Gap 7 BUN Cancelled 8 Creatinine 0.70 Estimated GFR 86 L Random Glucose 90 Calcium 7.8 L Phosphorus 4.9 Magnesium 1.8 Imaging: ITS Impressions Cervical Spine CT 05/28/18 13:18 CONCLUSION: 1. Degenerative disc disease and facet arthropathy as described. 2. No evidence of acute abnormality. Lumbar Spine CT 05/28/18 13:18 CONCLUSION: 1. Degenerative listhesis at L4-5 secondary to facet arthropathy. 2. No evidence of acute process, disc herniation or soft tissue inflammatory disease. Thoracic Spine CT 05/28/18 13:18 CONCLUSION: 1. Destructive process involving the T5-6 intervertebral disc, T6-7 intervertebral disc, T6 vertebral body and T7 vertebral body characteristic of discitis and osteomyelitis. An acute kyphotic deformity has developed secondary to compression deformity of the T6 and T7 vertebral bodies. 2. Significant compromise of the central spinal canal at T6-7 is noted. There is material body fragmentation with calcific densities extending into the spinal canal. Significant spinal cord compression is suspected. 3. Otherwise intact thoracic spine. Chest CTA 05/28/18 13:41 CONCLUSION: 1. No evidence of pulmonary embolism. 2. Destructive osseous process involving the T6 and T7 vertebral bodies with complete obliteration of the T6-7 intervertebral disc and significant paraspinal reactive changes. Osteomyelitis and discitis should be considered as a primary cause. 3. Small bilateral pleural effusions and peripheral consolidating airspace disease in both lower lobes. Soft Tissue Biopsy 05/29/18 00:00 CONCLUSION: 1. Uncomplicated CT guided core biopsy of the paraspinal soft tissues at T6- T7. Samples were sent for histological and microbiological evaluation.. Abdomen X-Ray 05/31/18 00:00 CONCLUSION: Nonspecific bowel gas pattern suggesting possible ileus. Abdomen/Pelvis CT 06/01/18 00:00 CONCLUSION: 1. Mild small bowel and colonic distention with multiple air-fluid levels again seen. No significant interval change. 2. Mild intrahepatic and extra hepatic biliary ductal prominence and distended gallbladder again seen. 3. Splenomegaly unchanged. 4. Destructive changes of the mid thoracic spine again seen and partially visualized. 5. Small bilateral pleural effusions and bilateral lower lung atelectasis again seen. Myelogram 06/04/18 00:00 CONCLUSION: 1. Uncomplicated total axis myelogram as above. CT scan is to be performed for further evaluation. 2. There appears to be high-grade stenosis in the region of the mid cervical spine. 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 CT scan will be obtained for further characterization. Post Myelogram CT 06/04/18 00:00 CONCLUSION: Bony destruction of finding is of osteomyelitis at the T6-T7 level causing severe spinal canal stenosis. There is extradural soft tissue density cranial and caudal to the midthoracic abnormality which may reflect inflammatory tissue is well as described above. Chest X-Ray 06/05/18 00:00 CONCLUSION: 1. Left basilar atelectasis. 2. No pneumothorax status post placement of left sided central line which has its tip in superior vena cava. 3. Minimal central pulmonary vascular congestion. Thoracic Spine X-Ray 06/05/18 00:00 CONCLUSION: 4 intraoperative films demonstrate posterior fixation of the thoracic vertebral body fracture Physical Exam: GENERAL: NAD SKIN: Warm and dry. NO rash EYES: Pupils equal and round. No scleral icterus. No injection or drainage. CARDIOVASCULAR: Regular rate and rhythm. RESPIRATORY: No accessory muscle use. Clear to auscultation. Breath sounds equal bilaterally. GASTROINTESTINAL: Abdomen soft, non-tender, nondistended. Hepatic and splenic margins not palpable. MUSCULOSKELETAL: Extremities without clubbing, cyanosis, or edema. : foleuy in palce with clear yellow urine NEUROLOGICAL: Awake and alert. No obvious cranial nerve deficits. Paraplegia motor 0/5 BLE Normal speech. PSYCHIATRIC: crying, agitated, asks for pain meds Assessment and Plan - Plan advanced vertebral osteo with pathologial fracture resulted in paraplegia, subacute x 3 weeks, MRSA - sp Thoracic T6 and T7 transpedicular partial corpectomies; posterolateral T4, T5, T6, T7, T8 and T9 fusion; T4-T9 segmental pedicle screw fixation; T5-7 decompressive laminectomies; microsurgical technique by Dr Moises Ferro on 06/05 Irreversiblemparaplegia 2/2 pt's delay presentation cont vanco x 8-12 weekspost op add rifampin will need to f/u with Dr Sharma as o/p (he knew her prior)
--- NOTE | 2018-06-12 18:10 | P.DCO ---
Post Hospital Infusion Therapy - Infusion Therapy Location of Infusion Therapy: [facility] Infusion Therapy Order - Patient Information Patient Weight: 90 kg - Diagnosis (1) Osteomyelitis of thoracic vertebra Code(s): M46.24 - Osteomyelitis of vertebra, thoracic region - Administer Medication Vancomycin Dose: 1.5 grams IV Directions: q 24 hours Start Treatment: 06/13/18 Stop Treatment: 08/12/18 - Additional Information Venous Access: PICC Line Additional Instructions: [x] Peripheral flush and dressing changes per protocol [x] Implanted port and central manager pipeline: * Implanted port: 10 ml Normal Saline followed by 5 ml Heparin 100 units/ml Heparin flush after each use and monthly to maintain. [] May leave port accessed during therapy. [] May leave peripheral site accessed for duration of therapy. [x] If patient has SOB or respiratory distress, check oxygen saturation. If less than 90% or clinical signs of respiratory distress, administer oxygen at 2 L/min. via nasal cannula and notify physician. [x] Anaphylaxis/Reaction orders: * Stop infusion. * Keep IV line open with saline flush. * Notify physician. * Monitor vital signs every 15 minutes until symptoms resolve. * Check Oxygen saturation; Oxygen at 2 L/min. via nasal cannula if less than 90% or clinical signs of respiratory distress. * Administer diphenhydramine (Benadryl) 25 mg IV STAT, (unless patient has received as pre-med). May repeat once, if necessary. * Solu-Cortef 250 mg IVP over 30-60 seconds, use 100 mg vials for each dissolution. * Epinephrine (1mg/1 ml) 0.3 mg subcutaneously or IVP now with any signs of respiratory distress. * Check with physician for new additional pre-med orders if patient is re- challenged or re-treated. [x] May remove PICC line when treatment complete, after confirming with Physician. [x] If the patient is admitted to the hospital, the ED, or transferred via [facility] , complete transfer form including medication reconciliation order sheet. Weekly Labs: CBC w/diff, CMP, CRP, SED Rate Additional Information: please cont Rifmpin po with vancomycin Please check BMP and vanco trough levels every Sun and Follow up with Dr Sharma - Patient Information Allergies No Known Allergies Allergy (Uncoded 05/11/14 14:22)
[2018-06-13] MEDS: Vancomycin Inj 1,250 MG in Sodium Chlor 0.9% Inj 250 ML IV.SIG SCH (06:06)
[2018-06-13] MEDS: Morphine Sulfate 60 MG SR Tablet PO SCH ×3 (06:12→22:21)
[2018-06-13] MEDS: Enoxaparin Inj 30 MG/0.3 ML Syringe SQ SCH ×2 (09:45→22:21)
[2018-06-13] MEDS: Senna/Docusate Sodium 8.6/50 MG Tablet PO SCH ×2 (09:45→22:21)
[2018-06-13] MEDS: Famotidine 20 MG Tablet PO SCH ×2 (09:45→22:21)
[2018-06-13] MEDS: Metoclopramide 10 MG Tablet PO SCH ×4 (09:46→22:22)
[2018-06-13] MEDS: Duloxetine 60 MG DR Capsule PO SCH (09:46)
[2018-06-13] MEDS: amLODIPine 5 MG Tablet PO SCH (09:47)
[2018-06-13] MEDS: Polyethylene Glycol 3350 17 GM Packet PO SCH (09:47)
[2018-06-13] MEDS: ALPRAZolam 0.5 MG Tablet PO PRN ×2 (11:21→22:22)
--- NOTE | 2018-06-13 13:02 | P.PN ---
Subjective Interval history: Follow-up vertebral osteomyelitis June 13, 2018-patient seen and examined, denies any significant back pain, currently afebrile, no acute event overnight. Physical Exam Vital signs: Vital Signs 06/12/18 16:00 06/12/18 20:00 06/13/18 00:00 Temperature 98 F 98.8 F 97.9 F Pulse Rate 95 H 99 H 99 H Respiratory Rate 19 17 16 Blood Pressure 102/59 L 114/60 107/55 L Pulse Oximetry 95 98 95 06/13/18 04:00 06/13/18 04:40 06/13/18 08:00 Temperature 98.2 F 97.7 F Pulse Rate 95 H 92 H 91 H Respiratory Rate 17 16 Blood Pressure 118/55 L 101/60 Pulse Oximetry 98 96 06/13/18 12:00 Temperature 97.6 F Pulse Rate 96 H Respiratory Rate 16 Blood Pressure 117/54 L Pulse Oximetry 98 Intake & Output 06/12/18 06/13/18 06/13/18 18:59 06:59 18:59 Intake Total 515 / 515 360 / 360 262.5 / 262.5 Output Total 2250 / 2250 1200 / 1200 1575 / 1575 Balance -1735 / -1735 -840 / -840 -1312.5 / -1312.5 Weight 90 kg 90 kg Intake: IV 515 / 515 262.5 / 262.5 Vancomycin Inj 1,250 MG In NS 262.5 / 262.5 Inj 250 ML @ 250 mls/hr IV.SIG Q24H [facility] Rx#:[id number] Vancomycin Inj 1,500 MG In NS 515 / 515 Inj 500 ML @ 250 mls/hr IV.SIG Q36H [facility] Rx#:[id number] Oral 360 / 360 Output: Urine 1200 / 1200 Urine Amount (Catheter) 2250 / 2250 1575 / 1575 Indwelling Urethral Catheter 2250 / 2250 1575 / 1575 Other: Date of Last Bowel Movement 06/11/18 06/11/18 06/12/18 # Bowel Movements 1 # Incontinent Bowel Movements 2 1 Narrative: GENERAL: NAD SKIN: Warm and dry. HEAD: Normocephalic. EYES: No scleral icterus. No injection or drainage. NECK: Supple, trachea midline. No JVD or lymphadenopathy. CARDIOVASCULAR: Regular rate and rhythm without murmurs, gallops, or rubs. RESPIRATORY: Breath sounds equal bilaterally. No accessory muscle use. GASTROINTESTINAL: Abdomen soft, non-tender, nondistended. MUSCULOSKELETAL: No cyanosis, or edema. BACK: +tender without obvious deformity. No CVA tenderness. - Urinary Catheter Management Female External Cath placed during this visit: no Indwelling Urethral Catheter Cath placed during this visit: yes Reason for continuing: Hourly intake/output Insertion date: 06/05/18 Insertion time: 09:20 Results - Labs CBC & Chem 7: 06/12/18 06:26 06/13/18 07:25 Laboratory Results - last 24 hr 06/13/18 07:25 BUN 9 Creatinine 0.91 Estimated GFR 63 L Microbiology 06/05/18 12:06 Tissue - Back Fungal Smear - Final No fungal elements seen 06/05/18 12:06 Tissue - Back Fungal Culture - Preliminary No growth in 1 week 06/05/18 12:06 Tissue - Back Acid Fast Bacilli Smear - Final No acid fast bacilli seen 06/05/18 12:06 Tissue - Back Mycobacterial Culture - Preliminary No growth in 1 week 06/05/18 11:43 Tissue - Back Fungal Smear - Final No fungal elements seen 06/05/18 11:43 Tissue - Back Fungal Culture - Preliminary No growth in 1 week 06/05/18 11:43 Tissue - Back Acid Fast Bacilli Smear - Final No acid fast bacilli seen 06/05/18 11:43 Tissue - Back Mycobacterial Culture - Preliminary No growth in 1 week 06/05/18 11:24 Tissue - Back Fungal Smear - Final No fungal elements seen 06/05/18 11:24 Tissue - Back Fungal Culture - Preliminary No growth in 1 week 06/05/18 11:24 Tissue - Back Acid Fast Bacilli Smear - Final No acid fast bacilli seen 06/05/18 11:24 Tissue - Back Mycobacterial Culture - Preliminary No growth in 1 week 05/29/18 11:45 Tissue - Back Acid Fast Bacilli Smear - Final No acid fast bacilli seen 05/29/18 11:45 Tissue - Back Mycobacterial Culture - Preliminary No growth in 2 weeks 05/29/18 11:45 Tissue - Back Fungal Smear - Final No fungal elements seen 05/29/18 11:45 Tissue - Back Fungal Culture - Preliminary No growth in 2 weeks Assessment and Plan - Assessment (1) Osteomyelitis of thoracic vertebra Code(s): M46.24 - Osteomyelitis of vertebra, thoracic region Status: Acute - Plan 58-year-old female with Acute paraplegia secondary to spinal cord compression Vertebral osteomyelitis with pathologic fracture T6-T7 T5-6 discitis Hx of MRSA bacteremia with multiple + BCX 04/22 to 05/02 s/[address] guided biopsy 05/29, path + abscess -S/p: Thoracic T6 and T7 transpedicular partial corpectomies; T5-7 decompressive laminectomies; microsurgical technique on 06/05/[address] Ferro. -TLSO on when OOB -ID following, appreciate assistance. MRSA growing from wound. Continue on vancomycin and anticipates long-term IV antibiotic treatment. -continue on p.o. morphine with oxycodone for breakthrough pain. -Rehab efforts. 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 Hypertension Blood pressure low at this time. -Currently on Norvasc 5 mg daily. -Clonidine as needed with parameters Chronic renal insufficiency Creatinine appears to be at baseline -avoid nephrotoxic agents Constipation, resolved CT abd/pelvis shows mild small bowel and colonic distention, mild intrahepatic and extrahepatic biliary ductal prominence and distended gallbladder, splenomegaly unchanged -continue on Sarahy-Colace BID and Miralax daily. -Continue on Reglan. Sacral decubitus, stage 4 -evaluated by wound care nurse. Wound care orders placed. -specialty bed -off-loading maneuvers Hx of IVDU, remotely UDS tested for cocaine, benzos and opiates -Patient states she last snorted cocaine 6 months ago Full code. Lovenox.
--- NOTE | 2018-06-13 15:13 | P.DIET ---
Nutritional Evaluation Type of nutrition evaluation: follow-up Nutrition screening: [facility] (Stage 4 Pressure Injury) Subjective Subjective Comments: Eating 100% Objective - Diagnosis Acute Osteomyelitis of T-Spine, Cord Compression - Objective % IBW: 138 (IBW = 130#) Body Weight Used for Calculations: IBW (59.1 kg) Energy Needs - Lower Range (kCal/kg): 30 Energy Needs - Upper Range (kCal/kg): 35 Lower Limit kCal/kg (kCals): 1,773 Upper Limit kCal/kg (kCals): 2,069 Lower Limit Protein Factor (Grams per Kg): 1.2 Upper Limit Protein Factor (Grams per Kg): 1.5 Lower Protein Needs (Protein): 71 Upper Protein Needs (Protein): 89 Fluid Factor (ml/kg): 35 Estimated Fluid Needs (ml): 2,069 Dietitian Reviewed in Medical Record: Current diet, Curent medications, Intake & Output, Labs, Medical history, Wound/DTI Diet Order: Regular Wound Care Note: WOCN dated 05/29: coccyx stage 4 pressure injury Assessment Assessment: Pt is s/p posterior thoracic T4-9 fusion and T5-6 laminectomy (06/04). Diet ordered as regular and po intake is good. She is at high nutrition risk 2' to high nutritional needs for healing. Recommend the addition of daily MVI/min and will continue to send Ensure Enlive bid for added nutrition. Pt may also benefit from Geronimo supplement bid which is a targeted therapeutic supplement that aids in healing. It contains arginine, glutamine and HMB. Recommendations: 1. Continue current diet 2. Continue Ensure Enlive bid 3. Please change order form MVI to MVI with minerals 4. Please order Geronimo 1 pack bid Dietitian to Monitor: Lab values, Supplement acceptance, Intake & Output, Diet tolerance, PO Intake, Wound/skin status, Medical course
[2018-06-13] MEDS: Melatonin 5 MG Tablet PO PRN (23:43)
[2018-06-14] MEDS ORDERED: Pharmacy Ordered Lab Info OTHER ONE (05:45)
[2018-06-14] MEDS: Morphine Sulfate 60 MG SR Tablet PO SCH ×3 (06:14→22:23)
[2018-06-14] MEDS: Vancomycin Inj 1,250 MG in Sodium Chlor 0.9% Inj 250 ML IV.SIG SCH (06:14)
[2018-06-14] MEDS: Famotidine 20 MG Tablet PO SCH ×2 (09:06→20:55)
[2018-06-14] MEDS: Metoclopramide 10 MG Tablet PO SCH ×4 (09:06→20:54)
[2018-06-14] MEDS: Senna/Docusate Sodium 8.6/50 MG Tablet PO SCH ×2 (09:06→20:55)
[2018-06-14] MEDS: amLODIPine 5 MG Tablet PO SCH (09:06)
[2018-06-14] MEDS: Duloxetine 60 MG DR Capsule PO SCH (09:06)
[2018-06-14] MEDS: Polyethylene Glycol 3350 17 GM Packet PO SCH (09:07)
[2018-06-14] MEDS: Enoxaparin Inj 30 MG/0.3 ML Syringe SQ SCH ×2 (09:07→20:54)
[2018-06-14] MEDS: ALPRAZolam 0.5 MG Tablet PO PRN ×2 (09:11→20:54)
--- NOTE | 2018-06-14 10:15 | P.PN ---
Subjective Interval history: Follow-up vertebral osteomyelitis June 13, 2018-patient seen and examined, denies any significant back pain, currently afebrile, no acute event overnight. June 14, 2018-patient seen and examined, afebrile, stable. No chest pain or shortness of breath. Physical Exam Vital signs: Vital Signs 06/13/18 12:00 06/13/18 16:00 06/13/18 20:00 Temperature 97.6 F 98.1 F 98.2 F Pulse Rate 96 H 102 H 96 H Respiratory Rate 16 16 18 Blood Pressure 117/54 L 111/55 L 112/49 L Pulse Oximetry 98 98 96 06/14/18 00:00 06/14/18 04:00 06/14/18 07:00 Temperature 98.0 F 98.2 F Pulse Rate 95 H 91 H Respiratory Rate 18 18 12 Blood Pressure 100/53 L 107/53 L Pulse Oximetry 98 97 06/14/18 08:00 Temperature 97.8 F Pulse Rate 93 H Respiratory Rate 18 Blood Pressure 113/58 L Pulse Oximetry 99 Intake & Output 06/13/18 06/14/18 06/14/18 18:59 06:59 18:59 Intake Total 1222.5 / 1222.5 3080 / 3080 502.5 / 502.5 Output Total 2024 / 2024 Balance -802.5 / -802.5 1080 / 1080 502.5 / 502.5 Intake: IV 262.5 / 262.5 262.5 / 262.5 Vancomycin Inj 1,250 MG In NS 262.5 / 262.5 262.5 / 262.5 Inj 250 ML @ 250 mls/hr IV.SIG Q24H [facility] Rx#:[id number] Oral 960 / 960 3080 / 3080 240 / 240 Output: Urine 450 / 450 1999 Urine Amount (Catheter) 1575 / 1575 Indwelling Urethral Catheter 1575 / 1575 Other: Date of Last Bowel Movement 06/12/18 06/14/18 # Bowel Movements 1 # Incontinent Bowel Movements 1 Narrative: GENERAL: NAD SKIN: Warm and dry. HEAD: Normocephalic. EYES: No scleral icterus. No injection or drainage. NECK: Supple, trachea midline. No JVD or lymphadenopathy. CARDIOVASCULAR: Regular rate and rhythm without murmurs, gallops, or rubs. RESPIRATORY: Breath sounds equal bilaterally. No accessory muscle use. GASTROINTESTINAL: Abdomen soft, non-tender, nondistended. MUSCULOSKELETAL: No cyanosis, or edema. BACK: +tender without obvious deformity. No CVA tenderness. - Urinary Catheter Management Female External Cath placed during this visit: no Indwelling Urethral Catheter Cath placed during this visit: yes Reason for continuing: Hourly intake/output Insertion date: 06/05/18 Insertion time: 09:20 Results - Labs CBC & Chem 7: 06/12/18 06:26 06/14/18 05:40 Laboratory Results - last 24 hr 06/14/18 05:40 Creatinine 0.97 Estimated GFR 59 L Assessment and Plan - Assessment (1) Osteomyelitis of thoracic vertebra Code(s): M46.24 - Osteomyelitis of vertebra, thoracic region Status: Acute - Plan 58-year-old female with Acute paraplegia secondary to spinal cord compression Vertebral osteomyelitis with pathologic fracture T6-T7 T5-6 discitis Hx of MRSA bacteremia with multiple + BCX 04/22 to 05/02 s/p CT guided biopsy 05/29, path + abscess -S/p: Thoracic T6 and T7 transpedicular partial corpectomies; T5-7 decompressive laminectomies; microsurgical technique on 06/05/[address] Ferro. -TLSO on when OOB -ID following, appreciate assistance. MRSA growing from wound. Continue on vancomycin and anticipates long-term IV antibiotic treatment. -continue on p.o. morphine with oxycodone for breakthrough pain. -Rehab efforts. Hypertension Blood pressure low at this time. -Currently on Norvasc 5 mg daily. -Clonidine as needed with parameters Chronic renal insufficiency Creatinine appears to be at baseline -avoid nephrotoxic agents Constipation, resolved CT abd/pelvis shows mild small bowel and colonic distention, mild intrahepatic and extrahepatic biliary ductal prominence and distended gallbladder, splenomegaly unchanged -continue on Sarahy-Colace BID and Miralax daily. -Continue on Reglan. Sacral decubitus, stage 4 -evaluated by wound care nurse. Wound care orders placed. -off-loading maneuvers Hx of IVDU, remotely UDS tested for cocaine, benzos and opiates -Patient states she last snorted cocaine 6 months ago Full code. Lovenox.
[2018-06-14 13:03] LABS: Vancomycin,Trough 30.7 mcg/mL (5.0-10.0)
--- NOTE | 2018-06-14 14:25 | P.DS ---
Date of admission: 05/28/18 15:51 Primary care physician: No Primary Care Physician Brief History from admission: This is a 58-year-old female with a history of hypertension, GERD, anemia, constipation, gout, fibromyalgia, chronic pain syndrome, anxiety, depression and migraine. She came from a local rehab facility where she was treated for generalized weakness, acute kidney injury and dehydration. She is also receiving IV Rocephin for pneumonia. 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 She also reports of sepsis secondary to pneumonia in January 2018 and was in a induced coma. She also history of polysubstance abuse UDS tested for cocaine, benzos and opiates. She presents to the emergency room because of upper back pain and bilateral lower extremity weakness. She reports of bilateral lower extremity weakness unable to get out of bed and ambulate for 2 weeks. At the same time she complained of constant sharp severe upper back pain worse with activity different from her usual neck and lower back pain. Denies recent fall. Denies numbness and incontinence. She also reports of upper abdominal discomfort which is sharp and constant worse with eating associated with abdominal distention. Denies UTI symptoms, constipation and diarrhea. In the emergency department, she was found to have destructive process involving T5-6 intervertebral disc, T6-7 intervertebral discs T6 vertebral body and T7 vertebral body characteristic of discitis and osteomyelitis. Also has a acute kyphotic deformity of T6 and T7 vertebral bodies. Discussed with neurosurgery, recommended IV antibiotics and IR consult for this biopsy. All other systems reviewed negative DS: Diagnosis - Discharge Diagnosis (1) Osteomyelitis of thoracic vertebra Status: Acute DS: Medications - Discharge Medications Prescriptions: alprazolam 0.5 mg PO BID #10 mg morphine 60 mg PO Q8HR #15 tab DS: Summary Hospital Course: While in the hospital, patient was treated for: Acute paraplegia secondary to spinal cord compression Vertebral osteomyelitis with pathologic fracture T6-T7 T5-6 discitis Hx of MRSA bacteremia with multiple + BCX 04/22 to 05/02 s/[address] guided biopsy 05/29, path + abscess -S/p: Thoracic T6 and T7 transpedicular partial corpectomies; T5-7 decompressive laminectomies; microsurgical technique on 06/05/[address] Ferro. -TLSO on when OOB -ID following, appreciate assistance. MRSA growing from wound. Continue on vancomycin and anticipates long-term IV antibiotic treatment. -continue on p.o. morphine with oxycodone for breakthrough pain. -Rehab efforts. Hypertension Blood pressure low at this time. -Currently on Norvasc 5 mg daily. -Clonidine as needed with parameters Chronic renal insufficiency Creatinine appears to be at baseline -avoid nephrotoxic agents Constipation, resolved CT abd/pelvis shows mild small bowel and colonic distention, mild intrahepatic and extrahepatic biliary ductal prominence and distended gallbladder, splenomegaly unchanged -continue on Sarahy-Colace BID and Miralax daily. -Continue on Reglan. Sacral decubitus, stage 4 -evaluated by wound care nurse. Wound care orders placed. -off-loading maneuvers Hx of IVDU, remotely UDS tested for cocaine, benzos and opiates -Patient states she last snorted cocaine 6 months ago Full code. Lovenox. - Time Spent with Patient Total time spent providing and/or coordinating discharge services: Greater than 30 minutes Exam Vital signs: Vital Signs 06/13/18 16:00 06/13/18 20:00 06/14/18 00:00 Temperature 98.1 F 98.2 F 98.0 F Pulse Rate 102 H 96 H 95 H Respiratory Rate 16 18 18 Blood Pressure 111/55 L 112/49 L 100/53 L Pulse Oximetry 98 96 98 06/14/18 04:00 06/14/18 07:00 06/14/18 08:00 Temperature 98.2 F 97.8 F Pulse Rate 91 H 93 H Respiratory Rate 18 12 18 Blood Pressure 107/53 L 113/58 L Pulse Oximetry 97 99 06/14/18 12:00 Temperature 97.8 F Pulse Rate 93 H Respiratory Rate 18 Blood Pressure 97/55 L Pulse Oximetry 96 Intake & Output 06/13/18 06/14/18 06/14/18 18:59 06:59 18:59 Intake Total 1222.5 / 1222.5 3080 / 3080 502.5 / 502.5 Output Total 2024 / 2024 1999 / 1999 900 / 900 Balance -802.5 / -802.5 1080 / 1080 -397.5 / -397.5 Intake: IV 262.5 / 262.5 262.5 / 262.5 Vancomycin Inj 1,250 MG In NS 262.5 / 262.5 262.5 / 262.5 Inj 250 ML @ 250 mls/hr IV.SIG Q24H [facility] Rx#:[id number] Oral 960 / 960 3080 / 3080 240 / 240 Output: Urine 450 / 450 2000 / 2000 900 / 900 Urine Amount (Catheter) 1575 / 1575 Indwelling Urethral Catheter 1575 / 1575 Other: Date of Last Bowel Movement 06/12/18 06/14/18 # Bowel Movements 1 # Incontinent Bowel Movements 1 1 Results Procedures completed during hospitalization: S/p: Thoracic T6 and T7 transpedicular partial corpectomies; T5-7 decompressive laminectomies; microsurgical technique Completed studies during hospitalization: Pending at discharge 06/05/18 16:56 Surgical [PTH] Routine Labs on day of discharge: Labs from last 24 hours 06/14/18 06/14/18 11:39 05:40 BUN 13 Creatinine 0.97 Estimated GFR 59 L Vancomycin Trough 30.7 H Preliminary micro results at discharge 06/05/18 12:06 Fungal Culture - Preliminary Tissue - Back No growth in 1 week 06/05/18 12:06 Mycobacterial Culture - Preliminary Tissue - Back No growth in 1 week 06/05/18 11:43 Fungal Culture - Preliminary Tissue - Back No growth in 1 week 06/05/18 11:43 Mycobacterial Culture - Preliminary Tissue - Back No growth in 1 week 06/05/18 11:24 Fungal Culture - Preliminary Tissue - Back No growth in 1 week 06/05/18 11:24 Mycobacterial Culture - Preliminary Tissue - Back No growth in 1 week 05/29/18 11:45 Mycobacterial Culture - Preliminary Tissue - Back No growth in 2 weeks 05/29/18 11:45 Fungal Culture - Preliminary Tissue - Back No growth in 2 weeks - Impressions ITS Impressions Cervical Spine CT 05/28/18 13:18 CONCLUSION: 1. Degenerative disc disease and facet arthropathy as described. 2. No evidence of acute abnormality. Lumbar Spine CT 05/28/18 13:18 CONCLUSION: 1. Degenerative listhesis at L4-5 secondary to facet arthropathy. 2. No evidence of acute process, disc herniation or soft tissue inflammatory disease. Thoracic Spine CT 05/28/18 13:18 CONCLUSION: 1. Destructive process involving the T5-6 intervertebral disc, T6-7 intervertebral disc, T6 vertebral body and T7 vertebral body characteristic of discitis and osteomyelitis. An acute kyphotic deformity has developed secondary to compression deformity of the T6 and T7 vertebral bodies. 2. Significant compromise of the central spinal canal at T6-7 is noted. There is material body fragmentation with calcific densities extending into the spinal canal. Significant spinal cord compression is suspected. 3. Otherwise intact thoracic spine. Chest CTA 05/28/18 13:41 CONCLUSION: 1. No evidence of pulmonary embolism. 2. Destructive osseous process involving the T6 and T7 vertebral bodies with complete obliteration of the T6-7 intervertebral disc and significant paraspinal reactive changes. Osteomyelitis and discitis should be considered as a primary cause. 3. Small bilateral pleural effusions and peripheral consolidating airspace disease in both lower lobes. Soft Tissue Biopsy 05/29/18 00:00 CONCLUSION: 1. Uncomplicated CT guided core biopsy of the paraspinal soft tissues at T6- T7. Samples were sent for histological and microbiological evaluation.. Abdomen X-Ray 05/31/18 00:00 CONCLUSION: Nonspecific bowel gas pattern suggesting possible ileus. Abdomen/Pelvis CT 06/01/18 00:00 CONCLUSION: 1. Mild small bowel and colonic distention with multiple air-fluid levels again seen. No significant interval change. 2. Mild intrahepatic and extra hepatic biliary ductal prominence and distended gallbladder again seen. 3. Splenomegaly unchanged. 4. Destructive changes of the mid thoracic spine again seen and partially visualized. 5. Small bilateral pleural effusions and bilateral lower lung atelectasis again seen. Myelogram 06/04/18 00:00 CONCLUSION: 1. Uncomplicated total axis myelogram as above. CT scan is to be performed for further evaluation. 2. There appears to be high-grade stenosis in the region of the mid cervical spine. 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 CT scan will be obtained for further characterization. Post Myelogram CT 06/04/18 00:00 CONCLUSION: Bony destruction of finding is of osteomyelitis at the T6-T7 level causing severe spinal canal stenosis. There is extradural soft tissue density cranial and caudal to the midthoracic abnormality which may reflect inflammatory tissue is well as described above. Chest X-Ray 06/05/18 00:00 CONCLUSION: 1. Left basilar atelectasis. 2. No pneumothorax status post placement of left sided central line which has its tip in superior vena cava. 3. Minimal central pulmonary vascular congestion. Thoracic Spine X-Ray 06/05/18 00:00 CONCLUSION: 4 intraoperative films demonstrate posterior fixation of the thoracic vertebral body fracture Discharge Plan - Discharge Disposition Patient Disposition: Discharge to SNF - Discharge Condition Condition: Good - Discharge Order Discharge Orders: Discharge Order (Routine); Ordered 06/14/18 Ordered By: Thony White - Physicians Team Primary Care Provider: Primary Care Michelle Eng Attending Provider: Thony White Other Providers: Charlie Oliver MD ; Sophie Rosales MD ; [facility]
[2018-06-14] MEDS: Melatonin 5 MG Tablet PO PRN (22:23)
[2018-06-15] MEDS: Morphine Sulfate 60 MG SR Tablet PO SCH ×3 (06:40→22:22)
[2018-06-15] MEDS: Metoclopramide 10 MG Tablet PO SCH ×4 (07:40→20:22)
[2018-06-15] MEDS: Senna/Docusate Sodium 8.6/50 MG Tablet PO SCH ×2 (08:06→20:23)
[2018-06-15] MEDS: Polyethylene Glycol 3350 17 GM Packet PO SCH (08:06)
[2018-06-15] MEDS: Famotidine 20 MG Tablet PO SCH ×2 (08:06→20:23)
[2018-06-15] MEDS: Enoxaparin Inj 30 MG/0.3 ML Syringe SQ SCH ×2 (08:06→20:23)
[2018-06-15] MEDS: amLODIPine 5 MG Tablet PO SCH (08:06)
[2018-06-15] MEDS: Duloxetine 60 MG DR Capsule PO SCH (08:07)
[2018-06-15 08:15] LABS: Vancomycin,Random 15.9 Comment
--- NOTE | 2018-06-15 10:30 | P.PN ---
Subjective Interval history: Follow-up vertebral osteomyelitis June 13, 2018-patient seen and examined, denies any significant back pain, currently afebrile, . June 14, 2018-patient seen and examined, afebrile, stable. No chest pain or shortness of breath. June 15, 2018-patient seen and examined, stable,no CP or SOB Physical Exam Vital signs: Vital Signs 06/14/18 12:00 06/14/18 16:00 06/14/18 20:00 Temperature 97.8 F 99.0 F 98.2 F Pulse Rate 93 H 93 H 101 H Respiratory Rate 18 22 19 Blood Pressure 97/55 L 112/55 L 118/59 L Pulse Oximetry 96 97 98 06/15/18 00:00 06/15/18 04:00 06/15/18 07:39 Temperature 97.0 F L Pulse Rate 91 H 98 H Respiratory Rate 18 16 Blood Pressure 109/53 L Pulse Oximetry 96 06/15/18 07:40 06/15/18 08:00 06/15/18 08:05 Temperature 98.3 F Pulse Rate 92 H 87 Respiratory Rate 18 16 Blood Pressure 107/53 L Pulse Oximetry 94 L Intake & Output 06/14/18 06/15/18 06/15/18 18:59 06:59 18:59 Intake Total 1102.5 / 1102.5 680 / 680 Output Total 900 / 900 1000 / 1000 Balance 202.5 / 202.5 -320 / -320 Intake: IV 262.5 / 262.5 Vancomycin Inj 1,250 MG In NS 262.5 / 262.5 Inj 250 ML @ 250 mls/hr IV.SIG Q24H KATIE Rx#:[id number] Oral 840 / 840 680 / 680 Output: Urine 900 / 900 1000 / 1000 Other: # Incontinent Voids 3 Date of Last Bowel Movement 06/14/18 06/14/18 # Incontinent Bowel Movements 3 2 1 Narrative: GENERAL: NAD SKIN: Warm and dry. HEAD: Normocephalic. EYES: No scleral icterus. No injection or drainage. NECK: Supple, trachea midline. No JVD or lymphadenopathy. CARDIOVASCULAR: Regular rate and rhythm without murmurs, gallops, or rubs. RESPIRATORY: Breath sounds equal bilaterally. No accessory muscle use. GASTROINTESTINAL: Abdomen soft, non-tender, nondistended. MUSCULOSKELETAL: No cyanosis, or edema. BACK: +tender without obvious deformity. No CVA tenderness. - Urinary Catheter Management Female External Cath placed during this visit: no Indwelling Urethral Catheter Cath placed during this visit: yes, but has since been removed by the nurse Reason for continuing: Decision to DC catheter Insertion date: 06/05/18 Insertion time: 09:20 Removal date: 06/14/18 Removal time: 14:00 Results - Labs CBC & Chem 7: 06/12/18 06:26 06/15/18 06:52 Laboratory Results - last 24 hr 06/14/18 06/15/18 11:39 06:52 BUN 13 13 Creatinine 1.05 H Estimated GFR 54 L Vancomycin Trough 30.7 H Random Vancomycin 15.9 - Procedures S/p: Thoracic T6 and T7 transpedicular partial corpectomies; T5-7 decompressive laminectomies; microsurgical technique Assessment and Plan - Assessment (1) Osteomyelitis of thoracic vertebra Code(s): M46.24 - Osteomyelitis of vertebra, thoracic region Status: Acute - Plan 58-year-old female with Acute paraplegia secondary to spinal cord compression Vertebral osteomyelitis with pathologic fracture T6-T7 T5-6 discitis Hx of MRSA bacteremia with multiple + BCX 04/22 to 05/02 s/p CT guided biopsy 05/29, path + abscess -S/p: Thoracic T6 and T7 transpedicular partial corpectomies; T5-7 decompressive laminectomies; microsurgical technique on 06/05/[address] Ferro. -TLSO on when OOB -ID following, appreciate assistance. MRSA growing from wound. Continue on vancomycin -continue on p.o. morphine with oxycodone for breakthrough pain. Hypertension Blood pressure low at this time. -Currently on Norvasc 5 mg daily. -Clonidine as needed with parameters Chronic renal insufficiency Creatinine appears to be at baseline -avoid nephrotoxic agents Constipation, resolved CT abd/pelvis shows mild small bowel and colonic distention, mild intrahepatic and extrahepatic biliary ductal prominence and distended gallbladder, splenomegaly unchanged -continue on Sarahy-Colace BID and Miralax daily. -Continue on Reglan. Sacral decubitus, stage 4 -evaluated by wound care nurse. Wound care orders placed. Hx of IVDU, remotely UDS tested for cocaine, benzos and opiates -Patient states she last snorted cocaine 6 months ago Full code. Lovenox.
[2018-06-15] MEDS: Vancomycin Inj 1,250 MG in Sodium Chlor 0.9% Inj 250 ML IV.SIG SCH (10:55)
[2018-06-16] MEDS: ALPRAZolam 0.5 MG Tablet PO PRN ×2 (01:26→14:03)
[2018-06-16] MEDS: Morphine Sulfate 60 MG SR Tablet PO SCH ×3 (05:40→21:09)
[2018-06-16] MEDS ORDERED: Cathflo Activase Inj 2 MG Vial I-CATHETER ONE (07:19)
[2018-06-16] MEDS: Enoxaparin Inj 30 MG/0.3 ML Syringe SQ SCH ×2 (08:07→21:09)
[2018-06-16] MEDS: Famotidine 20 MG Tablet PO SCH ×2 (08:07→21:11)
[2018-06-16] MEDS: Duloxetine 60 MG DR Capsule PO SCH (08:07)
[2018-06-16] MEDS: Senna/Docusate Sodium 8.6/50 MG Tablet PO SCH ×2 (08:07→21:10)
[2018-06-16] MEDS: Metoclopramide 10 MG Tablet PO SCH ×4 (08:07→21:11)
[2018-06-16] MEDS: Polyethylene Glycol 3350 17 GM Packet PO SCH (08:07)
[2018-06-16] MEDS: amLODIPine 5 MG Tablet PO SCH (08:08)
--- NOTE | 2018-06-16 08:58 | P.PN ---
Subjective Interval history: Follow-up vertebral osteomyelitis June 13, 2018-patient seen and examined, denies any significant back pain, currently afebrile, . June 14, 2018-patient seen and examined, afebrile, stable. No chest pain or shortness of breath. June 15, 2018-patient seen and examined, stable,no CP or SOB June 16, 2018-patient seen and examined, complains of left-sided back pain otherwise no other issues. Vital stable. States, she is looking for discharge tomorrow Physical Exam Vital signs: Vital Signs 06/15/18 12:00 06/15/18 13:42 06/15/18 16:00 Temperature 97.5 F L 99.0 F Pulse Rate 87 101 H Respiratory Rate 18 16 18 Blood Pressure 104/69 107/51 L Pulse Oximetry 96 99 06/15/18 16:40 06/15/18 20:00 06/15/18 23:52 Temperature 98.5 F Pulse Rate 101 H 104 H Respiratory Rate 16 20 18 Blood Pressure 100/59 L 117/55 L Pulse Oximetry 98 06/16/18 00:00 06/16/18 04:00 06/16/18 07:56 Temperature 98.2 F Pulse Rate 102 H 88 Respiratory Rate 18 16 Blood Pressure 125/85 Pulse Oximetry 99 06/16/18 08:00 06/16/18 08:06 Temperature 98.1 F Pulse Rate 94 H Respiratory Rate 20 16 Blood Pressure 111/77 Pulse Oximetry 99 Intake & Output 06/15/18 06/16/18 06/16/18 18:59 06:59 18:59 Intake Total 262.5 / 262.5 640 / 640 Output Total 1200 / 1200 550 / 550 Balance -937.5 / -937.5 90 / 90 Weight 90.1 kg Intake: IV 262.5 / 262.5 Vancomycin Inj 1,250 MG In NS 262.5 / 262.5 Inj 250 ML @ 250 mls/hr IV.SIG Q24H KATIE Rx#:[id number] Oral 640 / 640 Output: Urine 1200 / 1200 550 / 550 Other: Date of Last Bowel Movement 06/14/18 06/15/18 06/14/18 # Incontinent Bowel Movements 1 Narrative: GENERAL: NAD SKIN: Warm and dry. HEAD: Normocephalic. EYES: No scleral icterus. No injection or drainage. NECK: Supple, trachea midline. No JVD or lymphadenopathy. CARDIOVASCULAR: Regular rate and rhythm without murmurs, gallops, or rubs. RESPIRATORY: Breath sounds equal bilaterally. No accessory muscle use. GASTROINTESTINAL: Abdomen soft, non-tender, nondistended. MUSCULOSKELETAL: No cyanosis, or edema. BACK: +tender without obvious deformity. No CVA tenderness. - Urinary Catheter Management Female External Cath placed during this visit: no Indwelling Urethral Catheter Cath placed during this visit: yes, but has since been removed by the nurse Reason for continuing: Decision to DC catheter Insertion date: 06/05/18 Insertion time: 09:20 Removal date: 06/14/18 Removal time: 14:00 Results - Labs CBC & Chem 7: 06/12/18 06:26 06/16/18 06:46 Laboratory Results - last 24 hr 06/16/18 06:46 BUN 14 Creatinine 1.05 H Estimated GFR 54 L - Procedures S/p: Thoracic T6 and T7 transpedicular partial corpectomies; T5-7 decompressive laminectomies; microsurgical technique Assessment and Plan - Assessment (1) Osteomyelitis of thoracic vertebra Code(s): M46.24 - Osteomyelitis of vertebra, thoracic region Status: Acute - Plan 58-year-old female with Acute paraplegia secondary to spinal cord compression Vertebral osteomyelitis with pathologic fracture T6-T7 T5-6 discitis Hx of MRSA bacteremia with multiple + BCX 04/22 to 05/02 s/p CT guided biopsy 05/29, path + abscess -S/p: Thoracic T6 and T7 transpedicular partial corpectomies; T5-7 decompressive laminectomies; microsurgical technique on 06/05/[address] Ferro. -TLSO on when OOB -ID following, appreciate assistance. MRSA growing from wound. Continue on vancomycin -continue on p.o. morphine with oxycodone for breakthrough pain. Hypertension -Currently on Norvasc 5 mg daily. -Clonidine as needed with parameters Chronic renal insufficiency Creatinine appears to be at baseline -avoid nephrotoxic agents Constipation, resolved CT abd/pelvis shows mild small bowel and colonic distention, mild intrahepatic and extrahepatic biliary ductal prominence and distended gallbladder, splenomegaly unchanged -continue on Sarahy-Colace BID and Miralax daily. -Continue on Reglan. Sacral decubitus, stage 4 -evaluated by wound care nurse. Wound care orders placed. Hx of IVDU, remotely UDS tested for cocaine, benzos and opiates -Patient states she last snorted cocaine 6 months ago Full code. Jeane.
[2018-06-16] MEDS: Vancomycin Inj 1,250 MG in Sodium Chlor 0.9% Inj 250 ML IV.SIG SCH (10:07)
[2018-06-16 10:22] LABS: Baso % (Auto) 0.4 % (0.0-2.0); Eos # (Auto) 0.2 th/mm3 (0.0-0.4); Eos % (Auto) 4.9 % (0.0-4.0); Hematocrit 23.5 % (35.0-46.0); Hemoglobin 7.5 gm/dL (11.6-15.3); Lymph # (Auto) 1.3 th/mm3 (1.0-4.8); Lymph % (Auto) 31.4 % (9.0-44.0); Mean Corpuscular HGB Conc 31.9 % (32.0-36.0); Mean Corpuscular Volume 84.6 fL (80.0-100.0); Mean Platelet Volume 7.7 fL (7.0-11.0); Mono # (Auto) 0.5 th/mm3 (0.0-0.9); Mono % (Auto) 11.3 % (0.0-8.0); Neut # (Auto) 2.2 th/mm3 (1.8-7.7); Platelet Count 307 th/mm3 (150-450); Red Blood Count 2.78 mil/mm3 (4.00-5.30); Red Cell Distribution Width 16.9 % (11.6-17.2); White Blood Count 4.2 th/mm3 (4.0-11.0)
[2018-06-17] MEDS: ALPRAZolam 0.5 MG Tablet PO PRN ×3 (03:20→16:17)
[2018-06-17] MEDS: Morphine Sulfate 60 MG SR Tablet PO SCH ×3 (05:57→21:30)
[2018-06-17] MEDS: Famotidine 20 MG Tablet PO SCH ×2 (08:32→20:42)
[2018-06-17] MEDS: Metoclopramide 10 MG Tablet PO SCH ×4 (08:32→20:42)
[2018-06-17] MEDS: Senna/Docusate Sodium 8.6/50 MG Tablet PO SCH ×2 (08:33→20:42)
[2018-06-17] MEDS: amLODIPine 5 MG Tablet PO SCH (08:33)
[2018-06-17] MEDS: Duloxetine 60 MG DR Capsule PO SCH (08:33)
[2018-06-17] MEDS: Polyethylene Glycol 3350 17 GM Packet PO SCH (08:34)
[2018-06-17] MEDS: Enoxaparin Inj 30 MG/0.3 ML Syringe SQ SCH ×2 (08:34→20:40)
--- NOTE | 2018-06-17 08:51 | P.PN ---
Subjective Interval history: Follow-up vertebral osteomyelitis June 13, 2018-patient seen and examined, denies any significant back pain, currently afebrile, . June 14, 2018-patient seen and examined, afebrile, stable. No chest pain or shortness of breath. June 15, 2018-patient seen and examined, stable,no CP or SOB June 16, 2018-patient seen and examined, complains of left-sided back pain otherwise no other issues. Vital stable. States, she is looking for discharge tomorrow June 17, 2018-, patient seen and examined, no acute event overnight, stable Physical Exam Vital signs: Vital Signs 06/16/18 11:37 06/16/18 14:04 06/16/18 16:00 Temperature 98 F 98 F Pulse Rate 97 H 85 Respiratory Rate 20 17 18 Blood Pressure 133/62 121/60 Pulse Oximetry 99 93 L 06/16/18 20:00 06/17/18 00:00 06/17/18 04:00 Temperature 97.8 F 98.1 F 98.2 F Pulse Rate 100 H 98 H 94 H Respiratory Rate 19 18 18 Blood Pressure 124/62 108/57 L 106/58 L Pulse Oximetry 96 96 97 Intake & Output 06/16/18 06/17/18 06/17/18 18:59 06:59 18:59 Intake Total 982.5 / 982.5 Output Total 2300 / 2300 900 / 900 Balance -1317.5 / -1317.5 -900 / -900 Weight 90.1 kg Intake: IV 262.5 / 262.5 Vancomycin Inj 1,250 MG In NS 262.5 / 262.5 Inj 250 ML @ 250 mls/hr IV.SIG Q24H KATIE Rx#:[id number] Oral 720 / 720 Output: Urine 2300 / 2300 900 / 900 Other: Date of Last Bowel Movement 06/14/18 # Incontinent Bowel Movements 1 Narrative: GENERAL: NAD SKIN: Warm and dry. HEAD: Normocephalic. EYES: No scleral icterus. No injection or drainage. NECK: Supple, trachea midline. No JVD or lymphadenopathy. CARDIOVASCULAR: Regular rate and rhythm without murmurs, gallops, or rubs. RESPIRATORY: Breath sounds equal bilaterally. No accessory muscle use. GASTROINTESTINAL: Abdomen soft, non-tender, nondistended. MUSCULOSKELETAL: No cyanosis, or edema. BACK: +tender without obvious deformity. No CVA tenderness. - Urinary Catheter Management Female External Cath placed during this visit: no Indwelling Urethral Catheter Cath placed during this visit: yes, but has since been removed by the nurse Reason for continuing: Decision to DC catheter Insertion date: 06/05/18 Insertion time: 09:20 Removal date: 06/14/18 Removal time: 14:00 Results - Labs CBC & Chem 7: 06/16/18 10:03 06/17/18 04:30 Laboratory Results - last 24 hr 06/16/18 06/17/18 10:03 04:30 WBC 4.2 RBC 2.78 L Hgb 7.5 L Hct 23.5 L MCV 84.6 MCH 27.0 MCHC 31.9 L RDW 16.9 Plt Count 307 D MPV 7.7 Neut % (Auto) 52.0 Lymph % (Auto) 31.4 [place] % (Auto) 11.3 H Eos % (Auto) 4.9 H Baso % (Auto) 0.4 Neut # (Auto) 2.2 Lymph # (Auto) 1.3 [place] # (Auto) 0.5 Eos # (Auto) 0.2 Baso # (Auto) 0.0 WBC Differential . Differential Comment Auto diff final BUN 14 Creatinine 0.95 Estimated GFR 60 L - Procedures S/p: Thoracic T6 and T7 transpedicular partial corpectomies; T5-7 decompressive laminectomies; microsurgical technique Assessment and Plan - Assessment (1) Osteomyelitis of thoracic vertebra Code(s): M46.24 - Status: Acute - Plan 58-year-old female with Acute paraplegia secondary to spinal cord compression Vertebral osteomyelitis with pathologic fracture T6-T7 T5-6 discitis Hx of MRSA bacteremia with multiple + BCX 04/22 to 05/02 s/p CT guided biopsy 05/29, path + abscess -S/p: Thoracic T6 and T7 transpedicular partial corpectomies; T5-7 decompressive laminectomies; microsurgical technique on 06/05/[address] Ferro. -TLSO on when OOB -ID following, appreciate assistance. MRSA growing from wound. Continue on vancomycin -continue on p.o. morphine with oxycodone for breakthrough pain. Hypertension -Currently on Norvasc 5 mg daily. -Clonidine as needed with parameters Chronic renal insufficiency Creatinine appears to be at baseline -avoid nephrotoxic agents Constipation, resolved CT abd/pelvis shows mild small bowel and colonic distention, mild intrahepatic and extrahepatic biliary ductal prominence and distended gallbladder, splenomegaly unchanged -continue on Sarahy-Colace BID and Miralax daily. -Continue on Reglan. Sacral decubitus, stage 4 -Continue with order from wound care nurse per protocol Hx of IVDU, remotely UDS tested for cocaine, benzos and opiates -Patient states she last snorted cocaine 6 months ago Full code. Lovenox.
[2018-06-17] MEDS: Vancomycin Inj 1,250 MG in Sodium Chlor 0.9% Inj 250 ML IV.SIG SCH (11:47)
[2018-06-18] MEDS: ALPRAZolam 0.5 MG Tablet PO PRN ×3 (02:05→21:11)
[2018-06-18] MEDS: Morphine Sulfate 60 MG SR Tablet PO SCH ×3 (05:58→21:10)
[2018-06-18] MEDS: Metoclopramide 10 MG Tablet PO SCH ×4 (08:47→21:09)
[2018-06-18] MEDS: Duloxetine 60 MG DR Capsule PO SCH (08:48)
[2018-06-18] MEDS: Enoxaparin Inj 30 MG/0.3 ML Syringe SQ SCH ×2 (08:51→21:12)
[2018-06-18] MEDS: Polyethylene Glycol 3350 17 GM Packet PO SCH (08:52)
[2018-06-18] MEDS: amLODIPine 5 MG Tablet PO SCH (08:53)
[2018-06-18] MEDS: Senna/Docusate Sodium 8.6/50 MG Tablet PO SCH ×2 (08:54→21:11)
[2018-06-18] MEDS: Famotidine 20 MG Tablet PO SCH ×2 (08:54→21:11)
--- NOTE | 2018-06-18 09:39 | P.PN ---
Subjective Interval history: Follow-up vertebral osteomyelitis June 13, 2018-patient seen and examined, denies any significant back pain, currently afebrile, . June 14, 2018-patient seen and examined, afebrile, stable. No chest pain or shortness of breath. June 15, 2018-patient seen and examined, stable,no CP or SOB June 16, 2018-patient seen and examined, complains of left-sided back pain otherwise no other issues. Vital stable. States, she is looking for discharge tomorrow June 17, 2018-, patient seen and examined, no acute event overnight, stable June 18, 2018-patient seen and examined, requesting to receive her narcotics during therapy; afebrile Physical Exam Vital signs: Vital Signs 06/17/18 16:00 06/17/18 20:00 06/17/18 20:21 Temperature 98.3 F 98.5 F Pulse Rate 104 H 98 H 96 H Respiratory Rate 16 18 Blood Pressure 128/69 110/56 L Pulse Oximetry 98 100 06/18/18 00:00 06/18/18 00:06 06/18/18 04:00 Temperature 98.2 F 98.1 F Pulse Rate 107 H 101 H 102 H Respiratory Rate 18 18 Blood Pressure 95/52 L 99/58 L Pulse Oximetry 96 96 06/18/18 08:00 Temperature 97.8 F Pulse Rate 89 Respiratory Rate 16 Blood Pressure 108/59 L Pulse Oximetry 97 Intake & Output 06/17/18 06/18/18 06/18/18 18:59 06:59 18:59 Intake Total 262.5 / 262.5 Output Total 1000 / 1000 Balance 262.5 / 262.5 -1000 / -1000 Weight 90.1 kg Intake: IV 262.5 / 262.5 Vancomycin Inj 1,250 MG In NS 262.5 / 262.5 Inj 250 ML @ 250 mls/hr IV.SIG Q24H KATIE Rx#:[id number] Output: Urine 1000 / 1000 Other: Date of Last Bowel Movement 06/17/18 # Incontinent Bowel Movements 1 Narrative: GENERAL: NAD SKIN: Warm and dry. HEAD: Normocephalic. EYES: No scleral icterus. No injection or drainage. NECK: Supple, trachea midline. No JVD or lymphadenopathy. CARDIOVASCULAR: Regular rate and rhythm without murmurs, gallops, or rubs. RESPIRATORY: Breath sounds equal bilaterally. No accessory muscle use. GASTROINTESTINAL: Abdomen soft, non-tender, nondistended. MUSCULOSKELETAL: No cyanosis, or edema. BACK: +tender without obvious deformity. No CVA tenderness. - Urinary Catheter Management Female External Cath placed during this visit: no Indwelling Urethral Catheter Cath placed during this visit: yes, but has since been removed by the nurse Reason for continuing: Decision to DC catheter Insertion date: 06/05/18 Insertion time: 09:20 Removal date: 06/14/18 Removal time: 14:00 Results - Labs CBC & Chem 7: 06/16/18 10:03 06/18/18 06:00 Laboratory Results - last 24 hr 06/18/18 06:00 BUN 12 Creatinine 0.95 Estimated GFR 60 L - Procedures S/p: Thoracic T6 and T7 transpedicular partial corpectomies; T5-7 decompressive laminectomies; microsurgical technique Assessment and Plan - Assessment (1) Osteomyelitis of thoracic vertebra Code(s): M46.24 - Osteomyelitis of vertebra, thoracic region Status: Acute - Plan 58-year-old female with Acute paraplegia secondary to spinal cord compression Vertebral osteomyelitis with pathologic fracture T6-T7 T5-6 discitis Hx of MRSA bacteremia with multiple + BCX 04/22 to 05/02 s/p CT guided biopsy 05/29, path + abscess -S/p: Thoracic T6 and T7 transpedicular partial corpectomies; T5-7 decompressive laminectomies; microsurgical technique on 06/05/[address] Ferro. -TLSO -ID ff. MRSA growing from wound. Continue on vancomycin -continue on p.o. morphine with oxycodone for breakthrough pain. Hypertension -Currently on Norvasc 5 mg daily. -Clonidine as needed with parameters Chronic renal insufficiency -Creatinine appears to be at baseline -avoid nephrotoxic agents Constipation, resolved CT abd/pelvis shows mild small bowel and colonic distention, mild intrahepatic and extrahepatic biliary ductal prominence and distended gallbladder, splenomegaly unchanged -continue on Sarahy-Colace BID and Miralax daily. -Continue on Reglan. Sacral decubitus, stage 4 -Continue with order from wound care nurse per protocol Hx of IVDU, remotely UDS tested for cocaine, benzos and opiates -Patient states she last snorted cocaine 6 months ago Full code. Lovenox.
[2018-06-18] MEDS: Vancomycin Inj 1,250 MG in Sodium Chlor 0.9% Inj 250 ML IV.SIG SCH (11:34)
[2018-06-19] MEDS: Morphine Sulfate 60 MG SR Tablet PO SCH ×3 (05:39→21:10)
[2018-06-19] MEDS: Metoclopramide 10 MG Tablet PO SCH ×4 (09:47→21:11)
[2018-06-19] MEDS: Famotidine 20 MG Tablet PO SCH ×2 (09:47→21:11)
[2018-06-19] MEDS: amLODIPine 5 MG Tablet PO SCH (09:47)
[2018-06-19] MEDS: Duloxetine 60 MG DR Capsule PO SCH (09:47)
[2018-06-19] MEDS: Senna/Docusate Sodium 8.6/50 MG Tablet PO SCH ×2 (09:48→21:11)
[2018-06-19] MEDS: Enoxaparin Inj 30 MG/0.3 ML Syringe SQ SCH ×2 (09:48→21:09)
[2018-06-19] MEDS: Polyethylene Glycol 3350 17 GM Packet PO SCH (10:03)
--- NOTE | 2018-06-19 10:35 | P.PN ---
Subjective Interval history: Follow-up vertebral osteomyelitis June 19, 2018-patient seen and examined, resting, afebrile, no acute event overnight. Denies any chest pain or shortness of breath. Physical Exam Vital signs: Vital Signs 06/18/18 12:00 06/18/18 16:00 06/18/18 19:58 Temperature 97.8 F 97.3 F L Pulse Rate 93 H 92 H Respiratory Rate 16 16 18 Blood Pressure 122/60 114/63 Pulse Oximetry 99 97 06/18/18 20:00 06/18/18 21:44 06/19/18 00:00 Temperature 97.9 F 98 F Pulse Rate 100 H 93 H Respiratory Rate 18 19 18 Blood Pressure 112/53 L 113/62 Pulse Oximetry 99 94 L 06/19/18 02:31 06/19/18 04:00 06/19/18 08:00 Temperature 98.2 F 97.8 F Pulse Rate 95 H 91 H Respiratory Rate 19 18 19 Blood Pressure 107/54 L 109/57 L Pulse Oximetry 99 97 Intake & Output 06/18/18 06/19/18 06/19/18 18:59 06:59 18:59 Intake Total 982.5 / 982.5 Output Total 600 / 600 Balance 982.5 / 982.5 -600 / -600 Weight 76.3 kg Intake: IV 262.5 / 262.5 Vancomycin Inj 1,250 MG In NS 262.5 / 262.5 Inj 250 ML @ 250 mls/hr IV.SIG Q24H KATIE Rx#:[id number] Oral 720 / 720 Output: Urine 600 / 600 Other: Date of Last Bowel Movement 06/18/18 06/19/18 06/19/18 # Bowel Movements 2 1 Narrative: GENERAL: NAD SKIN: Warm and dry. HEAD: Normocephalic. EYES: No scleral icterus. No injection or drainage. NECK: Supple, trachea midline. No JVD or lymphadenopathy. CARDIOVASCULAR: Regular rate and rhythm without murmurs, gallops, or rubs. RESPIRATORY: Breath sounds equal bilaterally. No accessory muscle use. GASTROINTESTINAL: Abdomen soft, non-tender, nondistended. MUSCULOSKELETAL: No cyanosis, or edema. BACK: +tender without obvious deformity. No CVA tenderness. - Urinary Catheter Management Female External Cath placed during this visit: no Indwelling Urethral Catheter Cath placed during this visit: yes, but has since been removed by the nurse Reason for continuing: Decision to DC catheter Insertion date: 06/05/18 Insertion time: 09:20 Removal date: 06/14/18 Removal time: 14:00 Results - Labs CBC & Chem 7: 06/16/18 10:03 06/18/18 06:00 - Procedures S/p: Thoracic T6 and T7 transpedicular partial corpectomies; T5-7 decompressive laminectomies; microsurgical technique Assessment and Plan - Assessment (1) Osteomyelitis of thoracic vertebra Code(s): M46.24 - Osteomyelitis of vertebra, thoracic region Status: Acute - Plan 58-year-old female with Acute paraplegia secondary to spinal cord compression Vertebral osteomyelitis with pathologic fracture T6-T7 T5-6 discitis Hx of MRSA bacteremia with multiple + BCX 04/22 to 05/02 s/p CT guided biopsy 05/29, path + abscess -S/p: Thoracic T6 and T7 transpedicular partial corpectomies; T5-7 decompressive laminectomies; microsurgical technique on 06/05/[address] Ferro. -TLSO -ID ff. MRSA growing from wound. Continue on vancomycin -continue on p.o. morphine with oxycodone for breakthrough pain. Hypertension -Currently on Norvasc 5 mg daily. -Clonidine as needed with parameters Chronic renal insufficiency -Creatinine appears to be at baseline -avoid nephrotoxic agents Constipation, resolved CT abd/pelvis shows mild small bowel and colonic distention, mild intrahepatic and extrahepatic biliary ductal prominence and distended gallbladder, splenomegaly unchanged -continue on Sarahy-Colace BID and Miralax daily. -Continue on Reglan. Sacral decubitus, stage 4 -Continue with order from wound care nurse per protocol Hx of IVDU, remotely UDS tested for cocaine, benzos and opiates -Patient states she last snorted cocaine 6 months ago Full code. Lovenox. Discharge Planning: Discharge to SNF when bed is available
[2018-06-19] MEDS: Vancomycin Inj 1,250 MG in Sodium Chlor 0.9% Inj 250 ML IV.SIG SCH (12:23)
[2018-06-19] MEDS: ALPRAZolam 0.5 MG Tablet PO PRN (21:10)
[2018-06-20] MEDS: Morphine Sulfate 60 MG SR Tablet PO SCH ×3 (05:55→21:10)
--- NOTE | 2018-06-20 07:15 | P.PN ---
Subjective Interval history: Follow-up on patient with vertebral osteomyelitis. Patient seen and examined. Patient denies any acute medical complaints. States her legs move spontaneously on their own but she has no purposeful movement. She denies any chest pain or shortness of breath. She denies any nausea, vomiting or abdominal pain. She denies any fever or chills. Physical Exam Vital signs: Vital Signs 06/19/18 08:00 06/19/18 12:00 06/19/18 16:00 Temperature 97.8 F 98.1 F 98.1 F Pulse Rate 94 H 94 H 86 Respiratory Rate 19 13 18 Blood Pressure 109/57 L 108/56 L 111/59 L Pulse Oximetry 97 99 97 06/19/18 20:00 06/19/18 23:55 06/20/18 04:00 Temperature 98.4 F 98.4 F 97.9 F Pulse Rate 95 H 90 87 Respiratory Rate 16 18 14 Blood Pressure 128/61 125/60 121/59 L Pulse Oximetry 97 98 97 Intake & Output 06/19/18 06/20/18 06/20/18 18:59 06:59 18:59 Intake Total 250 / 250 Output Total 1000 / 1000 Balance -750 / -750 Intake: IV 250 / 250 Vancomycin Inj 1,250 MG In NS 250 / 250 Inj 250 ML @ 250 mls/hr IV.SIG Q24H [facility] Rx#:[id number] Output: Urine 1000 / 1000 Other: Date of Last Bowel Movement 06/19/18 06/19/18 Narrative: GENERAL: WDWN female patient, INAD. Extremely lethargic. Repetitively falling asleep during our conversation. SKIN: Warm and dry. HEAD: Atraumatic. Normocephalic. EYES: Pupils equal and round. No scleral icterus. No injection or drainage. ENT: No nasal bleeding or discharge. Mucous membranes pink and moist. NECK: Trachea midline. CARDIOVASCULAR: Regular rate and rhythm. RESPIRATORY: No accessory muscle use. Clear to auscultation anteriorly. Breath sounds equal bilaterally. GASTROINTESTINAL: Abdomen soft, non-tender, nondistended. Hepatic and splenic margins not palpable. MUSCULOSKELETAL: Extremities without clubbing, cyanosis, or edema. No obvious deformities. NEUROLOGICAL: Awake, lethargic. No obvious cranial nerve deficits. Sensation intact bilateral lower extremities. No purposeful movement.. Normal speech. PSYCHIATRIC: Cooperative. Insight and judgement questionable. - Urinary Catheter Management Female External Cath placed during this visit: no Indwelling Urethral Catheter Cath placed during this visit: yes, but has since been removed by the nurse Reason for continuing: Decision to DC catheter Insertion date: 06/05/18 Insertion time: 09:20 Removal date: 06/14/18 Removal time: 14:00 Results - Labs CBC & Chem 7: 06/16/18 10:03 06/20/18 06:00 Laboratory Results - last 24 hr 06/20/18 06:00 Creatinine 1.19 H Estimated GFR 47 L Microbiology 06/05/18 12:06 Tissue - Back Fungal Smear - Final No fungal elements seen 06/05/18 12:06 Tissue - Back Fungal Culture - Preliminary No growth in 2 weeks 06/05/18 12:06 Tissue - Back Acid Fast Bacilli Smear - Final No acid fast bacilli seen 06/05/18 12:06 Tissue - Back Mycobacterial Culture - Preliminary No growth in 2 weeks 06/05/18 11:43 Tissue - Back Fungal Smear - Final No fungal elements seen 06/05/18 11:43 Tissue - Back Fungal Culture - Preliminary No growth in 2 weeks 06/05/18 11:43 Tissue - Back Acid Fast Bacilli Smear - Final No acid fast bacilli seen 06/05/18 11:43 Tissue - Back Mycobacterial Culture - Preliminary No growth in 2 weeks 06/05/18 11:24 Tissue - Back Fungal Smear - Final No fungal elements seen 06/05/18 11:24 Tissue - Back Fungal Culture - Preliminary No growth in 2 weeks 06/05/18 11:24 Tissue - Back Acid Fast Bacilli Smear - Final No acid fast bacilli seen 06/05/18 11:24 Tissue - Back Mycobacterial Culture - Preliminary No growth in 2 weeks 05/29/18 11:45 Tissue - Back Acid Fast Bacilli Smear - Final No acid fast bacilli seen 05/29/18 11:45 Tissue - Back Mycobacterial Culture - Preliminary No growth in 3 weeks 05/29/18 11:45 Tissue - Back Fungal Smear - Final No fungal elements seen 05/29/18 11:45 Tissue - Back Fungal Culture - Preliminary No growth in 3 weeks - Procedures S/p: Thoracic T6 and T7 transpedicular partial corpectomies; T5-7 decompressive laminectomies; microsurgical technique Assessment and Plan - Assessment (1) Osteomyelitis of thoracic vertebra Code(s): M46.24 - Osteomyelitis of vertebra, thoracic region Status: Acute - Plan 58-year-old female with a history of hypertension, GERD, anemia, constipation, gout, fibromyalgia, chronic pain syndrome, anxiety, depression and migraine. She presented on 05/28/2018 to the emergency room because of upper back pain and bilateral lower extremity weakness. She reports of bilateral lower extremity weakness unable to get out of bed and ambulate for 2 weeks. At the same time she complained of constant sharp severe upper back pain worse with activity different from her usual neck and lower back pain. MRI studies showed T6/T7 destruction with possible osteomyelitis. Acute paraplegia secondary to spinal cord compression Vertebral osteomyelitis with pathologic fracture T6-T7 T5-6 discitis Hx of MRSA bacteremia with multiple + BCX 04/22 to 05/02 s/[address] guided biopsy 05/29, path + abscess -Neurosurgery following, appreciate assistance. S/p: Thoracic T6 and T7 transpedicular partial corpectomies; T5-7 decompressive laminectomies; microsurgical technique on 06/05/[address] Ferro. -TLSO on when OOB -ID following, appreciate assistance. Continue on Vancomycin. Cr up to 1.19. IVF hydration. Hold Vanco. Dr. Rosales notified. Oversedation secondary to narcotic pain medications -decrease Flexeril dosing to 5mg TID prn -decrease prn Roxicodone to 15mg q8h -continue to monitor and will continue to wean down narcotic medications Hypertension, now hypotensive -Hold Norvasc 5mg daily -Clonidine as needed with parameters -Continue to monitor BP and adjust treatment accordingly FLORIN on Chronic renal insufficiency, likely secondary to Vancomycin -hold Vanco. IVF. repeat creatinine in am. -avoid nephrotoxic agents -monitor kidney function as indicated Constipation, resolved CT abd/pelvis shows mild small bowel and colonic distention, mild intrahepatic and extrahepatic biliary ductal prominence and distended gallbladder, splenomegaly unchanged -continue on Pericolace BID and Miralax daily Anemia H/H trending down, ?Vancomycin No active bleeding -Continue to monitor CBC, repeat CBC today Sacral decubitus, stage 4 -evaluated by wound care nurse. Wound care orders placed. -specialty bed -off loading maneuvers Hx of IVDU, remotely UDS tested for cocaine, benzos and opiates -Patient states she last snorted cocaine 6 months ago -monitor DVT prophylaxis -Lovenox sq Code Status: FULL Discussed Condition With: patient, nursing staff, Dr. Rosales
[2018-06-20] MEDS: Enoxaparin Inj 30 MG/0.3 ML Syringe SQ SCH (08:31)
[2018-06-20] MEDS: Metoclopramide 10 MG Tablet PO SCH ×2 (08:32→11:13)
[2018-06-20] MEDS: ALPRAZolam 0.5 MG Tablet PO PRN ×2 (08:32→21:21)
[2018-06-20] MEDS: Duloxetine 60 MG DR Capsule PO SCH (08:32)
[2018-06-20] MEDS: amLODIPine 5 MG Tablet PO SCH (08:32)
[2018-06-20] MEDS: Famotidine 20 MG Tablet PO SCH ×2 (08:32→21:12)
[2018-06-20] MEDS: Polyethylene Glycol 3350 17 GM Packet PO SCH (08:32)
[2018-06-20] MEDS: Senna/Docusate Sodium 8.6/50 MG Tablet PO SCH ×2 (08:33→21:12)
[2018-06-20] MEDS ORDERED: Pharmacy Ordered Lab Info OTHER ONE (10:45)
[2018-06-20] MEDS: Vancomycin Inj 1,250 MG in Sodium Chlor 0.9% Inj 250 ML IV.SIG SCH (11:12)
[2018-06-20] MEDS: Sod Chloride 0.9% Inj 1,000 ML IV.CONT SCH (15:46)
[2018-06-20 16:09] LABS: Baso % (Auto) 0.6 % (0.0-2.0); Eos # (Auto) 0.3 th/mm3 (0.0-0.4); Eos % (Auto) 6.3 % (0.0-4.0); Hematocrit 24.9 % (35.0-46.0); Hemoglobin 8.3 gm/dL (11.6-15.3); Lymph # (Auto) 1.4 th/mm3 (1.0-4.8); Lymph % (Auto) 28.5 % (9.0-44.0); Mean Corpuscular HGB Conc 33.4 % (32.0-36.0); Mean Corpuscular Hemoglobin 28.1 pg (27.0-34.0); Mean Corpuscular Volume 84.1 fL (80.0-100.0); Mean Platelet Volume 7.5 fL (7.0-11.0); Mono # (Auto) 0.6 th/mm3 (0.0-0.9); Mono % (Auto) 11.7 % (0.0-8.0); Neut # (Auto) 2.5 th/mm3 (1.8-7.7); Neut % (Auto) 52.9 % (16.0-70.0); Platelet Count 305 th/mm3 (150-450); Red Blood Count 2.96 mil/mm3 (4.00-5.30); Red Cell Distribution Width 17.9 % (11.6-17.2); White Blood Count 4.7 th/mm3 (4.0-11.0)
--- NOTE | 2018-06-20 16:16 | P.DIET ---
Nutritional Evaluation Type of nutrition evaluation: follow-up [place] [facility] [place] Subjective Subjective Comments: Eating 100% Objective - Diagnosis Acute Osteomyelitis of T-Spine, Cord Compression - Objective % IBW: 138 (IBW = 130#) Body Weight Used for Calculations: IBW (59.1 kg) Energy Needs - Lower Range (kCal/kg): 30 Energy Needs - Upper Range (kCal/kg): 35 Lower Limit kCal/kg (kCals): 1,773 Upper Limit kCal/kg (kCals): 2,069 Lower Limit Protein Factor (Grams per Kg): 1.2 Upper Limit Protein Factor (Grams per Kg): 1.5 Lower Protein Needs (Protein): 71 Upper Protein Needs (Protein): 89 Fluid Factor (ml/kg): 35 Estimated Fluid Needs (ml): 2,069 Dietitian Reviewed in Medical Record: Current diet, Curent medications, Intake & Output, Labs, Medical history, Wound/DTI Diet Order: Regular Wound Care Note: WOCN dated 05/29: coccyx stage 4 pressure injury Assessment Assessment: Pt is s/p posterior thoracic T4-9 fusion and T5-6 laminectomy (06/04). Diet ordered as regular and po intake is good. She is at high nutrition risk 2' to high nutritional needs for healing. Recommend the addition of daily MVI/min and will continue to send Ensure Enlive bid for added nutrition. Pt may also benefit from Geronimo supplement bid which is a targeted therapeutic supplement that aids in healing. It contains arginine, glutamine and HMB. Labs, wts and clinical course reviewed: erratic wts noted. (06/18) 90.1 kg, (06/19) 76.3 kg Recommendations: 1. Continue current diet 2. Continue Ensure Enlive bid 3. Please change order form MVI to MVI with minerals 4. Please order Geronimo 1 pack bid Dietitian to Monitor: Lab values, Supplement acceptance, Intake & Output, Diet tolerance, PO Intake, Wound/skin status, Medical course
[2018-06-20] MEDS: DAPTOmycin Inj 750 MG in Sodium Chlor 0.9% Inj 100 ML IV.SIG SCH (16:22)
[2018-06-20 16:29] LABS: Albumin 2.5 g/dL (3.4-5.0); Anion Gap 8 meq/L (5-15); Aspartate Aminotransferase 23 U/L (15-37); Calcium 9.3 mg/dL (8.5-10.1); Carbon Dioxide 30.2 meq/L (21.0-32.0); Chloride 100 meq/L (98-107); Glomerular Filtration Rate 48 mL/min (>89); Glucose,Random 100 mg/dL (74-106); Potassium 4.8 meq/L (3.5-5.1); Sodium 138 meq/L (136-145)
[2018-06-20 16:34] LABS: Alanine Aminotransferase 18 U/L (10-53); Alkaline Phosphatase 139 U/L (45-117); Blood Urea Nitrogen 16 mg/dL (7-18); Total Protein 7.6 g/dL (6.4-8.2)
[2018-06-20] MEDS: Heparin - SQ 10,000 UNITS/ML Vial SQ SCH (21:11)
[2018-06-21] MEDS: Sod Chloride 0.9% Inj 1,000 ML IV.CONT SCH ×2 (03:00→14:50)
[2018-06-21] MEDS: Morphine Sulfate 60 MG SR Tablet PO SCH ×3 (05:33→21:24)
[2018-06-21] MEDS: Heparin - SQ 10,000 UNITS/ML Vial SQ SCH ×3 (05:33→21:24)
--- NOTE | 2018-06-21 07:16 | P.PN ---
Subjective Interval history: Follow-up on patient with vertebral osteomyelitis. Patient seen and examined. Patient says she feels really good today. She denies any fever or chills. She denies any chest pain or shortness of breath. Denies any nausea, vomiting or abdominal pain. Patient wants to know why she was being rejected from SNF facilities. Discussed with patient history of positive urine drug screen. Patient denies illicit drug use. Physical Exam Vital signs: Vital Signs 06/20/18 08:00 06/20/18 10:23 06/20/18 12:00 Temperature 97.9 F 97.5 F L Pulse Rate 85 90 Respiratory Rate 15 12 13 Blood Pressure 116/57 L 103/58 L Pulse Oximetry 98 97 06/20/18 15:33 06/20/18 16:00 06/20/18 20:00 Temperature 98.1 F 99.0 F Pulse Rate 94 H 102 H Respiratory Rate 12 15 18 Blood Pressure 108/60 103/63 Pulse Oximetry 99 97 06/21/18 00:00 06/21/18 04:00 Temperature 99.2 F 98.7 F Pulse Rate 100 H 96 H Respiratory Rate 16 20 Blood Pressure 105/58 L 109/59 L Pulse Oximetry 99 93 L Intake & Output 06/20/18 06/21/18 06/21/18 18:59 06:59 18:59 Intake Total 1562.5 / 1562.5 1000 / 1000 Output Total / Balance 1561.5 / 1561.5 1000 / 1000 Intake: IV 362.5 / 362.5 1000 / 1000 NS Inj 1,000 ML @ 84 mls/hr IV. 1000 / 1000 CONT .[id number] [facility] Rx#:[id number] Cubicin Inj 750 MG In NS Inj 100 / 100 100 ML @ 200 mls/hr IV.SIG Q24H [facility] Rx#:[id number] Vancomycin Inj 1,250 MG In NS 262.5 / 262.5 Inj 250 ML @ 250 mls/hr IV.SIG Q24H [facility] Rx#:[id number] Oral 1200 / 1200 Output: Stool Other: # Voids 3 Date of Last Bowel Movement 06/19/18 Narrative: GENERAL: WDWN female patient, INAD. Awake and alert. Appears comfortable. SKIN: Warm and dry. HEAD: Atraumatic. Normocephalic. EYES: Pupils equal and round. No scleral icterus. No injection or drainage. ENT: No nasal bleeding or discharge. Mucous membranes pink and moist. NECK: Trachea midline. CARDIOVASCULAR: Regular rate and rhythm. RESPIRATORY: No accessory muscle use. Clear to auscultation anteriorly. Breath sounds equal bilaterally. GASTROINTESTINAL: Abdomen soft, non-tender, nondistended. +BS. MUSCULOSKELETAL: Extremities without clubbing, cyanosis, or edema. No obvious deformities. NEUROLOGICAL: Awake and alert. No obvious cranial nerve deficits. Sensation intact bilateral lower extremities. No purposeful movement. Normal speech. PSYCHIATRIC: Cooperative. Insight and judgement questionable. - Urinary Catheter Management Female External Cath placed during this visit: no Indwelling Urethral Catheter Cath placed during this visit: yes, but has since been removed by the nurse Reason for continuing: Decision to DC catheter Insertion date: 06/05/18 Insertion time: 09: Removal date: 06/14/18 Removal time: 14:00 Results - Labs CBC & Chem 7: 06/20/18 15:50 06/21/18 05:46 Laboratory Results - last 24 hr 06/20/18 06/20/18 06/20/18 10:06 15:50 15:50 WBC 4.7 RBC 2.96 L Hgb 8.3 L Hct 24.9 L MCV 84.1 MCH 28.1 MCHC 33.4 RDW 17.9 H Plt Count 305 MPV 7.5 Neut % (Auto) 52.9 Lymph % (Auto) 28.5 Angelina % (Auto) 11.7 H Eos % (Auto) 6.3 H Baso % (Auto) 0.6 Neut # (Auto) 2.5 Lymph # (Auto) 1.4 Angelina # (Auto) 0.6 Eos # (Auto) 0.3 Baso # (Auto) 0.0 WBC Differential . Differential Comment Auto diff final Sodium 138 Potassium 4.8 Chloride 100 Carbon Dioxide 30.2 Anion Gap 8 BUN 16 Creatinine 1.15 H Estimated GFR 48 L Random Glucose 100 Calcium 9.3 Total Bilirubin 0.3 AST 23 ALT 18 Alkaline Phosphatase 139 H Total Protein 7.6 Albumin 2.5 L Vancomycin Trough 21.9 H - Procedures S/p: Thoracic T6 and T7 transpedicular partial corpectomies; T5-7 decompressive laminectomies; microsurgical technique Assessment and Plan - Assessment (1) Osteomyelitis of thoracic vertebra Code(s): M46.24 - Osteomyelitis of vertebra, thoracic region Status: Acute - Plan 58-year-old female with a history of hypertension, GERD, anemia, constipation, gout, fibromyalgia, chronic pain syndrome, anxiety, depression and migraine. She presented on 05/28/2018 to the emergency room because of upper back pain and bilateral lower extremity weakness. She reports of bilateral lower extremity weakness unable to get out of bed and ambulate for 2 weeks. At the same time she complained of constant sharp severe upper back pain worse with activity different from her usual neck and lower back pain. MRI studies showed T6/T7 destruction with possible osteomyelitis. Acute paraplegia secondary to spinal cord compression Vertebral osteomyelitis with pathologic fracture T6-T7 T5-6 discitis Hx of MRSA bacteremia with multiple + BCX 04/22 to 05/02 s/p CT guided biopsy 05/29, path + abscess -Neurosurgery following, appreciate assistance. S/p: Thoracic T6 and T7 transpedicular partial corpectomies; T5-7 decompressive laminectomies; microsurgical technique on 06/05/[address] Ferro. -TLSO on when OOB -ID following, appreciate assistance. Vancomycin discontinued secondary to FLORIN. Patient started on IV daptomycin. FLORIN, secondary to vancomycin 06/20 Cr bumped up to 1.19, Vanc d/c'd -Creatinine trending up, now 1.41 -obtain UA -Continue on IVF -Continue to monitor kidney function -Avoid nephrotoxic agents -We will consider nephrology consult if creatinine continues to increase Oversedation secondary to narcotic pain medications, resolved -Continue on decreased dose of Flexeril and oxycodone -continue to monitor and will continue to wean down narcotic medications Hypertension, now hypotensive -Continue to hold Norvasc 5mg daily -Clonidine as needed with parameters -Continue to monitor BP and adjust treatment accordingly Constipation, resolved CT abd/pelvis shows mild small bowel and colonic distention, mild intrahepatic and extrahepatic biliary ductal prominence and distended gallbladder, splenomegaly unchanged -continue on Pericolace BID and Miralax daily Anemia No active bleeding Hgb improved -Continue to monitor CBC as indicated -Iron studies, B12 and folate level ordered. B12 low normal at 263. Will begin 1000mcg daily. Sacral decubitus, stage 4 -evaluated by wound care nurse. Wound care orders placed. -specialty bed -off loading maneuvers Hx of IVDU, remotely UDS tested for cocaine, benzos and opiates -Patient states she last snorted cocaine 6 months ago -monitor DVT prophylaxis -Lovenox sq Code Status: FULL Discussed Condition With: patient, nursing staff Discharge Planning: Discharge pending clinical improvement, ID clearance.
[2018-06-21] MEDS: ALPRAZolam 0.5 MG Tablet PO PRN ×2 (08:08→20:26)
[2018-06-21] MEDS: Duloxetine 60 MG DR Capsule PO SCH (08:08)
[2018-06-21] MEDS: Famotidine 20 MG Tablet PO SCH ×2 (08:08→20:25)
[2018-06-21] MEDS: Polyethylene Glycol 3350 17 GM Packet PO SCH (08:09)
[2018-06-21] MEDS: Senna/Docusate Sodium 8.6/50 MG Tablet PO SCH ×2 (08:09→20:26)
[2018-06-21] MEDS: Multivitamin/Minerals Therapeutic Tablet PO SCH (08:18)
[2018-06-21 08:33] LABS: % Iron Saturation 17.5 % (20-50)
[2018-06-21] MEDS: DAPTOmycin Inj 750 MG in Sodium Chlor 0.9% Inj 100 ML IV.SIG SCH (15:04)
[2018-06-21 19:20] LABS: Bilirubin,Urine Negative (Negative); Clarity,Urine Clear (Clear); Color,Urine Yellow (Yellw/Straw); Glucose,Urine (UA) Negative (Negative); Leukocyte Esterase,Urine Negative (Negative); Nitrite,Urine Negative (Negative); Specific Gravity,Urine 1.008 (1.002-1.035)
[2018-06-22] MEDS: ALPRAZolam 0.5 MG Tablet PO PRN ×2 (04:47→20:59)
[2018-06-22] MEDS: Sod Chloride 0.9% Inj 1,000 ML IV.CONT SCH ×2 (05:31→16:26)
[2018-06-22] MEDS: Morphine Sulfate 60 MG SR Tablet PO SCH ×3 (05:33→21:47)
[2018-06-22] MEDS: Heparin - SQ 10,000 UNITS/ML Vial SQ SCH ×3 (05:34→21:47)
--- NOTE | 2018-06-22 07:14 | P.PN ---
Subjective Interval history: Follow-up on patient with vertebral osteomyelitis. Patient seen and examined. Patient says she feels well. She denies any new complaints. States she slept well. She denies any fever or chills. She denies any chest pain or dyspnea. She is asking how long she must be on the IV antibiotics. Physical Exam Vital signs: Vital Signs 06/21/18 07:53 06/21/18 08:00 06/21/18 12:00 Temperature 98.4 F 98.6 F Pulse Rate 93 H 95 H 96 H Respiratory Rate 18 20 Blood Pressure 124/67 113/58 L Pulse Oximetry 93 L 100 06/21/18 14:50 06/21/18 15:38 06/21/18 16:00 Temperature 99 F Pulse Rate 91 H 88 Respiratory Rate 16 20 Blood Pressure 114/56 L Pulse Oximetry 93 L 06/21/18 17:52 06/21/18 20:00 06/22/18 00:00 Temperature 98.1 F 98.3 F Pulse Rate 95 H 100 H Respiratory Rate 16 18 18 Blood Pressure 112/56 L 118/58 L Pulse Oximetry 96 95 06/22/18 04:00 Temperature 97.4 F L Pulse Rate 96 H Respiratory Rate 18 Blood Pressure 123/59 L Pulse Oximetry 96 Intake & Output 06/21/18 06/22/18 06/22/18 18:59 06:59 18:59 Intake Total 1060 / 1060 Output Total 900 / 900 Balance 160 / 160 Weight 78.3 kg Intake: IV 100 / 100 Cubicin Inj 750 MG In NS Inj 100 / 100 100 ML @ 200 mls/hr IV.SIG Q24H [facility] Rx#:[id number] Oral 960 / 960 Output: Urine 900 / 900 Other: Date of Last Bowel Movement 06/19/18 Narrative: GENERAL: WDWN female patient. Awake and alert. Appears comfortable. Not in any acute distress. SKIN: Warm and dry. HEENT: Atraumatic. Normocephalic. Pupils equal and round. No scleral icterus. No injection or drainage. No nasal bleeding or discharge. Mucous membranes pink and moist. NECK: Trachea midline. CARDIOVASCULAR: Regular rate and rhythm. RESPIRATORY: No accessory muscle use. Clear to auscultation anteriorly. Breath sounds equal bilaterally. GASTROINTESTINAL: Abdomen soft, non-tender, nondistended. +BS. MUSCULOSKELETAL: Extremities without clubbing, cyanosis, or edema. No obvious deformities. NEUROLOGICAL: Awake and alert. No obvious cranial nerve deficits. Sensation intact bilateral lower extremities. No purposeful movement. Normal speech. PSYCHIATRIC: Cooperative. Insight and judgement questionable. - Urinary Catheter Management Female External Cath placed during this visit: no Indwelling Urethral Catheter Cath placed during this visit: yes, but has since been removed by the nurse Reason for continuing: Decision to DC catheter Insertion date: 06/05/18 Insertion time: 09:20 Removal date: 06/14/18 Removal time: 14:00 Results - Labs CBC & Chem 7: 06/20/18 15:50 06/22/18 05:40 Laboratory Results - last 24 hr 06/21/18 06/21/18 06/21/18 05:46 05:46 18:31 Creatinine 1.41 H Estimated GFR 38 L Iron 51 Cancelled TIBC 291 Cancelled Iron & TIBC Cancelled % Saturation 17.5 L Cancelled Ferritin 163 Cancelled Vitamin B12 263 Cancelled Urine Color Yellow Urine Clarity Clear Urine pH 7.0 Ur Specific [place] 1.008 Urine Protein Negative Urine Glucose (UA) Negative Urine Ketones Negative Urine Occult Blood Negative Urine Nitrate Negative Urine Bilirubin Negative Urine Urobilinogen Less than 2 Ur Leukocyte Esterase Negative Micro UA Comment Culture not ind Ur Microscopic Review Not Reportable Urine Culture Comments Culture not ind 06/22/18 05:40 Creatinine 1.36 H Estimated GFR 40 L Iron TIBC Iron & TIBC % Saturation Ferritin Vitamin B12 Urine Color Urine Clarity Urine pH Ur Specific [place] Urine Protein Urine Glucose (UA) Urine Ketones Urine Occult Blood Urine Nitrate Urine Bilirubin Urine Urobilinogen Ur Leukocyte Esterase Micro UA Comment Ur Microscopic Review Urine Culture Comments - Procedures S/p: Thoracic T6 and T7 transpedicular partial corpectomies; T5-7 decompressive laminectomies; microsurgical technique Assessment and Plan - Assessment (1) Osteomyelitis of thoracic vertebra Code(s): M46.24 - Osteomyelitis of vertebra, thoracic region Status: Acute - Plan 58-year-old female with a history of hypertension, GERD, anemia, constipation, gout, fibromyalgia, chronic pain syndrome, anxiety, depression and migraine. She presented on 05/28/2018 to the emergency room because of upper back pain and bilateral lower extremity weakness. She reports of bilateral lower extremity weakness unable to get out of bed and ambulate for 2 weeks. At the same time she complained of constant sharp severe upper back pain worse with activity different from her usual neck and lower back pain. MRI studies showed T6/T7 destruction with possible osteomyelitis. Acute paraplegia secondary to spinal cord compression Vertebral osteomyelitis with pathologic fracture T6-T7 T5-6 discitis Hx of MRSA bacteremia with multiple + BCX 04/22 to 05/02 s/[address] guided biopsy 05/29, path + abscess -Neurosurgery following, appreciate assistance. S/p: Thoracic T6 and T7 transpedicular partial corpectomies; T5-7 decompressive laminectomies; microsurgical technique on 06/05/[address] Ferro. -TLSO on when OOB -ID following, appreciate assistance. Vancomycin discontinued secondary to FLORIN. Patient started on IV daptomycin 06/20. Also on Rifampin. Continue 8 to 12 weeks postop. Obtain weekly CPK, LFTs, CBC, BMP. FLORIN, secondary to vancomycin 06/20 Cr bumped up to 1.19, Vanc d/c'd UA neg -Creatinine trending up, 1.41. Improved, now 1.36 -Continue on IVF -Continue to monitor kidney function -Avoid nephrotoxic agents -We will consider nephrology consult if creatinine continues to increase Oversedation secondary to narcotic pain medications, resolved -Continue on decreased dose of Flexeril and oxycodone -continue to monitor and will continue to wean down narcotic medications Hypertension, now hypotensive -Continue to hold Norvasc 5mg daily -Clonidine as needed with parameters -Continue to monitor BP and adjust treatment accordingly Constipation, resolved CT abd/pelvis shows mild small bowel and colonic distention, mild intrahepatic and extrahepatic biliary ductal prominence and distended gallbladder, splenomegaly unchanged -continue on Pericolace BID and Miralax daily Anemia No active bleeding Hgb improved -Continue to monitor CBC as indicated -Iron studies, B12 and folate level ordered. B12 low normal at 263. Started on 1000mcg daily, continue. Sacral decubitus, stage 4 -evaluated by wound care nurse. Wound care orders placed. -specialty bed -off loading maneuvers Hx of IVDU, remotely UDS tested for cocaine, benzos and opiates -Patient states she last snorted cocaine 6 months ago -monitor DVT prophylaxis -Lovenox sq Code Status: FULL Discussed Condition With: patient, nursing staff Discharge Planning: Discharge pending clinical improvement, ID clearance.
[2018-06-22] MEDS: Multivitamin/Minerals Therapeutic Tablet PO SCH (10:10)
[2018-06-22] MEDS: Duloxetine 60 MG DR Capsule PO SCH (10:11)
[2018-06-22] MEDS: Famotidine 20 MG Tablet PO SCH ×2 (10:11→21:48)
[2018-06-22] MEDS: Polyethylene Glycol 3350 17 GM Packet PO SCH (10:13)
[2018-06-22] MEDS: Senna/Docusate Sodium 8.6/50 MG Tablet PO SCH ×2 (10:13→21:47)
[2018-06-22] MEDS: DAPTOmycin Inj 750 MG in Sodium Chlor 0.9% Inj 100 ML IV.SIG SCH (16:08)
[2018-06-23] MEDS: Sod Chloride 0.9% Inj 1,000 ML IV.CONT SCH ×3 (04:18→17:00)
[2018-06-23] MEDS: Morphine Sulfate 60 MG SR Tablet PO SCH ×3 (06:01→21:37)
[2018-06-23] MEDS: Heparin - SQ 10,000 UNITS/ML Vial SQ SCH ×3 (06:01→21:36)
--- NOTE | 2018-06-23 07:50 | P.PN ---
Subjective Interval history: Patient doing well overnight. Patient reports pain well controlled with pain meds, she reports that if she has no significant rehab that will take her that she would be happy to go home with home health. Patient is tolerating p.o., voiding/stooling well. Physical Exam Vital signs: Vital Signs 06/22/18 08:00 06/22/18 12:00 06/22/18 16:00 Temperature 98.1 F 98 F 98.3 F Pulse Rate 90 95 H 98 H Respiratory Rate 16 18 20 Blood Pressure 114/59 L 109/58 L 119/58 L Pulse Oximetry 92 L 97 94 L 06/22/18 20:00 06/23/18 00:00 06/23/18 04:00 Temperature 98.8 F 98.2 F 98.1 F Pulse Rate 89 87 102 H Respiratory Rate 18 18 18 Blood Pressure 123/57 L 126/58 L 118/57 L Pulse Oximetry 94 L 94 L 96 06/23/18 04:04 Temperature Pulse Rate 96 H Respiratory Rate Blood Pressure Pulse Oximetry Intake & Output 06/22/18 06/23/18 06/23/18 18:59 06:59 18:59 Intake Total 700 / 700 1100 / 1100 Output Total 800 / 800 Balance -100 / -100 1100 / 1100 Weight 78.3 kg Intake: IV 1100 / 1100 NS Inj 1,000 ML @ 75 mls/hr IV. 1000 / 1000 CONT .[id number] KATIE Rx#:[id number] Cubicin Inj 750 MG In NS Inj 100 / 100 100 ML @ 200 mls/hr IV.SIG Q24H KATIE Rx#:[id number] Oral 700 / 700 Output: Urine 800 / 800 Other: Date of Last Bowel Movement 06/19/18 06/22/18 # Incontinent Bowel Movements 1 Narrative: GENERAL: Well-nourished female, in NAD, lying comfortably in bed SKIN: Warm and dry. HEENT: Normocephalic NECK: Trachea midline. CARDIOVASCULAR: Regular rate and rhythm. S1, S2, no murmurs, rubs, or gallops RESPIRATORY: CTAx2 GASTROINTESTINAL: Abdomen soft, non-tender, nondistended. +BS. MUSCULOSKELETAL: Extremities without clubbing, cyanosis, or edema. No obvious deformities. NEUROLOGICAL: Awake and alert. No obvious cranial nerve deficits. Sensation intact bilateral lower extremities. No purposeful movement. Normal speech. PSYCHIATRIC: Cooperative. Insight and judgement questionable. - Urinary Catheter Management Female External Cath placed during this visit: no Indwelling Urethral Catheter Cath placed during this visit: yes, but has since been removed by the nurse Reason for continuing: Decision to DC catheter Insertion date: 06/05/18 Insertion time: 09:20 Removal date: 06/14/18 Removal time: 14:00 Results - Labs CBC & Chem 7: 06/20/18 15:50 06/23/18 06:05 Laboratory Results - last 24 hr 06/23/18 06:05 Creatinine 1.63 H Estimated GFR 32 L - Procedures S/p: Thoracic T6 and T7 transpedicular partial corpectomies; T5-7 decompressive laminectomies; microsurgical technique Assessment and Plan - Assessment (1) Osteomyelitis of thoracic vertebra Code(s): M46.24 - Osteomyelitis of vertebra, thoracic region Status: Acute - Plan 58-year-old female with a history of hypertension, GERD, anemia, constipation, gout, fibromyalgia, chronic pain syndrome, anxiety, depression and migraine. She presented on 05/28/2018 to the emergency room because of upper back pain and bilateral lower extremity weakness. Per thoracic MRI T6/T7 destruction with possible osteomyelitis admitted for IP mgmt, HD#27 1. Acute paraplegia secondary to spinal cord compression Vertebral osteomyelitis with pathologic fracture T6-T7 T5-6 discitis Hx of MRSA bacteremia with multiple + BCX 04/22 to 05/02 s/[address] guided biopsy 05/29, path + abscess -Neurosurgery following, appreciate assistance. S/p: Thoracic T6 and T7 transpedicular partial corpectomies; T5-7 decompressive laminectomies; microsurgical technique on 06/05/[address] Ferro. -TLSO on when OOB -Morphine and Oxy PRN pain -ID following, appreciate assistance. Vancomycin discontinued secondary to FLORIN. Patient started on IV daptomycin on 06/20, also on Rifampin Continue 8 to 12 weeks postop. Obtain weekly CPK, LFTs, CBC, BMP. 2. FLORIN, secondary to vancomycin 06/20 Cr bumped up to 1.19, Vanc d/c'd UA neg -Creatinine trending up, 1.63 today from 1.36 -We will increase normal saline to 125ml/hour -Follow-up CMP in a.m. -Avoid nephrotoxic agents -Consider nephrology consult if creatinine continues to increase 3. Oversedation secondary to narcotic pain medications, resolved -Continue on decreased dose of Flexeril, Ativan, and oxycodone -continue to monitor and will continue to wean down narcotic medications 4. Hypertension, now hypotensive -Continue to hold Norvasc 5mg daily -Clonidine as needed with parameters -Continue to monitor BP and adjust treatment accordingly 5. Constipation, resolved CT abd/pelvis shows mild small bowel and colonic distention, mild intrahepatic and extrahepatic biliary ductal prominence and distended gallbladder, splenomegaly unchanged -Continue on Pericolace BID and Miralax daily 6. Anemia No active bleeding Hgb improved -Continue to monitor CBC as indicated -Iron studies, B12 and folate level ordered. B12 low normal at 263. Started on 1000mcg daily, continue. 7. Sacral decubitus, stage 4 -evaluated by wound care nurse. Wound care orders placed. -specialty bed -off loading maneuvers 8. Hx of IVDU, remotely UDS tested for cocaine, benzos and opiates -Patient states she last snorted cocaine 6 months ago -monitor for sx of WD 9. Depression: Cont. Cymbalta 10. DVT prophylaxis: Heparin 11. Disposition: IV fluids increased, follow-up creatinine in a.m. Code Status: full Discussed Condition With: patient,RN
[2018-06-23] MEDS: Senna/Docusate Sodium 8.6/50 MG Tablet PO SCH ×2 (08:06→21:37)
[2018-06-23] MEDS: Duloxetine 60 MG DR Capsule PO SCH (08:06)
[2018-06-23] MEDS: Famotidine 20 MG Tablet PO SCH ×2 (08:06→21:37)
[2018-06-23] MEDS: Multivitamin/Minerals Therapeutic Tablet PO SCH (08:06)
[2018-06-23] MEDS: Polyethylene Glycol 3350 17 GM Packet PO SCH (08:07)
[2018-06-23] MEDS: ALPRAZolam 0.5 MG Tablet PO PRN ×2 (08:11→21:36)
[2018-06-23] MEDS: DAPTOmycin Inj 750 MG in Sodium Chlor 0.9% Inj 100 ML IV.SIG SCH (16:09)
[2018-06-24] MEDS: Sod Chloride 0.9% Inj 1,000 ML IV.CONT SCH ×3 (00:35→17:24)
[2018-06-24] MEDS: Heparin - SQ 10,000 UNITS/ML Vial SQ SCH ×3 (05:28→23:23)
[2018-06-24] MEDS: Morphine Sulfate 60 MG SR Tablet PO SCH ×3 (05:28→23:23)
[2018-06-24 06:07] LABS: Baso % (Auto) 0.4 % (0.0-2.0); Eos # (Auto) 0.3 th/mm3 (0.0-0.4); Eos % (Auto) 6.4 % (0.0-4.0); Hematocrit 24.4 % (35.0-46.0); Hemoglobin 8.2 gm/dL (11.6-15.3); Lymph # (Auto) 1.6 th/mm3 (1.0-4.8); Lymph % (Auto) 35.7 % (9.0-44.0); Mean Corpuscular HGB Conc 33.6 % (32.0-36.0); Mean Corpuscular Hemoglobin 28.1 pg (27.0-34.0); Mean Corpuscular Volume 83.8 fL (80.0-100.0); Mean Platelet Volume 7.8 fL (7.0-11.0); Mono # (Auto) 0.5 th/mm3 (0.0-0.9); Mono % (Auto) 11.7 % (0.0-8.0); Neut % (Auto) 45.8 % (16.0-70.0); Platelet Count 264 th/mm3 (150-450); Red Blood Count 2.91 mil/mm3 (4.00-5.30); Red Cell Distribution Width 17.4 % (11.6-17.2); White Blood Count 4.4 th/mm3 (4.0-11.0)
[2018-06-24 06:37] LABS: Albumin 2.6 g/dL (3.4-5.0); Anion Gap 8 meq/L (5-15); Aspartate Aminotransferase 28 U/L (15-37); Blood Urea Nitrogen 25 mg/dL (7-18); Calcium 8.9 mg/dL (8.5-10.1); Carbon Dioxide 25.4 meq/L (21.0-32.0); Chloride 106 meq/L (98-107); Glomerular Filtration Rate 54 mL/min (>89); Glucose,Random 91 mg/dL (74-106); Potassium 4.4 meq/L (3.5-5.1); Sodium 139 meq/L (136-145)
[2018-06-24 06:41] LABS: Alanine Aminotransferase 18 U/L (10-53); Alkaline Phosphatase 144 U/L (45-117); Creatine Kinase 121 U/L (26-192); Total Protein 7.5 g/dL (6.4-8.2)
[2018-06-24] MEDS: ALPRAZolam 0.5 MG Tablet PO PRN ×2 (08:58→20:26)
[2018-06-24] MEDS: Duloxetine 60 MG DR Capsule PO SCH (09:04)
[2018-06-24] MEDS: Polyethylene Glycol 3350 17 GM Packet PO SCH (09:04)
[2018-06-24] MEDS: Multivitamin/Minerals Therapeutic Tablet PO SCH (09:05)
[2018-06-24] MEDS: Senna/Docusate Sodium 8.6/50 MG Tablet PO SCH ×2 (09:05→20:26)
[2018-06-24] MEDS: Famotidine 20 MG Tablet PO SCH ×2 (09:05→20:25)
--- NOTE | 2018-06-24 09:47 | P.PN ---
Subjective Interval history: Follow-up visit vertebral osteomyelitis, MRSA. Patient seen and examined today. Reports she is doing well. Pain is controlled. Wanting to go home. States that she has support at home for his discharge. She could have home health care to support her. She has people who will be coming in to be checking on her. Denies pain and discomfort. Denies SOB/ dyspnea. Denies chest pain, palpitations, headaches, dizziness. Denies fevers, chills, n/v/d. Denies dysuria. Physical Exam Vital signs: Vital Signs 06/23/18 12:00 06/23/18 16:00 06/23/18 20:00 Temperature 98.3 F 98.7 F 98.8 F Pulse Rate 93 H 87 94 H Respiratory Rate 20 18 18 Blood Pressure 123/63 114/56 L 124/59 L Pulse Oximetry 97 96 98 06/24/18 00:00 06/24/18 04:00 06/24/18 08:00 Temperature 98.4 F 97.9 F 98.1 F Pulse Rate 92 H 90 91 H Respiratory Rate 18 18 20 Blood Pressure 122/56 L 113/60 116/58 L Pulse Oximetry 98 99 99 Intake & Output 06/23/18 06/24/18 06/24/18 18:59 06:59 18:59 Intake Total 2580 / 2580 681 / 681 1000 / 1000 Output Total 900 / 900 Balance 1680 / 1680 681 / 681 1000 / 1000 Weight 78.7 kg Intake: IV 2100 / 2100 681 / 681 1000 / 1000 NS Inj 1,000 ML @ 125 mls/hr IV 2000 / 1999 681 / 681 1000 / 1000 .CONT .Q8H KATIE Rx#:[id number] Cubicin Inj 750 MG In NS Inj 100 / 100 100 ML @ 200 mls/hr IV.SIG Q24H KATIE Rx#:[id number] Oral 480 / 480 Output: Urine 900 / 900 Other: Date of Last Bowel Movement 06/22/18 06/23/18 06/24/18 Narrative: GENERAL: Well-nourished female, in NAD, lying comfortably in bed SKIN: Warm and dry. HEENT: Normocephalic NECK: Trachea midline. CARDIOVASCULAR: Regular rate and rhythm. S1, S2, no murmurs, rubs, or gallops RESPIRATORY: CTAx2 GASTROINTESTINAL: Abdomen soft, non-tender, nondistended. +BS. MUSCULOSKELETAL: Extremities without clubbing, cyanosis, or edema. No obvious deformities. NEUROLOGICAL: Awake and alert. No obvious cranial nerve deficits. Sensation intact bilateral lower extremities. No purposeful movement. Normal speech. - Urinary Catheter Management Female External Cath placed during this visit: no Indwelling Urethral Catheter Cath placed during this visit: yes, but has since been removed by the nurse Reason for continuing: Decision to DC catheter Insertion date: 06/05/18 Insertion time: 09: Removal date: 06/14/18 Removal time: 14:00 Results - Labs CBC & Chem 7: 06/24/18 05:30 06/24/18 05:30 Laboratory Results - last 24 hr 06/24/18 06/24/18 05:30 05:30 WBC 4.4 RBC 2.91 L Hgb 8.2 L Hct 24.4 L MCV 83.8 MCH 28.1 MCHC 33.6 RDW 17.4 H Plt Count 264 MPV 7.8 Neut % (Auto) 45.8 Lymph % (Auto) 35.7 [place] % (Auto) 11.7 H Eos % (Auto) 6.4 H Baso % (Auto) 0.4 Neut # (Auto) 2.0 Lymph # (Auto) 1.6 [place] # (Auto) 0.5 Eos # (Auto) 0.3 Baso # (Auto) 0.0 WBC Differential . Differential Comment Auto diff final Sodium 139 Potassium 4.4 Chloride 106 Carbon Dioxide 25.4 Anion Gap 8 BUN 25 H Creatinine 1.04 H Estimated GFR 54 L Random Glucose 91 Calcium 8.9 Total Bilirubin 0.2 AST 28 ALT 18 Alkaline Phosphatase 144 H Total Creatine Kinase 121 Total Protein 7.5 Albumin 2.6 L - Procedures S/p: Thoracic T6 and T7 transpedicular partial corpectomies; T5-7 decompressive laminectomies; microsurgical technique Assessment and Plan - Assessment (1) Osteomyelitis of thoracic vertebra Code(s): M46.24 - Osteomyelitis of vertebra, thoracic region Status: Acute - Plan 58-year-old female with a history of hypertension, GERD, anemia, constipation, gout, fibromyalgia, chronic pain syndrome, anxiety, depression and migraine. She presented on 05/28/2018 to the emergency room because of upper back pain and bilateral lower extremity weakness. She reports of bilateral lower extremity weakness unable to get out of bed and ambulate for 2 weeks. At the same time she complained of constant sharp severe upper back pain worse with activity different from her usual neck and lower back pain. MRI studies showed T6/T7 destruction with possible osteomyelitis. Acute paraplegia secondary to spinal cord compression Vertebral osteomyelitis with pathologic fracture T6-T7 T5-6 discitis Hx of MRSA bacteremia with multiple + BCX 04/22 to 05/02 s/[address] guided biopsy 05/29, path + abscess -Neurosurgery following, appreciate assistance. S/p: Thoracic T6 and T7 transpedicular partial corpectomies; T5-7 decompressive laminectomies; microsurgical technique on 06/05/[address] Ferro. -TLSO on when OOB -ID following, appreciate assistance. Vancomycin discontinued secondary to FLORIN. Patient started on IV daptomycin 06/20 and Rifampin. Continue 8 to 12 weeks postop. Obtain weekly CPK, LFTs, CBC, BMP. Will ask ID to finalize Dapto orders for [facility]OR[facility], secondary to vancomycin 06/20 Cr bumped up to 1.19, Vanc d/c'd UA neg -Creatinine trending up, 1.41. Improved, now 1.36 -Continue on IVF -Continue to monitor kidney function -Avoid nephrotoxic agents -We will consider nephrology consult if creatinine continues to increase Oversedation secondary to narcotic pain medications, resolved -Continue on decreased dose of Flexeril and oxycodone -continue to monitor and will continue to wean down narcotic medications Hypertension, now hypotensive -Continue to hold Norvasc 5mg daily -Clonidine as needed with parameters -Continue to monitor BP and adjust treatment accordingly Constipation, resolved CT abd/pelvis shows mild small bowel and colonic distention, mild intrahepatic and extrahepatic biliary ductal prominence and distended gallbladder, splenomegaly unchanged -continue on Pericolace BID and Miralax daily Anemia No active bleeding Hgb improved -Continue to monitor CBC as indicated -Iron studies, B12 and folate level ordered. B12 low normal at 263, on 1000mcg daily, continue. Sacral decubitus, stage 4 -evaluated by wound care nurse. Wound care orders placed. -specialty bed -off loading maneuvers Hx of IVDU, remotely UDS tested for cocaine, benzos and opiates -Patient states she last snorted cocaine 6 months ago -monitor DVT prophylaxis -Lovenox sq Code Status: Full code Discussed Condition With: Patient, nursing, CM Discharge Planning: Plan to DC home with home health care pending arrangements.
--- NOTE | 2018-06-24 12:52 | P.DCO ---
- Diagnosis (1) Paraspinal mass Status: Acute (2) Osteomyelitis of thoracic vertebra Status: Acute (3) Fracture of thoracic vertebra with spinal cord injury Status: Acute (4) Thoracic spinal stenosis Status: Acute (5) Thoracic kyphosis Status: Acute - Physical Therapy Order: Evaluate and treat - Occupational Therapy Order: Evaluate and treat - Home Health Nursing Order: Medical education, Signs/symptoms of disease process, Wound care and dressing changes, Nursing assessment with vital signs, IV medication administration Instructions: 1.Please leave puracol plus in wound bed to coccyx for 5 days,may change outer dressings of maxorb II and bordered gauze as needed for saturation or dislodgement. 2.If stool or urine contaminates puracol plus, please remove all dressing and change dressing as follows. Cleanse wound to Coccyx with normal saline and pat dry. Apply puracol plus to wound bed loosely packed. Follow by loosely packing Maxorb II gently to wound bed. Apply Cavilon skin barrier film to periwound and cover with bordered gauze. Change dressing daily. 3. Please turn patient every 2 hours from L side to R side, limiting time spent on back to P.T., meals, and any medical procedures requiring patient to be positioned to back. 4. Please obtain Airapy bed or if unavailable please order advanced IV mattress 5. Use ultra sorb pads only under patient for incontinence management, no cotton pads or briefs - Home Health Aide Order: To assist in: Bathing and personal care - Case Management Consult Yes - Certification I have seen patient Kortney Camara on 06/24/18. My clinical findings support the need for the requested home health care services because: Limited mobility due to disease progression, Deconditioned with increased weakness, Medication compliance is questionable, High risk of falls, Infection with risk of complications I certify that my clinical findings support that this patient is homebound because: Unsteady gait/balance, Non-ambulatory: confined to bed or chair, Unable to use public transportation
[2018-06-24] MEDS: DAPTOmycin Inj 750 MG in Sodium Chlor 0.9% Inj 100 ML IV.SIG SCH (15:24)
[2018-06-25] MEDS: Sod Chloride 0.9% Inj 1,000 ML IV.CONT SCH ×4 (04:50→17:00)
[2018-06-25] MEDS: Heparin - SQ 10,000 UNITS/ML Vial SQ SCH ×2 (05:48→13:21)
[2018-06-25] MEDS: Morphine Sulfate 60 MG SR Tablet PO SCH ×2 (05:49→13:22)
[2018-06-25 06:21] LABS: Baso % (Auto) 0.9 % (0.0-2.0); Eos # (Auto) 0.3 th/mm3 (0.0-0.4); Eos % (Auto) 6.5 % (0.0-4.0); Hematocrit 24.2 % (35.0-46.0); Hemoglobin 7.8 gm/dL (11.6-15.3); Lymph # (Auto) 1.6 th/mm3 (1.0-4.8); Lymph % (Auto) 36.5 % (9.0-44.0); Mean Corpuscular HGB Conc 32.4 % (32.0-36.0); Mean Corpuscular Hemoglobin 27.8 pg (27.0-34.0); Mean Corpuscular Volume 85.8 fL (80.0-100.0); Mean Platelet Volume 8.1 fL (7.0-11.0); Mono # (Auto) 0.5 th/mm3 (0.0-0.9); Mono % (Auto) 10.7 % (0.0-8.0); Neut % (Auto) 45.4 % (16.0-70.0); Platelet Count 246 th/mm3 (150-450); Red Blood Count 2.83 mil/mm3 (4.00-5.30); White Blood Count 4.3 th/mm3 (4.0-11.0)
[2018-06-25 06:39] LABS: Calcium 8.8 mg/dL (8.5-10.1); Carbon Dioxide 23.1 meq/L (21.0-32.0); Potassium 4.7 meq/L (3.5-5.1)
[2018-06-25] MEDS: Senna/Docusate Sodium 8.6/50 MG Tablet PO SCH ×2 (08:17→20:06)
[2018-06-25] MEDS: Polyethylene Glycol 3350 17 GM Packet PO SCH (08:17)
[2018-06-25] MEDS: Multivitamin/Minerals Therapeutic Tablet PO SCH (08:18)
[2018-06-25] MEDS: Duloxetine 60 MG DR Capsule PO SCH (08:18)
[2018-06-25] MEDS: Famotidine 20 MG Tablet PO SCH ×2 (08:18→20:06)
[2018-06-25] MEDS: ALPRAZolam 0.5 MG Tablet PO PRN ×2 (08:18→20:07)
--- NOTE | 2018-06-25 08:44 | P.PN ---
Subjective Interval history: Follow-up visit vertebral osteomyelitis, MRSA. Patient seen and examined today. Reports she is doing well. Pain is controlled. Requesting to go home. States that for her mental state she needs to go home. States she has full support at home for her discharge. She ask for home health care to support her. Denies pain and discomfort. Denies SOB/ dyspnea. Denies chest pain, palpitations, headaches, dizziness. Denies fevers, chills, n/v/d. Denies dysuria. Physical Exam Vital signs: Vital Signs 06/24/18 12:00 06/24/18 16:00 06/24/18 19:59 Temperature 98.2 F 97.9 F Pulse Rate 93 H 87 89 Respiratory Rate 20 20 18 Blood Pressure 126/58 L 115/57 L 116/55 L Pulse Oximetry 97 98 99 06/24/18 20:30 06/24/18 23:23 06/25/18 00:00 Temperature 98.2 F Pulse Rate 97 H 95 H Respiratory Rate 18 20 Blood Pressure 109/56 L Pulse Oximetry 96 06/25/18 00:30 06/25/18 04:00 06/25/18 06:00 Temperature 99.1 F Pulse Rate 100 H 93 H 94 H Respiratory Rate 18 Blood Pressure 115/66 Pulse Oximetry 95 06/25/18 08:00 Temperature 99.1 F Pulse Rate 95 H Respiratory Rate 20 Blood Pressure 120/57 L Pulse Oximetry 95 Intake & Output 06/24/18 06/25/18 06/25/18 18:59 06:59 18:59 Intake Total 4280 / 4280 1000 / 1000 Output Total 300 / 300 1700 / 1700 Balance 3980 / 3980 -700 / -700 Weight 89.2 kg Intake: IV 2100 / 2100 1000 / 1000 NS Inj 1,000 ML @ 125 mls/hr IV 2000 / 2000 1000 / 1000 .CONT .Q8H KATIE Rx#:[id number] Cubicin Inj 750 MG In NS Inj 100 / 100 100 ML @ 200 mls/hr IV.SIG Q24H KATIE Rx#:[id number] Oral 2180 / 2180 Output: Urine 1700 / 1700 Urine Amount (Catheter) 300 / 300 purewik 300 / 300 Other: Date of Last Bowel Movement 06/24/18 06/24/18 06/24/18 # Bowel Movements 0 1 Narrative: GENERAL: Well-nourished female, in NAD, lying comfortably in bed SKIN: Warm and dry. HEENT: Normocephalic NECK: Trachea midline. CARDIOVASCULAR: Regular rate and rhythm. S1, S2, no murmurs, rubs, or gallops RESPIRATORY: CTAx2 GASTROINTESTINAL: Abdomen soft, non-tender, nondistended. +BS. MUSCULOSKELETAL: Extremities without clubbing, cyanosis, or edema. No obvious deformities. NEUROLOGICAL: Awake and alert. No obvious cranial nerve deficits. Sensation intact bilateral lower extremities. No purposeful movement. Normal speech. - Urinary Catheter Management Female External Cath placed during this visit: no Indwelling Urethral Catheter Cath placed during this visit: yes, but has since been removed by the nurse Reason for continuing: Decision to DC catheter Insertion date: 06/05/18 Insertion time: : Removal date: 06/14/18 Removal time: 14:00 purewik Cath placed during this visit: no Results - Labs CBC & Chem 7: 06/25/18 06:00 06/25/18 06:00 Laboratory Results - last 24 hr 06/25/18 06/25/18 06:00 06:00 WBC 4.3 RBC 2.83 L Hgb 7.8 L Hct 24.2 L MCV 85.8 MCH 27.8 MCHC 32.4 RDW 18.0 H Plt Count 246 MPV 8.1 Neut % (Auto) 45.4 Lymph % (Auto) 36.5 [place] % (Auto) 10.7 H Eos % (Auto) 6.5 H Baso % (Auto) 0.9 Neut # (Auto) 2.0 Lymph # (Auto) 1.6 [place] # (Auto) 0.5 Eos # (Auto) 0.3 Baso # (Auto) 0.0 WBC Differential . Differential Comment Auto diff final Sodium 139 Potassium 4.7 Chloride 106 Carbon Dioxide 23.1 Anion Gap 10 BUN 19 H Creatinine 1.03 H Estimated GFR 55 L Random Glucose 90 Calcium 8.8 - Procedures S/p: Thoracic T6 and T7 transpedicular partial corpectomies; T5-7 decompressive laminectomies; microsurgical technique Assessment and Plan - Assessment (1) Paraspinal mass Code(s): R22.2 - Localized swelling, mass and lump, trunk Status: Acute (2) Osteomyelitis of thoracic vertebra Code(s): M46.24 - Osteomyelitis of vertebra, thoracic region Status: Acute (3) Fracture of thoracic vertebra with spinal cord injury Code(s): S24.109A - Unspecified injury at unspecified level of thoracic spinal cord, initial encounter; S22.009A - Unspecified fracture of unspecified thoracic vertebra, initial encounter for closed fracture Status: Acute (4) Thoracic spinal stenosis Code(s): M48.04 - Spinal stenosis, thoracic region Status: Acute (5) Thoracic kyphosis Code(s): M40.204 - Unspecified kyphosis, thoracic region Status: Acute - Plan 58-year-old female with a history of hypertension, GERD, anemia, constipation, gout, fibromyalgia, chronic pain syndrome, anxiety, depression and migraine. She presented on 05/28/2018 to the emergency room because of upper back pain and bilateral lower extremity weakness. She reports of bilateral lower extremity weakness unable to get out of bed and ambulate for 2 weeks. At the same time she complained of constant sharp severe upper back pain worse with activity different from her usual neck and lower back pain. MRI studies showed T6/T7 destruction with possible osteomyelitis. Acute paraplegia secondary to spinal cord compression Vertebral osteomyelitis with pathologic fracture T6-T7 T5-6 discitis Hx of MRSA bacteremia with multiple + BCX 04/22 to 05/02 s/[address] guided biopsy 05/29, path + abscess -Neurosurgery following, appreciate assistance. S/p: Thoracic T6 and T7 transpedicular partial corpectomies; T5-7 decompressive laminectomies; microsurgical technique on 06/05/[address] Ferro. -TLSO on when OOB -ID following, appreciate assistance. Vancomycin discontinued secondary to FLORIN. Patient started on IV daptomycin 06/20 and Rifampin. Continue 8 to 12 weeks postop. Obtain weekly CPK, LFTs, CBC, BMP. Will ask ID to finalize Dapto orders for [facility] FLOR[facility], secondary to vancomycin 06/20 Cr increased, Vanc d/c'd UA neg -Creatinine1.41 --> 1.36 ...-->1.04 -->1.03 -Continue to monitor kidney function -Avoid nephrotoxic agents -Consider nephrology consult if creatinine continues to increase Oversedation secondary to narcotic pain medications, resolved -Continue on decreased dose of Flexeril and oxycodone -continue to monitor and will continue to wean down narcotic medications Hypertension, now with hypotensive -Continue to hold Norvasc 5mg daily -Clonidine as needed with parameters -Continue to monitor BP and adjust treatment accordingly Constipation, resolved CT abd/pelvis shows mild small bowel and colonic distention, mild intrahepatic and extrahepatic biliary ductal prominence and distended gallbladder, splenomegaly unchanged -continue on Pericolace BID and Miralax daily Anemia No active bleeding Hgb improved -Continue to monitor CBC as indicated -Iron studies, B12 and folate level ordered. B12 low normal at 263, on 1000mcg daily, continue. Sacral decubitus, stage 4 -evaluated by wound care nurse. Wound care orders placed. -specialty bed -off loading maneuvers Hx of IVDU, remotely UDS tested for cocaine, benzos and opiates -Patient states she last snorted cocaine 6 months ago -monitor DVT prophylaxis -Lovenox sq Code Status: Full Code Discussed Condition With: Patient, nursing Discharge Planning: Plan to DC home with home health care pending arrangements.
--- NOTE | 2018-06-25 13:16 | P.DS ---
Date of admission: 05/28/18 15:51 Primary care physician: No Primary Care Physician Attending physician on discharge: Billhermelinda Jr Anticipated date of discharge: 06/25/18 Brief History from admission: This is a 58-year-old female with a history of hypertension, GERD, anemia, constipation, gout, fibromyalgia, chronic pain syndrome, anxiety, depression and migraine. She came from a local rehab facility where she was treated for generalized weakness, acute kidney injury and dehydration. She is also receiving IV Rocephin for pneumonia. 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 She also reports of sepsis secondary to pneumonia in January 2018 and was in a induced coma. She also history of polysubstance abuse UDS tested for cocaine, benzos and opiates. She presents to the emergency room because of upper back pain and bilateral lower extremity weakness. She reports of bilateral lower extremity weakness unable to get out of bed and ambulate for 2 weeks. At the same time she complained of constant sharp severe upper back pain worse with activity different from her usual neck and lower back pain. Denies recent fall. Denies numbness and incontinence. She also reports of upper abdominal discomfort which is sharp and constant worse with eating associated with abdominal distention. Denies UTI symptoms, constipation and diarrhea. In the emergency department, she was found to have destructive process involving T5-6 intervertebral disc, T6-7 intervertebral discs T6 vertebral body and T7 vertebral body characteristic of discitis and osteomyelitis. Also has a acute kyphotic deformity of T6 and T7 vertebral bodies. Discussed with neurosurgery, recommended IV antibiotics and IR consult for this biopsy. All other systems reviewed negative Patient update on day of discharge: Follow-up visit vertebral osteomyelitis, MRSA. Patient seen and examined today. Reports she is doing well. Pain is controlled. Requesting to go home. States that for her mental state she needs to go home. States she has full support at home for her discharge. She ask for home health care to support her. Denies pain and discomfort. Denies SOB/ dyspnea. Denies chest pain, palpitations, headaches, dizziness. Denies fevers, chills, n/v/d. Denies dysuria. DS: Diagnosis - Discharge Diagnosis (1) Paraspinal mass Status: Acute (2) Osteomyelitis of thoracic vertebra Status: Acute (3) Fracture of thoracic vertebra with spinal cord injury Status: Acute (4) Thoracic spinal stenosis Status: Acute (5) Thoracic kyphosis Status: Acute DS: Medications - Discharge Medications Prescriptions: alprazolam [Xanax] 0.5 mg PO BID #10 tab amlodipine [Norvasc] 5 mg PO DAILY #30 tab morphine 60 mg PO Q8H #15 tab sennosides-docusate sodium [Senna Plus] 1 tab PO BID #20 tab DS: Summary Hospital Course: 58-year-old female with a history of hypertension, GERD, anemia, constipation, gout, fibromyalgia, chronic pain syndrome, anxiety, depression and migraine. She presented on 05/28/2018 to the emergency room because of upper back pain and bilateral lower extremity weakness. She reports of bilateral lower extremity weakness unable to get out of bed and ambulate for 2 weeks. At the same time she complained of constant sharp severe upper back pain worse with activity different from her usual neck and lower back pain. MRI studies showed T6/T7 destruction with possible osteomyelitis. Acute paraplegia secondary to spinal cord compression, with vertebral osteomyelitis with pathologic fracture of T6- T7. T5-T6 discitis. Patient also has history of MRSA bacteremia with multiple positive blood cultures from 04/22-05/02. She is status post CT-guided biopsy 05/29 , pathology positive for abscess. Neurosurgery has been following the patient. She is status post thoracic T6 and T7 trends pedicular partial corpectomies, T5-7 decompressive laminectomies, microsurgical technique on 06/05/[address] Ferro. Patient will be wearing TLSO brace when out of bed. Infectious disease has been following the patient and she was placed on vancomycin but secondary to acute kidney injury this was discontinued. She was started on daptomycin 06/20 and rifampin. This needs to continue for 8-12 weeks postop as per infectious disease. She will need to obtain CPK, LFTs, CBC, BMP weekly. Her creatinine has improved significantly off vancomycin recent creatinine 1.03. Continue to avoid nephrotoxic agents. Patient also has oversedation from narcotic pain medication and her dose of Flexeril and oxycodone has been decreased and plan to wean off narcotic medications. Patient developed hypotension with previous history of hypertension. She will continue to hold Norvasc for now. She has complications of constipation during her hospitalization which bowel regimen has been provided for her. CT of the abdomen and pelvis showed mild small bowel and colonic distention, mild intrahepatic and extrahepatic biliary ductal prominence and distended gallbladder, splenomegaly is unchanged. Found to have anemia without any significant active bleeding. Might have been chronic. Patient is a low vitamin B12 and she will continue with supplementation. She has a sacral decub which has been evaluated by wound care would need a specialty bed and wound orders has been placed for her. Continue to encourage offloading maneuvers. Patient has a history of IV drug use which is remote, UDS tested for cocaine, benzos and opiates. Patient states last cocaine use was 6 months ago. [place] Prescription Drug Monitoring Database has been queried and verified prior to prescribing the controlled substance. Patient has met maximal benefits of hospitalization. She refuse placement for SNF. States she has support at home with friends who are able to take care of her. States that they will be able to lift and transfer her from bed to wheelchair and that she is able to wheel around. Poor mobility transfer. She will need extensive transfer activity therapy. She will be discharge with home health care. Patient will need to follow-up with wound care, PCP, neurosurgery for follow-up management. Continue with physical therapy at home. States she will ask her PCP to extend physical therapy. - Time Spent with Patient Total time spent providing and/or coordinating discharge services: Greater than 30 minutes Exam Vital signs: Vital Signs 06/24/18 16:00 06/24/18 19:59 06/24/18 20:30 Temperature 98.2 F 97.9 F Pulse Rate 87 89 97 H Respiratory Rate 20 18 Blood Pressure 115/57 L 116/55 L Pulse Oximetry 98 99 06/24/18 23:23 06/25/18 00:00 06/25/18 00:30 Temperature 98.2 F Pulse Rate 95 H 100 H Respiratory Rate 18 20 Blood Pressure 109/56 L Pulse Oximetry 96 06/25/18 04:00 06/25/18 06:00 06/25/18 08:00 Temperature 99.1 F 99.1 F Pulse Rate 93 H 94 H 95 H Respiratory Rate 18 20 Blood Pressure 115/66 120/57 L Pulse Oximetry 95 95 06/25/18 10:00 06/25/18 12:00 06/25/18 12:36 Temperature 98.3 F Pulse Rate 94 H 91 H 90 Respiratory Rate 20 Blood Pressure 122/64 Pulse Oximetry 98 Intake & Output 06/24/18 06/25/18 06/25/18 18:59 06:59 18:59 Intake Total 4280 / 4280 1000 / 1000 1360 / 1360 Output Total 300 / 300 1700 / 1700 4 / 4 Balance 3980 / 3980 -700 / -700 1356 / 1356 Weight 89.2 kg Intake: IV 2100 / 2100 1000 / 1000 1000 / 1000 NS Inj 1,000 ML @ 125 mls/hr IV 2000 / 2000 1000 / 1000 1000 / 1000 .CONT .Q8H KATIE Rx#:[id number] Cubicin Inj 750 MG In NS Inj 100 / 100 100 ML @ 200 mls/hr IV.SIG Q24H KATIE Rx#:[id number] Oral 2180 / 2180 360 / 360 Output: Urine 1700 / 1700 4 / 4 Urine Amount (Catheter) 300 / 300 purewik 300 / 300 Other: Date of Last Bowel Movement 06/24/18 06/24/18 06/24/18 # Bowel Movements 0 1 Narrative: GENERAL: Well-nourished female, in NAD, lying comfortably in bed SKIN: Warm and dry. HEENT: Normocephalic NECK: Trachea midline. CARDIOVASCULAR: Regular rate and rhythm. S1, S2, no murmurs, rubs, or gallops RESPIRATORY: CTAx2 GASTROINTESTINAL: Abdomen soft, non-tender, nondistended. +BS. MUSCULOSKELETAL: Extremities without clubbing, cyanosis, or edema. No obvious deformities. NEUROLOGICAL: Awake and alert. No obvious cranial nerve deficits. Sensation intact bilateral lower extremities. No purposeful movement. Normal speech. Results Procedures completed during hospitalization: S/p: Thoracic T6 and T7 transpedicular partial corpectomies; T5-7 decompressive laminectomies; microsurgical technique Completed studies during hospitalization: Pending at discharge 06/05/18 16:56 Surgical [PTH] Routine Labs on day of discharge: Labs from last 24 hours 06/25/18 06/25/18 06:00 06:00 WBC 4.3 RBC 2.83 L Hgb 7.8 L Hct 24.2 L MCV 85.8 MCH 27.8 MCHC 32.4 RDW 18.0 H Plt Count 246 MPV 8.1 Neut % (Auto) 45.4 Lymph % (Auto) 36.5 [place] % (Auto) 10.7 H Eos % (Auto) 6.5 H Baso % (Auto) 0.9 Neut # (Auto) 2.0 Lymph # (Auto) 1.6 [place] # (Auto) 0.5 Eos # (Auto) 0.3 Baso # (Auto) 0.0 WBC Differential . Differential Comment Auto diff final Sodium 139 Potassium 4.7 Chloride 106 Carbon Dioxide 23.1 Anion Gap 10 BUN 19 H Creatinine 1.03 H Estimated GFR 55 L Random Glucose 90 Calcium 8.8 Preliminary micro results at discharge 06/05/18 12:06 Fungal Culture - Preliminary Tissue - Back No growth in 2 weeks 06/05/18 12:06 Mycobacterial Culture - Preliminary Tissue - Back No growth in 2 weeks 06/05/18 11:43 Fungal Culture - Preliminary Tissue - Back No growth in 2 weeks 06/05/18 11:43 Mycobacterial Culture - Preliminary Tissue - Back No growth in 2 weeks 06/05/18 11:24 Fungal Culture - Preliminary Tissue - Back No growth in 2 weeks 06/05/18 11:24 Mycobacterial Culture - Preliminary Tissue - Back No growth in 2 weeks 05/29/18 11:45 Mycobacterial Culture - Preliminary Tissue - Back No growth in 3 weeks 05/29/18 11:45 Fungal Culture - Preliminary Tissue - Back No growth in 3 weeks - Impressions ITS Impressions Cervical Spine CT 05/28/18 13:18 CONCLUSION: 1. Degenerative disc disease and facet arthropathy as described. 2. No evidence of acute abnormality. Lumbar Spine CT 05/28/18 13:18 CONCLUSION: 1. Degenerative listhesis at L4-5 secondary to facet arthropathy. 2. No evidence of acute process, disc herniation or soft tissue inflammatory disease. Thoracic Spine CT 05/28/18 13:18 CONCLUSION: 1. Destructive process involving the T5-6 intervertebral disc, T6-7 intervertebral disc, T6 vertebral body and T7 vertebral body characteristic of discitis and osteomyelitis. An acute kyphotic deformity has developed secondary to compression deformity of the T6 and T7 vertebral bodies. 2. Significant compromise of the central spinal canal at T6-7 is noted. There is material body fragmentation with calcific densities extending into the spinal canal. Significant spinal cord compression is suspected. 3. Otherwise intact thoracic spine. Chest CTA 05/28/18 13:41 CONCLUSION: 1. No evidence of pulmonary embolism. 2. Destructive osseous process involving the T6 and T7 vertebral bodies with complete obliteration of the T6-7 intervertebral disc and significant paraspinal reactive changes. Osteomyelitis and discitis should be considered as a primary cause. 3. Small bilateral pleural effusions and peripheral consolidating airspace disease in both lower lobes. Soft Tissue Biopsy 05/29/18 00:00 CONCLUSION: 1. Uncomplicated CT guided core biopsy of the paraspinal soft tissues at T6- T7. Samples were sent for histological and microbiological evaluation.. Abdomen X-Ray 05/31/18 00:00 CONCLUSION: Nonspecific bowel gas pattern suggesting possible ileus. Abdomen/Pelvis CT 06/01/18 00:00 CONCLUSION: 1. Mild small bowel and colonic distention with multiple air-fluid levels again seen. No significant interval change. 2. Mild intrahepatic and extra hepatic biliary ductal prominence and distended gallbladder again seen. 3. Splenomegaly unchanged. 4. Destructive changes of the mid thoracic spine again seen and partially visualized. 5. Small bilateral pleural effusions and bilateral lower lung atelectasis again seen. Myelogram 06/04/18 00:00 CONCLUSION: 1. Uncomplicated total axis myelogram as above. CT scan is to be performed for further evaluation. 2. There appears to be high-grade stenosis in the region of the mid cervical spine. 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 CT scan will be obtained for further characterization. Post Myelogram CT 06/04/18 00:00 CONCLUSION: Bony destruction of finding is of osteomyelitis at the T6-T7 level causing severe spinal canal stenosis. There is extradural soft tissue density cranial and caudal to the midthoracic abnormality which may reflect inflammatory tissue is well as described above. Chest X-Ray 06/05/18 00:00 CONCLUSION: 1. Left basilar atelectasis. 2. No pneumothorax status post placement of left sided central line which has its tip in superior vena cava. 3. Minimal central pulmonary vascular congestion. Thoracic Spine X-Ray 06/05/18 00:00 CONCLUSION: 4 intraoperative films demonstrate posterior fixation of the thoracic vertebral body fracture Discharge Plan - Discharge Disposition Patient Disposition: W/Home Health Service - Discharge Condition Condition: Stable - Discharge Order Discharge Orders: Discharge Order (Routine); Ordered 06/25/18 Ordered By: Thony White - Physicians Team Primary Care Provider: Primary Care Physici,No Attending Provider: Oliver Guerrero Other Providers: Charlie Oliver MD ; Sophie Rosales MD ; [facility], ; [facility] ; [facility],Agency ; [facility] [place], Agency ; [facility],Agency ; [facility] ; [facility], ; [facility],Agency ; [facility],[place] ; [facility],Agency ; [facility],Agency ; [facility],Agency
[2018-06-25] MEDS: DAPTOmycin Inj 750 MG in Sodium Chlor 0.9% Inj 100 ML IV.SIG SCH (15:57)
[2018-06-25 21:00] VITALS: BP 137/66; PULSE 89; RESP 18; TEMP 98; O2SAT 99
[2018-06-26] MEDS: Heparin - SQ 10,000 UNITS/ML Vial SQ SCH (01:43)
[2018-06-26] MEDS: Morphine Sulfate 60 MG SR Tablet PO SCH (01:43)
[2018-06-26] MEDS: Sod Chloride 0.9% Inj 1,000 ML IV.CONT SCH (01:44)
--- NOTE | 2018-06-26 10:17 | P.PNADD ---
Addendum to Inpatient Note Additional information: carol BARDALES Pt has mild elevation of creatinine and was switched to daptomycin briefly. Creatinine back to normal WIll fu closely vanco levels and creatine - will order for q Sunday and . If worsening of renal fnx will switch to Daptomycin 10-12 mg/kg The above Plan was dw Ms Moe BARDALES
--- NOTE | 2018-06-26 10:21 | P.DCO ---
Post Hospital Infusion Therapy - Infusion Therapy Location of Infusion Therapy: Home Health Care IV Infusion Order - Patient Information Patient Weight: 89.2 kg - Diagnosis (1) Osteomyelitis of thoracic vertebra Code(s): M46.24 - Osteomyelitis of vertebra, thoracic region - Administer Medication daptomycyn Directions: q 24 hours Start Treatment: 06/26/18 Stop Treatment: 08/12/18 - Additional Information Venous Access: PICC Line Additional Instructions: [x] Peripheral flush and dressing changes per protocol [x] Implanted port and central telecommunications line installer: * Implanted port: 10 ml Normal Saline followed by 5 ml Heparin 100 units/ml Heparin flush after each use and monthly to maintain. [] May leave port accessed during therapy. [] May leave peripheral site accessed for duration of therapy. [x] If patient has SOB or respiratory distress, check oxygen saturation. If less than 90% or clinical signs of respiratory distress, administer oxygen at 2 L/min. via nasal cannula and notify physician. [x] Anaphylaxis/Reaction orders: * Stop infusion. * Keep IV line open with saline flush. * Notify physician. * Monitor vital signs every 15 minutes until symptoms resolve. * Check Oxygen saturation; Oxygen at 2 L/min. via nasal cannula if less than 90% or clinical signs of respiratory distress. * Administer diphenhydramine (Benadryl) 25 mg IV STAT, (unless patient has received as pre-med). May repeat once, if necessary. * Solu-Cortef 250 mg IVP over 30-60 seconds, use 100 mg vials for each dissolution. * Epinephrine (1mg/1 ml) 0.3 mg subcutaneously or IVP now with any signs of respiratory distress. * Check with physician for new additional pre-med orders if patient is re- challenged or re-treated. [x] May remove PICC line when treatment complete, after confirming with Physician. [x] If the patient is admitted to the hospital, the ED, or transferred via [facility] , complete transfer form including medication reconciliation order sheet. Weekly Labs: CBC w/diff, CMP, CRP, SED Rate, Serum CK Levels - Patient Information Allergies No Known Allergies Allergy (Uncoded 05/11/14 14:22)
--- NOTE | 2018-06-26 10:49 | P.PNADD ---
Addendum to Inpatient Note Reason for Addendum: Additional Documentation Additional information: Spoke and coordinated antibiotics with Dr. Rosales and Camryn Preston. All orders have been placed. Spoke with Reina from [facility] to follow up making sure patient has picked up the rifampin medication she needed for 8-10 weeks with th IV ABX. Attempted to call the patient on her home phone, 2 cell phones but was not able to get hold of her. Unable to leave message as voicemail is not activated.
== END 2018-06-25 20:54 | disposition home health service (06) ==
LOC: NEPE 11:27 → NEDA 15:51 → HCIS 19:55 → N05 05-29 21:48 → N03 06-05 15:06 → N05 06-08 13:14
PROVIDERS: ADMIT Hospitalist; ATTEND Hospitalist